=== PATIENT | female | born 1950 | race Caucasian/White ===

== ENCOUNTER 2018-09-19 17:12 | Inpatient (IN) | payer MEDICARE ==
[~2018-09-19] VITALS: Ht 165.1 cm; Wt 120.1 kg
[2018-09-19] VITALS (13 sets, daily range): BP systolic 82–125; BP diastolic 67–95
--- NOTE | ~2018-09-19 | MORECARE ---
CASE MANAGEMENT DISCHARGE SUMMARY PATIENT: GUSTABO STUART UNIT: [id number] ADM DATE: 09/19/18 AGE: 68 : 50 SEX: F ROOM/BED: D.5748 AUTHOR: LAWRENCE,DOC PHYSICIAN: REFERRING PHYSICIAN: JENNIFER DICKEY MD DATE OF SERVICE: 10/20/18 Discharge Plan Patient Name: GUSTABO STUART Facility: [facility] : 1950 Planned Disposition: Nursing Facility [facility] Cert Anticipated Discharge Date: 10/21/18 Discharge Date: Expected LOS: 32 Initial Reviewer: [id number] Initial Review Date: 09/19/2018 Generated: 10/20/18 5:57 pm Comments DCP- Discharge Planning Updated by [id number]: Dick Randle on 10/20/18 8:[address] Patient Name: GUSTABO STUART Encounter No: [id number] : 1950 Primary Insurance: MEDICARE A & B Anticipated DC Date: 10-15-2018 Planned Disposition: Nursing Facility [facility] Cert External [facility], DETENTION CARE MEDICAID BED CM LEFT MESSAGE FOR LAURENCE OF [facility] IN [place], , AND ADVISED THAT PT HAS CONTINUED TO DEMONSTRATE ABILITY TO TRANSFER TO CHAIR AND SIT FOR OVER 4 HOURS. CM FAXED UPDATE TO [facility] IN [place] VIA LAURENCE AT [phone]. [facility] IN [place] IS REVIEWING FOR PLACEMENT; THEY DO HAVE FANNIE LIFT. PATSY ADMISSIONS WORKING ON OUTPATIENT DIALYSIS ARRANGEMENT AT [facility] IN [place], THEY ALSO HAVE A LIFT. CM WAITING ON DETERMINATIONS FROM BOTH. DICK RANDLE, CASE MANAGEMENT DCP- Discharge Planning Updated by [id number]: Dick Randle on 10/15/18 11:[address] Patient Name: GUSTABO STUART Encounter No: [id number] : 1950 Primary Insurance: MEDICARE A & B Anticipated DC Date: 10-15-2018 Planned Disposition: Nursing Facility [facility] Cert External Planned Provider: [facility]; DETENTION CARE MEDICAID BED DCP follow-up note: CM CALLED LAURENCE OF [facility] IN [place], , AND ADVISED THAT PT HAS DEMONSTRATED ABILITY TO TRANSFER TO CHAIR AND SIT FOR OVER 4 HOURS. CM SPOKE TO HOMER OF [facility] ADMISSIONS AND PROVIDED UPDATE FOR [facility] DIALYSIS IN [place] CM SPOKE TO ROGE MONAE OF [facility] WHO WILL COMMUNICATE WITH [facility] ADMISSIONS WELL [facility] DIALYSIS AND PROVIDED UPDATED INFORMATION TO BOTH FROM MEDICAL CHART. CM SPOKE TO PT IN ROOM WHO IS STILL WILLING FOR PLACEMENT IN [place] AT [facility] AND WAS HOPING TO BE OUT OF THE HOSPITAL FOR THANKSGIVING. IMPORTANT MESSAGE FROM MEDICARE PROVIDED AND EXPLAINED. CM FAXED UPDATE TO [facility] IN [place] VIA LAURENCE AT [phone]. [facility] IN [place] IS REVIEWING FOR PLACEMENT; THEY DO HAVE FANNIE LIFT. [facility] ADMISSIONS WORKING ON OUTPATIENT DIALYSIS ARRANGEMENT AT [facility] IN [place], THEY ALSO HAVE A LIFT. CM WAITING ON DETERMINATIONS FROM BOTH. DICK RANDLE, CASE MANAGEMENT DCP- Discharge Planning Updated by [id number]: Dick Randle on 10/13/18 2:[address] Patient Name: GUSTABO STUART Encounter No: [id number] : 1950 Primary Insurance: MEDICARE A & B Anticipated DC Date: 09-30-2018 Planned Disposition: Nursing Facility [facility] Cert External Planned Provider: [facility]; PUBLIC RELATIONS ACCOUNT EXECUTIVE CARE MEDICAID BED DCP follow-up note: CM CALLED LAURENCE OF [facility] IN [place], , WHO ADVISED THAT [facility] MAY ACCEPT BUT PT WILL NEED TO DEMONSTRATE ABILITY TO TRANSFER TO WHEELCHAIR AND SIT FOR 3 HOURS OF DIALYSIS. [facility] HAS LIFT AVAILABLE. CM SPOKE TO RADHA OF [facility] ADMISSIONS WHO REPORTS THEY WERE WORKING ON [facility] DIALYSIS IN [place] BUT WILL SEND REFERRAL TO [facility] IN [place] THAT HAS LIFT AND MWF SCHEDULING CAPABIILITY. CM SPOKE TO PT IN ROOM WHO IS WILLING FOR PLACEMENT IN [place] TO BE CLOSER TO FAMILY IF SHE CANNOT RETURN TO [place] WHERE SHE WAS LIVING AT [facility]. CM FAXED UPDATE TO [facility] VIA [address] AT [phone]. CM SPOKE TO MARIEL OF PHYSICAL THERAPY WHO VERIFIED PT HAS BEEN UP TO SIDE OF BED BUT THEY ARE NOT ABLE TO GET PT UP TO CHAIR THEY DO NOT HAVE A LIFT. CM SPOKE TO CM PRINT FINISHER KAYLEE REGARDING LACK OF LIFT CAPABILITY THIS IS AN OBSTACLE TO PLACEMENT IN ANY FACILITY PT WILL NEED OUTPATIENT DIALYSIS AND MUST BE ABLE TO DEMONSTRATE ABILITY TO SIT FOR DURATION OF TRANSPORT AND DIALYSIS SESSION. CM WAITING PT TO DEMONSTRATE ABILITY TO TRANSFER AND SIT FOR DURATION OF TRANSPORTATION WELL FOR THREE HOURS OF DIALYSIS TREATMENT, WITH OR WITHOUT A LIFT. [facility] WILL REVIEW FOR PLACEMENT IF PT IS ABLE TO SIT FOR TRANSPORT AND DIALYSIS; THEY DO HAVE FANNIE LIFT. DAVITA ADMISSIONS WORKING ON OUTPATIENT DIALYSIS ARRANGEMENT AT [facility], THEY ALSO HAVE A LIFT. DICK RANDLE, CASE MANAGEMENT Appended by Dick Randle on 10/13/2018 15:31 CIVIL PREPAREDNESS TRAINING OFFICER: CM RECEIVED CALL FROM KRISTIAN OF [facility], , WHO ASKED FOR FAXED UPDATE. CM FAXED UPDATE TO [facility] WITH DIALYSIS RUN SHEETS THRU 10-11-18. CM FAXED UPDATE TO LAURENCE OF [facility] WITH OCCUPATIONAL THERAPY NOTE INDICATING PT HAS BEEN OUT OF BED TO CHAIR. CM TO CONTINUE TO FOLLOW AND ASSIST NEEDED. CM WAITING PT TO DEMONSTRATE ABILITY TO TRANSFER AND SIT FOR DURATION OF TRANSPORTATION WELL FOR THREE HOURS OF DIALYSIS TREATMENT, WITH OR WITHOUT A LIFT. [facility] WILL REVIEW FOR PLACEMENT IF PT IS ABLE TO SIT FOR TRANSPORT AND DIALYSIS; THEY DO HAVE FANNIE LIFT. DAVITA ADMISSIONS WORKING ON OUTPATIENT DIALYSIS ARRANGEMENT AT [facility], THEY ALSO HAVE A LIFT. DICK RANDLE, CASE MANAGEMENT DCP- Discharge Planning Updated by [id number]: Jenny Al on 10/10/18 6:[address] Late Entry 10/10/18 @ 0900 PT and OT still working with patient to get out of bed to sit in chair. Patient has to be able to sit in wheelchair and be transported to dialysis and sit in dialysis chair for 3-4hrs. CM will continue to follow and assist as needed with discharge planning / needs. DCP- Discharge Planning Updated by [id number]: Jenny Mendozar on 10/07/18 3:[address] CM spoke with Roge Monae this am. Roge stated we are at standstill until we find NH placement. Once we have NH placement then we can proceed with dialysis placement. CM spoke with patients daughter since patient isn't able to stay awake and communicate. Daughter Fran Tinajero "Nkechi" [phone]. Daughter stated that she would like NH placement as close to [place] as possible. CM explained that we would have to find placement that has fannie lift at both NH and dialysis clinic. Daughter stated that [place] was the next closest town. CM contacted [facility] in [place] [phone]. Laurence Garcia clinical Liaison [phone] fax [phone]. CM spoke with Laurence and explained situation and faxed records. Laurence stated she would be here to see patient in am. CM will continue to follow and assist as needed with discharge planning / needs. DCP- Discharge Planning Updated by [id number]: Jenny Mendozar on 10/07/18 9:[address] CM spoke with Roge Monae this am. She stated that she had been out of the office but now was back. Roge stated that she would speak to Radha and would take care of everything from this point with placement for dialysis. CM will continue to follow and assist as needed with discharge planning / needs. DCP- Discharge Planning Updated by [id number]: Jenny Servando on 10/07/18 9:[address] Late Entry 10/06/18 @ 1600 JAIMIE spoke with Radha with [facility]. Radha stated she needed clarification on patients name. Radha stated she needed dialysis flowsheets from last three treatments faxed to her. Radha stated that she was trying to get placement at [facility] dialysis clinic. CM will continue to follow and assist as needed with discharge planning / needs. DCP- Discharge Planning Updated by [id number]: Dick Randle on 10/03/18 3:[address] Patient Name: GUSTABO STUART Encounter No: [id number] : 1950 Primary Insurance: MEDICARE A & B Anticipated DC Date: 09-30-2018 Planned Disposition: Nursing Facility [facility] Cert External Planned Provider: TO BE DETERMINED DCP follow-up note: CM RECEIVED CALL FROM NAYANA OF [facility], THEY ONLY HAVE TTS AVAILABLE AND HAVE TALKED TO [facility] SALES REPRESENTATIVE GROCERIES WHO INFORMED THEM THAT THEY ARE NOT GOING TO DRIVE PT AN HOUR AWAY FOR DIALYSIS FROM THE DETENTION. CM SPOKE TO AUDI AT [facility] WHO INFORMED CM THAT THEY ARE GOING TO HAVE A SISTER FACILITY REPRESENTIVE CONTACT CM TO ASSIST IN PLACING PT IN [place] SO THAT PT CAN GO TO A FACILITY THAT HAS CAPABILITY OF FANNIE LIFT AND TO A DILAYSIS UNIT THAT HAS CAPABILITY OF FANNIE LIFT. CM SPOKE TO PT IN ROOM, DISCUSSED MOVING TO ANOTHER DETENTION, PT REPORTS SHE WILL TRY WITH THERAPY AND IS WILLING FOR NEW DETENTION IF NEEDED, CHOICE SIGNED FOR [facility]. CM DISCUSSED LTACH, PT ALSO IN AGREEMENT WITH LTACH AT [facility] IF IT WILL HELP GET HER HOME SOONER. CM CALLED AND SPOKE TO LAITH OF [facility], , DISCUSSED NEED FOR REHAB, WOUND CARE AND DIALYSIS WITH GOAL TO SIT FOR DIALYSIS IN OUTPATIENT SETTING TO RETURN TO A DETENTION FOR CONTINUED DETENTION CARE. REFERRAL FAXED TO [facility] AT [phone]. CM CALLED AND SPOKE TO [facility], , OF [facility], REPRESENTING [facility] FACILITIES. THEY CONTACT WITH [facility] AND DO NOT HAVE ONE WITH [facility]. THEY WILL SCREEN PT FOR THEIR HOMES, BUT PT WILL HAVE TO HAVE CAPACITY TO SIT IN CHAIR FOR THREE HOURS OF OUTPATIENT DIALYSIS AND TRANSPORTATION. CM FAXED REFERRAL TO [facility] AT [phone]. PT WILL NEED TO BE ABLE TO TRANSFER FROM BED TO CHAIR AND WILL ALSO NEED TO BE ABLE TO SIT SAFELY FOR TRANSPORT AND 3 HOURS OF DIALYSIS TREATMENT FOR OUTPATIENT DIALYSIS CLINIC ARRANGEMENT. CM WAITING ON DETENTION EVALUATIONS FOR ADMISSION, [facility] EVALUATION FOR ADMISSION AND WILL NEED TO SEND APPLICATION FOR [facility] FOR DIALYSIS UNIT CONSIDERATION AND TO FIND OUT IF THEY HAVE FANNIE LIFT CAPABILITY. DICK RANDLE, CASE MANAGEMENT DCP- Discharge Planning Updated by [id number]: Dick Randle on 10/02/18 3:[address] Patient Name: GUSTABO STUART Encounter No: [id number] : 1950 Primary Insurance: MEDICARE A & B Anticipated DC Date: 09-30-2018 Planned Disposition: Nursing Facility [facility] Cert External Planned Provider: [facility], LONG TERM CARE MEDICAID BED DCP follow-up note: CM CALLED ELZBIETA OF [facility] ADMISSIONS, , WAS INFORMED THEY DO NOT HAVE ANY REQUEST TO ARRANGE OUTPATIENT DIALYSIS CLINIC ARRANGEMENT. CM FAXED ADMISSIONS INTAKE FORM WITH INITIAL DOCUMENTS TO [facility] AT [phone]. CM NOTIFIED MERLYN OF [facility] IN [place], [facility], , OF NEED FOR OUTPATIENT DIALYSIS; CM WAS ADVISED THAT PT WILL NEED TO BE ABLE TO TRANSFER TO WHEELCHAIR AND CHAIR WELL BE ABLE TO TOLERATE SITTING IN CHAIR FOR THREE HOURS OF DIALYSIS. THE CENTER PREFERS MWF, MORNING SCHEDULE. CM WAITING FOR OUTPATIENT DIALYSIS CLINIC ARRANGEMENT. NOTE THAT PT WILL HAVE TO BE ABLE TO TRANSFER TO CHAIR AND SIT IN CHAIR FOR THREE HOURS FOR OUTPATIENT CLINIC PARTICIPATION. FOR DISCHARGE, FAX DISCHARGE INFORMATION TO [facility] IN [place], ; NURSE REPORT TO BE CALLED TO [phone]. PT TO TRANSPORT VIA AMBULANCE. Oracle Bpm Consultant: Dick Randle Appended by Dick Randle on 10/02/2018 16:49 CIVIL PREPAREDNESS TRAINING OFFICER: CM RECEIVED CALL FROM RADHA OF [facility] ADMISSIONS; [facility] DIALYSIS IS NOT CERTIFIED FOR LIFT AND HAS NO AVAILABLE OPENINGS AT THIS TIME. [facility] IS LIFT CERTIFIED BUT HAS NO AVAILABLE OPENINGS. RADHA WILL SEND REFERRAL TO [facility] D[facility] IN [place] BUT THEY ONLY HAVE TTS SLOTS AVAILABLE. RADHA WILL ESCULATE REFERRAL FOR [facility] DIALYSIS ARRANGMENT IN [place] THAT A CHAIR BECOMES AVAILABLE AND PT WILL NOT REQUIRE LIFT TRANSFER. PT WILL NEED TO BE ABLE TO TRANSFER FROM BED TO CHAIR AND WILL ALSO NEED TO BE ABLE TO SIT SAFELY FOR TRANSPORT AND 3 HOURS OF DIALYSIS TREATMENT FOR OUTPATIENT DIALYSIS CLINIC ARRANGEMENT. DICK RANDLE, CASE MANAGEMENT DCP- Discharge Planning Updated by [id number]: Dick Randle on 09/29/18 12:[address] Patient Name: GUSTABO STUART Encounter No: [id number] : 1950 Primary Insurance: MEDICARE A & B Anticipated DC Date: 09-30-2018 Planned Disposition: Nursing Facility [facility] Cert External Planned Provider: [facility] [place], LONG TERM CARE MEDICAID BED DCP follow-up note: CM RECEIVED ORDER FOR OUTPATIENT DIALYSIS CLINIC ARRANGEMENT; RN JAIMIE HAMMONDS HAS INFORMED ROGE MONAE OF [facility] FOR OUTPATIENT DAILYSIS CLINIC ARRANGEMENT IN [place]. CM FAXED UPDATE TO MERLYN OF [facility] IN [place], [facility], . ROGE INFORMED CM THAT PT NEEDS PERM DIALYSIS CATHETER AND AN ACCURATE WEIGHT. PT HAS ORDERS FOR CATHETER, CM NOTIFIED BEDSIDE NURSE OF NEED FOR ACCURATE WEIGHT; PT IS BED CONFINED AND ON SPECIALTY BED AT THIS TIME. CM WAITING FOR DIALYSIS CATHETER PLACEMENT WELL OUTPATIENT DIALYSIS CLINIC ARRANGEMENT. FOR DISCHARGE, FAX DISCHARGE INFORMATION TO [facility] IN [place], ; NURSE REPORT TO BE CALLED TO [phone]. PT TO TRANSPORT VIA AMBULANCE. Oracle Bpm Consultant: Dick Randle DCP- Discharge Planning Updated by [id number]: Dick Randle on 09/26/18 4:[address] Patient Name: GUSTABO STUART Admission Status: Elective Accout number: [id number] Admission Date: 09-19-2018 : 1950 Admission Diagnosis:ACUTE RESPIRATORY FAILURE WITH HYPOXIA Attending: JENNIFER DICKEY Current LOS: 7 Anticipated DC Date: Planned Disposition: Nursing Facility [facility] Cert Primary Insurance: MEDICARE A & B PLANNED EXTERNAL PROVIDER: [facility] [place], LONG TERM CARE MEDICAID BED Discharge Planning Comments: CM MET WITH PT IN ROOM TO DISCUSS DISCHARGE PLANNING AND NEEDS. PT REPORTS LIVING AT A DETENTION IN [place], SHE CANNOT REMEMBER THE NAME OF THE PLACE. PT REPORTS BEING CONFINED TO BED BUT THE FACILITY HAS A LIFT TO [employer] PUZZLE MAKER PT TO A WHEELCHAIR. PT REPORTS HAVING BIPAP, NEBULIZER AND OXYGEN AT THE FACILITY. PT REPORTS HAVING ASSISTANCE WITH EVERYTHING BUT EATING, WHICH SHE DOES HERSELF. PT ASKED THAT IF FAMILY CALLS, TELL THEM TO BRING HER CLOTHES AND CELL PHONE. CM DISCUSSED AVAILABILITY OF HOME HEALTH, REHAB SERVICES AND MEDICAL EQUIPMENT. PT DENIES DISCHARGE NEEDS, REPORTS SHE WILL DISCHARGE BACK TO FACILITY WHERE SHE LIVES. CM CALLED [facility] IN [place], [facility], ; CM SPOKE TO MERLYN WHO REPORTS PT IS IN PUBLIC RELATIONS ACCOUNT EXECUTIVE CARE AND PROVIDED EMERGENCY CONTACT INFORMATION FOR PT'S FAMILY MEMBERS; CM NOTED IN CASE MANAGEMENT ASSESSMENT CHECKLIST. MERLYN VERIFIED PT HAS OXYGEN, NEBULUZER AND BIPAP IN FACILITY, THEY WILL ACCEPT BACK FOR CONTINUED DETENTION CARE AT HOSPITAL DISCHARGE. FOR DISCHARGE, FAX DISCHARGE INFORMATION TO [facility] IN [place], ; NURSE REPORT TO BE CALLED TO [phone]. PT TO TRANSPORT VIA AMBULANCE. Oracle Bpm Consultant: Dick Randle DCP- Discharge Planning Updated by [id number]: Jenny Servando on 09/23/18 3:[address] CM attempted to visit with patient. Patient is currently on BiPap and getting dialysis at this time. She is unable to speak with me at this time. No family available at this time. CM will continue to follow and assist as needed with discharge planning / needs. DCPIA - Discharge Planning Initial Assessment Updated by [id number]: Dick Randle on 09/26/18 4:23 pm * Is the patient Alert and Oriented? Yes * How many steps to enter\\exit or inside your home? NONE * PCP [facility], PATROL DRIVER * Pharmacy [facility]) * Preadmission Environment [employer] Longterm * Facility Name [facility] T [phone] * ADLs Partial Dependent * Partial ADLs (Assistance needed) Bathing Dressing Medication Management Toileting Transfers * Equipment BIPAP Hospital Bed Fannie Lift Nebulizer Oxygen Wheelchair * Other Equipment ALL MEDICAL EQUIPMENT PROVIDED BY FACILITY * List name and contact numbers for known caregivers / representatives who currently or will assist patient after discharge: EDGARD JEREZ, MOTHER IN LAW, KAVEH CASILLAS, DTR, NICK SAUER, SPOUSE, * Verbal permission to speak to the caregivers and representatives has been obtained from the patient. Yes * Community resources currently utilized None * Please name any agencies selected above. NONE * Additional services required to return to the preadmission environment? No * Can the patient safely return to the preadmission environment? Yes * Has this patient been hospitalized within the prior 30 days at any hospital? No Coverage Notice Reviewer: [id number] Rex Randle Notice Issued Date-Time: 10/03/2018 11:30 Notice Type: Patient Choice Letter Notice Delivered To: Patient Relationship to Patient: Reconciler Name: Delivery Method: HAND - Hand Delivered Veda Days: Prior Verbal Notification: Recipient Understood Notice: Recipient Signature: Med Rec Note Co-signed by Attending: Coverage Notice Comment: FABRICIO UMANZOR: [facility] Reviewer: [id number] Rex Randle Notice Issued Date-Time: 10/15/2018 10:20 Notice Type: IM Discharge Notice Notice Delivered To: Patient Relationship to Patient: Reconciler Name: Delivery Method: HAND - Hand Delivered Veda Days: Prior Verbal Notification: Recipient Understood Notice: Yes Recipient Signature: Yes Med Rec Note Co-signed by Attending: Coverage Notice Comment: Last DP export: 10/20/18 8:30 Patient Name: GUSTABO STUART Page [id number] at 1657 All edits/amendments must be made on the electronic document DICTATION DATE: 10/20/181656 OFFICE MANAGER EXECUTIVE ASSISTANT: HELDER 10/20/181656 RPT#: [id number] DC DATE: STATUS: [facility] [address] [place] [address] END OF REPORT
--- NOTE | ~2018-09-19 | MORECARE ---
CASE MANAGEMENT DISCHARGE SUMMARY PATIENT: GUSTABO STUART UNIT: [id number] ADM DATE: 09/19/18 AGE: 68 : 50 SEX: F ROOM/BED: D.7208 AUTHOR: LAWRENCE,DOC PHYSICIAN: REFERRING PHYSICIAN: JENNIFER DICKEY MD DATE OF SERVICE: 10/20/18 Discharge Plan Patient Name: GUSTABO STUART Facility: [facility] : 1950 Planned Disposition: Nursing Facility [facility] Cert Anticipated Discharge Date: 10/15/18 Discharge Date: Expected LOS: 26 Initial Reviewer: [id number] Initial Review Date: 09/19/2018 Generated: 10/20/18 10:30 am Comments DCP- Discharge Planning Updated by [id number]: Dick Randle on 10/20/18 8:[address] Patient Name: GUSTABO STUART Encounter No: [id number] : 1950 Primary Insurance: MEDICARE A & B Anticipated DC Date: 10-15-2018 Planned Disposition: Nursing Facility [facility] Cert External [facility]ICA[facility] BED CM LEFT MESSAGE FOR LAURENCE OF [facility] IN [place], , AND ADVISED THAT PT HAS CONTINUED TO DEMONSTRATE ABILITY TO TRANSFER TO CHAIR AND SIT FOR OVER 4 HOURS. CM FAXED UPDATE TO [facility] IN [place] VIA LAURENCE AT [phone]. [facility] IN [facility] IS REVIEWING FOR PLACEMENT; THEY DO HAVE FANNIE LIFT. PATSY ADMISSIONS WORKING ON OUTPATIENT DIALYSIS ARRANGEMENT AT [facility] IN [place], THEY ALSO HAVE A LIFT. CM WAITING ON DETERMINATIONS FROM BOTH. DICK RANDLE, CASE MANAGEMENT DCP- Discharge Planning Updated by [id number]: Dick Randle on 10/15/18 11:[address] Patient Name: GUSTABO STUART Encounter No: [id number] : 1950 Primary Insurance: MEDICARE A & B Anticipated DC Date: 10-15-2018 Planned Disposition: Nursing Facility [facility] Cert External Planned Provider: [facility]; [employer] MEDICAID BED DCP follow-up note: CM CALLED LAURENCE OF [facility] IN [place], , AND ADVISED THAT PT HAS DEMONSTRATED ABILITY TO TRANSFER TO CHAIR AND SIT FOR OVER 4 HOURS. CM SPOKE TO HOMER OF [facility] ADMISSIONS AND PROVIDED UPDATE FOR [facility] IN [place] CM SPOKE TO ROGE MONAE OF [facility] WHO WILL COMMUNICATE WITH [facility] ADMISSIONS WELL [facility] AND PROVIDED UPDATED INFORMATION TO BOTH FROM MEDICAL CHART. CM SPOKE TO PT IN ROOM WHO IS STILL WILLING FOR PLACEMENT IN [place] AT [facility] AND WAS HOPING TO BE OUT OF THE HOSPITAL FOR THANKSGIVING. IMPORTANT MESSAGE FROM MEDICARE PROVIDED AND EXPLAINED. CM FAXED UPDATE TO [facility] IN [place] VIA LAURENCE AT [phone]. [facility] IN [facility] IS REVIEWING FOR PLACEMENT; THEY DO HAVE FANNIE LIFT. [facility] ADMISSIONS WORKING ON OUTPATIENT DIALYSIS ARRANGEMENT AT [facility] IN [place], THEY ALSO HAVE A LIFT. CM WAITING ON DETERMINATIONS FROM BOTH. DICK RANDLE, CASE MANAGEMENT DCP- Discharge Planning Updated by [id number]: Dick Randle on 10/13/18 2:[address] Patient Name: GUSTABO STUART Encounter No: [id number] : 1950 Primary Insurance: MEDICARE A & B Anticipated DC Date: 09-30-2018 Planned Disposition: Nursing Facility [facility] Cert External Planned Provider: [facility]; [facility] MEDICAID BED DCP follow-up note: CM CALLED LAURENCE OF [facility] IN [place], , WHO ADVISED THAT [facility] MAY ACCEPT BUT PT WILL NEED TO DEMONSTRATE ABILITY TO TRANSFER TO WHEELCHAIR AND SIT FOR 3 HOURS OF DIALYSIS. [facility] HAS LIFT AVAILABLE. CM SPOKE TO RADHA OF [facility] ADMISSIONS WHO REPORTS THEY WERE WORKING ON [facility] IN [place] BUT WILL SEND REFERRAL TO [facility] IN [place] THAT HAS LIFT AND MWF SCHEDULING CAPABIILITY. CM SPOKE TO PT IN ROOM WHO IS WILLING FOR PLACEMENT IN [place] TO BE CLOSER TO FAMILY IF SHE CANNOT RETURN TO [place] WHERE SHE WAS LIVING AT [facility]. CM FAXED UPDATE TO [facility] VIA [facility] AT [phone]. CM SPOKE TO MARIEL OF PHYSICAL THERAPY WHO VERIFIED PT HAS BEEN UP TO SIDE OF BED BUT THEY ARE NOT ABLE TO GET PT UP TO CHAIR THEY DO NOT HAVE A LIFT. CM SPOKE TO CM EYELET CUTTER KAYLEE REGARDING LACK OF LIFT CAPABILITY THIS IS AN OBSTACLE TO PLACEMENT IN ANY FACILITY PT WILL NEED OUTPATIENT DIALYSIS AND MUST BE ABLE TO DEMONSTRATE ABILITY TO SIT FOR DURATION OF TRANSPORT AND DIALYSIS SESSION. CM WAITING PT TO DEMONSTRATE ABILITY TO TRANSFER AND SIT FOR DURATION OF TRANSPORTATION WELL FOR THREE HOURS OF DIALYSIS TREATMENT, WITH OR WITHOUT A LIFT. [facility] WILL REVIEW FOR PLACEMENT IF PT IS ABLE TO SIT FOR TRANSPORT AND DIALYSIS; THEY DO HAVE FANNIE LIFT. DAVITA ADMISSIONS WORKING ON OUTPATIENT DIALYSIS ARRANGEMENT AT [facility], THEY ALSO HAVE A LIFT. DICK RANDLE, CASE MANAGEMENT Appended by Dick Randle on 10/13/2018 15:31 LAND DEVELOPMENT PROJECT MANAGER: CM RECEIVED CALL FROM KRISTIAN OF [facility], , WHO ASKED FOR FAXED UPDATE. CM FAXED UPDATE TO [facility] WITH DIALYSIS RUN SHEETS THRU 10-11-18. CM FAXED UPDATE TO LAURENCE OF [facility] WITH OCCUPATIONAL THERAPY NOTE INDICATING PT HAS BEEN OUT OF BED TO CHAIR. CM TO CONTINUE TO FOLLOW AND ASSIST NEEDED. CM WAITING PT TO DEMONSTRATE ABILITY TO TRANSFER AND SIT FOR DURATION OF TRANSPORTATION WELL FOR THREE HOURS OF DIALYSIS TREATMENT, WITH OR WITHOUT A LIFT. [facility] WILL REVIEW FOR PLACEMENT IF PT IS ABLE TO SIT FOR TRANSPORT AND DIALYSIS; THEY DO HAVE FANNIE LIFT. DAVITA ADMISSIONS WORKING ON OUTPATIENT DIALYSIS ARRANGEMENT AT [facility], THEY ALSO HAVE A LIFT. DICK RANDLE, CASE MANAGEMENT DCP- Discharge Planning Updated by [id number]: Jenny Al on 10/10/18 6:[address] Late Entry 10/10/18 @ 0900 PT and OT still working with patient to get out of bed to sit in chair. Patient has to be able to sit in wheelchair and be transported to dialysis and sit in dialysis chair for 3-4hrs. CM will continue to follow and assist as needed with discharge planning / needs. DCP- Discharge Planning Updated by [id number]: Jenny Mendozar on 10/07/18 3:[address] CM spoke with Roge Monae this am. Roge stated we are at standstill until we find NH placement. Once we have NH placement then we can proceed with dialysis placement. CM spoke with patients daughter since patient isn't able to stay awake and communicate. Daughter Fran Tinajero "Nkechi" [phone]. Daughter stated that she would like NH placement as close to [place] as possible. CM explained that we would have to find placement that has fannie lift at both NH and dialysis clinic. Daughter stated that [place] was the next closest town. CM contacted [facility] in [place] [phone]. Laurence Garcia clinical Liaison [phone] fax [phone]. CM spoke with Laurence and explained situation and faxed records. Laurence stated she would be here to see patient in am. CM will continue to follow and assist as needed with discharge planning / needs. DCP- Discharge Planning Updated by [id number]: Jenny Mendozar on 10/07/18 9:[address] CM spoke with Roge Monae this am. She stated that she had been out of the office but now was back. Roge stated that she would speak to Radha and would take care of everything from this point with placement for dialysis. CM will continue to follow and assist as needed with discharge planning / needs. DCP- Discharge Planning Updated by [id number]: Jenny Servando on 10/07/18 9:[address] Late Entry 10/06/18 @ 1600 JAIMIE spoke with Radha with [facility]. Radha stated she needed clarification on patients name. Radha stated she needed dialysis flowsheets from last three treatments faxed to her. Radha stated that she was trying to get placement at [facility] dialysis clinic. CM will continue to follow and assist as needed with discharge planning / needs. DCP- Discharge Planning Updated by [id number]: Dick Randle on 10/03/18 3:[address] Patient Name: GUSTABO STUART Encounter No: [id number] : 1950 Primary Insurance: MEDICARE A & B Anticipated DC Date: 09-30-2018 Planned Disposition: Nursing Facility [facility] Cert External Planned Provider: TO BE DETERMINED DCP follow-up note: CM RECEIVED CALL FROM NAYANA OF [facility], THEY ONLY HAVE TTS AVAILABLE AND HAVE TALKED TO [facility] GROUND DEFENCE OFFICER WHO INFORMED THEM THAT THEY ARE NOT GOING TO DRIVE PT AN HOUR AWAY FOR DIALYSIS FROM THE LONG TERM. CM SPOKE TO AUDI AT [facility] WHO INFORMED CM THAT THEY ARE GOING TO HAVE A SISTER FACILITY REPRESENTIVE CONTACT CM TO ASSIST IN PLACING PT IN [place] SO THAT PT CAN GO TO A FACILITY THAT HAS CAPABILITY OF FANNIE LIFT AND TO A DILAYSIS UNIT THAT HAS CAPABILITY OF FANNIE LIFT. CM SPOKE TO PT IN ROOM, DISCUSSED MOVING TO ANOTHER LONG TERM, PT REPORTS SHE WILL TRY WITH THERAPY AND IS WILLING FOR NEW LONG TERM IF NEEDED, CHOICE SIGNED FOR [facility] AND [facility]. CM DISCUSSED LTACH, PT ALSO IN AGREEMENT WITH LTACH AT [facility] IF IT WILL HELP GET HER HOME SOONER. CM CALLED AND SPOKE TO LAITH OF [facility], , DISCUSSED NEED FOR REHAB, WOUND CARE AND DIALYSIS WITH GOAL TO SIT FOR DIALYSIS IN OUTPATIENT SETTING TO RETURN TO A LONG TERM FOR CONTINUED [employer] CARE. REFERRAL FAXED TO [facility] AT [phone]. CM CALLED AND SPOKE TO BECKY DEL CASTILLO, , OF [facility], REPRESENTING [facility] AND [facility] PENITENTIARY FACILITIES. THEY CONTACT WITH [facility] AND DO NOT HAVE ONE WITH [facility]. THEY WILL SCREEN PT FOR THEIR HOMES, BUT PT WILL HAVE TO HAVE CAPACITY TO SIT IN CHAIR FOR THREE HOURS OF OUTPATIENT DIALYSIS AND TRANSPORTATION. CM FAXED REFERRAL TO BEC[facility] AT [phone]. PT WILL NEED TO BE ABLE TO TRANSFER FROM BED TO CHAIR AND WILL ALSO NEED TO BE ABLE TO SIT SAFELY FOR TRANSPORT AND 3 HOURS OF DIALYSIS TREATMENT FOR OUTPATIENT DIALYSIS CLINIC ARRANGEMENT. CM WAITING ON LONG TERM EVALUATIONS FOR ADMISSION, [facility] EVALUATION FOR ADMISSION AND WILL NEED TO SEND APPLICATION FOR [facility] FOR DIALYSIS UNIT CONSIDERATION AND TO FIND OUT IF THEY HAVE FANNIE LIFT CAPABILITY. DICK RANDLE, CASE MANAGEMENT DCP- Discharge Planning Updated by [id number]: Dick Randle on 10/02/18 3:[address] Patient Name: GUSTABO STUART Encounter No: [id number] : 1950 Primary Insurance: MEDICARE A & B Anticipated DC Date: 09-30-2018 Planned Disposition: Nursing Facility [facility] Cert External Planned Provider: [facility], LONG TERM CARE MEDICAID BED DCP follow-up note: CM CALLED ELZBIETA OF [facility] ADMISSIONS, , WAS INFORMED THEY DO NOT HAVE ANY REQUEST TO ARRANGE OUTPATIENT DIALYSIS CLINIC ARRANGEMENT. CM FAXED ADMISSIONS INTAKE FORM WITH INITIAL DOCUMENTS TO [facility] AT [phone]. CM NOTIFIED MERLYN OF [facility] IN [place], [facility], , OF NEED FOR OUTPATIENT DIALYSIS; CM WAS ADVISED THAT PT WILL NEED TO BE ABLE TO TRANSFER TO WHEELCHAIR AND CHAIR WELL BE ABLE TO TOLERATE SITTING IN CHAIR FOR THREE HOURS OF DIALYSIS. THE CENTER PREFERS MWF, MORNING SCHEDULE. CM WAITING FOR OUTPATIENT DIALYSIS CLINIC ARRANGEMENT. NOTE THAT PT WILL HAVE TO BE ABLE TO TRANSFER TO CHAIR AND SIT IN CHAIR FOR THREE HOURS FOR OUTPATIENT CLINIC PARTICIPATION. FOR DISCHARGE, FAX DISCHARGE INFORMATION TO [facility] IN [place], ; NURSE REPORT TO BE CALLED TO [phone]. PT TO TRANSPORT VIA AMBULANCE. Cotton Presser: Dick Randle Appended by Dick Randle on 10/02/2018 16:49 LAND DEVELOPMENT PROJECT MANAGER: CM RECEIVED CALL FROM RADHA OF [facility] ADMISSIONS; [facility] IS NOT CERTIFIED FOR LIFT AND HAS NO AVAILABLE OPENINGS AT THIS TIME. [facility] IS LIFT CERTIFIED BUT HAS NO AVAILABLE OPENINGS. RAHDA WILL SEND REFERRAL TO [facility] IN [place] BUT THEY ONLY HAVE TTS SLOTS AVAILABLE. RADHA WILL ESCULATE REFERRAL FOR [facility] D[facility] ARRANGMENT IN [place] THAT A CHAIR BECOMES AVAILABLE AND PT WILL NOT REQUIRE LIFT TRANSFER. PT WILL NEED TO BE ABLE TO TRANSFER FROM BED TO CHAIR AND WILL ALSO NEED TO BE ABLE TO SIT SAFELY FOR TRANSPORT AND 3 HOURS OF DIALYSIS TREATMENT FOR OUTPATIENT DIALYSIS CLINIC ARRANGEMENT. DICK RANDLE, CASE MANAGEMENT DCP- Discharge Planning Updated by [id number]: Dick Randle on 09/29/18 12:[address] Patient Name: GUSTABO STUART Encounter No: [id number] : 1950 Primary Insurance: MEDICARE A & B Anticipated DC Date: 09-30-2018 Planned Disposition: Nursing Facility [facility] Cert External Planned Provider: [facility] [place], LONG TERM CARE MEDICAID BED DCP follow-up note: CM RECEIVED ORDER FOR OUTPATIENT DIALYSIS CLINIC ARRANGEMENT; RN JAIMIE HAMMONDS HAS INFORMED ROGE MONAE OF [facility] FOR OUTPATIENT DAILYSIS CLINIC ARRANGEMENT IN [place]. CM FAXED UPDATE TO MERLYN OF [facility] IN [place], [facility], . ROGE INFORMED CM THAT PT NEEDS PERM DIALYSIS CATHETER AND AN ACCURATE WEIGHT. PT HAS ORDERS FOR CATHETER, CM NOTIFIED BEDSIDE NURSE OF NEED FOR ACCURATE WEIGHT; PT IS BED CONFINED AND ON SPECIALTY BED AT THIS TIME. CM WAITING FOR DIALYSIS CATHETER PLACEMENT WELL OUTPATIENT DIALYSIS CLINIC ARRANGEMENT. FOR DISCHARGE, FAX DISCHARGE INFORMATION TO [facility] IN [place], ; NURSE REPORT TO BE CALLED TO [phone]. PT TO TRANSPORT VIA AMBULANCE. Cotton Presser: Dick Randle DCP- Discharge Planning Updated by [id number]: Dick Randle on 09/26/18 4:[address] Patient Name: GUSTABO STUART Admission Status: Elective Accout number: [id number] Admission Date: 09-19-2018 : 1950 Admission Diagnosis:ACUTE RESPIRATORY FAILURE WITH HYPOXIA Attending: JENNIFER DICKEY Current LOS: 7 Anticipated DC Date: Planned Disposition: Nursing Facility [facility] Cert Primary Insurance: MEDICARE A & B PLANNED EXTERNAL PROVIDER: [facility] [place], LONG TERM CARE MEDICAID BED Discharge Planning Comments: CM MET WITH PT IN ROOM TO DISCUSS DISCHARGE PLANNING AND NEEDS. PT REPORTS LIVING AT A LONG TERM IN [place], SHE CANNOT REMEMBER THE NAME OF THE PLACE. PT REPORTS BEING CONFINED TO BED BUT THE FACILITY HAS A LIFT TO FORMULATOR PT TO A WHEELCHAIR. PT REPORTS HAVING BIPAP, NEBULIZER AND OXYGEN AT THE FACILITY. PT REPORTS HAVING ASSISTANCE WITH EVERYTHING BUT EATING, WHICH SHE DOES HERSELF. PT ASKED THAT IF FAMILY CALLS, TELL THEM TO BRING HER CLOTHES AND CELL PHONE. CM DISCUSSED AVAILABILITY OF HOME HEALTH, REHAB SERVICES AND MEDICAL EQUIPMENT. PT DENIES DISCHARGE NEEDS, REPORTS SHE WILL DISCHARGE BACK TO FACILITY WHERE SHE LIVES. CM CALLED [facility] IN [place], [facility], ; CM SPOKE TO MERLYN WHO REPORTS PT IS IN [facility] AND PROVIDED EMERGENCY CONTACT INFORMATION FOR PT'S FAMILY MEMBERS; CM NOTED IN CASE MANAGEMENT ASSESSMENT CHECKLIST. MERLYN VERIFIED PT HAS OXYGEN, NEBULUZER AND BIPAP IN FACILITY, THEY WILL ACCEPT BACK FOR CONTINUED [facility] CARE AT HOSPITAL DISCHARGE. FOR DISCHARGE, FAX DISCHARGE INFORMATION TO [facility] IN [place], ; NURSE REPORT TO BE CALLED TO [phone]. PT TO TRANSPORT VIA AMBULANCE. Cotton Presser: Dick Randle DCP- Discharge Planning Updated by [id number]: Jenny Servando on 09/23/18 3:[address] CM attempted to visit with patient. Patient is currently on BiPap and getting dialysis at this time. She is unable to speak with me at this time. No family available at this time. CM will continue to follow and assist as needed with discharge planning / needs. DCPIA - Discharge Planning Initial Assessment Updated by [id number]: Dick Randle on 09/26/18 4:23 pm * Is the patient Alert and Oriented? Yes * How many steps to enter\\exit or inside your home? NONE * PCP [facility] * Pharmacy [facility] FAC[facility]) * Preadmission Environment Long-Term Senior Living * Facility Name [facility] T [phone] * ADLs Partial Dependent * Partial ADLs (Assistance needed) Bathing Dressing Medication Management Toileting Transfers * Equipment BIPAP Hospital Bed Fannie Lift Nebulizer Oxygen Wheelchair * Other Equipment ALL MEDICAL EQUIPMENT PROVIDED BY FACILITY * List name and contact numbers for known caregivers / representatives who currently or will assist patient after discharge: EDGARD JEREZ, MOTHER IN LAW, KAVEH CASILLAS, DTR, NICK SAUER, SPOUSE, * Verbal permission to speak to the caregivers and representatives has been obtained from the patient. Yes * Community resources currently utilized None * Please name any agencies selected above. NONE * Additional services required to return to the preadmission environment? No * Can the patient safely return to the preadmission environment? Yes * Has this patient been hospitalized within the prior 30 days at any hospital? No Coverage Notice Reviewer: [id number] Rex Randle Notice Issued Date-Time: 10/03/2018 11:30 Notice Type: Patient Choice Letter Notice Delivered To: Patient Relationship to Patient: Programmer Name: Delivery Method: HAND - Hand Delivered Veda Days: Prior Verbal Notification: Recipient Understood Notice: Recipient Signature: Med Rec Note Co-signed by Attending: Coverage Notice Comment: FABRICIO UMANZOR: [facility] Reviewer: [id number] Rex Randle Notice Issued Date-Time: 10/15/2018 10:20 Notice Type: IM Discharge Notice Notice Delivered To: Patient Relationship to Patient: Programmer Name: Delivery Method: HAND - Hand Delivered Veda Days: Prior Verbal Notification: Recipient Understood Notice: Yes Recipient Signature: Yes Med Rec Note Co-signed by Attending: Coverage Notice Comment: Last DP export: 10/15/18 12:02 Patient Name: GUSTABO STUART Page [id number] at 0930 All edits/amendments must be made on the electronic document DICTATION DATE: 10/20/18928 MEMBERSHIP COORDINATOR: HELDER 10/20/18928 RPT#: [id number] DC DATE: STATUS: ADM IN [facility] [address] [place] [address] END OF REPORT
--- NOTE | ~2018-09-19 | MORECARE ---
CASE MANAGEMENT DISCHARGE SUMMARY PATIENT: GUSTABO STUART UNIT: [id number] ADM DATE: 09/19/18 AGE: 68 : 50 SEX: F ROOM/BED: D.9109 AUTHOR: LAWRENCE,DOC PHYSICIAN: REFERRING PHYSICIAN: JENNIFER DICKEY MD DATE OF SERVICE: 10/02/18 Discharge Plan Patient Name: GUSTABO STUART Facility: [facility] : 1950 Planned Disposition: Nursing Facility [facility] Cert Anticipated Discharge Date: 09/30/18 Discharge Date: Expected LOS: 11 Initial Reviewer: [email or web address] Initial Review Date: 09/19/2018 Generated: 10/02/18 1:16 pm Comments DCP- Discharge Planning Updated by [email or web address]: Gerardo Oliveros on 09/29/18 12:[address] Patient Name: GUSTABO STUART Encounter No: [id number] : 1950 Primary Insurance: MEDICARE A & B Anticipated DC Date: 09-30-2018 Planned Disposition: Nursing Facility [facility] Cert External Planned Provider: [facility], LONG TERM CARE MEDICAID BED DCP follow-up note: JAIMIE RECEIVED ORDER FOR OUTPATIENT DIALYSIS CLINIC ARRANGEMENT; RN JAIMIE HAMMONDS HAS INFORMED ROGE MONAE OF PATIENT [facility] FOR OUTPATIENT DAILYSIS CLINIC ARRANGEMENT IN [place]. CM FAXED UPDATE TO MERLYN OF [facility] IN [place], . ROGE INFORMED CM THAT PT NEEDS PERM DIALYSIS CATHETER AND AN ACCURATE WEIGHT. PT HAS ORDERS FOR CATHETER, CM NOTIFIED BEDSIDE NURSE OF NEED FOR ACCURATE WEIGHT; PT IS BED CONFINED AND ON SPECIALTY BED AT THIS TIME. CM WAITING FOR DIALYSIS CATHETER PLACEMENT WELL OUTPATIENT DIALYSIS CLINIC ARRANGEMENT. FOR DISCHARGE, FAX DISCHARGE INFORMATION TO [facility] IN [place], ; NURSE REPORT TO BE CALLED TO [phone]. PT TO TRANSPORT VIA AMBULANCE. Club Manager: Gerardo Oliveros DCP- Discharge Planning Updated by [id number]: Gerardo Oliveros on 09/26/18 4:[address] Patient Name: GUSTABO STUART Admission Status: Elective Accout number: [id number] Admission Date: 09-19-2018 : 1950 Admission Diagnosis:ACUTE RESPIRATORY FAILURE WITH HYPOXIA Attending: JENNIFER DICKEY Current LOS: 7 Anticipated DC Date: Planned Disposition: Nursing Facility [facility] Primary Insurance: MEDICARE A & B PLANNED EXTERNAL PROVIDER: [facility], [place], LONG TERM CARE MEDICAID BED Discharge Planning Comments: CM MET WITH PT IN ROOM TO DISCUSS DISCHARGE PLANNING AND NEEDS. PT REPORTS LIVING AT A LONG-TERM IN [place], SHE CANNOT REMEMBER THE NAME OF THE PLACE. PT REPORTS BEING CONFINED TO BED BUT THE FACILITY HAS A LIFT TO CAMPUS SECURITY OFFICER PT TO A WHEELCHAIR. PT REPORTS HAVING BIPAP, NEBULIZER AND OXYGEN AT THE FACILITY. PT REPORTS HAVING ASSISTANCE WITH EVERYTHING BUT EATING, WHICH SHE DOES HERSELF. PT ASKED THAT IF FAMILY CALLS, TELL THEM TO BRING HER CLOTHES AND CELL PHONE. CM DISCUSSED AVAILABILITY OF HOME HEALTH, REHAB SERVICES AND MEDICAL EQUIPMENT. PT DENIES DISCHARGE NEEDS, REPORTS SHE WILL DISCHARGE BACK TO FACILITY WHERE SHE LIVES. CM CALLED [facility] IN [place], ; CM SPOKE TO MERLYN WHO REPORTS PT IS IN ENERGY ASSISTANT CARE AND PROVIDED EMERGENCY CONTACT INFORMATION FOR PT'S FAMILY MEMBERS; CM NOTED IN CASE MANAGEMENT ASSESSMENT CHECKLIST. MERLYN VERIFIED PT HAS OXYGEN, NEBULUZER AND BIPAP IN FACILITY, THEY WILL ACCEPT BACK FOR CONTINUED ENERGY ASSISTANT CARE AT HOSPITAL DISCHARGE. FOR DISCHARGE, FAX DISCHARGE INFORMATION TO [facility] IN [place], ; NURSE REPORT TO BE CALLED TO [phone]. PT TO TRANSPORT VIA AMBULANCE. Club Manager: Gerardo Oliveros DCP- Discharge Planning Updated by [id number]: Jenny Al on 09/23/18 3:[address] CM attempted to visit with patient. Patient is currently on BiPap and getting dialysis at this time. She is unable to speak with me at this time. No family available at this time. CM will continue to follow and assist as needed with discharge planning / needs. DCPIA - Discharge Planning Initial Assessment Updated by [email or web address]: Gerardo Oliveros on 09/26/18 4:23 pm * Is the patient Alert and Oriented? Yes * How many steps to enter\exit or inside your home? NONE * [facility] * Pharmacy [facility] * Preadmission Environment [employer] Custodial * [facility] [phone] * ADLs Partial Dependent * Partial ADLs (Assistance needed) Bathing Dressing Medication Management Toileting Transfers * Equipment BIPAP Hospital Bed Fannie Lift Nebulizer Oxygen Wheelchair * Other Equipment ALL MEDICAL EQUIPMENT PROVIDED BY FACILITY * List name and contact numbers for known caregivers / representatives who currently or will assist patient after discharge: EDGARD JEREZ, MOTHER IN LAW, KAVEH CASILLAS, DTR, NICK SAUER, SPOUSE, * Verbal permission to speak to the caregivers and representatives has been obtained from the patient. Yes * Community resources currently utilized None * Please name any agencies selected above. NONE * Additional services required to return to the preadmission environment? No * Can the patient safely return to the preadmission environment? Yes * Has this patient been hospitalized within the prior 30 days at any hospital? No External Providers External Provider: OTHER-OTHER Next Contact Date: 10/03/2018 Service Request Date: Service Type: Resolution: Reviewer: Comments: Last DP export: 09/29/18 12:06 p Patient Name: GUSTABO STUART Page [id number] at 1216 All edits/amendments must be made on the electronic document DICTATION DATE: 10/02/18 1215 CHIEF CONTROLLER TOWER: HELDER 10/02/18 1215 RPT#: [id number] DC DATE: STATUS: ADM IN [facility] [address] [place] [address] END OF REPORT
--- NOTE | ~2018-09-19 | OP ---
PATIENT NAME: GUSTABO STUART MEDICAL RECORD: [id number] :[birth year] LOCATION[facility] D.2311 ADMISSION DATE:09/19/18 SURGEON: BARBARA MILES MD DATE OF OPERATION: 09/20/2018 PREOPERATIVE DIAGNOSES: 1. Acute renal failure. 2. Morbid obesity. 3. Respiratory failure, on BiPAP. 4. Diabetes mellitus. POSTOPERATIVE DIAGNOSES: 1. Acute renal failure. 2. Morbid obesity. 3. Respiratory failure, on BiPAP. 4. Diabetes mellitus. PROCEDURE: Right subclavian vein Trialysis catheter placement over a wire. SURGEON: Barbara Miles MD REPORT OF PROCEDURE: The patient's right chest and indwelling central venous line were prepped and draped in sterile fashion. A 5 cc of 1% lidocaine was infused into the surrounding tissue. A wire was advanced through the distal port. The indwelling catheter was removed and a new triple-lumen 20-cm Trialysis catheter was inserted. This was flushed with normal saline and then sutured into place with 4-0 nylons. COMPLICATIONS: None. CONDITION: Stable. ANESTHESIA: Local. BLOOD LOSS: Minimal. Procedure done at the bedside. TRANSINT:[id number] Voice Confirmation ID: [id number] DOCUMENT ID: [id number] BARBARA MILES MD at 0916 CC: [id number] DICTATION DATE: 09/20/18 1427 [facility] REGISTERED NURSE: 09/20/18 1452 ADM IN [facility] [address] [place] [address]
--- NOTE | ~2018-09-19 | OP ---
PATIENT NAME: GUSTABO STUART MEDICAL RECORD: [id number] :[birth year] LOCATION:[facility] D.CV02 ADMISSION DATE:09/19/18 SURGEON: RANDALL MILES MD DATE OF OPERATION: 10/03/2018 PREOPERATIVE DIAGNOSES: 1. Oqgtf-bs-rfbajyl renal failure. 2. Morbid obesity. 3. Diabetes mellitus. 4. Acute respiratory failure with hypoxia. 5. Anasarca. 6. Hyperlipidemia. POSTOPERATIVE DIAGNOSES: 1. Ltxgf-qn-opwvgkd renal failure. 2. Morbid obesity. 3. Diabetes mellitus. 4. Acute respiratory failure with hypoxia. 5. Anasarca. 6. Hyperlipidemia. PROCEDURE: Right upper extremity brachiocephalic AV fistula placement. SURGEON: Randall Milse MD REPORT OF PROCEDURE: The patient's right upper extremity was prepped and draped in sterile fashion. Using ultrasound guidance, we visualized the patient's right cephalic vein progressing from the elbow up towards the shoulder. This appeared to be adequate in size and there was no sign of any noncompressible segments. The skin incision was then made just distal to the antecubital fossa and electrocautery was used to dissect through the subcutaneous tissues. We opened up the flexor retinaculum and dissected down around the patient's brachial artery and the antecubital/cephalic vein. Once these vessels were visualized, then we placed vessel loops around the artery proximally and distally. The vein had 2 branches coming off it. The more superior branch was ligated with 2-0 silks and the inferior aspect was ligated with 2-0 silk and transected in an oblique fashion. A total of 5000 of heparin was given IV and then we flushed the vein proximally with heparin flush. We then opened up the vein longitudinally and flushed the vessel proximally and distally after cleaning it out of some of the atherosclerotic changes which were present. The vessel had good pulsatile flow and was adequate caliber and size for an anastomosis. An end-to-side anastomosis was then performed using running 7-0 Prolenes. At the conclusion of this, there was one segment of bleeding, which was oversewn with a cjbfyl-qg-fopqh 7-0 Prolene. Following this, there was no sign of any active bleeding. The patient had a palpable thrill through the vessel little proximal to the elbow. I inspected the area with a Doppler and with ultrasound. It appeared there was good flow in the vessel. At this point, we irrigated out the wound and reapproximated the subcutaneous tissues with interrupted 3-0 Vicryls. The skin was then closed with running subcutaneous 5-0 Monocryl and dressed appropriately. COMPLICATIONS: None. CONDITION: Stable. OPERATIVE REPORT [id number] GUSTABO STUART ANESTHESIA: General endotracheal. BLOOD LOSS: 50 mL. TRANSINT:[id number] Voice Confirmation ID: [id number] DOCUMENT ID: [id number] RANDALL MILES MD at 1219 CC: [id number] DICTATION DATE: 10/03/18 1502 EXTRACTIONS TECHNOLOGIST: 10/03/18 2149 ADM IN [place] [id number] [place] [address]
--- NOTE | ~2018-09-19 | MORECARE ---
CASE MANAGEMENT DISCHARGE SUMMARY PATIENT: GUSTABO STUART UNIT: [id number] ADM DATE: 09/19/18 AGE: 68 : 50 SEX: F ROOM/BED: D.2311 AUTHOR: NIRAV BRAVO PHYSICIAN: REFERRING PHYSICIAN: JENNIFER DICKEY MD DATE OF SERVICE: 09/23/18 Discharge Plan Patient Name: GUSTABO STUART Facility: [facility]:[place] : 1950 Planned Disposition: Anticipated Discharge Date: Discharge Date: Expected LOS: Initial Reviewer: [email or web address] Initial Review Date: 09/19/2018 Generated: 09/23/18 4:11 pm Comments DCP- Discharge Planning Updated by [email or web address]: Jenny Al on 09/23/18 2:[address] CM attempted to visit with patient. Patient is currently on BiPap and getting dialysis at this time. She is unable to speak with me at this time. No family available at this time. CM will continue to follow and assist as needed with discharge planning / needs. Last DP export: 09/23/18 2:01 Patient Name: GUSTABO STUART Page [id number] at 1511 All edits/amendments must be made on the electronic document DICTATION DATE: 09/23/18 151 ADOBE DEVELOPER: HELDER 09/23/18 1510 RPT#: [id number] DC DATE: STATUS: ADM IN [facility] [address] [place] [address] END OF REPORT
--- NOTE | ~2018-09-19 | MORECARE ---
CASE MANAGEMENT DISCHARGE SUMMARY PATIENT: GUSTABO STUART UNIT: [id number] ADM DATE: 09/19/18 AGE: 68 : 50 SEX: F ROOM/BED: D.0869 AUTHOR: LAWRENCE,DOC PHYSICIAN: REFERRING PHYSICIAN: JENNIFER DICKEY MD DATE OF SERVICE: 10/13/18 Discharge Plan Patient Name: GUSTABO STUART Facility: [facility]:[place] : 1950 Planned Disposition: Nursing Facility [facility] Cert Anticipated Discharge Date: 09/30/18 Discharge Date: Expected LOS: 11 Initial Reviewer: [id number] Initial Review Date: 09/19/2018 Generated: 10/13/18 4:26 pm Comments DCP- Discharge Planning Updated by [id number]: Dick Randle on 10/13/18 10:[address] Patient Name: GUSTABO STUART Encounter No: [id number] : 1950 Primary Insurance: MEDICARE A & B Anticipated DC Date: 09-30-2018 Planned Disposition: Nursing Facility [facility] Cert External Planned Provider: [facility]; PENITENTIARY CARE MEDICAID BED DCP follow-up note: JAIMIE CALLED [facility] [place], , WHO ADVISED THAT [facility] MAY ACCEPT BUT PT WILL NEED TO DEMONSTRATE ABILITY TO TRANSFER TO WHEELCHAIR AND SIT FOR 3 HOURS OF DIALYSIS. [facility] HAS LIFT AVAILABLE. JAIMIE SPOKE TO RADHA [facility] WHO REPORTS THEY WERE WORKING ON [facility] IN [place] BUT WILL SEND REFERRAL TO [facility] IN [place] THAT HAS LIFT AND MWF SCHEDULING CAPABIILITY. JAIMIE SPOKE TO PT IN ROOM WHO IS WILLING FOR PLACEMENT IN [place] TO BE CLOSER TO FAMILY IF SHE CANNOT RETURN TO [place] WHERE SHE WAS LIVING AT [facility]. CM FAXED UPDATE TO [facility] IN [place] VIA LAURENCE AT [phone]. JAIMIE SPOKE TO MARIEL OF PHYSICAL [facility]ER[facility] WHO VERIFIED PT HAS BEEN UP TO SIDE OF BED BUT THEY ARE NOT ABLE TO GET PT UP TO CHAIR THEY DO NOT HAVE A LIFT. CM SPOKE TO CM CAFE ASSISTANT KAYLEE REGARDING LACK OF LIFT CAPABILITY THIS IS AN OBSTACLE TO PLACEMENT IN ANY FACILITY PT WILL NEED OUTPATIENT DIALYSIS AND MUST BE ABLE TO DEMONSTRATE ABILITY TO SIT FOR DURATION OF TRANSPORT AND DIALYSIS SESSION. CM WAITING PT TO DEMONSTRATE ABILITY TO TRANSFER AND SIT FOR DURATION OF TRANSPORTATION WELL FOR THREE HOURS OF DIALYSIS TREATMENT, WITH OR WITHOUT A LIFT. [facility] IN [facility] WILL REVIEW FOR PLACEMENT IF PT IS ABLE TO SIT FOR TRANSPORT AND DIALYSIS; THEY DO HAVE FANNIE LIFT. PATSY SAUCEDA WORKING ON OUTPATIENT DIALYSIS ARRANGEMENT AT [facility] IN [place], THEY ALSO HAVE A LIFT. DICK RANDLE, CASE MANAGEMENT DCP- Discharge Planning Updated by [id number]: Jenny Al on 10/10/18 6:[address] Late Entry 10/10/18 @ 0900 PT and OT still working with patient to get out of bed to sit in chair. Patient has to be able to sit in wheelchair and be transported to dialysis and sit in dialysis chair for 3-4hrs. CM will continue to follow and assist as needed with discharge planning / needs. DCP- Discharge Planning Updated by [id number]: Jenny Al on 10/07/18 3:[address] CM spoke with Roge Monae this am. Roge stated we are at standstill until we find NH placement. Once we have NH placement then we can proceed with dialysis placement. CM spoke with patients daughter since patient isn't able to stay awake and communicate. Daughter Fran Tinajero "Nkechi" [phone]. Daughter stated that she would like NH placement as close to [place] as possible. CM explained that we would have to find placement that has fannie lift at both [place] and dialysis clinic. Daughter stated that [place] was the next closest town. CM contacted [facility] in [place] [phone]. Laurence Garcia clinical Liaison [phone] fax [phone]. JAIMIE spoke with Laurence and explained situation and faxed records. Laurence stated she would be here to see patient in am. CM will continue to follow and assist as needed with discharge planning / needs. DCP- Discharge Planning Updated by [id number]: Jenny Al on 10/07/18 9:[address] CM spoke with Roge Monae this am. She stated that she had been out of the office but now was back. Roge stated that she would speak to Radha and would take care of everything from this point with placement for dialysis. CM will continue to follow and assist as needed with discharge planning / needs. DCP- Discharge Planning Updated by [id number]: Jenny Al on 10/07/18 9:[address] Late Entry 10/06/18 @ 1600 CM spoke with Radha with [facility]. Radha stated she needed clarification on patients name. Radha stated she needed dialysis flowsheets from last three treatments faxed to her. Radha stated that she was trying to get placement at [facility] dialysis clinic. CM will continue to follow and assist as needed with discharge planning / needs. DCP- Discharge Planning Updated by [id number]: Dick Arlin on 10/03/18 3:[address] Patient Name: GUSTABO STUART Encounter No: [id number] : 1950 Primary Insurance: MEDICARE A & B Anticipated DC Date: 09-30-2018 Planned Disposition: Nursing Facility [facility] Cert External Planned Provider: TO BE DETERMINED DCP follow-up note: CM RECEIVED CALL FROM NAYANA OF [facility], THEY ONLY HAVE TTS AVAILABLE AND HAVE TALKED TO [facility] MANUFACTURER'S SERVICE REPRESENTATIVE WHO INFORMED THEM THAT THEY ARE NOT GOING TO DRIVE PT AN HOUR AWAY FOR DIALYSIS FROM THE LONG TERM. CM SPOKE TO AUDI AT [facility] WHO INFORMED CM THAT THEY ARE GOING TO HAVE A SISTER FACILITY REPRESENTIVE CONTACT CM TO ASSIST IN PLACING PT IN [place] SO THAT PT CAN GO TO A FACILITY THAT HAS CAPABILITY OF FANNIE LIFT AND TO A DILAYSIS UNIT THAT HAS CAPABILITY OF FANNIE LIFT. CM SPOKE TO PT IN ROOM, DISCUSSED MOVING TO ANOTHER LONG TERM, PT REPORTS SHE WILL TRY WITH THERAPY AND IS WILLING FOR NEW LONG TERM IF NEEDED, CHOICE SIGNED FOR KEANU JJ AT [facility]. CM DISCUSSED LTACH, PT ALSO IN AGREEMENT WITH LTACH AT [facility] IF IT WILL HELP GET HER HOME SOONER. CM CALLED AND SPOKE TO LAITH OF [facility], , DISCUSSED NEED FOR REHAB, WOUND CARE AND DIALYSIS WITH GOAL TO SIT FOR DIALYSIS IN OUTPATIENT SETTING TO RETURN TO A LONG TERM FOR CONTINUED PHYSICAL SCIENCES PROFESSOR CARE. REFERRAL FAXED TO [facility] AT [phone]. CM CALLED AND SPOKE TO [facility], , OF [facility] AND [facility] AT [facility] THEY CONTACT WITH [facility] AND DO NOT HAVE ONE WITH DAVITA. THEY WILL SCREEN PT FOR THEIR HOMES, BUT PT WILL HAVE TO HAVE CAPACITY TO SIT IN CHAIR FOR THREE HOURS OF OUTPATIENT DIALYSIS AND TRANSPORTATION. CM FAXED REFERRAL TO [facility] AT [phone]. PT WILL NEED TO BE ABLE TO TRANSFER FROM BED TO CHAIR AND WILL ALSO NEED TO BE ABLE TO SIT SAFELY FOR TRANSPORT AND 3 HOURS OF DIALYSIS TREATMENT FOR OUTPATIENT DIALYSIS CLINIC ARRANGEMENT. CM WAITING ON LONG TERM EVALUATIONS FOR ADMISSION, [facility] EVALUATION FOR ADMISSION AND WILL NEED TO SEND APPLICATION FOR [facility] FOR DIALYSIS UNIT CONSIDERATION AND TO FIND OUT IF THEY HAVE FANNIE LIFT CAPABILITY. DICK RANDLE, CASE MANAGEMENT DCP- Discharge Planning Updated by [id number]: Dick Randle on 10/02/18 3:[address] Patient Name: GUSTABO STUART Encounter No: [id number] : 1950 Primary Insurance: MEDICARE A & B Anticipated DC Date: 09-30-2018 Planned Disposition: Nursing Facility [facility] Cert External Planned Provider: [facility], LONG TERM CARE MEDICAID BED DCP follow-up note: CM CALLED ELZBIETA OF [facility] ADMISSIONS, , WAS INFORMED THEY DO NOT HAVE ANY REQUEST TO ARRANGE OUTPATIENT DIALYSIS CLINIC ARRANGEMENT. CM FAXED ADMISSIONS INTAKE FORM WITH INITIAL DOCUMENTS TO [facility] AT [phone]. CM NOTIFIED MERLYN OF [facility] IN [place], , OF NEED FOR OUTPATIENT DIALYSIS; CM WAS ADVISED THAT PT WILL NEED TO BE ABLE TO TRANSFER TO WHEELCHAIR AND CHAIR WELL BE ABLE TO TOLERATE SITTING IN CHAIR FOR THREE HOURS OF DIALYSIS. THE CENTER PREFERS MWF, MORNING SCHEDULE. CM WAITING FOR OUTPATIENT DIALYSIS CLINIC ARRANGEMENT. NOTE THAT PT WILL HAVE TO BE ABLE TO TRANSFER TO CHAIR AND SIT IN CHAIR FOR THREE HOURS FOR OUTPATIENT CLINIC PARTICIPATION. FOR DISCHARGE, FAX DISCHARGE INFORMATION TO [facility] IN [place], ; NURSE REPORT TO BE CALLED TO [phone]. PT TO TRANSPORT VIA AMBULANCE. Vp Care Management: Dick Randle Appended by Dick Randle on 10/02/2018 16:49 HAND WOVEN CARPET AND RUG MENDER: CM RECEIVED CALL FROM RADHA OF [facility] ADMISSIONS; [facility] IS NOT CERTIFIED FOR LIFT AND HAS NO AVAILABLE OPENINGS AT THIS TIME. [facility] IS LIFT CERTIFIED BUT HAS NO AVAILABLE OPENINGS. RADHA WILL SEND REFERRAL TO [facility] IN [place] BUT THEY ONLY HAVE TTS SLOTS AVAILABLE. RADHA WILL ESCULATE REFERRAL FOR [facility]RANGMENT IN [place] THAT A CHAIR BECOMES AVAILABLE AND PT WILL NOT REQUIRE LIFT TRANSFER. PT WILL NEED TO BE ABLE TO TRANSFER FROM BED TO CHAIR AND WILL ALSO NEED TO BE ABLE TO SIT SAFELY FOR TRANSPORT AND 3 HOURS OF DIALYSIS TREATMENT FOR OUTPATIENT DIALYSIS CLINIC ARRANGEMENT. DICK RANDLE, CASE MANAGEMENT DCP- Discharge Planning Updated by [id number]: Dick Randle on 09/29/18 12:[address] Patient Name: GUSTABO STUART Encounter No: [id number] : 1950 Primary Insurance: MEDICARE A & B Anticipated DC Date: 09-30-2018 Planned Disposition: Nursing Facility [facility] Cert External Planned Provider: [facility], [place], PENITENTIARY CARE MEDICAID BED DCP follow-up note: JAIMIE RECEIVED ORDER FOR OUTPATIENT DIALYSIS CLINIC ARRANGEMENT; RN JAIMIE HAMMONDS HAS INFORMED ROGE MONAE OF PATIENT [facility] FOR OUTPATIENT DAILYSIS CLINIC ARRANGEMENT IN [place]. CM FAXED UPDATE TO MERLYN OF [facility] IN [place], . ROGE INFORMED CM THAT PT NEEDS PERM DIALYSIS CATHETER AND AN ACCURATE WEIGHT. PT HAS ORDERS FOR CATHETER, CM NOTIFIED BEDSIDE NURSE OF NEED FOR ACCURATE WEIGHT; PT IS BED CONFINED AND ON SPECIALTY BED AT THIS TIME. CM WAITING FOR DIALYSIS CATHETER PLACEMENT WELL OUTPATIENT DIALYSIS CLINIC ARRANGEMENT. FOR DISCHARGE, FAX DISCHARGE INFORMATION TO [facility] IN [place], ; NURSE REPORT TO BE CALLED TO [phone]. PT TO TRANSPORT VIA AMBULANCE. Vp Care Management: Dick Randle DCP- Discharge Planning Updated by [id number]: Dick Randle on 09/26/18 4:[address] Patient Name: GUSTABO STUART Admission Status: Elective Accout number: [id number] Admission Date: 09-19-2018 : 1950 Admission Diagnosis:ACUTE RESPIRATORY FAILURE WITH HYPOXIA Attending: JENNIFER DICKEY Current LOS: 7 Anticipated DC Date: Planned Disposition: Nursing Facility [facility] Primary Insurance: MEDICARE A & B PLANNED EXTERNAL PROVIDER: [facility], [place], LONG TERM CARE MEDICAID BED Discharge Planning Comments: CM MET WITH PT IN ROOM TO DISCUSS DISCHARGE PLANNING AND NEEDS. PT REPORTS LIVING AT A LONG TERM IN [place], SHE CANNOT REMEMBER THE NAME OF THE PLACE. PT REPORTS BEING CONFINED TO BED BUT THE FACILITY HAS A LIFT TO RECEIVER/LABORER PT TO A WHEELCHAIR. PT REPORTS HAVING BIPAP, NEBULIZER AND OXYGEN AT THE FACILITY. PT REPORTS HAVING ASSISTANCE WITH EVERYTHING BUT EATING, WHICH SHE DOES HERSELF. PT ASKED THAT IF FAMILY CALLS, TELL THEM TO BRING HER CLOTHES AND CELL PHONE. CM DISCUSSED AVAILABILITY OF HOME HEALTH, REHAB SERVICES AND MEDICAL EQUIPMENT. PT DENIES DISCHARGE NEEDS, REPORTS SHE WILL DISCHARGE BACK TO FACILITY WHERE SHE LIVES. CM CALLED [facility] IN [place] [place] [facility], ; CM SPOKE TO MERLYN WHO REPORTS PT IS IN PHYSICAL SCIENCES PROFESSOR CARE AND PROVIDED EMERGENCY CONTACT INFORMATION FOR PT'S FAMILY MEMBERS; CM NOTED IN CASE MANAGEMENT ASSESSMENT CHECKLIST. MERLYN VERIFIED PT HAS OXYGEN, NEBULUZER AND BIPAP IN FACILITY, THEY WILL ACCEPT BACK FOR CONTINUED PHYSICAL SCIENCES PROFESSOR CARE AT HOSPITAL DISCHARGE. FOR DISCHARGE, FAX DISCHARGE INFORMATION TO [facility] IN [place], ; NURSE REPORT TO BE CALLED TO [phone]. PT TO TRANSPORT VIA AMBULANCE. Vp Care Management: Dick Randle DCP- Discharge Planning Updated by [id number]: Jenny Al on 09/23/18 3:[address] CM attempted to visit with patient. Patient is currently on BiPap and getting dialysis at this time. She is unable to speak with me at this time. No family available at this time. CM will continue to follow and assist as needed with discharge planning / needs. DCPIA - Discharge Planning Initial Assessment Updated by [id number]: Dick Randle on 09/26/18 4:23 pm * Is the patient Alert and Oriented? Yes * How many steps to enter\\exit or inside your home? 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 APPRENTICE * Pharmacy [facility] * Preadmission Environment [facility] * [phone] * ADLs Partial Dependent * Partial ADLs (Assistance needed) Bathing Dressing Medication Management Toileting Transfers * Equipment BIPAP Hospital Bed Fannie Lift Nebulizer Oxygen Wheelchair * Other Equipment ALL MEDICAL EQUIPMENT PROVIDED BY FACILITY * List name and contact numbers for known caregivers / representatives who currently or will assist patient after discharge: EDGARD JEREZ, MOTHER IN LAW, KAVEH CASILLAS, DTR, NICK SAUER, SPOUSE, * Verbal permission to speak to the caregivers and representatives has been obtained from the patient. Yes * Community resources currently utilized None * Please name any agencies selected above. NONE * Additional services required to return to the preadmission environment? No * Can the patient safely return to the preadmission environment? Yes * Has this patient been hospitalized within the prior 30 days at any hospital? No External Providers External Provider: OTHER-OTHER Next Contact Date: 10/13/2018 Service Request Date: Service Type: Resolution: Reviewer: Comments: Coverage Notice Reviewer: [id number] - Dick Randle Notice Issued Date-Time: 10/03/2018 11:30 Notice Type: Patient Choice Letter Notice Delivered To: Patient Relationship to Patient: Financial Report Service Sales Agent Name: Delivery Method: HAND - Hand Delivered Veda Days: Prior Verbal Notification: Recipient Understood Notice: Recipient Signature: Med Rec Note Co-signed by Attending: Coverage Notice Comment: ERNAFABRICIO [place]: [facility] Last DP export: 10/13/18 10:21 Patient Name: GUSTABO STUART Page [id number] at 1526 All edits/amendments must be made on the electronic document DICTATION DATE: 10/13/181524 MANNEQUIN MAKER: HELDER 10/13/181524 RPT#: [id number] DC DATE: STATUS: ADM IN [facility] [address] [address] END OF REPORT
--- NOTE | ~2018-09-19 | MORECARE ---
CASE MANAGEMENT DISCHARGE SUMMARY PATIENT: GUSTABO STUART UNIT: [id number] ADM DATE: 09/19/18 AGE: 68 : 50 SEX: F ROOM/BED: D.3922 AUTHOR: LAWRENCE,DOC PHYSICIAN: REFERRING PHYSICIAN: JENNIFER DICKEY MD DATE OF SERVICE: 10/23/18 Discharge Plan Patient Name: GUSTABO STUART Facility: [facility]:[place] : 1950 Planned Disposition: Nursing Facility KULWINDER Cert Anticipated Discharge Date: 10/23/18 Discharge Date: Expected LOS: 34 Initial Reviewer: [id number] Initial Review Date: 09/19/2018 Generated: 10/23/18 3:41 pm Comments DCP- Discharge Planning Updated by [id number]: Dick Oliveros on 10/23/18 1:[address] Patient Name: GUSTABO STUART Encounter No: [id number] : 1950 Primary Insurance: MEDICARE A & B Anticipated DC Date: 10-23-2018 Planned Disposition: Nursing Facility KUL[facility]ER Cert External Planned Provider: [facility]; SENIOR CARE CARE MEDICAID BED DCP follow-up note: AT APPROXIMATELY 0800 HOURS, JAIMIE RECEIVED MESSAGE FROM CHARLY ASKING IF CM HAD MANAGED TO ARRANGE TRANSPORT FOR PT TO THE HALF-WAY. CM ADVISED LAURENCE THAT ALL ATTEMPTS HAD FAILED, TO NOTIFY THE HALF-WAY TO ARRANGE TRANSPORTATION AND LET CM KNOW WHEN THEY WOULD ENTRY LEVEL SOFTWARE ENGINEER PT AND CM WOULD HAVE THE NURSE INSURE PT WAS READY. AT ABOUT 1000 HOURS, JAIMIE ASKED CHARLY IF SHE HAD AN AFFILIATE FACILITY THAT MAY ASSIST WITH TRANSPORT. AT ABOUT 1018 HOURS, JAIMIE ADVISED CHARLY THAT [facility] IN [place] WAS SENDING VAN FOR ANOTHER PT DISCHARGING A SUGGESTION FOR ASSISTANCE IN TRANSPORT OF PATIENT. JAIMIE RECEIVED MESSAGE FROM CHARLY WHO ADVISED THE [facility] WOULD SEND VAN TO ENTRY LEVEL SOFTWARE ENGINEER PT AT ABOUT 1300 HOURS. CM ADVISED PT WAS IN DIALYSIS AND WOULD BE BACK TO ROOM AT ABOUT 1330 HOURS. LAURENCE WILL ARRANGE VAN ENTRY LEVEL SOFTWARE ENGINEER FOR TODAY. BEDSIDE NURSE AND RESIDENTIAL MANAGER NURSE NOTIFED. CM MET WITH PT IN ROOM, ADVISED OF DISCHARGE TODAY AND VAN ENTRY LEVEL SOFTWARE ENGINEER BEING ARRANGED. PT DENIES DISCHARGE NEEDS OTHER THAN A COUGH DROP AND IS IN AGREEMENT WITH DISCHARGE TO [facility] IN [place]. IMPORTANT MESSAGE FROM MEDICARE PROVIDED AND EXPLAINED. CM FAXED DISCHARGE INFORMATION TO [facility] VIA [employer] AT [phone]. CM RECEIVED CALL FROM LAURENCE [facility] WHO ADVISED THAT [facility] NEVER RECEIVED BIPAP SETTING FAX YESTERDAY, ASKED FOR REFAX. CM REFAXED BIPAP ORDER AND SETTINGS TO [facility]IA [employer] AT [phone]. NURSE REPORT TO BE CALLED TO [facility] IN [place] AT [phone]. Dick Oliveros, CASE MANAGEMENT DCP- Discharge Planning Updated by [id number]: Dick Oliveros on 10/22/18 4:[address] Patient Name: GUSTABO STUART Encounter No: [id number] : 1950 Primary Insurance: MEDICARE A & B Anticipated DC Date: 10-22-2018 Planned Disposition: Nursing Facility KULWINDER Cert External Planned Provider: [facility], SENIOR CARE CARE MEDICAID BED DCP follow-up note: CM RECEIVED CALL FROM ROGE OF PATIENT [facility]WAYS, PT HAS BEEN ACCEPTED AT [facility], 1115 AM; FIRST APPOINTMENT 10-24-18 AT 1100AM. PT NOTIFIED AND IN AGREEMENT WITH DISCHARGE TO [facility] IN [place] WITH OUTPATIENT DIALYSIS. CM NOTIFIED LAURENCE [facility], ASKED FOR FACILITY ENTRY LEVEL SOFTWARE ENGINEER TODAY. CM RECEIVED CALL FROM LEON BRICEÑO [facility] IN [place], , WHO REPORTS SHE NEEDS TO GET PT A BIPAP AND DOES NOT HAVE VAN AVAILABILITY TODAY OR TOMORROW TO ENTRY LEVEL SOFTWARE ENGINEER PT. PT IS NOT QUALIFYING FOR AMBULANCE TRANSPORT, STAGE TWO ON COCCYX VERY SMALL AND PT IS TRANSFERRING WITHOUT LIFT AND SITTING IN CHAIR MOST ALL DAY. CM CALLED AND SPOKE TO CM BUILDING MOVER [facility], DISCUSSED TRANSPORTATION ISSUE; CM ADVISED THAT AMBULANCE COSTS $2500, WILL NOT BE APPROVED BY HOSPITAL. CM CALLED [facility], , LEFT DETAILED MESSAGE ASKING FOR AVAILABILITY AND COSTS FOR TRANSPORT TOMORROW. CM SPOKE TO BUILDING MOVER KAYLEE WHO INFORMED CM THAT IF [facility] IS NOT ABLE TO TRANSPORT, THAT CM WILL NOTIFY HALF-WAY WHO CAN SCHEDULE FIRST AVAILABLE TIME TO ENTRY LEVEL SOFTWARE ENGINEER PT FROM HOSPITAL. CM FAXED DISCHARGE INFORMATION ALONG WITH WOUND CARE AND BIPAP SETTINGS / ORDER TO [facility]IA [facility] AT [phone]. ONCE TRANSPORTATION IS ARRANGED, NURSE REPORT TO BE CALLED TO [facility] AT [phone]. Dick Oliveros, CASE MANAGEMENT Appended by Dick Oliveros on 10/22/2018 17:46 ORACLE PROGRAMMER: CM RECEIVED CALL FROM ERIKA OF [employer], , QUOTE RECEIVED OF $275 AND WILL HAVE TO ENTRY LEVEL SOFTWARE ENGINEER PT AT OR BEFORE 6AM; CM NOTIFIED BUILDING M[employer] [facility] AND RECEIVED APPROVAL FOR FUNDS. CM NOTIFIED LAURENCE OF [facility]. CM RECEIVED CALL FROM ERIKA, HE IS NOT ABLE TO OBTAIN A LARGE ENOUGH WHEELCHAIR FOR 6M ENTRY LEVEL SOFTWARE ENGINEER. ERIKA STATES THAT IF NEEDED, HE MAY BE ABLE TO TRANSPORT SATURDAY LATER IN THE DAY IF THE HALF-WAY WILL NOT ENTRY LEVEL SOFTWARE ENGINEER THE PATIENT. JAIMIE NOTIFED BUILDING MOVER LAURENCE PAGE OF [facility] IN [place] AND LEFT NOTE FOR BEDSIDE NURSE. CM WILL CONTINUE TO SEEK DISCHARGE TRANSPORTATION. ONCE TRANSPORTATION IS ARRANGED, NURSE REPORT TO BE CALLED TO [facility] AT [phone]. Dick Oliveros, CASE MANAGEMENT DCP- Discharge Planning Updated by [id number]: Dick Oliveros on 10/22/18 9:[address] Patient Name: GUSTABO STUART Encounter No: [id number] : 1950 Primary Insurance: MEDICARE A & B Anticipated DC Date: 10-21-2018 Planned Disposition: Nursing Facility KULWINDER Cert External Planned Provider: [facility], SENIOR COMPUTER SPECIALIST CARE MEDICAID BED CM SPOKE TO [facility] 10-21-18 WHO INFORMED CM THAT DIALYSIS UNIT STILL ASSESSING FOR ADMISSION AND REQUESTED FURHTER DOCUMENTATION WHICH ROGE FAXED FOR REVIEW. ON 10-21-18, CM SENT MESSAGE TO [facility] REQUESTING UPDATE ON DIALYSIS UNIT PLACEMENT AND SCHEDULE. ROGE CALLED CM, INFORMED CM THAT THE DIALYSIS DOCTOR DID NOT COMPLETE REVIEW YESTERDAY, ROGE HAS CALLED AND ASKED FOR REVIEW AND DETERMINATION TODAY. [facility] IN [facility] ACCEPTS PT. CM WAITING DAILYSIS CLINIC ACCEPTANCE AND SCHEDULE. WHEN CLINIC ARRANGEMENT CONFIRMED, FAX DISCHARGE INFORMATION TO [facility] AT [phone]. CALL NURSE REPORT TO [facility] AT [phone]. PT TO TRANSPORT VIA AMBULANCE DUE TO STAGE 2 PRESSURE ULCER ON COCCYX. EVERARDO BERMEO MANAGEMENT DCP- Discharge Planning Updated by [id number]: Dick Oliveros on 10/20/18 4:[address] Patient Name: GUSTABO STUART Encounter No: [id number] : 1950 Primary Insurance: MEDICARE A & B Anticipated DC Date: 10-21-2018 Planned Disposition: Nursing Facility KULWINDER Cert External Planned Provider:[facility] [place], LONG TERM CARE MEDICAID BED CM RECEIVED CALL FROM LAURENCE [facility] IN [place], , WHO ADVISED THAT [facility] IN [place] WILL ACCEPT PT, TOMORROW, 10-21-18, IF APPROVED BY [facility] FOR OUTPATIENT DIALYSIS. LAURENCE ADVISED THAT THE HALF-WAY IS NOW COMMUNICATING WITH THE DIALYSIS UNIT. CM SENT MESSAGE TO [facility] REQUESTING UPDATE ON DIALYSIS UNIT PLACEMENT AND SCHEDULE. PT NOTIFIED AND IN AGREEMENT WITH DISCHARGE TO [facility] SOON POSSIBLE. [facility] IN [facility] ACCEPTS PT. CM WAITING DAILYSIS CLINIC ACCEPTANCE AND SCHEDULE. WHEN CLINIC ARRANGEMENT CONFIRMED, FAX DISCHARGE INFORMATION TO [facility] AT [phone]. CALL NURSE REPORT TO [facility] AT [phone]. PT TO TRANSPORT VIA AMBULANCE DUE TO STAGE 2 PRESSURE ULCER ON COCCYX. EVERARDO BERMEO DCP- Discharge Planning Updated by [id number]: Dick Oliveros on 10/20/18 8:[address] Patient Name: GUSTABO STUART Encounter No: [id number] : 1950 Primary Insurance: MEDICARE A & B Anticipated DC Date: 10-15-2018 Planned Disposition: Nursing Facility KULWINDER Cert External Planned Provider: [facility], [place], LONG TERM CARE MEDICAID BED CM LEFT MESSAGE FOR LAURENCE [facility] [place], , AND ADVISED THAT PT HAS CONTINUED TO DEMONSTRATE ABILITY TO TRANSFER TO CHAIR AND SIT FOR OVER 4 HOURS. CM FAXED UPDATE TO [facility] VIA LAURENCE AT [phone]. [facility] IN [facility] IS REVIEWING FOR PLACEMENT; THEY DO HAVE FANNIE LIFT. DAVITA ADMISSIONS WORKING ON OUTPATIENT DIALYSIS ARRANGEMENT AT [facility] IN [place], THEY ALSO HAVE A LIFT. CM WAITING ON DETERMINATIONS FROM BOTH. DICK OLIVEROS CASE MANAGEMENT DCP- Discharge Planning Updated by [id number]: Dick Oliveros on 10/15/18 11:[address] Patient Name: GUSTABO STUART Encounter No: [id number] : 1950 Primary Insurance: MEDICARE A & B Anticipated DC Date: 10-15-2018 Planned Disposition: Nursing Facility KULWINDER Cert External Planned Provider: [facility]; SENIOR CARE CARE MEDICAID BED DCP follow-up note: CM CALLED LAURENCE OF [facility] IN [place], , AND ADVISED THAT PT HAS DEMONSTRATED ABILITY TO TRANSFER TO CHAIR AND SIT FOR OVER 4 HOURS. JAIMIE SPOKE TO HOMER OF [facility] ADMISSIONS AND PROVIDED UPDATE FOR [facility] IN [place] CM SPOKE TO ROGE MONAE OF [facility] WHO WILL [facility]IC[facility] WE[facility] AND PROVIDED UPDATED INFORMATION TO BOTH FROM MEDICAL CHART. JAIMIE SPOKE TO PT IN ROOM WHO IS STILL WILLING FOR PLACEMENT IN [place] AT [facility] AND WAS HOPING TO BE OUT OF THE HOSPITAL FOR THANKSGIVING. IMPORTANT MESSAGE FROM MEDICARE PROVIDED AND EXPLAINED. CM FAXED UPDATE TO [facility] VIA LAURENCE AT [phone]. [facility] IN [facility] IS REVIEWING FOR PLACEMENT; THEY DO HAVE FANNIE LIFT. DAVITA ADMISSIONS WORKING ON OUTPATIENT DIALYSIS ARRANGEMENT AT [facility] IN [place], THEY ALSO HAVE A LIFT. CM WAITING ON DETERMINATIONS FROM BOTH. EVERARDO BERMEO MANAGEMENT DCP- Discharge Planning Updated by [id number]: Dick Oliveros on 10/13/18 2:[address] Patient Name: GUSTABO STUART Encounter No: [id number] : 1950 Primary Insurance: MEDICARE A & B Anticipated DC Date: 09-30-2018 Planned Disposition: Nursing Facility KULWINDER Cert External Planned Provider: [facility] [place]; SENIOR COMPUTER SPECIALIST CARE MEDICAID BED DCP follow-up note: JAIMIE CALLED LAURENCE OF [facility] IN [place], , WHO ADVISED THAT [facility] MAY ACCEPT BUT PT WILL NEED TO DEMONSTRATE ABILITY TO TRANSFER TO WHEELCHAIR AND SIT FOR 3 HOURS OF DIALYSIS. [facility] HAS LIFT AVAILABLE. CM SPOKE TO RADHA OF [facility] ADMISSIONS WHO REPORTS THEY WERE WORKING ON [facility]IALYSIS IN [place] BUT WILL SEND REFERRAL TO [facility] IN [place] THAT HAS LIFT AND MWF SCHEDULING CAPABIILITY. CM SPOKE TO PT IN ROOM WHO IS WILLING FOR PLACEMENT IN [place] TO BE CLOSER TO FAMILY IF SHE CANNOT RETURN TO [place] WHERE SHE WAS LIVING AT [facility]. CM FAXED UPDATE TO [facility] IN [place] VIA [facility]URENCE AT [phone]. CM SPOKE TO MARIEL OF PHYSICAL THERAPY WHO VERIFIED PT HAS BEEN UP TO SIDE OF BED BUT THEY ARE NOT ABLE TO GET PT UP TO CHAIR THEY DO NOT HAVE A LIFT. CM SPOKE TO CM BUILDING MOVER KAYLEE REGARDING LACK OF LIFT CAPABILITY THIS IS AN OBSTACLE TO PLACEMENT IN ANY FACILITY PT WILL NEED OUTPATIENT DIALYSIS AND MUST BE ABLE TO DEMONSTRATE ABILITY TO SIT FOR DURATION OF TRANSPORT AND DIALYSIS SESSION. CM WAITING PT TO DEMONSTRATE ABILITY TO TRANSFER AND SIT FOR DURATION OF TRANSPORTATION WELL FOR THREE HOURS OF DIALYSIS TREATMENT, WITH OR WITHOUT A LIFT. [facility] IN [facility] WILL REVIEW FOR PLACEMENT IF PT IS ABLE TO SIT FOR TRANSPORT AND DIALYSIS; THEY DO HAVE FANNIE LIFT. [facility] ADMISSIONS WORKING ON OUTPATIENT DIALYSIS ARRANGEMENT AT [facility] IN [place], THEY ALSO HAVE A LIFT. DICK OLIVEROS, CASE MANAGEMENT Appended by Dick Oliveros on 10/13/2018 15:31 ORACLE PROGRAMMER: CM RECEIVED CALL FROM KRISTIAN OF [facility], , WHO ASKED FOR FAXED UPDATE. CM FAXED UPDATE TO [facility] WITH DIALYSIS RUN SHEETS THRU 10-11-18. CM FAXED UPDATE TO LAURENCE OF [facility] IN [facility] WITH OCCUPATIONAL THERAPY NOTE INDICATING PT HAS BEEN OUT OF BED TO CHAIR. CM TO CONTINUE TO FOLLOW AND ASSIST NEEDED. CM WAITING PT TO DEMONSTRATE ABILITY TO TRANSFER AND SIT FOR DURATION OF TRANSPORTATION WELL FOR THREE HOURS OF DIALYSIS TREATMENT, WITH OR WITHOUT A LIFT. [facility] IN [facility] WILL REVIEW FOR PLACEMENT IF PT IS ABLE TO SIT FOR TRANSPORT AND DIALYSIS; THEY DO HAVE FANNIE LIFT. PATSY SAUCEDA WORKING ON OUTPATIENT DIALYSIS ARRANGEMENT AT [facility] IN [place], THEY ALSO HAVE A LIFT. DICK OLIVEROS, CASE MANAGEMENT DCP- Discharge Planning Updated by [id number]: Jenny Al on 10/10/18 6:[address] Late Entry 10/10/18 @ 0900 PT and OT still working with patient to get out of bed to sit in chair. Patient has to be able to sit in wheelchair and be transported to dialysis and sit in dialysis chair for 3-4hrs. CM will continue to follow and assist as needed with discharge planning / needs. DCP- Discharge Planning Updated by [id number]: Jenny Al on 10/07/18 3:[address] CM spoke with Roge Monae this am. Roge stated we are at standstill until we find NH placement. Once we have NH placement then we can proceed with dialysis placement. CM spoke with patients daughter since patient isn't able to stay awake and communicate. Daughter Fran Tinajero "Nkechi" [phone]. Daughter stated that she would like NH placement as close to [place] as possible. CM explained that we would have to find placement that has fannie lift at both [place] and dialysis clinic. Daughter stated that [place] was the next closest town. CM contacted [facility] in [place] [phone]. Laurence Garcia clinical Liaison [phone] fax [phone]. JAIMIE spoke with Laurence and explained situation and faxed records. Laurence stated she would be here to see patient in am. CM will continue to follow and assist as needed with discharge planning / needs. DCP- Discharge Planning Updated by [id number]: Jenny Al on 10/07/18 9:[address] CM spoke with Roge Monae this am. She stated that she had been out of the office but now was back. Roge stated that she would speak to Radha and would take care of everything from this point with placement for dialysis. CM will continue to follow and assist as needed with discharge planning / needs. DCP- Discharge Planning Updated by [id number]: Jenny Al on 10/07/18 9:[address] Late Entry 10/06/18 @ 1600 CM spoke with Radha with [facility]. Radha stated she needed clarification on patients name. Radha stated she needed dialysis flowsheets from last three treatments faxed to her. Radha stated that she was trying to get placement at [facility] dialysis clinic. CM will continue to follow and assist as needed with discharge planning / needs. DCP- Discharge Planning Updated by [id number]: Dick Arlin on 10/03/18 3:[address] Patient Name: GUSTABO STUART Encounter No: [id number] : 1950 Primary Insurance: MEDICARE A & B Anticipated DC Date: 09-30-2018 Planned Disposition: Nursing Facility KULWINDER Cert External Planned Provider: TO BE DETERMINED DCP follow-up note: CM RECEIVED CALL FROM NAYANA OF [facility], THEY ONLY HAVE TTS AVAILABLE AND HAVE TALKED TO [facility] HEAD GOLF PROFESSIONAL WHO INFORMED THEM THAT THEY ARE NOT GOING TO DRIVE PT AN HOUR AWAY FOR DIALYSIS FROM THE HALF-WAY. CM SPOKE TO AUDI AT [facility] WHO INFORMED CM THAT THEY ARE GOING TO HAVE A SISTER FACILITY REPRESENTIVE CONTACT CM TO ASSIST IN PLACING PT IN [place] SO THAT PT CAN GO TO A FACILITY THAT HAS CAPABILITY OF FANNIE LIFT AND TO A DILAYSIS UNIT THAT HAS CAPABILITY OF FANNIE LIFT. CM SPOKE TO PT IN ROOM, DISCUSSED MOVING TO ANOTHER HALF-WAY, PT REPORTS SHE WILL TRY WITH THERAPY AND IS WILLING FOR NEW HALF-WAY IF NEEDED, CHOICE SIGNED FOR KEANU JJ AT [facility]. CM DISCUSSED LTACH, PT ALSO IN AGREEMENT WITH LTACH AT [facility] IF IT WILL HELP GET HER HOME SOONER. CM CALLED AND SPOKE TO LAITH OF [facility], , DISCUSSED NEED FOR REHAB, WOUND CARE AND DIALYSIS WITH GOAL TO SIT FOR DIALYSIS IN OUTPATIENT SETTING TO RETURN TO A HALF-WAY FOR CONTINUED SENIOR CARE CARE. REFERRAL FAXED TO [facility] AT [phone]. CM CALLED AND SPOKE TO BECKY DEL CASTILLO, , OF [facility], REPRESENTING [facility] AND [facility] AT [facility]. THEY CONTACT WITH [facility] DIALYS[facility] AND DO NOT HAVE ONE WITH DAVITA. THEY WILL SCREEN PT FOR THEIR HOMES, BUT PT WILL HAVE TO HAVE CAPACITY TO SIT IN CHAIR FOR THREE HOURS OF OUTPATIENT DIALYSIS AND TRANSPORTATION. CM FAXED REFERRAL TO BECKY AT [phone]. PT WILL NEED TO BE ABLE TO TRANSFER FROM BED TO CHAIR AND WILL ALSO NEED TO BE ABLE TO SIT SAFELY FOR TRANSPORT AND 3 HOURS OF DIALYSIS TREATMENT FOR OUTPATIENT DIALYSIS CLINIC ARRANGEMENT. CM WAITING ON HALF-WAY EVALUATIONS FOR ADMISSION, [facility] EVALUATION FOR ADMISSION AND WILL NEED TO SEND APPLICATION FOR [facility] FOR DIALYSIS UNIT CONSIDERATION AND TO FIND OUT IF THEY HAVE FANNIE LIFT CAPABILITY. DICK OLIVEROS, CASE MANAGEMENT DCP- Discharge Planning Updated by [id number]: Dick Oliveros on 10/02/18 3:[address] Patient Name: GUSTABO STUART Encounter No: [id number] : 1950 Primary Insurance: MEDICARE A & B Anticipated DC Date: 09-30-2018 Planned Disposition: Nursing Facility KULWINDER Cert External Planned Provider: [facility], LONG TERM CARE MEDICAID BED DCP follow-up note: CM CALLED ELZBIETA OF [facility] ADMISSIONS, , WAS INFORMED THEY DO NOT HAVE ANY REQUEST TO ARRANGE OUTPATIENT DIALYSIS CLINIC ARRANGEMENT. CM FAXED ADMISSIONS INTAKE FORM WITH INITIAL DOCUMENTS TO [facility] AT [phone]. CM NOTIFIED MERLYN OF [facility] IN [place], [facility], , OF NEED FOR OUTPATIENT DIALYSIS; CM WAS ADVISED THAT PT WILL NEED TO BE ABLE TO TRANSFER TO WHEELCHAIR AND CHAIR WELL BE ABLE TO TOLERATE SITTING IN CHAIR FOR THREE HOURS OF DIALYSIS. THE CENTER PREFERS MWF, MORNING SCHEDULE. CM WAITING FOR OUTPATIENT DIALYSIS CLINIC ARRANGEMENT. NOTE THAT PT WILL HAVE TO BE ABLE TO TRANSFER TO CHAIR AND SIT IN CHAIR FOR THREE HOURS FOR OUTPATIENT CLINIC PARTICIPATION. FOR DISCHARGE, FAX DISCHARGE INFORMATION TO [facility] IN [place], ; NURSE REPORT TO BE CALLED TO [phone]. PT TO TRANSPORT VIA AMBULANCE. Computer Application Developer: Dick Oliveros Appended by Dick Oliveros on 10/02/2018 16:49 ORACLE PROGRAMMER: CM RECEIVED CALL FROM RADHA OF [facility] ADMISSIONS; [facility] DIAL[facility] IS NOT CERTIFIED FOR LIFT AND HAS NO AVAILABLE OPENINGS AT THIS TIME. [facility] IS LIFT CERTIFIED BUT HAS NO AVAILABLE OPENINGS. RADHA WILL SEND REFERRAL TO [facility] IN [place] BUT THEY ONLY HAVE TTS SLOTS AVAILABLE. RADHA WILL ESCULATE REFERRAL FOR [facility] DIALYSIS ARRANGMENT IN [place] THAT A CHAIR BECOMES AVAILABLE AND PT WILL NOT REQUIRE LIFT TRANSFER. PT WILL NEED TO BE ABLE TO TRANSFER FROM BED TO CHAIR AND WILL ALSO NEED TO BE ABLE TO SIT SAFELY FOR TRANSPORT AND 3 HOURS OF DIALYSIS TREATMENT FOR OUTPATIENT DIALYSIS CLINIC ARRANGEMENT. DICK OLIVEROS, CASE MANAGEMENT DCP- Discharge Planning Updated by [id number]: Dick Oliveros on 09/29/18 12:[address] Patient Name: GUSTABO STUART Encounter No: [id number] : 1950 Primary Insurance: MEDICARE A & B Anticipated DC Date: 09-30-2018 Planned Disposition: Nursing Facility KULWINDER Cert External Planned Provider: [facility] [place], SENIOR COMPUTER SPECIALIST CARE MEDICAID BED DCP follow-up note: JAIMIE RECEIVED ORDER FOR OUTPATIENT DIALYSIS CLINIC ARRANGEMENT; RN JAIMIE HAMMONDS HAS INFORMED ROGE MONAE OF [facility] FOR OUTPATIENT DAILYSIS CLINIC ARRANGEMENT IN [place]. CM FAXED UPDATE TO MERLYN OF [facility] IN [place], [facility], . ROGE INFORMED JAIMIE THAT PT NEEDS PERM DIALYSIS CATHETER AND AN ACCURATE WEIGHT. PT HAS ORDERS FOR CATHETER, CM NOTIFIED BEDSIDE NURSE OF NEED FOR ACCURATE WEIGHT; PT IS BED CONFINED AND ON SPECIALTY BED AT THIS TIME. CM WAITING FOR DIALYSIS CATHETER PLACEMENT WELL OUTPATIENT DIALYSIS CLINIC ARRANGEMENT. FOR DISCHARGE, FAX DISCHARGE INFORMATION TO [facility] IN [place], ; NURSE REPORT TO BE CALLED TO [phone]. PT TO TRANSPORT VIA AMBULANCE. Computer Application Developer: Dick Oliveros DCP- Discharge Planning Updated by [id number]: Dick Oliveros on 09/26/18 4:[address] Patient Name: GUSTABO STUART Admission Status: Elective Accout number: [id number] Admission Date: 09-19-2018 : 1950 Admission Diagnosis:ACUTE RESPIRATORY FAILURE WITH HYPOXIA Attending: JENNIFER DICKEY Current LOS: 7 Anticipated DC Date: Planned Disposition: Nursing Facility [facility] Primary Insurance: MEDICARE A & B PLANNED EXTERNAL PROVIDER: [facility] [place], LONG TERM CARE MEDICAID BED Discharge Planning Comments: CM MET WITH PT IN ROOM TO DISCUSS DISCHARGE PLANNING AND NEEDS. PT REPORTS LIVING AT A HALF-WAY IN [place], SHE CANNOT REMEMBER THE NAME OF THE PLACE. PT REPORTS BEING CONFINED TO BED BUT THE FACILITY HAS A LIFT TO ENTRY LEVEL SOFTWARE ENGINEER PT TO A WHEELCHAIR. PT REPORTS HAVING BIPAP, NEBULIZER AND OXYGEN AT THE FACILITY. PT REPORTS HAVING ASSISTANCE WITH EVERYTHING BUT EATING, WHICH SHE DOES HERSELF. PT ASKED THAT IF FAMILY CALLS, TELL THEM TO BRING HER CLOTHES AND CELL PHONE. CM DISCUSSED AVAILABILITY OF HOME HEALTH, REHAB SERVICES AND MEDICAL EQUIPMENT. PT DENIES DISCHARGE NEEDS, REPORTS SHE WILL DISCHARGE BACK TO FACILITY WHERE SHE LIVES. CM CALLED [facility] IN [place], [facility] [place] [facility], ; CM SPOKE TO MERLYN WHO REPORTS PT IS IN SENIOR COMPUTER SPECIALIST CARE AND PROVIDED EMERGENCY CONTACT INFORMATION FOR PT'S FAMILY MEMBERS; CM NOTED IN CASE MANAGEMENT ASSESSMENT CHECKLIST. MERLYN VERIFIED PT HAS OXYGEN, NEBULUZER AND BIPAP IN FACILITY, THEY WILL ACCEPT BACK FOR CONTINUED SENIOR CARE CARE AT HOSPITAL DISCHARGE. FOR DISCHARGE, FAX DISCHARGE INFORMATION TO [facility] IN [place], ; NURSE REPORT TO BE CALLED TO [phone]. PT TO TRANSPORT VIA AMBULANCE. Computer Application Developer: Dick Oliveros DCP- Discharge Planning Updated by [id number]: Jenny Al on 09/23/18 3:[address] CM attempted to visit with patient. Patient is currently on BiPap and getting dialysis at this time. She is unable to speak with me at this time. No family available at this time. CM will continue to follow and assist as needed with discharge planning / needs. DCPIA - Discharge Planning Initial Assessment Updated by [id number]: Dick Oliveros on 09/26/18 4:23 pm * Is the patient Alert and Oriented? Yes * How many steps to enter\\exit or inside your home? NONE * PCP [facility] [place], TRANSLATOR DEAF * Pharmacy [facility] ([facility] * Preadmission Environment Press Maintainer Halfway * [phone] * ADLs Partial Dependent * Partial ADLs (Assistance needed) Bathing Dressing Medication Management Toileting Transfers * [facility] Fannie Lift Nebulizer Oxygen Wheelchair * Other Equipment ALL MEDICAL EQUIPMENT PROVIDED BY FACILITY * List name and contact numbers for known caregivers / representatives who currently or will assist patient after discharge: EDGARD JEREZ, MOTHER IN LAW, KAVEH CASILLAS, DTR, NICK SAUER, SPOUSE, * Verbal permission to speak to the caregivers and representatives has been obtained from the patient. Yes * Community resources currently utilized None * Please name any agencies selected above. NONE * Additional services required to return to the preadmission environment? No * Can the patient safely return to the preadmission environment? Yes * Has this patient been hospitalized within the prior 30 days at any hospital? No Coverage Notice Reviewer: GABRIEL Oliveros Notice Issued Date-Time: 10/03/2018 11:30 Notice Type: Patient Choice Letter Notice Delivered To: Patient Relationship to Patient: Forensic Locksmith Name: Delivery Method: HAND - Hand Delivered Veda Days: Prior Verbal Notification: Recipient Understood Notice: Recipient Signature: Med Rec Note Co-signed by Attending: Coverage Notice Comment: FABRICIO UMANZOR: [facility] Reviewer: GABRIEL Oliveros Notice Issued Date-Time: 10/23/2018 14:00 Notice Type: IM Discharge Notice Notice Delivered To: Patient Relationship to Patient: Forensic Locksmith Name: Delivery Method: HAND - Hand Delivered Veda Days: Prior Verbal Notification: Recipient Understood Notice: Yes Recipient Signature: Yes Med Rec Note Co-signed by Attending: Coverage Notice Comment: Reviewer: GABRIEL Oliveros Notice Issued Date-Time: 10/15/2018 10:20 Notice Type: IM Discharge Notice Notice Delivered To: Patient Relationship to Patient: Forensic Locksmith Name: Delivery Method: HAND - Hand Delivered Veda Days: Prior Verbal Notification: Recipient Understood Notice: Yes Recipient Signature: Yes Med Rec Note Co-signed by Attending: Coverage Notice Comment: Last DP export: 10/23/18 1:28 Patient Name: GUSTABO STUART Page [id number] at 1441 All edits/amendments must be made on the electronic document DICTATION DATE: 10/23/181440 POKER PROP PLAYER: HELDER 10/23/181440 RPT#: [id number] DC DATE: STATUS: ADM IN [facility] [address] [place] [address] END OF REPORT
--- NOTE | ~2018-09-19 | MORECARE ---
CASE MANAGEMENT DISCHARGE SUMMARY PATIENT: GUSTABO STUART UNIT: [id number] ADM DATE: 09/19/18 AGE: 68 : 50 SEX: F ROOM/BED: D.2584 AUTHOR: LAWRENCE,DOC PHYSICIAN: REFERRING PHYSICIAN: JENNIFER DICKEY MD DATE OF SERVICE: 10/22/18 Discharge Plan Patient Name: GUSTABO STUART Facility: [facility]:[place] : 1950 Planned Disposition: Nursing Facility [facility] Cert Anticipated Discharge Date: 10/22/18 Discharge Date: Expected LOS: 33 Initial Reviewer: [id number] Initial Review Date: 09/19/2018 Generated: 10/22/18 5:14 pm Comments DCP- Discharge Planning Updated by [id number]: Dick Oliveros on 10/22/18 2:[address] Patient Name: GUSTABO STUART Encounter No: [id number] : 1950 Primary Insurance: MEDICARE A & B Anticipated DC Date: 10-22-2018 Planned Disposition: Nursing Facility [facility] Cert External Planned Provider: JERICHO FORBES COUNTS INCLUDE 234 BEDS AT THE [facility], HALFWAY CARE MEDICAID BED DCP follow-up note: CM RECEIVED CALL FROM ROGE BRICEÑO [facility], PT HAS BEEN ACCEPTED AT [facility], 1115 AM; FIRST APPOINTMENT 10-24-18 AT 1100AM. PT NOTIFIED AND IN AGREEMENT WITH DISCHARGE TO [facility] IN [place] WITH OUTPATIENT DIALYSIS. CM NOTIFIED NIKOLAINAV, ASKED FOR FACILITY VAUDEVILLE ACTOR TODAY. CM RECEIVED CALL FROM ANTONIO IN [place], , WHO REPORTS SHE NEEDS TO GET PT A BIPAP AND DOES NOT HAVE VAN AVAILABILITY TODAY OR TOMORROW TO [facility] PT. PT IS NOT QUALIFYING FOR AMBULANCE TRANSPORT, STAGE TWO ON COCCYX VERY SMALL AND PT IS TRANSFERRING WITHOUT LIFT AND SITTING IN CHAIR MOST ALL DAY. CM CALLED AND SPOKE TO CM APPAREL FASHION DESIGNER KAYLEE, DISCUSSED TRANSPORTATION ISSUE; CM ADVISED THAT AMBULANCE COSTS $2500, WILL NOT BE APPROVED BY HOSPITAL. CM CALLED [employer], , LEFT DETAILED MESSAGE ASKING FOR AVAILABILITY AND COSTS FOR TRANSPORT TOMORROW. JAIMIE SPOKE TO APPAREL FASHION DESIGNER KAYLEE WHO INFORMED CM THAT IF MODIFIED MOBILE IS NOT ABLE TO TRANSPORT, THAT CM WILL NOTIFY [facility] WHO CAN SCHEDULE FIRST AVAILABLE TIME TO [facility]OR PT FROM HOSPITAL. CM FAXED DISCHARGE INFORMATION ALONG WITH WOUND CARE AND BIPAP SETTINGS / ORDER TO [facility] AT [phone]. ONCE TRANSPORTATION IS ARRANGED, NURSE REPORT TO BE CALLED TO [facility] AT [phone]. EVERARDO Bermeo DCP- Discharge Planning Updated by [id number]: Dick Oliveros on 10/22/18 9:[address] Patient Name: GUSTABO STUART Encounter No: [id number] : 1950 Primary Insurance: MEDICARE A & B Anticipated DC Date: 10-21-2018 Planned Disposition: Nursing Facility [facility] Cert External Planned Provider: [facility], [place], LONG TERM CARE MEDICAID BED CM SPOKE TO ROGE [facility] 10-21-18 WHO INFORMED CM THAT DIALYSIS UNIT STILL ASSESSING FOR ADMISSION AND REQUESTED FURHTER DOCUMENTATION WHICH ROGE FAXED FOR REVIEW. ON 10-21-18, JAIMIE SENT MESSAGE TO [facility]GE [facility] REQUESTING UPDATE ON DIALYSIS UNIT PLACEMENT AND SCHEDULE. ROGE CALLED CM, INFORMED CM THAT THE DIALYSIS DOCTOR DID NOT COMPLETE REVIEW YESTERDAY, ROGE HAS CALLED AND ASKED FOR REVIEW AND DETERMINATION TODAY. [facility] IN [facility] ACCEPTS PT. CM WAITING DAILYSIS CLINIC ACCEPTANCE AND SCHEDULE. WHEN CLINIC ARRANGEMENT CONFIRMED, FAX DISCHARGE INFORMATION TO [facility] AT [phone]. CALL NURSE REPORT TO [facility] AT [phone]. PT TO TRANSPORT VIA AMBULANCE DUE TO STAGE 2 PRESSURE ULCER ON COCCYX. EVERARDO BERMEO DCP- Discharge Planning Updated by [id number]: Dick Oliveros on 10/20/18 4:[address] Patient Name: GUSTABO STUART Encounter No: [id number] : 1950 Primary Insurance: MEDICARE A & B Anticipated DC Date: 10-21-2018 Planned Disposition: Nursing Facility [facility] Cert External Planned Provider:[facility], [place], LONG TERM CARE MEDICAID BED CM RECEIVED CALL FROM LAURENCE OF [facility] IN [place], , WHO ADVISED THAT [facility] WILL ACCEPT PT, TOMORROW, 10-21-18, IF APPROVED BY [facility] FOR OUTPATIENT DIALYSIS. LAURENCE ADVISED THAT THE [facility] IS NOW COMMUNICATING WITH THE DIALYSIS UNIT. CM SENT MESSAGE TO [facility]GE [facility] REQUESTING UPDATE ON DIALYSIS UNIT PLACEMENT AND SCHEDULE. PT NOTIFIED AND IN AGREEMENT WITH DISCHARGE TO [facility] SOON POSSIBLE. [facility]) IN [facility] ACCEPTS PT. CM WAITING DAILYSIS CLINIC ACCEPTANCE AND SCHEDULE. WHEN CLINIC ARRANGEMENT CONFIRMED, FAX DISCHARGE INFORMATION TO [facility] AT [phone]. CALL NURSE REPORT TO [facility] AT [phone]. PT TO TRANSPORT VIA AMBULANCE DUE TO STAGE 2 PRESSURE ULCER ON COCCYX. DICK OLIVEROS CASE MANAGEMENT DCP- Discharge Planning Updated by [id number]: Dick Oliveros on 10/20/18 8:[address] Patient Name: GUSTABO STUART Encounter No: [id number] : 1950 Primary Insurance: MEDICARE A & B Anticipated DC Date: 10-15-2018 Planned Disposition: Nursing Facility [facility] Cert External Planned Provider: [facility], [place], LONG TERM CARE MEDICAID BED CM LEFT MESSAGE FOR LAURENCE [facility] IN [place], , AND ADVISED THAT PT HAS CONTINUED TO DEMONSTRATE ABILITY TO TRANSFER TO CHAIR AND SIT FOR OVER 4 HOURS. CM FAXED UPDATE TO [facility] VIA LAURENCE AT [phone]. [facility] IS REVIEWING FOR PLACEMENT; THEY DO HAVE FANNIE LIFT. DESTIN OSMAN WORKING ON OUTPATIENT DIALYSIS ARRANGEMENT AT [facility] IN [place], THEY ALSO HAVE A LIFT. CM WAITING ON DETERMINATIONS FROM BOTH. DICK OLIVEROS CASE MANAGEMENT DCP- Discharge Planning Updated by [id number]: Dick Oliveros on 10/15/18 11:[address] Patient Name: GUSTABO STUART Encounter No: [id number] : 1950 Primary Insurance: MEDICARE A & B Anticipated DC Date: 10-15-2018 Planned Disposition: Nursing Facility [facility] Cert External Planned Provider: [facility]; ECOLOGIST CARE MEDICAID BED DCP follow-up note: CM CALLED LAURENCE OF [facility] IN [place], , AND ADVISED THAT PT HAS DEMONSTRATED ABILITY TO TRANSFER TO CHAIR AND SIT FOR OVER 4 HOURS. CM SPOKE TO HOMER OF [facility] ADMISSIONS AND PROVIDED UPDATE FOR [facility] DIALYSIS IN [place] CM SPOKE TO ROGE MONAE OF [facility] WHO WILL COMMUNICATE WITH [facility] ADMISSIONS WELL [facility] DIALYSIS AND PROVIDED UPDATED INFORMATION TO BOTH FROM MEDICAL CHART. CM SPOKE TO PT IN ROOM WHO IS STILL WILLING FOR PLACEMENT IN [place] AT [facility] AND WAS HOPING TO BE OUT OF THE HOSPITAL FOR THANKSGIVING. IMPORTANT MESSAGE FROM MEDICARE PROVIDED AND EXPLAINED. CM FAXED UPDATE TO [facility] IN [place] VIA LAURENCE AT [phone]. [facility] IN [facility] IS REVIEWING FOR PLACEMENT; THEY DO HAVE FANNIE LIFT. [facility] WORKING ON OUTPATIENT DIALYSIS ARRANGEMENT AT [facility] IN [place], THEY ALSO HAVE A LIFT. CM WAITING ON DETERMINATIONS FROM BOTH. DICK OLIVEROS, CASE MANAGEMENT DCP- Discharge Planning Updated by [id number]: Dick Oliveros on 10/13/18 2:[address] Patient Name: GUSTABO STUART Encounter No: [id number] : 1950 Primary Insurance: MEDICARE A & B Anticipated DC Date: 09-30-2018 Planned Disposition: Nursing Facility [facility] Cert External Planned Provider: [facility]; LONG TERM CARE MEDICAID BED DCP follow-up note: CM CALLED LAURENCE OF [facility] IN [place], , WHO ADVISED THAT [facility]PT BUT PT WILL NEED TO DEMONSTRATE ABILITY TO TRANSFER TO WHEELCHAIR AND SIT FOR 3 HOURS OF DIALYSIS. [facility] LIFT AVAILABLE. CM SPOKE TO RADHA OF [facility] ADMISSIONS WHO REPORTS THEY WERE WORKING ON [facility] DIALYSIS IN [place] BUT WILL SEND REFERRAL TO [facility] IN [place] THAT HAS LIFT AND MWF SCHEDULING CAPABIILITY. CM SPOKE TO PT IN ROOM WHO IS WILLING FOR PLACEMENT IN [place] TO BE CLOSER TO FAMILY IF SHE CANNOT RETURN TO [place] WHERE SHE WAS LIVING AT [facility]. CM FAXED UPDATE TO [facility]IA [employer] AT [phone]. CM SPOKE TO MARIEL OF [facility]ICAL [facility]ER[facility] WHO VERIFIED PT HAS BEEN UP TO SIDE OF BED BUT THEY ARE NOT ABLE TO GET PT UP TO CHAIR THEY DO NOT HAVE A LIFT. CM SPOKE TO CM APPAREL FASHION DESIGNER KAYLEE REGARDING LACK OF LIFT CAPABILITY THIS IS AN OBSTACLE TO PLACEMENT IN ANY FACILITY PT WILL NEED OUTPATIENT DIALYSIS AND MUST BE ABLE TO DEMONSTRATE ABILITY TO SIT FOR DURATION OF TRANSPORT AND DIALYSIS SESSION. CM WAITING PT TO DEMONSTRATE ABILITY TO TRANSFER AND SIT FOR DURATION OF TRANSPORTATION WELL FOR THREE HOURS OF DIALYSIS TREATMENT, WITH OR WITHOUT A LIFT. [facility] WILL REVIEW FOR PLACEMENT IF PT IS ABLE TO SIT FOR TRANSPORT AND DIALYSIS; THEY DO HAVE FANNIE LIFT. [facility] ADMISSIONS WORKING ON OUTPATIENT DIALYSIS ARRANGEMENT AT [facility], THEY ALSO HAVE A LIFT. DICK OLIVEROS, CASE MANAGEMENT Appended by Dick Oliveros on 10/13/2018 15:31 BIBLICAL LANGUAGES PROFESSOR: CM RECEIVED CALL FROM KRISTIAN OF [facility], , WHO ASKED FOR FAXED UPDATE. CM FAXED UPDATE TO [facility] WITH DIALYSIS RUN SHEETS THRU 10-11-18. CM FAXED UPDATE TO LAURENCE OF [facility] WITH OCCUPATIONAL THERAPY NOTE INDICATING PT HAS BEEN OUT OF BED TO CHAIR. CM TO CONTINUE TO FOLLOW AND ASSIST NEEDED. CM WAITING PT TO DEMONSTRATE ABILITY TO TRANSFER AND SIT FOR DURATION OF TRANSPORTATION WELL FOR THREE HOURS OF DIALYSIS TREATMENT, WITH OR WITHOUT A LIFT. [facility] WILL REVIEW FOR PLACEMENT IF PT IS ABLE TO SIT FOR TRANSPORT AND DIALYSIS; THEY DO HAVE FANNIE LIFT. [facility] AD[facility] WORKING ON OUTPATIENT DIALYSIS ARRANGEMENT AT [facility], THEY ALSO HAVE A LIFT. DICK OLIVEROS, CASE MANAGEMENT DCP- Discharge Planning Updated by [id number]: Jenny Al on 10/10/18 6:[address] Late Entry 10/10/18 @ 0900 PT and OT still working with patient to get out of bed to sit in chair. Patient has to be able to sit in wheelchair and be transported to dialysis and sit in dialysis chair for 3-4hrs. CM will continue to follow and assist as needed with discharge planning / needs. DCP- Discharge Planning Updated by [id number]: Jenny Al on 10/07/18 3:[address] CM spoke with Roge Monae this am. Roge stated we are at standstill until we find NH placement. Once we have NH placement then we can proceed with dialysis placement. CM spoke with patients daughter since patient isn't able to stay awake and communicate. Daughter Fran Tinajero "Nkechi" [phone]. Daughter stated that she would like NH placement as close to [place] as possible. CM explained that we would have to find placement that has fannie lift at both NH and dialysis clinic. Daughter stated that [place] was the next closest town. CM contacted [facility] in [place] [phone]. Laurence Garcia clinical Liaison [phone] fax [phone]. CM spoke with Laurence and explained situation and faxed records. Laurence stated she would be here to see patient in am. CM will continue to follow and assist as needed with discharge planning / needs. DCP- Discharge Planning Updated by [id number]: Jenny Servando on 10/07/18 9:[address] CM spoke with Roge Monae this am. She stated that she had been out of the office but now was back. Roge stated that she would speak to Radha and would take care of everything from this point with placement for dialysis. CM will continue to follow and assist as needed with discharge planning / needs. DCP- Discharge Planning Updated by [id number]: Jenny Al on 10/07/18 9:[address] Late Entry 10/06/18 @ 1600 CM spoke with Radha with [facility]. Radha stated she needed clarification on patients name. Radha stated she needed dialysis flowsheets from last three treatments faxed to her. Radha stated that she was trying to get placement at [facility] dialysis clinic. CM will continue to follow and assist as needed with discharge planning / needs. DCP- Discharge Planning Updated by [id number]: Dick Arlin on 10/03/18 3:[address] Patient Name: GUSTABO STUART Encounter No: [id number] : 1950 Primary Insurance: MEDICARE A & B Anticipated DC Date: 09-30-2018 Planned Disposition: Nursing Facility [facility] Cert External Planned Provider: TO BE DETERMINED DCP follow-up note: CM RECEIVED CALL FROM NAYANA OF [facility], THEY ONLY HAVE TTS AVAILABLE AND HAVE TALKED TO [facility] ASSESSMENT SERVICES MANAGER WHO INFORMED THEM THAT THEY ARE NOT GOING TO DRIVE PT AN HOUR AWAY FOR DIALYSIS FROM THE CARE HOME. CM SPOKE TO AUDI AT [facility] WHO INFORMED CM THAT THEY ARE GOING TO HAVE A SISTER FACILITY REPRESENTIVE CONTACT CM TO ASSIST IN PLACING PT IN [place] SO THAT PT CAN GO TO A FACILITY THAT HAS CAPABILITY OF FANNIE LIFT AND TO A DILAYSIS UNIT THAT HAS CAPABILITY OF FANNIE LIFT. CM SPOKE TO PT IN ROOM, DISCUSSED MOVING TO ANOTHER [facility]ARE HOME, PT REPORTS SHE WILL TRY WITH THERAPY AND IS WILLING FOR NEW CARE HOME IF NEEDED, CHOICE SIGNED FOR [facility] AND [facility]. CM DISCUSSED LTACH, PT ALSO IN AGREEMENT WITH LTACH AT [facility] IF IT WILL HELP GET HER HOME SOONER. CM CALLED AND SPOKE TO LAITH OF [facility], , DISCUSSED NEED FOR REHAB, WOUND CARE AND DIALYSIS WITH GOAL TO SIT FOR DIALYSIS IN OUTPATIENT SETTING TO RETURN TO A CARE HOME FOR CONTINUED HALFWAY CARE. REFERRAL FAXED TO [facility] AT [phone]. CM CALLED AND SPOKE TO [facility], , OF [place], REPRESENTING [facility] AND [facility] FACILITIES. THEY CONTACT WITH [facility] AND DO NOT HAVE ONE WITH [facility]. THEY WILL SCREEN PT FOR THEIR HOMES, BUT PT WILL HAVE TO HAVE CAPACITY TO SIT IN CHAIR FOR THREE HOURS OF OUTPATIENT DIALYSIS AND TRANSPORTATION. CM FAXED REFERRAL TO [facility] AT [phone]. PT WILL NEED TO BE ABLE TO TRANSFER FROM BED TO CHAIR AND WILL ALSO NEED TO BE ABLE TO SIT SAFELY FOR TRANSPORT AND 3 HOURS OF DIALYSIS TREATMENT FOR OUTPATIENT DIALYSIS CLINIC ARRANGEMENT. CM WAITING ON [facility] EVALUATIONS FOR ADMISSION, [facility] EVALUATION FOR ADMISSION AND WILL NEED TO SEND APPLICATION FOR [facility] FOR DIALYSIS UNIT CONSIDERATION AND TO FIND OUT IF THEY HAVE FANNIE LIFT CAPABILITY. DICK OLIVEROS, CASE MANAGEMENT DCP- Discharge Planning Updated by [id number]: Dick Oliveros on 10/02/18 3:[address] Patient Name: GUSTABO STUART Encounter No: [id number] : 1950 Primary Insurance: MEDICARE A & B Anticipated DC Date: 09-30-2018 Planned Disposition: Nursing Facility [facility] Cert External Planned Provider: [facility] LONG TERM CARE MEDICAID BED DCP follow-up note: CM CALLED ELZBIETA OF [facility], , WAS INFORMED THEY DO NOT HAVE ANY REQUEST TO ARRANGE OUTPATIENT DIALYSIS CLINIC ARRANGEMENT. CM FAXED ADMISSIONS INTAKE FORM WITH INITIAL DOCUMENTS TO [facility] AT [phone]. CM NOTIFIED MERLYN OF [facility] IN [place], [facility], , OF NEED FOR OUTPATIENT DIALYSIS; CM WAS ADVISED THAT PT WILL NEED TO BE ABLE TO TRANSFER TO WHEELCHAIR AND CHAIR WELL BE ABLE TO TOLERATE SITTING IN CHAIR FOR THREE HOURS OF DIALYSIS. THE CENTER PREFERS MWF, MORNING SCHEDULE. CM WAITING FOR OUTPATIENT DIALYSIS CLINIC ARRANGEMENT. NOTE THAT PT WILL HAVE TO BE ABLE TO TRANSFER TO CHAIR AND SIT IN CHAIR FOR THREE HOURS FOR OUTPATIENT CLINIC PARTICIPATION. FOR DISCHARGE, FAX DISCHARGE INFORMATION TO [facility] IN [place], ; NURSE REPORT TO BE CALLED TO [phone]. PT TO TRANSPORT VIA AMBULANCE. Appliquer: Dick Oliveros Appended by Dick Oliveros on 10/02/2018 16:49 BIBLICAL LANGUAGES PROFESSOR: CM RECEIVED CALL FROM RADHA OF [facility] ADMISSIONS; [facility] DIALYSIS IS NOT CERTIFIED FOR LIFT AND HAS NO AVAILABLE OPENINGS AT THIS TIME. [facility] IS LIFT CERTIFIED BUT HAS NO AVAILABLE OPENINGS. RADHA WILL SEND REFERRAL TO [facility] DIALYSIS IN [place] BUT THEY ONLY HAVE TTS SLOTS AVAILABLE. RADHA WILL ESCULATE REFERRAL FOR [facility] D[facility] ARRANGMENT IN [place] THAT A CHAIR BECOMES AVAILABLE AND PT WILL NOT REQUIRE LIFT TRANSFER. PT WILL NEED TO BE ABLE TO TRANSFER FROM BED TO CHAIR AND WILL ALSO NEED TO BE ABLE TO SIT SAFELY FOR TRANSPORT AND 3 HOURS OF DIALYSIS TREATMENT FOR OUTPATIENT DIALYSIS CLINIC ARRANGEMENT. DICK ARLIN, CASE MANAGEMENT DCP- Discharge Planning Updated by [id number]: Dick Oliveros on 09/29/18 12:[address] Patient Name: GUSTABO STUART Encounter No: [id number] : 1950 Primary Insurance: MEDICARE A & B Anticipated DC Date: 09-30-2018 Planned Disposition: Nursing Facility [facility] External Planned Provider: [facility], [place], LONG TERM CARE MEDICAID BED DCP follow-up note: CM RECEIVED ORDER FOR OUTPATIENT DIALYSIS CLINIC ARRANGEMENT; RN JAIMIE HAMMONDS HAS INFORMED ROGE MONAE OF [facility] FOR OUTPATIENT DAILYSIS CLINIC ARRANGEMENT IN [place]. JAIMIE FAXED UPDATE TO MERLYN OF [facility] IN [place], [facility], . ROGE INFORMED CM THAT PT NEEDS PERM DIALYSIS CATHETER AND AN ACCURATE WEIGHT. PT HAS ORDERS FOR CATHETER, CM NOTIFIED BEDSIDE NURSE OF NEED FOR ACCURATE WEIGHT; PT IS BED CONFINED AND ON SPECIALTY BED AT THIS TIME. CM WAITING FOR DIALYSIS CATHETER PLACEMENT WELL OUTPATIENT DIALYSIS CLINIC ARRANGEMENT. FOR DISCHARGE, FAX DISCHARGE INFORMATION TO [facility] IN [place], ; NURSE REPORT TO BE CALLED TO [phone]. PT TO TRANSPORT VIA AMBULANCE. Appliquer: Dick Oliveros DCP- Discharge Planning Updated by [id number]: Dick Oliveros on 09/26/18 4:[address] Patient Name: GUSTABO STUART Admission Status: Elective Accout number: [id number] Admission Date: 09-19-2018 : 1950 Admission Diagnosis:ACUTE RESPIRATORY FAILURE WITH HYPOXIA Attending: JENNIFER DICKEY Current LOS: 7 Anticipated DC Date: Planned Disposition: Nursing Facility [facility] Primary Insurance: MEDICARE A & B PLANNED EXTERNAL PROVIDER: [facility] [place], LONG TERM CARE MEDICAID BED Discharge Planning Comments: CM MET WITH PT IN ROOM TO DISCUSS DISCHARGE PLANNING AND NEEDS. PT REPORTS LIVING AT A CARE HOME IN [place], SHE CANNOT REMEMBER THE NAME OF THE PLACE. PT REPORTS BEING CONFINED TO BED BUT THE FACILITY HAS A LIFT TO VAUDEVILLE ACTOR PT TO A WHEELCHAIR. PT REPORTS HAVING BIPAP, NEBULIZER AND OXYGEN AT THE FACILITY. PT REPORTS HAVING ASSISTANCE WITH EVERYTHING BUT EATING, WHICH SHE DOES HERSELF. PT ASKED THAT IF FAMILY CALLS, TELL THEM TO BRING HER CLOTHES AND CELL PHONE. CM DISCUSSED AVAILABILITY OF HOME HEALTH, REHAB SERVICES AND MEDICAL EQUIPMENT. PT DENIES DISCHARGE NEEDS, REPORTS SHE WILL DISCHARGE BACK TO FACILITY WHERE SHE LIVES. CM CALLED [facility] IN [place], [facility] [place] [facility], ; CM SPOKE TO MERLYN WHO REPORTS PT IS IN ECOLOGIST CARE AND PROVIDED EMERGENCY CONTACT INFORMATION FOR PT'S FAMILY MEMBERS; CM NOTED IN CASE MANAGEMENT ASSESSMENT CHECKLIST. MERLYN VERIFIED PT HAS OXYGEN, NEBULUZER AND BIPAP IN FACILITY, THEY WILL ACCEPT BACK FOR CONTINUED HALFWAY CARE AT HOSPITAL DISCHARGE. FOR DISCHARGE, FAX DISCHARGE INFORMATION TO [facility] IN [place], ; NURSE REPORT TO BE CALLED TO [phone]. PT TO TRANSPORT VIA AMBULANCE. Appliquer: Dick Oliveros DCP- Discharge Planning Updated by [id number]: Jenny Al on 09/23/18 3:[address] CM attempted to visit with patient. Patient is currently on BiPap and getting dialysis at this time. She is unable to speak with me at this time. No family available at this time. CM will continue to follow and assist as needed with discharge planning / needs. DCPIA - Discharge Planning Initial Assessment Updated by [id number]: Dick Oliveros on 09/26/18 4:23 pm * Is the patient Alert and Oriented? Yes * How many steps to enter\\exit or inside your home? NONE * PCP [facility], HOSPITAL FELLOW * Pharmacy [facility] * Preadmission Environment Snf Fdc * Facility Name [facility] T [phone] * ADLs Partial Dependent * Partial ADLs (Assistance needed) Bathing Dressing Medication Management Toileting Transfers * Equipment BIPAP Hospital Bed Fannie Lift Nebulizer Oxygen Wheelchair * Other Equipment ALL MEDICAL EQUIPMENT PROVIDED BY FACILITY * List name and contact numbers for known caregivers / representatives who currently or will assist patient after discharge: EDGARD JEREZ, MOTHER IN LAW, KAVEH CASILLAS, DTR, NICK SAUER, SPOUSE, * Verbal permission to speak to the caregivers and representatives has been obtained from the patient. Yes * Community resources currently utilized None * Please name any agencies selected above. NONE * Additional services required to return to the preadmission environment? No * Can the patient safely return to the preadmission environment? Yes * Has this patient been hospitalized within the prior 30 days at any hospital? No External Providers External Provider: [employer] Next Contact Date: Service Request Date: Service Type: Resolution: Reviewer: Comments: Coverage Notice Reviewer: [id number] Rex Oliveros Notice Issued Date-Time: 10/03/2018 11:30 Notice Type: Patient Choice Letter Notice Delivered To: Patient Relationship to Patient: Brewing Director Name: Delivery Method: HAND - Hand Delivered Veda Days: Prior Verbal Notification: Recipient Understood Notice: Recipient Signature: Med Rec Note Co-signed by Attending: Coverage Notice Comment: FABRICIO UMANZOR: [place] Reviewer: [id number] Rex Oliveros Notice Issued Date-Time: 10/15/2018 10:20 Notice Type: IM Discharge Notice Notice Delivered To: Patient Relationship to Patient: Brewing Director Name: Delivery Method: HAND - Hand Delivered Veda Days: Prior Verbal Notification: Recipient Understood Notice: Yes Recipient Signature: Yes Med Rec Note Co-signed by Attending: Coverage Notice Comment: Last DP export: 10/22/18 2:47 Patient Name: GUSTABO STUART Page [id number] at 1614 All edits/amendments must be made on the electronic document DICTATION DATE: 10/22/181613 WEB SYSTEMS DEVELOPER: HELDER 10/22/181613 RPT#: [id number] DC DATE: STATUS: ADM IN [facility] [address] [place] [address] END OF REPORT
--- NOTE | ~2018-09-19 | MORECARE ---
CASE MANAGEMENT DISCHARGE SUMMARY PATIENT: GUSTABO STUART UNIT: [id number] ADM DATE: 09/19/18 AGE: 68 : 50 SEX: F ROOM/BED: D.02 AUTHOR: LAWRENCE,DOC PHYSICIAN: REFERRING PHYSICIAN: JENNIFER DICKEY MD DATE OF SERVICE: 10/07/18 Discharge Plan Patient Name: GUSTABO STUART Facility: [facility]:[place] : 1950 Planned Disposition: Nursing Facility [facility] Cert Anticipated Discharge Date: 09/30/18 Discharge Date: Expected LOS: 11 Initial Reviewer: [email or web address] Initial Review Date: 09/19/2018 Generated: 10/07/18 4:46 pm Comments DCP- Discharge Planning Updated by [id number]: Jenny Al on 10/07/18 9:[address] CM spoke with Roge Monae this am. She stated that she had been out of the office but now was back. Roge stated that she would speak to Radha and would take care of everything from this point with placement for dialysis. CM will continue to follow and assist as needed with discharge planning / needs. DCP- Discharge Planning Updated by [id number]: Jenny Al on 10/07/18 9:[address] Late Entry 10/06/18 @ 1600 CM spoke with Radha with [facility]. Radha stated she needed clarification on patients name. Radha stated she needed dialysis flowsheets from last three treatments faxed to her. Radha stated that she was trying to get placement at [facility] dialysis clinic. CM will continue to follow and assist as needed with discharge planning / needs. DCP- Discharge Planning Updated by [id number]: Dick Randle on 10/03/18 3:[address] Patient Name: GUSTABO STUART Encounter No: [id number] : 1950 Primary Insurance: MEDICARE A & B Anticipated DC Date: 09-30-2018 Planned Disposition: Nursing Facility [facility] Cert External Planned Provider: TO BE DETERMINED DCP follow-up note: CM RECEIVED CALL FROM NAYANA OF [facility], THEY ONLY HAVE TTS AVAILABLE AND HAVE TALKED TO [facility] VALIDATION LEADER WHO INFORMED THEM THAT THEY ARE NOT GOING TO DRIVE PT AN HOUR AWAY FOR DIALYSIS FROM THE PRISON. CM SPOKE TO AUDI AT [facility] WHO INFORMED CM THAT THEY ARE GOING TO HAVE A SISTER FACILITY REPRESENTIVE CONTACT CM TO ASSIST IN PLACING PT IN [place] SO THAT PT CAN GO TO A FACILITY THAT HAS CAPABILITY OF FANNIE LIFT AND TO A DILAYSIS UNIT THAT HAS CAPABILITY OF FANNIE LIFT. CM SPOKE TO PT IN ROOM, DISCUSSED MOVING TO ANOTHER PRISON, PT REPORTS SHE WILL TRY WITH THERAPY AND IS WILLING FOR NEW PRISON IF NEEDED, CHOICE SIGNED FOR [facility] AND [facility] AT [facility]. CM DISCUSSED LTACH, PT ALSO IN AGREEMENT WITH LTACH AT [facility] IF IT WILL HELP GET HER HOME SOONER. CM CALLED AND SPOKE TO LAITH OF [facility], , DISCUSSED NEED FOR REHAB, WOUND CARE AND DIALYSIS WITH GOAL TO SIT FOR DIALYSIS IN OUTPATIENT SETTING TO RETURN TO A PRISON FOR CONTINUED SHELTER CARE. REFERRAL FAXED TO [facility] AT [phone]. CM CALLED AND SPOKE TO BECKY DEL CASTILLO, , OF [facility], REPRESENTING [facility] AND [facility] [place] [facility] THEY [facility] WITH [facility] AND DO NOT HAVE ONE WITH DAVITA. THEY WILL SCREEN PT FOR THEIR HOMES, BUT PT WILL HAVE TO HAVE CAPACITY TO SIT IN CHAIR FOR THREE HOURS OF OUTPATIENT DIALYSIS AND TRANSPORTATION. CM FAXED REFERRAL TO BECKY AT [phone]. PT WILL NEED TO BE ABLE TO TRANSFER FROM BED TO CHAIR AND WILL ALSO NEED TO BE ABLE TO SIT SAFELY FOR TRANSPORT AND 3 HOURS OF DIALYSIS TREATMENT FOR OUTPATIENT DIALYSIS CLINIC ARRANGEMENT. CM WAITING ON PRISON EVALUATIONS FOR ADMISSION, [facility] AND WILL NEED TO SEND APPLICATION FOR [facility] FOR DIALYSIS UNIT CONSIDERATION AND TO FIND OUT IF THEY HAVE FANNIE LIFT CAPABILITY. DICK RANDLE, CASE MANAGEMENT DCP- Discharge Planning Updated by [id number]: Dick Randle on 10/02/18 3:[address] Patient Name: GUSTABO STUART Encounter No: [id number] : 1950 Primary Insurance: MEDICARE A & B Anticipated DC Date: 09-30-2018 Planned Disposition: Nursing Facility [facility] Cert External Planned Provider: [facility] [place], LONG TERM CARE MEDICAID BED DCP follow-up note: CM CALLED ELZBIETA OF [facility], , WAS INFORMED THEY DO NOT HAVE ANY REQUEST TO ARRANGE OUTPATIENT DIALYSIS CLINIC ARRANGEMENT. CM FAXED ADMISSIONS INTAKE FORM WITH INITIAL DOCUMENTS TO [facility] AT [phone]. CM NOTIFIED MERLYN OF [facility] IN [place], [facility], , OF NEED FOR OUTPATIENT DIALYSIS; CM WAS ADVISED THAT PT WILL NEED TO BE ABLE TO TRANSFER TO WHEELCHAIR AND CHAIR WELL BE ABLE TO TOLERATE SITTING IN CHAIR FOR THREE HOURS OF DIALYSIS. THE CENTER PREFERS MWF, MORNING SCHEDULE. CM WAITING FOR OUTPATIENT DIALYSIS CLINIC ARRANGEMENT. NOTE THAT PT WILL HAVE TO BE ABLE TO TRANSFER TO CHAIR AND SIT IN CHAIR FOR THREE HOURS FOR OUTPATIENT CLINIC PARTICIPATION. FOR DISCHARGE, FAX DISCHARGE INFORMATION TO [facility] IN [place], ; NURSE REPORT TO BE CALLED TO [phone]. PT TO TRANSPORT VIA AMBULANCE. Rat Farmer: Dick Randle Appended by Dick Randle on 10/02/2018 16:49 TOP FORMER: JAIMIE RECEIVED CALL FROM RADHA OF [facility]; [facility] IS NOT CERTIFIED FOR LIFT AND HAS NO AVAILABLE OPENINGS AT THIS TIME. [facility] IS LIFT CERTIFIED BUT HAS NO AVAILABLE OPENINGS. RADHA WILL SEND REFERRAL TO [facility] IN [place] BUT THEY ONLY HAVE TTS SLOTS AVAILABLE. RADHA WILL ESCULATE REFERRAL FOR [facility] D[facility] ARRANGMENT IN [place] THAT A CHAIR BECOMES AVAILABLE AND PT WILL NOT REQUIRE LIFT TRANSFER. PT WILL NEED TO BE ABLE TO TRANSFER FROM BED TO CHAIR AND WILL ALSO NEED TO BE ABLE TO SIT SAFELY FOR TRANSPORT AND 3 HOURS OF DIALYSIS TREATMENT FOR OUTPATIENT DIALYSIS CLINIC ARRANGEMENT. DICK RANDLE, CASE MANAGEMENT DCP- Discharge Planning Updated by [id number]: Dick Randle on 09/29/18 12:[address] Patient Name: GUSTABO STUART Encounter No: [id number] : 1950 Primary Insurance: MEDICARE A & B Anticipated DC Date: 09-30-2018 Planned Disposition: Nursing Facility [facility] Cert External Planned Provider: [facility] [place], LONG TERM CARE MEDICAID BED DCP follow-up note: CM RECEIVED ORDER FOR OUTPATIENT DIALYSIS CLINIC ARRANGEMENT; POLINA HAMMONDS HAS INFORMED ROGE MONAE OF PATIENT PATHWAYS FOR OUTPATIENT DAILYSIS CLINIC ARRANGEMENT IN [place]. JAIMIE FAXED UPDATE TO MERLYN OF [facility] IN [place], [facility], . ROGE INFORMED CM THAT PT NEEDS PERM DIALYSIS CATHETER AND AN ACCURATE WEIGHT. PT HAS ORDERS FOR CATHETER, CM NOTIFIED BEDSIDE NURSE OF NEED FOR ACCURATE WEIGHT; PT IS BED CONFINED AND ON SPECIALTY BED AT THIS TIME. CM WAITING FOR DIALYSIS CATHETER PLACEMENT WELL OUTPATIENT DIALYSIS CLINIC ARRANGEMENT. FOR DISCHARGE, FAX DISCHARGE INFORMATION TO [facility] IN [place], ; NURSE REPORT TO BE CALLED TO [phone]. PT TO TRANSPORT VIA AMBULANCE. Rat Farmer: Dick Randle DCP- Discharge Planning Updated by [id number]: Dick Randle on 09/26/18 4:[address] Patient Name: GUSTABO STUART Admission Status: Elective Accout number: [id number] Admission Date: 09-19-2018 : 1950 Admission Diagnosis:ACUTE RESPIRATORY FAILURE WITH HYPOXIA Attending: JENNIFER DICKEY Current LOS: 7 Anticipated DC Date: Planned Disposition: Nursing Facility [facility] Cert Primary Insurance: MEDICARE A & B PLANNED EXTERNAL PROVIDER: [facility], LONG TERM CARE MEDICAID BED Discharge Planning Comments: CM MET WITH PT IN ROOM TO DISCUSS DISCHARGE PLANNING AND NEEDS. PT REPORTS LIVING AT A PRISON IN [place], SHE CANNOT REMEMBER THE NAME OF THE PLACE. PT REPORTS BEING CONFINED TO BED BUT THE FACILITY HAS A LIFT TO HULL AND DECK REMOVER PT TO A WHEELCHAIR. PT REPORTS HAVING BIPAP, NEBULIZER AND OXYGEN AT THE FACILITY. PT REPORTS HAVING ASSISTANCE WITH EVERYTHING BUT EATING, WHICH SHE DOES HERSELF. PT ASKED THAT IF FAMILY CALLS, TELL THEM TO BRING HER CLOTHES AND CELL PHONE. CM DISCUSSED AVAILABILITY OF HOME HEALTH, REHAB SERVICES AND MEDICAL EQUIPMENT. PT DENIES DISCHARGE NEEDS, REPORTS SHE WILL DISCHARGE BACK TO FACILITY WHERE SHE LIVES. JAIMIE CALLED [facility] IN [place], [facility], ; CM SPOKE TO MERLYN WHO REPORTS PT IS IN SHELTER CARE AND PROVIDED EMERGENCY CONTACT INFORMATION FOR PT'S FAMILY MEMBERS; CM NOTED IN CASE MANAGEMENT ASSESSMENT CHECKLIST. MERLYN VERIFIED PT HAS OXYGEN, NEBULUZER AND BIPAP IN FACILITY, THEY WILL ACCEPT BACK FOR CONTINUED MIRROR PAINTER CARE AT HOSPITAL DISCHARGE. FOR DISCHARGE, FAX DISCHARGE INFORMATION TO [facility] IN [place], ; NURSE REPORT TO BE CALLED TO [phone]. PT TO TRANSPORT VIA AMBULANCE. Rat Farmer: Dick Randle DCP- Discharge Planning Updated by [id number]: Jenny Al on 09/23/18 3:[address] CM attempted to visit with patient. Patient is currently on BiPap and getting dialysis at this time. She is unable to speak with me at this time. No family available at this time. CM will continue to follow and assist as needed with discharge planning / needs. DCPIA - Discharge Planning Initial Assessment Updated by [id number]: Dick Randle on 09/26/18 4:23 pm * Is the patient Alert and Oriented? Yes * How many steps to enter\exit or inside your home? NONE * PCP [facility], [place] * Pharmacy [facility] ([facility] FACILITY) * Preadmission Environment [facility] * Facility Name [facility] T [phone] * ADLs Partial Dependent * Partial ADLs (Assistance needed) Bathing Dressing Medication Management Toileting Transfers * Equipment BIPAP Hospital Bed Fannie Lift Nebulizer Oxygen Wheelchair * Other Equipment ALL MEDICAL EQUIPMENT PROVIDED BY FACILITY * List name and contact numbers for known caregivers / representatives who currently or will assist patient after discharge: EDGARD JEREZ, MOTHER IN LAW, KAVEH CASILLAS, DTR, NICK SAUER, SPOUSE, * Verbal permission to speak to the caregivers and representatives has been obtained from the patient. Yes * Community resources currently utilized None * Please name any agencies selected above. NONE * Additional services required to return to the preadmission environment? No * Can the patient safely return to the preadmission environment? Yes * Has this patient been hospitalized within the prior 30 days at any hospital? No External Providers External Provider: [facility] and [facility] Next Contact Date: Service Request Date: Service Type: Resolution: Reviewer: Comments: Coverage Notice Reviewer: [id number] - Dick Randle Notice Issued Date-Time: 10/03/2018 11:30 Notice Type: Patient Choice Letter Notice Delivered To: Patient Relationship to Patient: Pipe Fitter Marine Name: Delivery Method: HAND - Hand Delivered Veda Days: Prior Verbal Notification: Recipient Understood Notice: Recipient Signature: Med Rec Note Co-signed by Attending: Coverage Notice Comment: FABRICIO UMANZOR: [place] [facility] Last DP export: 10/07/18 9:55 Patient Name: GUSTABO STUART Page [id number] at 1546 All edits/amendments must be made on the electronic document DICTATION DATE: 10/07/18 1546 COLLAR FOLDER OPERATOR: HELDER 10/07/18 1546 RPT#: [id number] DC DATE: STATUS: [facility] [address] [place] [address] END OF REPORT
--- NOTE | ~2018-09-19 | MORECARE ---
CASE MANAGEMENT DISCHARGE SUMMARY PATIENT: GUSTABO STUART UNIT: [id number] ADM DATE: 09/19/18 AGE: 68 : 50 SEX: F ROOM/BED: D.8738 AUTHOR: LAWRENCE,DOC PHYSICIAN: REFERRING PHYSICIAN: JENNIFER DICKEY MD DATE OF SERVICE: 10/22/18 Discharge Plan Patient Name: GUSTABO STUART Facility: [facility]:[place] : 1950 Planned Disposition: Nursing Facility [facility]ER Cert Anticipated Discharge Date: 10/22/18 Discharge Date: Expected LOS: 33 Initial Reviewer: [id number] Initial Review Date: 09/19/2018 Generated: 10/22/18 6:50 pm Comments DCP- Discharge Planning Updated by [id number]: Dick Oliveros on 10/22/18 4:[address] Patient Name: GUSTABO STUART Encounter No: [id number] : 1950 Primary Insurance: MEDICARE A & B Anticipated DC Date: 10-22-2018 Planned Disposition: Nursing Facility [facility] Cert External Planned Provider: JERICHO FORBES [facility], HALFWAY CARE MEDICAID BED DCP follow-up note: CM RECEIVED CALL FROM ROGE [facility], PT HAS BEEN ACCEPTED AT [facility], 1115 AM; FIRST APPOINTMENT 10-24-18 AT 1100AM. PT NOTIFIED AND IN AGREEMENT WITH DISCHARGE TO [facility] IN [place] WITH OUTPATIENT DIALYSIS. CM NOTIFIED NIKOLAINAV, ASKED FOR FACILITY TRUST MAIL CLERK TODAY. CM RECEIVED CALL FROM ANTONIO IN [place], , WHO REPORTS SHE NEEDS TO GET PT A BIPAP AND DOES NOT HAVE VAN AVAILABILITY TODAY OR TOMORROW TO TRUST MAIL CLERK PT. PT IS NOT QUALIFYING FOR AMBULANCE TRANSPORT, STAGE TWO ON COCCYX VERY SMALL AND PT IS TRANSFERRING WITHOUT LIFT AND SITTING IN CHAIR MOST ALL DAY. CM CALLED AND SPOKE TO CM SPECIAL EDUCATION SUPERINTENDENT KAYLEE, DISCUSSED TRANSPORTATION ISSUE; CM ADVISED THAT AMBULANCE COSTS $2500, WILL NOT BE APPROVED BY HOSPITAL. CM CALLED [employer], , LEFT DETAILED MESSAGE ASKING FOR AVAILABILITY AND COSTS FOR TRANSPORT TOMORROW. JAIMIE SPOKE TO SPECIAL EDUCATION SUPERINTENDENT KAYLEE WHO INFORMED CM THAT IF [employer] IS NOT ABLE TO TRANSPORT, THAT CM WILL NOTIFY RESIDENTIAL WHO CAN SCHEDULE FIRST AVAILABLE TIME TO TRUST MAIL CLERK PT FROM HOSPITAL. JAIMIE FAXED DISCHARGE INFORMATION ALONG WITH WOUND CARE AND BIPAP SETTINGS / ORDER TO [facility] VIA LAURENCE AT [phone]. ONCE TRANSPORTATION IS ARRANGED, NURSE REPORT TO BE CALLED TO [facility] AT [phone]. Dick Oliveros, CASE MANAGEMENT Appended by Dick Oliveros on 10/22/2018 17:46 IGNITION MECHANIC: JAIMIE RECEIVED CALL FROM ERIKA OF [employer], , QUOTE RECEIVED OF $275 AND WILL HAVE TO TRUST MAIL CLERK PT AT OR BEFORE 6AM; CM NOTIFIED SPECIAL EDUCATION SUPERINTENDENT KAYLEE AND RECEIVED APPROVAL FOR FUNDS. JAIMIE NOTIFIED LAURENCE OF [facility]. JAIMIE RECEIVED CALL FROM ERIKA, HE IS NOT ABLE TO OBTAIN A LARGE ENOUGH WHEELCHAIR FOR 6M TRUST MAIL CLERK. ERIKA STATES THAT IF NEEDED, HE MAY BE ABLE TO TRANSPORT SATURDAY LATER IN THE DAY IF THE RESIDENTIAL WILL NOT TRUST MAIL CLERK THE PATIENT. JAIMIE NOTIFED SPECIAL EDUCATION SUPERINTENDENT LAURENCE PAGE OF [facility] IN [place] AND LEFT NOTE FOR BEDSIDE NURSE. CM WILL CONTINUE TO SEEK DISCHARGE TRANSPORTATION. ONCE TRANSPORTATION IS ARRANGED, NURSE REPORT TO BE CALLED TO [facility] AT [phone]. Dick Oliveros, CASE MANAGEMENT DCP- Discharge Planning Updated by [id number]: Dick Oliveros on 10/22/18 9:[address] Patient Name: GUSTABO STUART Encounter No: [id number] : 1950 Primary Insurance: MEDICARE A & B Anticipated DC Date: 10-21-2018 Planned Disposition: Nursing Facility [facility]UL[facility]ER Cert External Planned Provider: [facility], [facility] MEDICAID BED JAIMIE SPOKE TO ROGE [facility] 10-21-18 WHO INFORMED CM THAT DIALYSIS UNIT STILL ASSESSING FOR ADMISSION AND REQUESTED FURHTER DOCUMENTATION WHICH ROGE FAXED FOR REVIEW. ON 10-21-18, JAIMIE SENT MESSAGE TO [facility]GE [facility] REQUESTING UPDATE ON DIALYSIS UNIT PLACEMENT AND SCHEDULE. ROGE CALLED CM, INFORMED CM THAT THE DIALYSIS DOCTOR DID NOT COMPLETE REVIEW YESTERDAY, ROGE HAS CALLED AND ASKED FOR REVIEW AND DETERMINATION TODAY. [facility] IN [place] ACCEPTS PT. CM WAITING DAILYSIS CLINIC ACCEPTANCE AND SCHEDULE. WHEN CLINIC ARRANGEMENT CONFIRMED, FAX DISCHARGE INFORMATION TO [facility] AT [phone]. CALL NURSE REPORT TO [facility] AT [phone]. PT TO TRANSPORT VIA AMBULANCE DUE TO STAGE 2 PRESSURE ULCER ON COCCYX. EVERARDO BERMEO DCP- Discharge Planning Updated by [id number]: Dick Oliveros on 10/20/18 4:[address] Patient Name: GUSTABO STUART Encounter No: [id number] : 1950 Primary Insurance: MEDICARE A & B Anticipated DC Date: 10-21-2018 Planned Disposition: Nursing Facility [facility]ER Cert External Planned Provider:[facility], [facility] MEDICAID BED CM RECEIVED CALL FROM LAURENCE OF [facility], , WHO ADVISED THAT [facility] WILL ACCEPT PT, TOMORROW, 10-21-18, IF APPROVED BY [facility] FOR OUTPATIENT DIALYSIS. LAURENCE ADVISED THAT THE RESIDENTIAL IS NOW COMMUNICATING WITH THE DIALYSIS UNIT. CM SENT MESSAGE TO ROGE [facility] REQUESTING UPDATE ON DIALYSIS UNIT PLACEMENT AND SCHEDULE. PT NOTIFIED AND IN AGREEMENT WITH DISCHARGE TO [facility] SOON POSSIBLE. [facility] [place] ACCEPTS PT. CM WAITING DAILYSIS CLINIC ACCEPTANCE AND SCHEDULE. WHEN CLINIC ARRANGEMENT CONFIRMED, FAX DISCHARGE INFORMATION TO [facility] AT [phone]. CALL NURSE REPORT TO [facility] AT [phone]. PT TO TRANSPORT VIA AMBULANCE DUE TO STAGE 2 PRESSURE ULCER ON COCCYX. EVERARDO BERMEO DCP- Discharge Planning Updated by [id number]: Dick Oliveros on 10/20/18 8:[address] Patient Name: GUSTABO STUART Encounter No: [id number] : 1950 Primary Insurance: MEDICARE A & B Anticipated DC Date: 10-15-2018 Planned Disposition: Nursing Facility [facility]UL[facility]ER Cert External Planned Provider: [facility], [facility] MEDICAID BED CM LEFT MESSAGE FOR LAURENCE OF [facility] IN [place], , AND ADVISED THAT PT HAS CONTINUED TO DEMONSTRATE ABILITY TO TRANSFER TO CHAIR AND SIT FOR OVER 4 HOURS. CM FAXED UPDATE TO [facility] IN [place] VIA LAURENCE AT [phone]. [facility] IN [place] IS REVIEWING FOR PLACEMENT; THEY DO HAVE FANNIE LIFT. DAVITA ADMISSIONS WORKING ON OUTPATIENT DIALYSIS ARRANGEMENT AT [facility] IN [place], THEY ALSO HAVE A LIFT. CM WAITING ON DETERMINATIONS FROM BOTH. DICK OLIVEROS, CASE MANAGEMENT DCP- Discharge Planning Updated by [id number]: Dick Oliveros on 10/15/18 11:[address] Patient Name: GUSTABO STUART Encounter No: [id number] : 1950 Primary Insurance: MEDICARE A & B Anticipated DC Date: 10-15-2018 Planned Disposition: Nursing Facility [facility]UL[facility]ER Cert External Planned Provider: [facility]; [facility] [facility] [employer] MEDICAID BED DCP follow-up note: CM CALLED LAURENCE OF [facility] IN [place], , AND ADVISED THAT PT HAS DEMONSTRATED ABILITY TO TRANSFER TO CHAIR AND SIT FOR OVER 4 HOURS. CM SPOKE TO HOMER OF [facility] ADMISSIONS AND PROVIDED UPDATE FOR [facility] DIALYSIS IN [place] CM SPOKE TO ROGE MONAE OF [facility] WHO [facility] DIALYSIS AND PROVIDED UPDATED INFORMATION TO BOTH FROM MEDICAL CHART. JAIMIE SPOKE TO PT IN ROOM WHO IS STILL WILLING FOR PLACEMENT IN [place] AT [facility] AND WAS HOPING TO BE OUT OF THE HOSPITAL FOR THANKSGIVING. IMPORTANT MESSAGE FROM MEDICARE PROVIDED AND EXPLAINED. CM FAXED UPDATE TO [facility] VIA LAURENCE AT [phone]. [facility] IN [place] IS REVIEWING FOR PLACEMENT; THEY DO HAVE FANNIE LIFT. DAVITA ADMISSIONS WORKING ON OUTPATIENT DIALYSIS ARRANGEMENT AT [facility] IN [place], THEY ALSO HAVE A LIFT. CM WAITING ON DETERMINATIONS FROM BOTH. DIKC OLIVEROS, CASE MANAGEMENT DCP- Discharge Planning Updated by [id number]: Dick Oliveros on 10/13/18 2:[address] Patient Name: GUSTABO STUART Encounter No: [id number] : 1950 Primary Insurance: MEDICARE A & B Anticipated DC Date: 09-30-2018 Planned Disposition: Nursing Facility KULWINDER Cert External Planned Provider: [facility]; [facility] [facility] MEDICAID BED DCP follow-up note: CM CALLED LAURENCE OF [facility] IN [place], , WHO ADVISED THAT [facility] MAY ACCEPT BUT PT WILL NEED TO DEMONSTRATE ABILITY TO TRANSFER TO WHEELCHAIR AND SIT FOR 3 HOURS OF DIALYSIS. [facility] HAS LIFT AVAILABLE. CM SPOKE TO RADHA OF [facility] WHO REPORTS THEY WERE WORKING ON [facility] DIALYSIS IN [place] BUT WILL SEND REFERRAL TO [facility] IN [place] THAT HAS LIFT AND MWF SCHEDULING CAPABIILITY. CM SPOKE TO PT IN ROOM WHO IS WILLING FOR PLACEMENT IN [place] TO BE CLOSER TO FAMILY IF SHE CANNOT RETURN TO [place] WHERE SHE WAS LIVING AT [facility]. CM FAXED UPDATE TO [facility] IN [place] VIA LAURENCE AT [phone]. CM SPOKE TO MARIEL OF PHYSICAL THERAPY WHO VERIFIED PT HAS BEEN UP TO SIDE OF BED BUT THEY ARE NOT ABLE TO GET PT UP TO CHAIR THEY DO NOT HAVE A LIFT. CM SPOKE TO CM SPECIAL EDUCATION SUPERINTENDENT KAYLEE REGARDING LACK OF LIFT CAPABILITY THIS IS AN OBSTACLE TO PLACEMENT IN ANY FACILITY PT WILL NEED OUTPATIENT DIALYSIS AND MUST BE ABLE TO DEMONSTRATE ABILITY TO SIT FOR DURATION OF TRANSPORT AND DIALYSIS SESSION. CM WAITING PT TO DEMONSTRATE ABILITY TO TRANSFER AND SIT FOR DURATION OF TRANSPORTATION WELL FOR THREE HOURS OF DIALYSIS TREATMENT, WITH OR WITHOUT A LIFT. [facility] IN [place] WILL REVIEW FOR PLACEMENT IF PT IS ABLE TO SIT FOR TRANSPORT AND DIALYSIS; THEY DO HAVE FANNIE LIFT. [facility] ADMISSIONS WORKING ON OUTPATIENT DIALYSIS ARRANGEMENT AT [facility] IN [place], THEY ALSO HAVE A LIFT. DICK OLIVEROS, CASE MANAGEMENT Appended by Dick Oliveros on 10/13/2018 15:31 IGNITION MECHANIC: CM RECEIVED CALL FROM KRISTIAN OF [facility], , WHO ASKED FOR FAXED UPDATE. CM FAXED UPDATE TO [facility] WITH DIALYSIS RUN SHEETS THRU 10-11-18. CM FAXED UPDATE TO LAURENCE OF [facility] IN [place] WITH OCCUPATIONAL THERAPY NOTE INDICATING PT HAS BEEN OUT OF BED TO CHAIR. CM TO CONTINUE TO FOLLOW AND ASSIST NEEDED. CM WAITING PT TO DEMONSTRATE ABILITY TO TRANSFER AND SIT FOR DURATION OF TRANSPORTATION WELL FOR THREE HOURS OF DIALYSIS TREATMENT, WITH OR WITHOUT A LIFT. [facility] IN [place] WILL REVIEW FOR PLACEMENT IF PT IS ABLE TO SIT FOR TRANSPORT AND DIALYSIS; THEY DO HAVE FANNIE LIFT. PATSY SAUCEDA WORKING ON OUTPATIENT DIALYSIS ARRANGEMENT AT [facility] IN [place], THEY ALSO HAVE A LIFT. DICK OLIVEROS, CASE MANAGEMENT DCP- Discharge Planning Updated by [id number]: Jenny Al on 10/10/18 6:[address] Late Entry 10/10/18 @ 0900 PT and OT still working with patient to get out of bed to sit in chair. Patient has to be able to sit in wheelchair and be transported to dialysis and sit in dialysis chair for 3-4hrs. CM will continue to follow and assist as needed with discharge planning / needs. DCP- Discharge Planning Updated by [id number]: Jenny Al on 10/07/18 3:[address] CM spoke with Roge Monea this am. Roge stated we are at standstill until we find NH placement. Once we have NH placement then we can proceed with dialysis placement. CM spoke with patients daughter since patient isn't able to stay awake and communicate. Daughter Fran Tinajero "Nkechi" [phone]. Daughter stated that she would like NH placement as close to [place] as possible. CM explained that we would have to find placement that has fannie lift at both NH and dialysis clinic. Daughter stated that [place] was the next closest town. CM contacted [facility] in [place] [phone]. Laurence Garcia clinical Liaison [phone] fax [phone]. CM spoke with Laurence and explained situation and faxed records. Laurence stated she would be here to see patient in am. CM will continue to follow and assist as needed with discharge planning / needs. DCP- Discharge Planning Updated by [id number]: Jenny Al on 10/07/18 9:[address] CM spoke with Roge Monae this am. She stated that she had been out of the office but now was back. Roge stated that she would speak to Radha and would take care of everything from this point with placement for dialysis. CM will continue to follow and assist as needed with discharge planning / needs. DCP- Discharge Planning Updated by [id number]: Jenny Al on 10/07/18 9:[address] Late Entry 10/06/18 @ 1600 CM spoke with Radha with [facility]. Radha stated she needed clarification on patients name. Radha stated she needed dialysis flowsheets from last three treatments faxed to her. Radha stated that she was trying to get placement at [facility] dialysis clinic. CM will continue to follow and assist as needed with discharge planning / needs. DCP- Discharge Planning Updated by [id number]: Dick Salamancawell on 10/03/18 3:[address] Patient Name: GUSTABO STUART Encounter No: [id number] : 1950 Primary Insurance: MEDICARE A & B Anticipated DC Date: 09-30-2018 Planned Disposition: Nursing Facility KULWINDER Cert External Planned Provider: TO BE DETERMINED DCP follow-up note: CM RECEIVED CALL FROM NAYANA OF [facility], THEY ONLY HAVE TTS AVAILABLE AND HAVE TALKED TO [facility] HAND ROLLER WHO INFORMED THEM THAT THEY ARE NOT GOING TO DRIVE PT AN HOUR AWAY FOR DIALYSIS FROM THE RESIDENTIAL. CM SPOKE TO AUDI AT [facility] WHO INFORMED CM THAT THEY ARE GOING TO HAVE A SISTER FACILITY REPRESENTIVE CONTACT CM TO ASSIST IN PLACING PT IN [place] SO THAT PT CAN GO TO A FACILITY THAT HAS CAPABILITY OF FANNIE LIFT AND TO A DILAYSIS UNIT THAT HAS CAPABILITY OF FANNIE LIFT. CM SPOKE TO PT IN ROOM, DISCUSSED MOVING TO ANOTHER RESIDENTIAL, PT REPORTS SHE WILL TRY WITH THERAPY AND IS WILLING FOR NEW RESIDENTIAL IF NEEDED, CHOICE SIGNED FOR KEANU JJ AT [facility]. CM DISCUSSED LTACH, PT ALSO IN AGREEMENT WITH LTACH AT [facility] IF IT WILL HELP GET HER HOME SOONER. CM CALLED AND SPOKE TO LAITH OF [facility], , DISCUSSED NEED FOR REHAB, WOUND CARE AND DIALYSIS WITH GOAL TO SIT FOR DIALYSIS IN OUTPATIENT SETTING TO RETURN TO A RESIDENTIAL FOR CONTINUED HALFWAY CARE. REFERRAL FAXED TO [facility] AT [phone]. CM CALLED AND SPOKE TO BECKY DEL CASTILLO, , OF [facility], [facility]. THEY CONTACT WITH [facility] DIALYSIS AND DO NOT HAVE ONE WITH [facility]. THEY WILL SCREEN PT FOR THEIR HOMES, BUT PT WILL HAVE TO HAVE CAPACITY TO SIT IN CHAIR FOR THREE HOURS OF OUTPATIENT DIALYSIS AND TRANSPORTATION. CM FAXED REFERRAL TO BECKY AT [phone]. PT WILL NEED TO BE ABLE TO TRANSFER FROM BED TO CHAIR AND WILL ALSO NEED TO BE ABLE TO SIT SAFELY FOR TRANSPORT AND 3 HOURS OF DIALYSIS TREATMENT FOR OUTPATIENT DIALYSIS CLINIC ARRANGEMENT. CM WAITING ON RESIDENTIAL EVALUATIONS FOR ADMISSION, [facility] EVALUATION FOR ADMISSION AND WILL NEED TO SEND APPLICATION FOR [facility] FOR DIALYSIS UNIT CONSIDERATION AND TO FIND OUT IF THEY HAVE FANNIE LIFT CAPABILITY. DICK OLIVEROS, CASE MANAGEMENT DCP- Discharge Planning Updated by [id number]: Dick Oliveros on 10/02/18 3:[address] Patient Name: GUSTABO STUART Encounter No: [id number] : 1950 Primary Insurance: MEDICARE A & B Anticipated DC Date: 09-30-2018 Planned Disposition: Nursing Facility KULWINDER Cert External Planned Provider: [facility], [facility] MEDICAID BED DCP follow-up note: CM CALLED ELZBIETA OF [facility] ADMISSIONS, , WAS INFORMED THEY DO NOT HAVE ANY REQUEST TO ARRANGE OUTPATIENT DIALYSIS CLINIC ARRANGEMENT. CM FAXED ADMISSIONS INTAKE FORM WITH INITIAL DOCUMENTS TO [facility] ADMISSIONS AT [phone]. CM NOTIFIED MERLYN OF [facility] IN [place], , OF NEED FOR OUTPATIENT DIALYSIS; CM WAS ADVISED THAT PT WILL NEED TO BE ABLE TO TRANSFER TO WHEELCHAIR AND CHAIR WELL BE ABLE TO TOLERATE SITTING IN CHAIR FOR THREE HOURS OF DIALYSIS. THE CENTER PREFERS MWF, MORNING SCHEDULE. CM WAITING FOR OUTPATIENT DIALYSIS CLINIC ARRANGEMENT. NOTE THAT PT WILL HAVE TO BE ABLE TO TRANSFER TO CHAIR AND SIT IN CHAIR FOR THREE HOURS FOR OUTPATIENT CLINIC PARTICIPATION. FOR DISCHARGE, FAX DISCHARGE INFORMATION TO [facility] IN [place], ; NURSE REPORT TO BE CALLED TO [phone]. PT TO TRANSPORT VIA AMBULANCE. Parlor Maid: Dick Oliveros Appended by Dick Oliveros on 10/02/2018 16:49 IGNITION MECHANIC: CM RECEIVED CALL FROM RADHA OF [facility] ADMISSIONS; [facility] DIALYSIS IS NOT CERTIFIED FOR LIFT AND HAS NO AVAILABLE OPENINGS AT THIS TIME. [facility] IS LIFT CERTIFIED BUT HAS NO AVAILABLE OPENINGS. RADHA WILL SEND REFERRAL TO [facility] DIALYS[facility] IN [place] BUT THEY ONLY HAVE TTS SLOTS AVAILABLE. RADHA WILL ESCULATE REFERRAL FOR [facility] DIALYSIS ARRANGMENT IN [place] THAT A CHAIR BECOMES AVAILABLE AND PT WILL NOT REQUIRE LIFT TRANSFER. PT WILL NEED TO BE ABLE TO TRANSFER FROM BED TO CHAIR AND WILL ALSO NEED TO BE ABLE TO SIT SAFELY FOR TRANSPORT AND 3 HOURS OF DIALYSIS TREATMENT FOR OUTPATIENT DIALYSIS CLINIC ARRANGEMENT. DICK OLIVEROS, CASE MANAGEMENT DCP- Discharge Planning Updated by [id number]: Dick Oliveros on 09/29/18 12:[address] Patient Name: GUSTABO STUART Encounter No: [id number] : 1950 Primary Insurance: MEDICARE A & B Anticipated DC Date: 09-30-2018 Planned Disposition: Nursing Facility KULWINDER Cert External Planned Provider: [facility], HALFWAY CARE MEDICAID BED DCP follow-up note: JAIMIE RECEIVED ORDER FOR OUTPATIENT DIALYSIS CLINIC ARRANGEMENT; RN JAIMIE HAMMONDS HAS INFORMED ROGE MONAE OF [facility] FOR OUTPATIENT DAILYSIS CLINIC ARRANGEMENT IN [place]. JAIMIE FAXED UPDATE TO MERLYN OF [facility] IN [place], . ROGE INFORMED CM THAT PT NEEDS PERM DIALYSIS CATHETER AND AN ACCURATE WEIGHT. PT HAS ORDERS FOR CATHETER, CM NOTIFIED BEDSIDE NURSE OF NEED FOR ACCURATE WEIGHT; PT IS BED CONFINED AND ON SPECIALTY BED AT THIS TIME. CM WAITING FOR DIALYSIS CATHETER PLACEMENT WELL OUTPATIENT DIALYSIS CLINIC ARRANGEMENT. FOR DISCHARGE, FAX DISCHARGE INFORMATION TO [facility] IN [place], ; NURSE REPORT TO BE CALLED TO [phone]. PT TO TRANSPORT VIA AMBULANCE. Parlor Maid: Dick Oliveros DCP- Discharge Planning Updated by [id number]: Dick Oliveros on 09/26/18 4:[address] Patient Name: GUSTABO STUART Admission Status: Elective Accout number: [id number] Admission Date: 09-19-2018 : 1950 Admission Diagnosis:ACUTE RESPIRATORY FAILURE WITH HYPOXIA Attending: JENNIFER DICKEY Current LOS: 7 Anticipated DC Date: Planned Disposition: Nursing Facility KUL[facility]ER Cert Primary Insurance: MEDICARE A & B PLANNED EXTERNAL PROVIDER: [facility], [place], LONG TERM CARE MEDICAID BED Discharge Planning Comments: CM MET WITH PT IN ROOM TO DISCUSS DISCHARGE PLANNING AND NEEDS. PT REPORTS LIVING AT A RESIDENTIAL IN [place], SHE CANNOT REMEMBER THE NAME OF THE PLACE. PT REPORTS BEING CONFINED TO BED BUT THE FACILITY HAS A LIFT TO TRUST MAIL CLERK PT TO A WHEELCHAIR. PT REPORTS HAVING BIPAP, NEBULIZER AND OXYGEN AT THE FACILITY. PT REPORTS HAVING ASSISTANCE WITH EVERYTHING BUT EATING, WHICH SHE DOES HERSELF. PT ASKED THAT IF FAMILY CALLS, TELL THEM TO BRING HER CLOTHES AND CELL PHONE. CM DISCUSSED AVAILABILITY OF HOME HEALTH, REHAB SERVICES AND MEDICAL EQUIPMENT. PT DENIES DISCHARGE NEEDS, REPORTS SHE WILL DISCHARGE BACK TO FACILITY WHERE SHE LIVES. CM CALLED [facility] IN [place], ; CM SPOKE TO MERLYN WHO REPORTS PT IS IN HOT MILL WORKER CARE AND PROVIDED EMERGENCY CONTACT INFORMATION FOR PT'S FAMILY MEMBERS; CM NOTED IN CASE MANAGEMENT ASSESSMENT CHECKLIST. MERLYN VERIFIED PT HAS OXYGEN, NEBULUZER AND BIPAP IN FACILITY, THEY WILL ACCEPT BACK FOR CONTINUED HALFWAY CARE AT HOSPITAL DISCHARGE. FOR DISCHARGE, FAX DISCHARGE INFORMATION TO [facility] IN [place], ; NURSE REPORT TO BE CALLED TO [phone]. PT TO TRANSPORT VIA AMBULANCE. Parlor Maid: Dick Oliveros DCP- Discharge Planning Updated by [id number]: Jenny Al on 09/23/18 3:[address] CM attempted to visit with patient. Patient is currently on BiPap and getting dialysis at this time. She is unable to speak with me at this time. No family available at this time. CM will continue to follow and assist as needed with discharge planning / needs. DCPIA - Discharge Planning Initial Assessment Updated by [id number]: Dick Oliveros on 09/26/18 4:23 pm * Is the patient Alert and Oriented? Yes * How many steps to enter\\exit or inside your home? NONE * [facility] [place], SIGN WRITER LETTERER OR PAINTER * Pharmacy [facility] * Preadmission Environment Discharge Rn Retirement * [phone] * ADLs Partial Dependent * Partial ADLs (Assistance needed) Bathing Dressing Medication Management Toileting Transfers * Equipment BIPAP Hospital Bed Fannie Lift Nebulizer Oxygen Wheelchair * Other Equipment ALL MEDICAL EQUIPMENT PROVIDED BY FACILITY * List name and contact numbers for known caregivers / representatives who currently or will assist patient after discharge: EDGARD JEREZ, MOTHER IN LAW, KAVEH CASILLAS, DTR, NICK SAUER, SPOUSE, * Verbal permission to speak to the caregivers and representatives has been obtained from the patient. Yes * Community resources currently utilized None * Please name any agencies selected above. NONE * Additional services required to return to the preadmission environment? No * Can the patient safely return to the preadmission environment? Yes * Has this patient been hospitalized within the prior 30 days at any hospital? No Coverage Notice Reviewer: [id number] Oliveros Notice Issued Date-Time: 10/03/2018 11:30 Notice Type: Patient Choice Letter Notice Delivered To: Patient Relationship to Patient: Rental Coordinator Name: Delivery Method: HAND - Hand Delivered Veda Days: Prior Verbal Notification: Recipient Understood Notice: Recipient Signature: Med Rec Note Co-signed by Attending: Coverage Notice Comment: ERNA FABRICIO CHAUVIN: [facility] Reviewer: [id number] Rex Oliveros Notice Issued Date-Time: 10/15/2018 10:20 Notice Type: IM Discharge Notice Notice Delivered To: Patient Relationship to Patient: Rental Coordinator Name: Delivery Method: HAND - Hand Delivered Veda Days: Prior Verbal Notification: Recipient Understood Notice: Yes Recipient Signature: Yes Med Rec Note Co-signed by Attending: Coverage Notice Comment: Last DP export: 10/22/18 3:14 Patient Name: GUSTABO STUART Page [id number] at 1750 All edits/amendments must be made on the electronic document DICTATION DATE: 10/22/18 [address]EDGE: HELDER 10/22/18 1750 RPT#: [id number] DC DATE: STATUS: ADM IN [facility] [address] [facility] [place] [address] END OF REPORT
--- NOTE | ~2018-09-19 | MORECARE ---
CASE MANAGEMENT DISCHARGE SUMMARY PATIENT: GUSTABO STUART UNIT: [id number] ADM DATE: 09/19/18 AGE: 68 : 50 SEX: F ROOM/BED: D.02 AUTHOR: LAWRENCE,DOC PHYSICIAN: REFERRING PHYSICIAN: JENNIFER DICKEY MD DATE OF SERVICE: 10/07/18 Discharge Plan Patient Name: GUSTABO STUART Facility: [facility]:[place] : 1950 Planned Disposition: Nursing Facility [facility] Cert Anticipated Discharge Date: 09/30/18 Discharge Date: Expected LOS: 11 Initial Reviewer: [id number] Initial Review Date: 09/19/2018 Generated: 10/07/18 11:55 am Comments DCP- Discharge Planning Updated by [id number]: Jenny Al on 10/07/18 9:[address] CM spoke with Roge Monae this am. She stated that she had been out of the office but now was back. Roge stated that she would speak to Radha and would take care of everything from this point with placement for dialysis. CM will continue to follow and assist as needed with discharge planning / needs. DCP- Discharge Planning Updated by [id number]: Jenny Al on 10/07/18 9:[address] Late Entry 10/06/18 @ 1600 CM spoke with Radha with [facility]. Radha stated she needed clarification on patients name. Radha stated she needed dialysis flowsheets from last three treatments faxed to her. Radha stated that she was trying to get placement at [facility] dialysis clinic. CM will continue to follow and assist as needed with discharge planning / needs. DCP- Discharge Planning Updated by [id number]: Dick Randle on 10/03/18 3:[address] Patient Name: GUSTABO STUART Encounter No: [id number] : 1950 Primary Insurance: MEDICARE A & B Anticipated DC Date: 09-30-2018 Planned Disposition: Nursing Facility [facility] Cert External Planned Provider: TO BE DETERMINED DCP follow-up note: CM RECEIVED CALL FROM NAYANA OF [facility], THEY ONLY HAVE TTS AVAILABLE AND HAVE TALKED TO [facility] HEAD OPERATOR SULFIDE WHO INFORMED THEM THAT THEY ARE NOT GOING TO DRIVE PT AN HOUR AWAY FOR DIALYSIS FROM THE ALF. CM SPOKE TO AUDI AT [facility] WHO INFORMED CM THAT THEY ARE GOING TO HAVE A SISTER FACILITY REPRESENTIVE CONTACT CM TO ASSIST IN PLACING PT IN [place] SO THAT PT CAN GO TO A FACILITY THAT HAS CAPABILITY OF FANNIE LIFT AND TO A DILAYSIS UNIT THAT HAS CAPABILITY OF FANNIE LIFT. CM SPOKE TO PT IN ROOM, DISCUSSED MOVING TO ANOTHER ALF, PT REPORTS SHE WILL TRY WITH THERAPY AND IS WILLING FOR NEW ALF IF NEEDED, CHOICE SIGNED FOR [facility] AND [facility] CM DISCUSSED LTACH, PT ALSO IN AGREEMENT WITH LTACH AT [facility] IF IT WILL HELP GET HER HOME SOONER. CM CALLED AND SPOKE TO LAITH OF [facility], , DISCUSSED NEED FOR REHAB, WOUND CARE AND DIALYSIS WITH GOAL TO SIT FOR DIALYSIS IN OUTPATIENT SETTING TO RETURN TO A ALF FOR CONTINUED SHELTER CARE. REFERRAL FAXED TO [facility] AT [phone]. CM CALLED AND SPOKE TO BECKY DEL CASTILLO, , OF [facility], REPRESENTING [facility] AND [facility] ALF [facility]. THEY CONTACT WITH [facility] AND DO NOT HAVE ONE WITH DAVITA. THEY WILL SCREEN PT FOR THEIR HOMES, BUT PT WILL HAVE TO HAVE CAPACITY TO SIT IN CHAIR FOR THREE HOURS OF OUTPATIENT DIALYSIS AND TRANSPORTATION. CM FAXED REFERRAL TO BECKY AT [phone]. PT WILL NEED TO BE ABLE TO TRANSFER FROM BED TO CHAIR AND WILL ALSO NEED TO BE ABLE TO SIT SAFELY FOR TRANSPORT AND 3 HOURS OF DIALYSIS TREATMENT FOR OUTPATIENT DIALYSIS CLINIC ARRANGEMENT. CM WAITING ON ALF EVALUATIONS FOR ADMISSION, [facility] AND WILL NEED TO SEND APPLICATION FOR [facility] FOR DIALYSIS UNIT CONSIDERATION AND TO FIND OUT IF THEY HAVE FANNIE LIFT CAPABILITY. DICK RANDLE, CASE MANAGEMENT DCP- Discharge Planning Updated by [id number]: Dick Randle on 10/02/18 3:[address] Patient Name: GUSTABO STUART Encounter No: [id number] : 1950 Primary Insurance: MEDICARE A & B Anticipated DC Date: 09-30-2018 Planned Disposition: Nursing Facility [facility] Cert External Planned Provider: [facility] [place], LONG TERM CARE MEDICAID BED DCP follow-up note: CM CALLED ELZBIETA OF [facility], , WAS INFORMED THEY DO NOT HAVE ANY REQUEST TO ARRANGE OUTPATIENT DIALYSIS CLINIC ARRANGEMENT. CM FAXED ADMISSIONS INTAKE FORM WITH INITIAL DOCUMENTS TO [facility] AT [phone]. CM NOTIFIED MERLYN OF [facility] IN [place], [facility], , OF NEED FOR OUTPATIENT DIALYSIS; CM WAS ADVISED THAT PT WILL NEED TO BE ABLE TO TRANSFER TO WHEELCHAIR AND CHAIR WELL BE ABLE TO TOLERATE SITTING IN CHAIR FOR THREE HOURS OF DIALYSIS. THE CENTER PREFERS MWF, MORNING SCHEDULE. CM WAITING FOR OUTPATIENT DIALYSIS CLINIC ARRANGEMENT. NOTE THAT PT WILL HAVE TO BE ABLE TO TRANSFER TO CHAIR AND SIT IN CHAIR FOR THREE HOURS FOR OUTPATIENT CLINIC PARTICIPATION. FOR DISCHARGE, FAX DISCHARGE INFORMATION TO [facility] IN [place], ; NURSE REPORT TO BE CALLED TO [phone]. PT TO TRANSPORT VIA AMBULANCE. Production Packager: Dick Randle Appended by Dick Randle on 10/02/2018 16:49 POLICE CRIME SCENE TECHNICIAN: JAIMIE RECEIVED CALL FROM RADHA OF [facility]; [facility] DIALYS[facility] IS NOT CERTIFIED FOR LIFT AND HAS NO AVAILABLE OPENINGS AT THIS TIME. [facility] IS LIFT CERTIFIED BUT HAS NO AVAILABLE OPENINGS. RADHA WILL SEND REFERRAL TO [facility] IN [place] BUT THEY ONLY HAVE TTS SLOTS AVAILABLE. RADHA WILL ESCULATE REFERRAL FOR [facility] D[facility] ARRANGMENT IN [place] THAT A CHAIR BECOMES AVAILABLE AND PT WILL NOT REQUIRE LIFT TRANSFER. PT WILL NEED TO BE ABLE TO TRANSFER FROM BED TO CHAIR AND WILL ALSO NEED TO BE ABLE TO SIT SAFELY FOR TRANSPORT AND 3 HOURS OF DIALYSIS TREATMENT FOR OUTPATIENT DIALYSIS CLINIC ARRANGEMENT. DICK RANDLE, CASE MANAGEMENT DCP- Discharge Planning Updated by [id number]: Dick Randle on 09/29/18 12:[address] Patient Name: GUSTABO STUART Encounter No: [id number] : 1950 Primary Insurance: MEDICARE A & B Anticipated DC Date: 09-30-2018 Planned Disposition: Nursing Facility [facility] Cert External Planned Provider: [facility] [place], LONG TERM CARE MEDICAID BED DCP follow-up note: CM RECEIVED ORDER FOR OUTPATIENT DIALYSIS CLINIC ARRANGEMENT; POLINA HAMMONDS HAS INFORMED ROGE MONAE OF PATIENT PATHWAYS FOR OUTPATIENT DAILYSIS CLINIC ARRANGEMENT IN [place]. JAIMIE FAXED UPDATE TO MERLYN OF [facility] IN [place], [facility], . ROGE INFORMED CM THAT PT NEEDS PERM DIALYSIS CATHETER AND AN ACCURATE WEIGHT. PT HAS ORDERS FOR CATHETER, CM NOTIFIED BEDSIDE NURSE OF NEED FOR ACCURATE WEIGHT; PT IS BED CONFINED AND ON SPECIALTY BED AT THIS TIME. CM WAITING FOR DIALYSIS CATHETER PLACEMENT WELL OUTPATIENT DIALYSIS CLINIC ARRANGEMENT. FOR DISCHARGE, FAX DISCHARGE INFORMATION TO [facility] IN [place], ; NURSE REPORT TO BE CALLED TO [phone]. PT TO TRANSPORT VIA AMBULANCE. Production Packager: Dick Randle DCP- Discharge Planning Updated by [id number]: Dick Randle on 09/26/18 4:[address] Patient Name: GUSTABO STUART Admission Status: Elective Accout number: [id number] Admission Date: 09-19-2018 : 1950 Admission Diagnosis:ACUTE RESPIRATORY FAILURE WITH HYPOXIA Attending: JENNIFER DICKEY Current LOS: 7 Anticipated DC Date: Planned Disposition: Nursing Facility [facility] Cert Primary Insurance: MEDICARE A & B PLANNED EXTERNAL PROVIDER: [facility], LONG TERM CARE MEDICAID BED Discharge Planning Comments: CM MET WITH PT IN ROOM TO DISCUSS DISCHARGE PLANNING AND NEEDS. PT REPORTS LIVING AT A ALF IN [place], SHE CANNOT REMEMBER THE NAME OF THE PLACE. PT REPORTS BEING CONFINED TO BED BUT THE FACILITY HAS A LIFT TO TREE AND SHRUB WORKER PT TO A WHEELCHAIR. PT REPORTS HAVING BIPAP, NEBULIZER AND OXYGEN AT THE FACILITY. PT REPORTS HAVING ASSISTANCE WITH EVERYTHING BUT EATING, WHICH SHE DOES HERSELF. PT ASKED THAT IF FAMILY CALLS, TELL THEM TO BRING HER CLOTHES AND CELL PHONE. CM DISCUSSED AVAILABILITY OF HOME HEALTH, REHAB SERVICES AND MEDICAL EQUIPMENT. PT DENIES DISCHARGE NEEDS, REPORTS SHE WILL DISCHARGE BACK TO FACILITY WHERE SHE LIVES. JAIMIE CALLED [facility] IN [place], [facility], ; CM SPOKE TO MERLYN WHO REPORTS PT IS IN SHELTER CARE AND PROVIDED EMERGENCY CONTACT INFORMATION FOR PT'S FAMILY MEMBERS; CM NOTED IN CASE MANAGEMENT ASSESSMENT CHECKLIST. MERLYN VERIFIED PT HAS OXYGEN, NEBULUZER AND BIPAP IN FACILITY, THEY WILL ACCEPT BACK FOR CONTINUED WAREHOUSE CONSULTANT CARE AT HOSPITAL DISCHARGE. FOR DISCHARGE, FAX DISCHARGE INFORMATION TO [facility] IN [place], ; NURSE REPORT TO BE CALLED TO [phone]. PT TO TRANSPORT VIA AMBULANCE. Production Packager: Dick Randle DCP- Discharge Planning Updated by [id number]: Jenny Al on 09/23/18 3:[address] CM attempted to visit with patient. Patient is currently on BiPap and getting dialysis at this time. She is unable to speak with me at this time. No family available at this time. CM will continue to follow and assist as needed with discharge planning / needs. DCPIA - Discharge Planning Initial Assessment Updated by [id number]: Dick Randle on 09/26/18 4:23 pm * Is the patient Alert and Oriented? Yes * How many steps to enter\exit or inside your home? NONE * PCP [facility], TOY ASSEMBLER WOOD * Pharmacy [facility] (ALF FACILITY) * Preadmission Environment Cash Manager Usp * Facility Name [facility] T [phone] * ADLs Partial Dependent * Partial ADLs (Assistance needed) Bathing Dressing Medication Management Toileting Transfers * Equipment BIPAP Hospital Bed Fannie Lift Nebulizer Oxygen Wheelchair * Other Equipment ALL MEDICAL EQUIPMENT PROVIDED BY FACILITY * List name and contact numbers for known caregivers / representatives who currently or will assist patient after discharge: EDGARD JEREZ, MOTHER IN LAW, KAVEH CASILLAS, DTR, NICK SAUER, SPOUSE, * Verbal permission to speak to the caregivers and representatives has been obtained from the patient. Yes * Community resources currently utilized None * Please name any agencies selected above. NONE * Additional services required to return to the preadmission environment? No * Can the patient safely return to the preadmission environment? Yes * Has this patient been hospitalized within the prior 30 days at any hospital? No Coverage Notice Reviewer: [id number] - Dick Randle Notice Issued Date-Time: 10/03/2018 11:30 Notice Type: Patient Choice Letter Notice Delivered To: Patient Relationship to Patient: Social Security Assessor Name: Delivery Method: HAND - Hand Delivered Veda Days: Prior Verbal Notification: Recipient Understood Notice: Recipient Signature: Med Rec Note Co-signed by Attending: Coverage Notice Comment: ERNAFABRICIO: [facility] Last DP export: 10/07/18 9:49 Patient Name: GUSTABO STUART Page 48891 at 1056 All edits/amendments must be made on the electronic document DICTATION DATE: 10/07/18 105 FARM HELPER: HELDER 10/07/18 1055 RPT#: [id number] DC DATE: STATUS: ADM IN [facility] [address] [place] [address] END OF REPORT
--- NOTE | ~2018-09-19 | MORECARE ---
CASE MANAGEMENT DISCHARGE SUMMARY PATIENT: GUSTABO STUART UNIT: [id number] ADM DATE: 09/19/18 AGE: 68 : 50 SEX: F ROOM/BED: D.7548 AUTHOR: LAWRENCE,DOC PHYSICIAN: REFERRING PHYSICIAN: JENNIFER DICKEY MD DATE OF SERVICE: 10/03/18 Discharge Plan Patient Name: GUSTABO STUART Facility: [facility]:[place] : 1950 Planned Disposition: Nursing Facility [facility] Cert Anticipated Discharge Date: 09/30/18 Discharge Date: Expected LOS: 11 Initial Reviewer: [id number] Initial Review Date: 09/19/2018 Generated: 10/03/18 4:55 pm Comments DCP- Discharge Planning Updated by [id number]: Gerardo Randle on 10/02/18 3:[address] Patient Name: GUSTABO STUART Encounter No: [id number] : 1950 Primary Insurance: MEDICARE A & B Anticipated DC Date: 09-30-2018 Planned Disposition: Nursing Facility [facility] Cert External Planned Provider: [facility] [place], LONG TERM CARE MEDICAID BED DCP follow-up note: CM CALLED ELZBIETA OF [facility], , WAS INFORMED THEY DO NOT HAVE ANY REQUEST TO ARRANGE OUTPATIENT DIALYSIS CLINIC ARRANGEMENT. CM FAXED ADMISSIONS INTAKE FORM WITH INITIAL DOCUMENTS TO [facility] AT [phone]. CM NOTIFIED MERLYN OF [facility] IN [place], [facility], , OF NEED FOR OUTPATIENT DIALYSIS; CM WAS ADVISED THAT PT WILL NEED TO BE ABLE TO TRANSFER TO WHEELCHAIR AND CHAIR WELL BE ABLE TO TOLERATE SITTING IN CHAIR FOR THREE HOURS OF DIALYSIS. THE CENTER PREFERS MWF, MORNING SCHEDULE. CM WAITING FOR OUTPATIENT DIALYSIS CLINIC ARRANGEMENT. NOTE THAT PT WILL HAVE TO BE ABLE TO TRANSFER TO CHAIR AND SIT IN CHAIR FOR THREE HOURS FOR OUTPATIENT CLINIC PARTICIPATION. FOR DISCHARGE, FAX DISCHARGE INFORMATION TO [facility] IN [place], ; NURSE REPORT TO BE CALLED TO [phone]. PT TO TRANSPORT VIA AMBULANCE. Drug Regulatory Affairs Specialist: Gerardo Randle Appended by Gerardo Randle on 10/02/2018 16:49 COSTUME SPECIALIST: CM RECEIVED CALL FROM LANRE OF [facility] ADMISSIONS; [facility] DIALYSIS IS NOT CERTIFIED FOR LIFT AND HAS NO AVAILABLE OPENINGS AT THIS TIME. [facility] IS LIFT CERTIFIED BUT HAS NO AVAILABLE OPENINGS. LANRE WILL SEND REFERRAL TO [facility] IN [place] BUT THEY ONLY HAVE TTS SLOTS AVAILABLE. LANRE WILL ESCULATE REFERRAL FOR [facility] DIAL[facility] ARRANGMENT IN [place] THAT A CHAIR BECOMES AVAILABLE AND PT WILL NOT REQUIRE LIFT TRANSFER. PT WILL NEED TO BE ABLE TO TRANSFER FROM BED TO CHAIR AND WILL ALSO NEED TO BE ABLE TO SIT SAFELY FOR TRANSPORT AND 3 HOURS OF DIALYSIS TREATMENT FOR OUTPATIENT DIALYSIS CLINIC ARRANGEMENT. GERARDO RANDLE, CASE MANAGEMENT DCP- Discharge Planning Updated by [id number]: Gerardo Randle on 09/29/18 12:[address] Patient Name: GUSTABO STUART Encounter No: [id number] : 1950 Primary Insurance: MEDICARE A & B Anticipated DC Date: 09-30-2018 Planned Disposition: Nursing Facility [facility] External Planned Provider: [facility], LONG TERM CARE MEDICAID BED DCP follow-up note: CM RECEIVED ORDER FOR OUTPATIENT DIALYSIS CLINIC ARRANGEMENT; RN JAIMIE HAMMONDS HAS INFORMED ROGE MONAE OF PATIENT PATHWAYS FOR OUTPATIENT DAILYSIS CLINIC ARRANGEMENT IN [place]. JAIMIE FAXED UPDATE TO MERLYN OF [facility] IN [place], [facility], . ROGE INFORMED CM THAT PT NEEDS PERM DIALYSIS CATHETER AND AN ACCURATE WEIGHT. PT HAS ORDERS FOR CATHETER, CM NOTIFIED BEDSIDE NURSE OF NEED FOR ACCURATE WEIGHT; PT IS BED CONFINED AND ON SPECIALTY BED AT THIS TIME. CM WAITING FOR DIALYSIS CATHETER PLACEMENT WELL OUTPATIENT DIALYSIS CLINIC ARRANGEMENT. FOR DISCHARGE, FAX DISCHARGE INFORMATION TO [facility] IN [place], ; NURSE REPORT TO BE CALLED TO [phone]. PT TO TRANSPORT VIA AMBULANCE. Drug Regulatory Affairs Specialist: Gerardo Randle DCP- Discharge Planning Updated by [id number]: Gerardo Randle on 09/26/18 4:[address] Patient Name: GUSTABO STUART Admission Status: Elective Accout number: [id number] Admission Date: 09-19-2018 : 1950 Admission Diagnosis:ACUTE RESPIRATORY FAILURE WITH HYPOXIA Attending: JENNIFER DICKEY Current LOS: 7 Anticipated DC Date: Planned Disposition: Nursing Facility [facility] Cert Primary Insurance: MEDICARE A & B PLANNED EXTERNAL PROVIDER: [facility] [place], LONG TERM CARE MEDICAID BED Discharge Planning Comments: CM MET WITH PT IN ROOM TO DISCUSS DISCHARGE PLANNING AND NEEDS. PT REPORTS LIVING AT A CORRECTION IN [place], SHE CANNOT REMEMBER THE NAME OF THE PLACE. PT REPORTS BEING CONFINED TO BED BUT THE FACILITY HAS A LIFT TO BENEFITS DIRECTOR PT TO A WHEELCHAIR. PT REPORTS HAVING BIPAP, NEBULIZER AND OXYGEN AT THE FACILITY. PT REPORTS HAVING ASSISTANCE WITH EVERYTHING BUT EATING, WHICH SHE DOES HERSELF. PT ASKED THAT IF FAMILY CALLS, TELL THEM TO BRING HER CLOTHES AND CELL PHONE. CM DISCUSSED AVAILABILITY OF HOME HEALTH, REHAB SERVICES AND MEDICAL EQUIPMENT. PT DENIES DISCHARGE NEEDS, REPORTS SHE WILL DISCHARGE BACK TO FACILITY WHERE SHE LIVES. CM CALLED [facility] [place], ; CM SPOKE TO MERLYN WHO REPORTS PT IS IN MANAGER OF RADIOLOGY CARE AND PROVIDED EMERGENCY CONTACT INFORMATION FOR PT'S FAMILY MEMBERS; CM NOTED IN CASE MANAGEMENT ASSESSMENT CHECKLIST. MERLYN VERIFIED PT HAS OXYGEN, NEBULUZER AND BIPAP IN FACILITY, THEY WILL ACCEPT BACK FOR CONTINUED MANAGER OF RADIOLOGY CARE AT HOSPITAL DISCHARGE. FOR DISCHARGE, FAX DISCHARGE INFORMATION TO [facility] IN [place], ; NURSE REPORT TO BE CALLED TO [phone]. PT TO TRANSPORT VIA AMBULANCE. Drug Regulatory Affairs Specialist: Gerardo Randle DCP- Discharge Planning Updated by [id number]: Jenny Al on 09/23/18 3:[address] CM attempted to visit with patient. Patient is currently on BiPap and getting dialysis at this time. She is unable to speak with me at this time. No family available at this time. CM will continue to follow and assist as needed with discharge planning / needs. DCPIA - Discharge Planning Initial Assessment Updated by [id number]: Gerardo Randle on 09/26/18 4:23 pm * Is the patient Alert and Oriented? Yes * How many steps to enter\exit or inside your home? NONE * PCP [facility], INVESTIGATOR VICE * Pharmacy [facility]) * Preadmission Environment Group Home Chcf * Facility Name [facility] T [phone] * ADLs Partial Dependent * Partial ADLs (Assistance needed) Bathing Dressing Medication Management Toileting Transfers * Equipment BIPAP Hospital Bed Fannie Lift Nebulizer Oxygen Wheelchair * Other Equipment ALL MEDICAL EQUIPMENT PROVIDED BY FACILITY * List name and contact numbers for known caregivers / representatives who currently or will assist patient after discharge: EDGARD JEREZ, MOTHER IN LAW, KAVEH CASILLAS, DTR, NICK SAUER, SPOUSE, * Verbal permission to speak to the caregivers and representatives has been obtained from the patient. Yes * Community resources currently utilized None * Please name any agencies selected above. NONE * Additional services required to return to the preadmission environment? No * Can the patient safely return to the preadmission environment? Yes * Has this patient been hospitalized within the prior 30 days at any hospital? No External Providers External Provider: OTHER-OTHER Next Contact Date: 10/06/2018 Service Request Date: Service Type: Resolution: Reviewer: Comments: Last DP export: 10/03/18 2:38 p Patient Name: UGSTABO STUART Page 10381 at 1555 All edits/amendments must be made on the electronic document DICTATION DATE: 10/03/181554 PUMP SERVICE SUPERVISOR: HELDER 10/03/181554 RPT#: [id number] DC DATE: STATUS: ADM IN [facility] [address] [place] [address] END OF REPORT
--- NOTE | ~2018-09-19 | MORECARE ---
CASE MANAGEMENT DISCHARGE SUMMARY PATIENT: GUSTABO STUART UNIT: [id number] ADM DATE: 09/19/18 AGE: 68 : 50 SEX: F ROOM/BED: D.[facility] [place] AUTHOR: NIRAV BRAVO PHYSICIAN: REFERRING PHYSICIAN: JENNIFER DICKEY MD DATE OF SERVICE: 09/23/18 Discharge Plan Patient Name: GUSTABO STUART Facility: [facility]:[place] : 1950 Planned Disposition: Anticipated Discharge Date: Discharge Date: Expected LOS: Initial Reviewer: [id number] Initial Review Date: 09/19/2018 Generated: 09/23/18 4:01 pm Patient Name: GUSTABO STUART Page 87848 at 1501 All edits/amendments must be made on the electronic document DICTATION DATE: 09/23/18 1500 VARNISH MAKER HELPER: HELDER 09/23/18 1500 RPT#: [id number] DC DATE: STATUS: ADM IN [facility] [address] [place] [address] END OF REPORT
--- NOTE | ~2018-09-19 | MORECARE ---
CASE MANAGEMENT DISCHARGE SUMMARY PATIENT: GUSTABO STUART UNIT: [id number] ADM DATE: 09/19/18 AGE: 68 : 50 SEX: F ROOM/BED: D.9080 AUTHOR: LAWRENCE,DOC PHYSICIAN: REFERRING PHYSICIAN: JENNIFER DICKEY MD DATE OF SERVICE: 10/15/18 Discharge Plan Patient Name: GUSTABO STUART Facility: [facility]:[place] : 1950 Planned Disposition: Nursing Facility [facility] Cert Anticipated Discharge Date: 10/15/18 Discharge Date: Expected LOS: 26 Initial Reviewer: [id number] Initial Review Date: 09/19/2018 Generated: 10/15/18 2:02 pm Comments DCP- Discharge Planning Updated by [id number]: Dick Randle on 10/15/18 11:[address] Patient Name: GUSTABO STUART Encounter No: [id number] : 1950 Primary Insurance: MEDICARE A & B Anticipated DC Date: 10-15-2018 Planned Disposition: Nursing Facility [facility] Cert External Planned Provider: [facility]; LONG-TERM CARE MEDICAID BED DCP follow-up note: CM CALLED LAURENCE OF [facility] IN [place], , AND ADVISED THAT PT HAS DEMONSTRATED ABILITY TO TRANSFER TO CHAIR AND SIT FOR OVER 4 HOURS. JAIMIE SPOKE TO HOMER OF [facility] ADMISSIONS AND PROVIDED UPDATE FOR [facility] DIALYSIS IN [place] CM SPOKE TO ROGE MONAE OF [facility] WHO WILL COMMUNICATE WITH [facility] ADMISSIONS [facility] DIALYSIS AND PROVIDED UPDATED INFORMATION TO BOTH FROM MEDICAL CHART. JAIMIE SPOKE TO PT IN ROOM WHO IS STILL WILLING FOR PLACEMENT IN [place] AT [facility] AND WAS HOPING TO BE OUT OF THE HOSPITAL FOR THANKSGIVING. IMPORTANT MESSAGE FROM MEDICARE PROVIDED AND EXPLAINED. CM FAXED UPDATE TO [facility] IN [place] VIA LAURENCE AT [phone]. [facility] IN [facility] IS REVIEWING FOR PLACEMENT; THEY DO HAVE FANNIE LIFT. [facility] ADMISSIONS WORKING ON OUTPATIENT DIALYSIS ARRANGEMENT AT [facility] IN [place], THEY ALSO HAVE A LIFT. CM WAITING ON DETERMINATIONS FROM BOTH. DICK RANDLE, CASE MANAGEMENT DCP- Discharge Planning Updated by [id number]: Dick Randle on 10/13/18 2:[address] Patient Name: GUSTABO STUART Encounter No: [id number] : 1950 Primary Insurance: MEDICARE A & B Anticipated DC Date: 09-30-2018 Planned Disposition: Nursing Facility [facility] Cert External Planned Provider: [facility]; LONG-TERM CARE MEDICAID BED DCP follow-up note: CM CALLED LAURENCE OF [facility] IN [place], , WHO ADVISED THAT [facility] MAY ACCEPT BUT PT WILL NEED TO DEMONSTRATE ABILITY TO TRANSFER TO WHEELCHAIR AND SIT FOR 3 HOURS OF DIALYSIS. [facility] HAS LIFT AVAILABLE. CM SPOKE TO RADHA OF [facility] WHO REPORTS THEY WERE WORKING ON [facility] DIALYSIS IN [place] BUT WILL SEND REFERRAL TO [facility] IN [place] THAT HAS LIFT AND MWF SCHEDULING CAPABIILITY. CM SPOKE TO PT IN ROOM WHO IS WILLING FOR PLACEMENT IN [place] TO BE CLOSER TO FAMILY IF SHE CANNOT RETURN TO [place] WHERE SHE WAS LIVING AT [facility]. CM FAXED UPDATE TO [facility] IN [place] VIA LAURENCE AT [phone]. CM SPOKE TO MARIEL OF [facility] WHO VERIFIED PT HAS BEEN UP TO SIDE OF BED BUT THEY ARE NOT ABLE TO GET PT UP TO CHAIR THEY DO NOT HAVE A LIFT. CM SPOKE TO CM PATTERN HANGER KAYLEE REGARDING LACK OF LIFT CAPABILITY THIS IS AN OBSTACLE TO PLACEMENT IN ANY FACILITY PT WILL NEED OUTPATIENT DIALYSIS AND MUST BE ABLE TO DEMONSTRATE ABILITY TO SIT FOR DURATION OF TRANSPORT AND DIALYSIS SESSION. CM WAITING PT TO DEMONSTRATE ABILITY TO TRANSFER AND SIT FOR DURATION OF TRANSPORTATION WELL FOR THREE HOURS OF DIALYSIS TREATMENT, WITH OR WITHOUT A LIFT. [facility] IN [facility] WILL REVIEW FOR PLACEMENT IF PT IS ABLE TO SIT FOR TRANSPORT AND DIALYSIS; THEY DO HAVE FANNIE LIFT. [facility] ADMISSIONS WORKING ON OUTPATIENT DIALYSIS ARRANGEMENT AT [facility] IN [place], THEY ALSO HAVE A LIFT. DICK RANDLE, CASE MANAGEMENT Appended by Dick Randle on 10/13/2018 15:31 ROPE CLEANER: CM RECEIVED CALL FROM KRISTIAN OF [facility], , WHO ASKED FOR FAXED UPDATE. CM FAXED UPDATE TO [facility] WITH DIALYSIS RUN SHEETS THRU 10-11-18. CM FAXED UPDATE TO LAURENCE OF [facility] IN [facility] WITH OCCUPATIONAL THERAPY NOTE INDICATING PT HAS BEEN OUT OF BED TO CHAIR. CM TO CONTINUE TO FOLLOW AND ASSIST NEEDED. CM WAITING PT TO DEMONSTRATE ABILITY TO TRANSFER AND SIT FOR DURATION OF TRANSPORTATION WELL FOR THREE HOURS OF DIALYSIS TREATMENT, WITH OR WITHOUT A LIFT. [facility] IN [facility] WILL REVIEW FOR PLACEMENT IF PT IS ABLE TO SIT FOR TRANSPORT AND DIALYSIS; THEY DO HAVE FANNIE LIFT. PATSY SAUCEDA WORKING ON OUTPATIENT DIALYSIS ARRANGEMENT AT [facility] IN [place], THEY ALSO HAVE A LIFT. DICK RANDLE, CASE MANAGEMENT DCP- Discharge Planning Updated by [id number]: Jenny Al on 10/10/18 6:[address] Late Entry 10/10/18 @ 0900 PT and OT still working with patient to get out of bed to sit in chair. Patient has to be able to sit in wheelchair and be transported to dialysis and sit in dialysis chair for 3-4hrs. CM will continue to follow and assist as needed with discharge planning / needs. DCP- Discharge Planning Updated by [id number]: Jenny Al on 10/07/18 3:[address] CM spoke with Roge Monae this am. Roge stated we are at standstill until we find NH placement. Once we have NH placement then we can proceed with dialysis placement. CM spoke with patients daughter since patient isn't able to stay awake and communicate. Daughter Fran Tinajero "Nkechi" [phone]. Daughter stated that she would like NH placement as close to [place] as possible. CM explained that we would have to find placement that has fannie lift at both [place] and dialysis clinic. Daughter stated that [place] was the next closest town. CM contacted [facility] in [place] [phone]. Laurence Garcia clinical Liaison [phone] fax [phone]. JAIMIE spoke with Laurence and explained situation and faxed records. Laurence stated she would be here to see patient in am. CM will continue to follow and assist as needed with discharge planning / needs. DCP- Discharge Planning Updated by [id number]: Jenny Al on 10/07/18 9:[address] CM spoke with Roge Vincent this am. She stated that she had been out of the office but now was back. Roge stated that she would speak to Radha and would take care of everything from this point with placement for dialysis. CM will continue to follow and assist as needed with discharge planning / needs. DCP- Discharge Planning Updated by [id number]: Jenny Al on 10/07/18 9:[address] Late Entry 10/06/18 @ 1600 CM spoke with Radha with [facility]. Radha stated she needed clarification on patients name. Radha stated she needed dialysis flowsheets from last three treatments faxed to her. Radha stated that she was trying to get placement at [facility] dialysis clinic. CM will continue to follow and assist as needed with discharge planning / needs. DCP- Discharge Planning Updated by [id number]: Dick Randle on 10/03/18 3:[address] Patient Name: GUSTABO STUART Encounter No: [id number] : 1950 Primary Insurance: MEDICARE A & B Anticipated DC Date: 09-30-2018 Planned Disposition: Nursing Facility [facility]ER Cert External Planned Provider: TO BE DETERMINED DCP follow-up note: CM RECEIVED CALL FROM NAYANA OF [facility], THEY ONLY HAVE TTS AVAILABLE AND HAVE TALKED TO [facility] AUTOMATIC PAD MAKING MACHINE OPERATOR WHO INFORMED THEM THAT THEY ARE NOT GOING TO DRIVE PT AN HOUR AWAY FOR DIALYSIS FROM THE JAIL. CM SPOKE TO AUDI AT [facility] WHO INFORMED CM THAT THEY ARE GOING TO HAVE A SISTER FACILITY REPRESENTIVE CONTACT CM TO ASSIST IN PLACING PT IN [place] SO THAT PT CAN GO TO A FACILITY THAT HAS CAPABILITY OF FANNIE LIFT AND TO A DILAYSIS UNIT THAT HAS CAPABILITY OF FANNIE LIFT. CM SPOKE TO PT IN ROOM, DISCUSSED MOVING TO ANOTHER JAIL, PT REPORTS SHE WILL TRY WITH THERAPY AND IS WILLING FOR NEW JAIL IF NEEDED, CHOICE SIGNED FOR KEANU POWELL AND KALPANA AT [facility]. CM DISCUSSED LTACH, PT ALSO IN AGREEMENT WITH LTACH AT [facility] IF IT WILL HELP GET HER HOME SOONER. CM CALLED AND SPOKE TO LAITH OF [facility], , DISCUSSED NEED FOR REHAB, WOUND CARE AND DIALYSIS WITH GOAL TO SIT FOR DIALYSIS IN OUTPATIENT SETTING TO RETURN TO A JAIL FOR CONTINUED WIRE WALKER CARE. REFERRAL FAXED TO [facility] AT [phone]. CM CALLED AND SPOKE TO BECKY MAGDALENE, , OF [facility], [facility] AND [facility] THEY CONTACT WITH [facility] DIALYSIS AND DO NOT HAVE ONE WITH DAVITA. THEY WILL SCREEN PT FOR THEIR HOMES, BUT PT WILL HAVE TO HAVE CAPACITY TO SIT IN CHAIR FOR THREE HOURS OF OUTPATIENT DIALYSIS AND TRANSPORTATION. CM FAXED REFERRAL TO BECKY AT [phone]. PT WILL NEED TO BE ABLE TO TRANSFER FROM BED TO CHAIR AND WILL ALSO NEED TO BE ABLE TO SIT SAFELY FOR TRANSPORT AND 3 HOURS OF DIALYSIS TREATMENT FOR OUTPATIENT DIALYSIS CLINIC ARRANGEMENT. CM WAITING ON JAIL EVALUATIONS FOR ADMISSION, [facility] EVALUATION FOR ADMISSION AND WILL NEED TO SEND APPLICATION FOR [facility] FOR DIALYSIS UNIT CONSIDERATION AND TO FIND OUT IF THEY HAVE FANNIE LIFT CAPABILITY. DICK RANDLE, CASE MANAGEMENT DCP- Discharge Planning Updated by [id number]: Dick Randle on 10/02/18 3:[address] Patient Name: GUSTABO STUART Encounter No: [id number] : 1950 Primary Insurance: MEDICARE A & B Anticipated DC Date: 09-30-2018 Planned Disposition: Nursing Facility [facility] Cert External Planned Provider: [facility] [place], WIRE WALKER CARE MEDICAID BED DCP follow-up note: CM CALLED ELZBIETA OF [facility] ADMISSIONS, , WAS INFORMED THEY DO NOT HAVE ANY REQUEST TO ARRANGE OUTPATIENT DIALYSIS CLINIC ARRANGEMENT. CM FAXED ADMISSIONS INTAKE FORM WITH INITIAL DOCUMENTS TO [facility] ADMISSIONS AT [phone]. CM NOTIFIED MERLYN OF [facility] IN [place], [facility], , OF NEED FOR OUTPATIENT DIALYSIS; CM WAS ADVISED THAT PT WILL NEED TO BE ABLE TO TRANSFER TO WHEELCHAIR AND CHAIR WELL BE ABLE TO TOLERATE SITTING IN CHAIR FOR THREE HOURS OF DIALYSIS. THE CENTER PREFERS [facility], MORNING SCHEDULE. CM WAITING FOR OUTPATIENT DIALYSIS CLINIC ARRANGEMENT. NOTE THAT PT WILL HAVE TO BE ABLE TO TRANSFER TO CHAIR AND SIT IN CHAIR FOR THREE HOURS FOR OUTPATIENT CLINIC PARTICIPATION. FOR DISCHARGE, FAX DISCHARGE INFORMATION TO [facility] IN [place], ; NURSE REPORT TO BE CALLED TO [phone]. PT TO TRANSPORT VIA AMBULANCE. Sourcing Engineer: Dick Randle Appended by Dick Randle on 10/02/2018 16:49 ROPE CLEANER: CM RECEIVED CALL FROM RADHA OF [facility] ADMISSIONS; [facility] DIALYS[facility] IS NOT CERTIFIED FOR LIFT AND HAS NO AVAILABLE OPENINGS AT THIS TIME. [facility] IS LIFT CERTIFIED BUT HAS NO AVAILABLE OPENINGS. RADHA WILL SEND REFERRAL TO [facility] IN [place] BUT THEY ONLY HAVE TTS SLOTS AVAILABLE. RADHA WILL ESCULATE REFERRAL FOR [facility] DIALYSIS ARRANGMENT IN [place] THAT A CHAIR BECOMES AVAILABLE AND PT WILL NOT REQUIRE LIFT TRANSFER. PT WILL NEED TO BE ABLE TO TRANSFER FROM BED TO CHAIR AND WILL ALSO NEED TO BE ABLE TO SIT SAFELY FOR TRANSPORT AND 3 HOURS OF DIALYSIS TREATMENT FOR OUTPATIENT DIALYSIS CLINIC ARRANGEMENT. DICK RANDLE, CASE MANAGEMENT DCP- Discharge Planning Updated by [id number]: Dick Randle on 09/29/18 12:[address] Patient Name: GUSTABO STUART Encounter No: [id number] : 1950 Primary Insurance: MEDICARE A & B Anticipated DC Date: 09-30-2018 Planned Disposition: Nursing Facility [facility] Cert External Planned Provider: [facility], WIRE WALKER CARE MEDICAID BED DCP follow-up note: JAIMIE RECEIVED ORDER FOR OUTPATIENT DIALYSIS CLINIC ARRANGEMENT; RN JAIMIE HAMMONDS HAS INFORMED ROGE MONAE OF [facility] FOR OUTPATIENT DAILYSIS CLINIC ARRANGEMENT IN [place]. JAIMIE FAXED UPDATE TO MERLYN OF [facility] IN [place], [facility], . ROGE INFORMED JAIMIE THAT PT NEEDS PERM DIALYSIS CATHETER AND AN ACCURATE WEIGHT. PT HAS ORDERS FOR CATHETER, CM NOTIFIED BEDSIDE NURSE OF NEED FOR ACCURATE WEIGHT; PT IS BED CONFINED AND ON SPECIALTY BED AT THIS TIME. CM WAITING FOR DIALYSIS CATHETER PLACEMENT WELL OUTPATIENT DIALYSIS CLINIC ARRANGEMENT. FOR DISCHARGE, FAX DISCHARGE INFORMATION TO [facility] IN [place], ; NURSE REPORT TO BE CALLED TO [phone]. PT TO TRANSPORT VIA AMBULANCE. Sourcing Engineer: Dick Randle DCP- Discharge Planning Updated by [id number]: Dick Randle on 09/26/18 4:[address] Patient Name: GUSTABO STUART Admission Status: Elective Accout number: [id number] Admission Date: 09-19-2018 : 1950 Admission Diagnosis:ACUTE RESPIRATORY FAILURE WITH HYPOXIA Attending: JENNIFER DICKEY Current LOS: 7 Anticipated DC Date: Planned Disposition: Nursing Facility [facility] Primary Insurance: MEDICARE A & B PLANNED EXTERNAL PROVIDER: [facility], [place], LONG-TERM CARE MEDICAID BED Discharge Planning Comments: CM MET WITH PT IN ROOM TO DISCUSS DISCHARGE PLANNING AND NEEDS. PT REPORTS LIVING AT A [facility] IN [place], SHE CANNOT REMEMBER THE NAME OF THE PLACE. PT REPORTS BEING CONFINED TO BED BUT THE FACILITY HAS A LIFT TO SPECIAL PROCEDURE TECHNOLOGIST PT TO A WHEELCHAIR. PT REPORTS HAVING BIPAP, NEBULIZER AND OXYGEN AT THE FACILITY. PT REPORTS HAVING ASSISTANCE WITH EVERYTHING BUT EATING, WHICH SHE DOES HERSELF. PT ASKED THAT IF FAMILY CALLS, TELL THEM TO BRING HER CLOTHES AND CELL PHONE. CM DISCUSSED AVAILABILITY OF HOME HEALTH, REHAB SERVICES AND MEDICAL EQUIPMENT. PT DENIES DISCHARGE NEEDS, REPORTS SHE WILL DISCHARGE BACK TO FACILITY WHERE SHE LIVES. CM CALLED [facility] IN [place] [place] [facility], ; CM SPOKE TO MERLYN WHO REPORTS PT IS IN LONG-TERM CARE AND PROVIDED EMERGENCY CONTACT INFORMATION FOR PT'S FAMILY MEMBERS; CM NOTED IN CASE MANAGEMENT ASSESSMENT CHECKLIST. MERLYN VERIFIED PT HAS OXYGEN, NEBULUZER AND BIPAP IN FACILITY, THEY WILL ACCEPT BACK FOR CONTINUED WIRE WALKER CARE AT HOSPITAL DISCHARGE. FOR DISCHARGE, FAX DISCHARGE INFORMATION TO [facility] IN [place], ; NURSE REPORT TO BE CALLED TO [phone]. PT TO TRANSPORT VIA AMBULANCE. Sourcing Engineer: Dick Randle DCP- Discharge Planning Updated by [id number]: Jenny Al on 09/23/18 3:[address] CM attempted to visit with patient. Patient is currently on BiPap and getting dialysis at this time. She is unable to speak with me at this time. No family available at this time. CM will continue to follow and assist as needed with discharge planning / needs. DCPIA - Discharge Planning Initial Assessment Updated by [id number]: Dick Randle on 09/26/18 4:23 pm * Is the patient Alert and Oriented? Yes * How many steps to enter\\exit or inside your home? NONE * PCP [facility], NEON INSTALLER * Pharmacy [facility] (ASSISTED FACILITY) * Preadmission Environment I&C Technician Alf * [phone] * ADLs Partial Dependent * Partial ADLs (Assistance needed) Bathing Dressing Medication Management Toileting Transfers * Equipment BIPAP Hospital Bed Fannie Lift Nebulizer Oxygen Wheelchair * Other Equipment ALL MEDICAL EQUIPMENT PROVIDED BY FACILITY * List name and contact numbers for known caregivers / representatives who currently or will assist patient after discharge: EDGARD JEREZ, MOTHER IN LAW, KAVEH CASILLAS, DTR, NICK SAUER, SPOUSE, * Verbal permission to speak to the caregivers and representatives has been obtained from the patient. Yes * Community resources currently utilized None * Please name any agencies selected above. NONE * Additional services required to return to the preadmission environment? No * Can the patient safely return to the preadmission environment? Yes * Has this patient been hospitalized within the prior 30 days at any hospital? No Coverage Notice Reviewer: [id number] Rex Randle Notice Issued Date-Time: 10/03/2018 11:30 Notice Type: Patient Choice Letter Notice Delivered To: Patient Relationship to Patient: Community Midwife Name: Delivery Method: HAND - Hand Delivered Veda Days: Prior Verbal Notification: Recipient Understood Notice: Recipient Signature: Med Rec Note Co-signed by Attending: Coverage Notice Comment: ERNA FABRICIO ASHFIELD: [facility] Reviewer: [id number] Rex Randle Notice Issued Date-Time: 10/15/2018 10:20 Notice Type: IM Discharge Notice Notice Delivered To: Patient Relationship to Patient: Community Midwife Name: Delivery Method: HAND - Hand Delivered Veda Days: Prior Verbal Notification: Recipient Understood Notice: Yes Recipient Signature: Yes Med Rec Note Co-signed by Attending: Coverage Notice Comment: Last DP export: 10/15/18 9:37 Patient Name: GUSTABO STUART Page [id number] at 1302 All edits/amendments must be made on the electronic document DICTATION DATE: 10/15/18 1301 CAGE SUPERVISOR: HELDER 10/15/18 1301 RPT#: [id number] [place] DATE: STATUS: ADM IN [facility] [address] [place] [address] END OF REPORT
--- NOTE | ~2018-09-19 | MORECARE ---
CASE MANAGEMENT DISCHARGE SUMMARY PATIENT: GUSTABO STUART UNIT: [id number] ADM DATE: 09/19/18 AGE: 68 : 50 SEX: F ROOM/BED: D.9569 AUTHOR: LAWRENCE,DOC PHYSICIAN: REFERRING PHYSICIAN: JENNIFER DICKEY MD DATE OF SERVICE: 10/10/18 Discharge Plan Patient Name: GUSTABO STUART Facility: [facility]:[place] : 1950 Planned Disposition: Nursing Facility [facility] Cert Anticipated Discharge Date: 09/30/18 Discharge Date: Expected LOS: 11 Initial Reviewer: [id number] Initial Review Date: 09/19/2018 Generated: 10/10/18 8:18 pm Comments DCP- Discharge Planning Updated by [email or web address]: Jenny Servando on 10/10/18 6:[address] Late Entry 10/10/18 @ 0900 PT and OT still working with patient to get out of bed to sit in chair. Patient has to be able to sit in wheelchair and be transported to dialysis and sit in dialysis chair for 3-4hrs. CM will continue to follow and assist as needed with discharge planning / needs. DCP- Discharge Planning Updated by [id number]: Jenny Servando on 10/07/18 3:[address] CM spoke with Roge Monae this am. Roge stated we are at standstill until we find NH placement. Once we have NH placement then we can proceed with dialysis placement. CM spoke with patients daughter since patient isn't able to stay awake and communicate. Daughter Fran Tinajero "Nkechi" [phone]. Daughter stated that she would like NH placement as close to [place] as possible. CM explained that we would have to find placement that has fannie lift at both [place] and dialysis clinic. Daughter stated that [place] was the next closest town. CM contacted [facility] in [place] [phone]. Peace Garcia clinical Liaison [phone] fax [phone]. CM spoke with Peace and explained situation and faxed records. Peace stated she would be here to see patient in am. CM will continue to follow and assist as needed with discharge planning / needs. DCP- Discharge Planning Updated by [id number]: Jenny Al on 10/07/18 9:[address] CM spoke with Roge Monae this am. She stated that she had been out of the office but now was back. Roge stated that she would speak to Radha and would take care of everything from this point with placement for dialysis. CM will continue to follow and assist as needed with discharge planning / needs. DCP- Discharge Planning Updated by [email or web address]: Jenny Al on 10/07/18 9:[address] Late Entry 10/06/18 @ 1600 CM spoke with Radha with [facility]. Radha stated she needed clarification on patients name. Radha stated she needed dialysis flowsheets from last three treatments faxed to her. Radha stated that she was trying to get placement at [facility] dialysis clinic. CM will continue to follow and assist as needed with discharge planning / needs. DCP- Discharge Planning Updated by [id number]: Dick Randle on 10/03/18 3:[address] Patient Name: GUSTABO STUART Encounter No: [id number] : 1950 Primary Insurance: MEDICARE A & B Anticipated DC Date: 09-30-2018 Planned Disposition: Nursing Facility [facility] Cert External Planned Provider: TO BE DETERMINED DCP follow-up note: CM RECEIVED CALL FROM NAYANA OF [facility], THEY ONLY HAVE TTS AVAILABLE AND HAVE TALKED TO [facility] ENGINEERING TECHNICAL ANALYST WHO INFORMED THEM THAT THEY ARE NOT GOING TO DRIVE PT AN HOUR AWAY FOR DIALYSIS FROM THE RETIREMENT. CM SPOKE TO AUDI AT [facility] WHO INFORMED CM THAT THEY ARE GOING TO HAVE A SISTER FACILITY REPRESENTIVE CONTACT CM TO ASSIST IN PLACING PT IN [place] SO THAT PT CAN GO TO A FACILITY THAT HAS CAPABILITY OF FANNIE LIFT AND TO A DILAYSIS UNIT THAT HAS CAPABILITY OF FANNIE LIFT. CM SPOKE TO PT IN ROOM, DISCUSSED MOVING TO ANOTHER RETIREMENT, PT REPORTS SHE WILL TRY WITH THERAPY AND IS WILLING FOR NEW RETIREMENT IF NEEDED, CHOICE SIGNED FOR KEANU [facility] AND KALPANA AT [facility]. CM DISCUSSED LTACH, PT ALSO IN AGREEMENT WITH LTACH AT [facility] IF IT WILL HELP GET HER HOME SOONER. CM CALLED AND SPOKE TO LAITH OF [facility], , DISCUSSED NEED FOR REHAB, WOUND CARE AND DIALYSIS WITH GOAL TO SIT FOR DIALYSIS IN OUTPATIENT SETTING TO RETURN TO A RETIREMENT FOR CONTINUED PERSONAL INJURY PARALEGAL CARE. REFERRAL FAXED TO [facility] AT [phone]. CM CALLED AND SPOKE TO BECKY DEL [facility], , OF [facility], REPRESENTING [facility]. THEY CONTACT WITH [facility] AND DO NOT HAVE ONE WITH [facility]. THEY WILL SCREEN PT FOR THEIR HOMES, BUT PT WILL HAVE TO HAVE CAPACITY TO SIT IN CHAIR FOR THREE HOURS OF OUTPATIENT DIALYSIS AND TRANSPORTATION. CM FAXED REFERRAL TO BECKY AT [phone]. PT WILL NEED TO BE ABLE TO TRANSFER FROM BED TO CHAIR AND WILL ALSO NEED TO BE ABLE TO SIT SAFELY FOR TRANSPORT AND 3 HOURS OF DIALYSIS TREATMENT FOR OUTPATIENT DIALYSIS CLINIC ARRANGEMENT. CM WAITING ON RETIREMENT EVALUATIONS FOR ADMISSION, [facility] EVALUATION FOR ADMISSION AND WILL NEED TO SEND APPLICATION FOR [facility] FOR DIALYSIS UNIT CONSIDERATION AND TO FIND OUT IF THEY HAVE FANNIE LIFT CAPABILITY. DICK RANDLE, CASE MANAGEMENT DCP- Discharge Planning Updated by [id number]: Dick Randle on 10/02/18 3:[address] Patient Name: GUSTABO STUART Encounter No: [id number] : 1950 Primary Insurance: MEDICARE A & B Anticipated DC Date: 09-30-2018 Planned Disposition: Nursing Facility [facility] Cert External Planned Provider: [facility] [place], PERSONAL INJURY PARALEGAL CARE MEDICAID BED DCP follow-up note: CM CALLED ELZBIETA OF [facility] ADMISSIONS, , WAS INFORMED THEY DO NOT HAVE ANY REQUEST TO ARRANGE OUTPATIENT DIALYSIS CLINIC ARRANGEMENT. CM FAXED ADMISSIONS INTAKE FORM WITH INITIAL DOCUMENTS TO [facility] AT [phone]. CM NOTIFIED MERLYN OF [facility] IN [place], [facility], , OF NEED FOR OUTPATIENT DIALYSIS; CM WAS ADVISED THAT PT WILL NEED TO BE ABLE TO TRANSFER TO WHEELCHAIR AND CHAIR WELL BE ABLE TO TOLERATE SITTING IN CHAIR FOR THREE HOURS OF DIALYSIS. THE CENTER PREFERS MWF, MORNING SCHEDULE. CM WAITING FOR OUTPATIENT DIALYSIS CLINIC ARRANGEMENT. NOTE THAT PT WILL HAVE TO BE ABLE TO TRANSFER TO CHAIR AND SIT IN CHAIR FOR THREE HOURS FOR OUTPATIENT CLINIC PARTICIPATION. FOR DISCHARGE, FAX DISCHARGE INFORMATION TO [facility] IN [place], ; NURSE REPORT TO BE CALLED TO [phone]. PT TO TRANSPORT VIA AMBULANCE. Per [place]em Physical Therapist: Dick Randle Appended by Dick Randle on 10/02/2018 16:49 NAIL STICKER: CM RECEIVED CALL FROM RADHA OF [facility] ADMISSIONS; [facility] IS NOT CERTIFIED FOR LIFT AND HAS NO AVAILABLE OPENINGS AT THIS TIME. [facility] IS LIFT CERTIFIED BUT HAS NO AVAILABLE OPENINGS. RADHA WILL SEND REFERRAL TO [facility] IN [place] BUT THEY ONLY HAVE TTS SLOTS AVAILABLE. RADHA WILL ESCULATE REFERRAL FOR [facility] D[facility] ARRANGMENT IN [place] THAT A CHAIR BECOMES AVAILABLE AND PT WILL NOT REQUIRE LIFT TRANSFER. PT WILL NEED TO BE ABLE TO TRANSFER FROM BED TO CHAIR AND WILL ALSO NEED TO BE ABLE TO SIT SAFELY FOR TRANSPORT AND 3 HOURS OF DIALYSIS TREATMENT FOR OUTPATIENT DIALYSIS CLINIC ARRANGEMENT. DICK RANDLE, CASE MANAGEMENT DCP- Discharge Planning Updated by [id number]: Dick Randle on 09/29/18 12:[address] Patient Name: GUSTABO STUART Encounter No: [id number] : 1950 Primary Insurance: MEDICARE A & B Anticipated DC Date: 09-30-2018 Planned Disposition: Nursing Facility [facility] Cert External Planned Provider: [facility], PERSONAL INJURY PARALEGAL CARE MEDICAID BED DCP follow-up note: JAIMIE RECEIVED ORDER FOR OUTPATIENT DIALYSIS CLINIC ARRANGEMENT; RN JAIMIE HAMMONDS HAS INFORMED ROGE MONAE OF PATIENT [facility]WAYS FOR OUTPATIENT DAILYSIS CLINIC ARRANGEMENT IN [place]. JAIMIE FAXED UPDATE TO MERLYN OF [facility] IN [place], [facility], . ROGE INFORMED JAIMIE THAT PT NEEDS PERM DIALYSIS CATHETER AND AN ACCURATE WEIGHT. PT HAS ORDERS FOR CATHETER, CM NOTIFIED BEDSIDE NURSE OF NEED FOR ACCURATE WEIGHT; PT IS BED CONFINED AND ON SPECIALTY BED AT THIS TIME. CM WAITING FOR DIALYSIS CATHETER PLACEMENT WELL OUTPATIENT DIALYSIS CLINIC ARRANGEMENT. FOR DISCHARGE, FAX DISCHARGE INFORMATION TO [facility] IN [place], ; NURSE REPORT TO BE CALLED TO [phone]. PT TO TRANSPORT VIA AMBULANCE. Per [place]em Physical Therapist: Dick Randle DCP- Discharge Planning Updated by [id number]: Dick Randle on 09/26/18 4:[address] Patient Name: GUSTABO STUART Admission Status: Elective Accout number: [id number] Admission Date: 09-19-2018 : 1950 Admission Diagnosis:ACUTE RESPIRATORY FAILURE WITH HYPOXIA Attending: JENNIFER DICKEY Current LOS: 7 Anticipated DC Date: Planned Disposition: Nursing Facility [facility] Primary Insurance: MEDICARE A & B PLANNED EXTERNAL PROVIDER: [facility] [place], LONG TERM CARE MEDICAID BED Discharge Planning Comments: CM MET WITH PT IN ROOM TO DISCUSS DISCHARGE PLANNING AND NEEDS. PT REPORTS LIVING AT A RETIREMENT IN [place], SHE CANNOT REMEMBER THE NAME OF THE PLACE. PT REPORTS BEING CONFINED TO BED BUT THE FACILITY HAS A LIFT TO LANGUAGE TRANSLATOR PT TO A WHEELCHAIR. PT REPORTS HAVING BIPAP, NEBULIZER AND OXYGEN AT THE FACILITY. PT REPORTS HAVING ASSISTANCE WITH EVERYTHING BUT EATING, WHICH SHE DOES HERSELF. PT ASKED THAT IF FAMILY CALLS, TELL THEM TO BRING HER CLOTHES AND CELL PHONE. CM DISCUSSED AVAILABILITY OF HOME HEALTH, REHAB SERVICES AND MEDICAL EQUIPMENT. PT DENIES DISCHARGE NEEDS, REPORTS SHE WILL DISCHARGE BACK TO FACILITY WHERE SHE LIVES. CM CALLED [facility] [place] [place] [facility], ; CM SPOKE TO MERLYN WHO REPORTS PT IS IN SENIOR CARE CARE AND PROVIDED EMERGENCY CONTACT INFORMATION FOR PT'S FAMILY MEMBERS; CM NOTED IN CASE MANAGEMENT ASSESSMENT CHECKLIST. MERLYN VERIFIED PT HAS OXYGEN, NEBULUZER AND BIPAP IN FACILITY, THEY WILL ACCEPT BACK FOR CONTINUED PERSONAL INJURY PARALEGAL CARE AT HOSPITAL DISCHARGE. FOR DISCHARGE, FAX DISCHARGE INFORMATION TO [facility] IN [place], ; NURSE REPORT TO BE CALLED TO [phone]. PT TO TRANSPORT VIA AMBULANCE. Per [place]em Physical Therapist: Dick Randle DCP- Discharge Planning Updated by [email or web address]: Jenny Al on 09/23/18 3:[address] CM attempted to visit with patient. Patient is currently on BiPap and getting dialysis at this time. She is unable to speak with me at this time. No family available at this time. CM will continue to follow and assist as needed with discharge planning / needs. DCPIA - Discharge Planning Initial Assessment Updated by [email or web address]: Dick Randle on 09/26/18 4:23 pm * Is the patient Alert and Oriented? Yes * How many steps to enter\\exit or inside your home? NONE * [facility] CUSTOM * Pharmacy [facility] ([facility]NF FACILITY) * [facility]read[facility] * Facility Name [facility] [phone] * ADLs Partial Dependent * Partial ADLs (Assistance needed) Bathing Dressing Medication Management Toileting Transfers * Equipment BIPAP Hospital Bed Fannie Lift Nebulizer Oxygen Wheelchair * Other Equipment ALL MEDICAL EQUIPMENT PROVIDED BY FACILITY * List name and contact numbers for known caregivers / representatives who currently or will assist patient after discharge: EDGARD JEREZ, MOTHER IN LAW, KAVEH CASILLAS, DTR, NICK SAUER, SPOUSE, * Verbal permission to speak to the caregivers and representatives has been obtained from the patient. Yes * Community resources currently utilized None * Please name any agencies selected above. NONE * Additional services required to return to the preadmission environment? No * Can the patient safely return to the preadmission environment? Yes * Has this patient been hospitalized within the prior 30 days at any hospital? No Coverage Notice Reviewer: [id number] - Dick Randle Notice Issued Date-Time: 10/03/2018 11:30 Notice Type: Patient Choice Letter Notice Delivered To: Patient Relationship to Patient: Certified Driver Examiner Name: Delivery Method: HAND - Hand Delivered Veda Days: Prior Verbal Notification: Recipient Understood Notice: Recipient Signature: Med Rec Note Co-signed by Attending: Coverage Notice Comment: ERNA FABRICIO [place] Last DP export: 10/07/18 3:45 Patient Name: GUSTABO STUART Page [id number] at 1918 All edits/amendments must be made on the electronic document DICTATION DATE: 10/10/181916 STEAM TRAIN DRIVER: HELDER 10/10/181916 RPT#: [id number] DC DATE: STATUS: ADM IN [facility] [address] [place] [address] END OF REPORT
--- NOTE | ~2018-09-19 | MORECARE ---
CASE MANAGEMENT DISCHARGE SUMMARY PATIENT: GUSTABO STUART UNIT: [id number] ADM DATE: 09/19/18 AGE: 68 : 50 SEX: F ROOM/BED: D.8823 AUTHOR: LAWRENCE,DOC PHYSICIAN: REFERRING PHYSICIAN: JENNIFER DICKEY MD DATE OF SERVICE: 10/23/18 Discharge Plan Patient Name: GUSTABO STUART Facility: [facility]:[place] : 1950 Planned Disposition: Nursing Facility KULWINDER Cert Anticipated Discharge Date: 10/23/18 Discharge Date: Expected LOS: 34 Initial Reviewer: [id number] Initial Review Date: 09/19/2018 Generated: 10/23/18 3:28 pm Comments DCP- Discharge Planning Updated by [id number]: Dick Oliveros on 10/22/18 4:[address] Patient Name: GUSTABO STUART Encounter No: [id number] : 1950 Primary Insurance: MEDICARE A & B Anticipated DC Date: 10-22-2018 Planned Disposition: Nursing Facility KULWINDER Cert External Planned Provider: JERICHO FORBES [facility], JAIL CARE MEDICAID BED DCP follow-up note: CM RECEIVED CALL FROM [facility], PT HAS BEEN ACCEPTED AT [facility], 1115 AM; FIRST APPOINTMENT 10-24-18 AT 1100AM. PT NOTIFIED AND IN AGREEMENT WITH DISCHARGE TO [facility] IN [place] WITH OUTPATIENT DIALYSIS. CM NOTIFIED NIKOLAINAV, ASKED FOR FACILITY GENERAL COUNSELOR TODAY. CM RECEIVED CALL FROM [facility] IN [place], , WHO REPORTS SHE NEEDS TO GET PT A BIPAP AND DOES NOT HAVE VAN AVAILABILITY TODAY OR TOMORROW TO GENERAL COUNSELOR PT. PT IS NOT QUALIFYING FOR AMBULANCE TRANSPORT, STAGE TWO ON COCCYX VERY SMALL AND PT IS TRANSFERRING WITHOUT LIFT AND SITTING IN CHAIR MOST ALL DAY. CM CALLED AND SPOKE TO CM INTAKE MAN KAYLEE, DISCUSSED TRANSPORTATION ISSUE; CM ADVISED THAT AMBULANCE COSTS $2500, WILL NOT BE APPROVED BY HOSPITAL. CM CALLED [facility], , LEFT DETAILED MESSAGE ASKING FOR AVAILABILITY AND COSTS FOR TRANSPORT TOMORROW. JAIMIE SPOKE TO INTAKE MAN KAYLEE WHO INFORMED CM THAT IF [facility] IS NOT ABLE TO TRANSPORT, THAT CM WILL NOTIFY SENIOR CARE WHO CAN SCHEDULE FIRST AVAILABLE TIME TO GENERAL COUNSELOR PT FROM HOSPITAL. JAIMIE FAXED DISCHARGE INFORMATION ALONG WITH WOUND CARE AND BIPAP SETTINGS / ORDER TO [facility] VIA LAURENCE AT [phone]. ONCE TRANSPORTATION IS ARRANGED, NURSE REPORT TO BE CALLED TO [facility] AT [phone]. Dick Oliveros, CASE MANAGEMENT Appended by Dick Oliveros on 10/22/2018 17:46 FINANCIAL MANAGEMENT: JAIMIE RECEIVED CALL FROM ERIKA OF [facility], , QUOTE RECEIVED OF $275 AND WILL HAVE TO GENERAL COUNSELOR PT AT OR BEFORE 6AM; CM NOTIFIED INTAKE MAN KAYLEE AND RECEIVED APPROVAL FOR FUNDS. JAIMIE NOTIFIED LAURENCE OF [facility]. JAIMIE RECEIVED CALL FROM ERIKA, HE IS NOT ABLE TO OBTAIN A LARGE ENOUGH WHEELCHAIR FOR 6M GENERAL COUNSELOR. ERIKA STATES THAT IF NEEDED, HE MAY BE ABLE TO TRANSPORT SATURDAY LATER IN THE DAY IF THE SENIOR CARE WILL NOT GENERAL COUNSELOR THE PATIENT. JAIMIE NOTIFED INTAKE MAN LAURENCE PAGE OF [facility] IN [place] AND LEFT NOTE FOR BEDSIDE NURSE. CM WILL CONTINUE TO SEEK DISCHARGE TRANSPORTATION. ONCE TRANSPORTATION IS ARRANGED, NURSE REPORT TO BE CALLED TO [facility] AT [phone]. Dick Oliveros, CASE MANAGEMENT DCP- Discharge Planning Updated by [id number]: Dick Oliveros on 10/22/18 9:[address] Patient Name: GUSTABO STUART Encounter No: [id number] : 1950 Primary Insurance: MEDICARE A & B Anticipated DC Date: 10-21-2018 Planned Disposition: Nursing Facility KULWINDER Cert External Planned Provider: [facility], PRODUCTION TEAM MANAGER CARE MEDICAID BED JAIMIE SPOKE TO ROGE [facility] 10-21-18 WHO INFORMED CM THAT DIALYSIS UNIT STILL ASSESSING FOR ADMISSION AND REQUESTED FURHTER DOCUMENTATION WHICH ROGE FAXED FOR REVIEW. ON 10-21-18, JAIMIE SENT MESSAGE TO ROGE [facility] REQUESTING UPDATE ON DIALYSIS UNIT PLACEMENT AND SCHEDULE. ROGE CALLED CM, INFORMED CM THAT THE DIALYSIS DOCTOR DID NOT COMPLETE REVIEW YESTERDAY, ROGE HAS CALLED AND ASKED FOR REVIEW AND DETERMINATION TODAY. [facility] IN [place] ACCEPTS PT. CM WAITING DAILYSIS CLINIC ACCEPTANCE AND SCHEDULE. WHEN CLINIC ARRANGEMENT CONFIRMED, FAX DISCHARGE INFORMATION TO [facility] AT [phone]. CALL NURSE REPORT TO [facility] AT [phone]. PT TO TRANSPORT VIA AMBULANCE DUE TO STAGE 2 PRESSURE ULCER ON COCCYX. EVERARDO BERMEO DCP- Discharge Planning Updated by [id number]: Dick Oliveros on 10/20/18 4:[address] Patient Name: GUSTABO STUART Encounter No: [id number] : 1950 Primary Insurance: MEDICARE A & B Anticipated DC Date: 10-21-2018 Planned Disposition: Nursing Facility KULWINDER Cert External Planned Provider:[facility], PRODUCTION TEAM MANAGER CARE MEDICAID BED CM RECEIVED CALL FROM LAURENCE OF [facility], , WHO ADVISED THAT [facility] WILL ACCEPT PT, TOMORROW, 10-21-18, IF APPROVED BY [facility] FOR OUTPATIENT DIALYSIS. LAURENCE ADVISED THAT THE SENIOR CARE IS NOW COMMUNICATING WITH THE DIALYSIS UNIT. CM SENT MESSAGE TO [facility]GE [facility] REQUESTING UPDATE ON DIALYSIS UNIT PLACEMENT AND SCHEDULE. PT NOTIFIED AND IN AGREEMENT WITH DISCHARGE TO [facility] SOON POSSIBLE. [facility] [place] ACCEPTS PT. CM WAITING DAILYSIS CLINIC ACCEPTANCE AND SCHEDULE. WHEN CLINIC ARRANGEMENT CONFIRMED, FAX DISCHARGE INFORMATION TO [facility] AT [phone]. CALL NURSE REPORT TO [facility] AT [phone]. PT TO TRANSPORT VIA AMBULANCE DUE TO STAGE 2 PRESSURE ULCER ON COCCYX. EVERARDO BERMEO DCP- Discharge Planning Updated by [id number]: Dick Oliveros on 10/20/18 8:[address] Patient Name: GUSTABO STUART Encounter No: [id number] : 1950 Primary Insurance: MEDICARE A & B Anticipated DC Date: 10-15-2018 Planned Disposition: Nursing Facility KULWINDER Cert External Planned Provider: [facility], JAIL [facility] MEDICAID BED CM LEFT MESSAGE FOR LAURENCE OF [facility] IN [place], , AND ADVISED THAT PT HAS CONTINUED TO DEMONSTRATE ABILITY TO TRANSFER TO CHAIR AND SIT FOR OVER 4 HOURS. CM FAXED UPDATE TO [facility] IN [place] VIA LAURENCE AT [phone]. [facility] IN [place] IS REVIEWING FOR PLACEMENT; THEY DO HAVE FANNIE LIFT. DAVITA ADMISSIONS WORKING ON OUTPATIENT DIALYSIS ARRANGEMENT AT [facility] IN [place], THEY ALSO HAVE A LIFT. CM WAITING ON DETERMINATIONS FROM BOTH. DICK OLIVEROS, CASE MANAGEMENT DCP- Discharge Planning Updated by [id number]: Dick Oliveros on 10/15/18 11:[address] Patient Name: GUSTABO STUART Encounter No: [id number] : 1950 Primary Insurance: MEDICARE A & B Anticipated DC Date: 10-15-2018 Planned Disposition: Nursing Facility KULWINDER Cert External Planned Provider: [facility]; PRODUCTION TEAM MANAGER CARE MEDICAID BED DCP follow-up note: CM CALLED LAURENCE OF [facility] [place], , AND ADVISED THAT PT HAS DEMONSTRATED ABILITY TO TRANSFER TO CHAIR AND SIT FOR OVER 4 HOURS. CM SPOKE TO HOMER OF [facility] ADMISSIONS AND PROVIDED UPDATE FOR [facility] DIALYSIS IN [place] CM SPOKE TO ROGE MONAE OF [facility] WHO WILL [facility] ADMISS[facility]LL [facility] DIALYSIS AND PROVIDED UPDATED INFORMATION TO BOTH FROM MEDICAL CHART. JAIMIE SPOKE TO PT IN ROOM WHO IS STILL WILLING FOR PLACEMENT IN [place] AT [facility] AND WAS HOPING TO BE OUT OF THE HOSPITAL FOR THANKSGIVING. IMPORTANT MESSAGE FROM MEDICARE PROVIDED AND EXPLAINED. CM FAXED UPDATE TO [facility] VIA LAURENCE AT [phone]. [facility] IN [place] IS REVIEWING FOR PLACEMENT; THEY DO HAVE FANNIE LIFT. DAVITA ADMISSIONS WORKING ON OUTPATIENT DIALYSIS ARRANGEMENT AT [facility] IN [place], THEY ALSO HAVE A LIFT. CM WAITING ON DETERMINATIONS FROM BOTH. DICK OLIVEROS, CASE MANAGEMENT DCP- Discharge Planning Updated by [id number]: Dick Oliveros on 10/13/18 2:[address] Patient Name: GUSTABO STUART Encounter No: [id number] : 1950 Primary Insurance: MEDICARE A & B Anticipated DC Date: 09-30-2018 Planned Disposition: Nursing Facility KULWINDER Cert External Planned Provider: [facility]; PRODUCTION TEAM MANAGER CARE MEDICAID BED DCP follow-up note: CM CALLED LAURENCE OF [facility] IN [place], , WHO ADVISED THAT [facility] MAY ACCEPT BUT PT WILL NEED TO DEMONSTRATE ABILITY TO TRANSFER TO WHEELCHAIR AND SIT FOR 3 HOURS OF DIALYSIS. [facility] HAS LIFT AVAILABLE. CM SPOKE TO RADHA OF [facility] WHO REPORTS THEY WERE WORKING ON [facility] DIALYSIS IN [place] BUT WILL SEND REFERRAL TO [facility] IN [place] THAT HAS LIFT AND MWF SCHEDULING CAPABIILITY. CM SPOKE TO PT IN ROOM WHO IS WILLING FOR PLACEMENT IN [place] TO BE CLOSER TO FAMILY IF SHE CANNOT RETURN TO [place] WHERE SHE WAS LIVING AT [facility]. CM FAXED UPDATE TO [facility] IN [place] VIA LAURENCE AT [phone]. CM SPOKE TO MARIEL OF PHYSICAL [facility]ERAPY WHO VERIFIED PT HAS BEEN UP TO SIDE OF BED BUT THEY ARE NOT ABLE TO GET PT UP TO CHAIR THEY DO NOT HAVE A LIFT. CM SPOKE TO CM INTAKE MAN KAYLEE REGARDING LACK OF LIFT CAPABILITY THIS IS AN OBSTACLE TO PLACEMENT IN ANY FACILITY PT WILL NEED OUTPATIENT DIALYSIS AND MUST BE ABLE TO DEMONSTRATE ABILITY TO SIT FOR DURATION OF TRANSPORT AND DIALYSIS SESSION. CM WAITING PT TO DEMONSTRATE ABILITY TO TRANSFER AND SIT FOR DURATION OF TRANSPORTATION WELL FOR THREE HOURS OF DIALYSIS TREATMENT, WITH OR WITHOUT A LIFT. [facility] IN [place] WILL REVIEW FOR PLACEMENT IF PT IS ABLE TO SIT FOR TRANSPORT AND DIALYSIS; THEY DO HAVE FANNIE LIFT. [facility] ADMISSIONS WORKING ON OUTPATIENT DIALYSIS ARRANGEMENT AT [facility] IN [place], THEY ALSO HAVE A LIFT. DICK OLIVEROS, CASE MANAGEMENT Appended by Dick Oliveros on 10/13/2018 15:31 FINANCIAL MANAGEMENT: CM RECEIVED CALL FROM KRISTIAN OF [facility], , WHO ASKED FOR FAXED UPDATE. CM FAXED UPDATE TO [facility] WITH DIALYSIS RUN SHEETS THRU 10-11-18. CM FAXED UPDATE TO LAURENCE OF [facility] IN [place] WITH OCCUPATIONAL THERAPY NOTE INDICATING PT HAS BEEN OUT OF BED TO CHAIR. CM TO CONTINUE TO FOLLOW AND ASSIST NEEDED. CM WAITING PT TO DEMONSTRATE ABILITY TO TRANSFER AND SIT FOR DURATION OF TRANSPORTATION WELL FOR THREE HOURS OF DIALYSIS TREATMENT, WITH OR WITHOUT A LIFT. [facility] IN [place] WILL REVIEW FOR PLACEMENT IF PT IS ABLE TO SIT FOR TRANSPORT AND DIALYSIS; THEY DO HAVE FANNIE LIFT. PATSY SAUCEDA WORKING ON OUTPATIENT DIALYSIS ARRANGEMENT AT [facility] IN [place], THEY ALSO HAVE A LIFT. DICK OLIVEROS, CASE MANAGEMENT DCP- Discharge Planning Updated by [id number]: Jenny Al on 10/10/18 6:[address] Late Entry 10/10/18 @ 0900 PT and OT still working with patient to get out of bed to sit in chair. Patient has to be able to sit in wheelchair and be transported to dialysis and sit in dialysis chair for 3-4hrs. CM will continue to follow and assist as needed with discharge planning / needs. DCP- Discharge Planning Updated by [id number]: Jenny Al on 10/07/18 3:[address] CM spoke with oRge Monae this am. Roge stated we are at standstill until we find NH placement. Once we have NH placement then we can proceed with dialysis placement. CM spoke with patients daughter since patient isn't able to stay awake and communicate. Daughter Fran Tinajero "Nkechi" [phone]. Daughter stated that she would like NH placement as close to [place] as possible. CM explained that we would have to find placement that has fannie lift at both NH and dialysis clinic. Daughter stated that [place] was the next closest town. CM contacted [facility] in [place] [phone]. Laurence Garcia clinical Liaison [phone] fax [phone]. CM spoke with Laurence and explained situation and faxed records. Laurence stated she would be here to see patient in am. CM will continue to follow and assist as needed with discharge planning / needs. DCP- Discharge Planning Updated by [id number]: Jenny Al on 10/07/18 9:[address] CM spoke with Roge Monae this am. She stated that she had been out of the office but now was back. Roge stated that she would speak to Radha and would take care of everything from this point with placement for dialysis. CM will continue to follow and assist as needed with discharge planning / needs. DCP- Discharge Planning Updated by [id number]: Jenny Al on 10/07/18 9:[address] Late Entry 10/06/18 @ 1600 CM spoke with Radha with [facility]. Radha stated she needed clarification on patients name. Radha stated she needed dialysis flowsheets from last three treatments faxed to her. Radha stated that she was trying to get placement at [facility] dialysis clinic. CM will continue to follow and assist as needed with discharge planning / needs. DCP- Discharge Planning Updated by [id number]: Dick Salamancawell on 10/03/18 3:[address] Patient Name: GUSTABO STUART Encounter No: [id number] : 1950 Primary Insurance: MEDICARE A & B Anticipated DC Date: 09-30-2018 Planned Disposition: Nursing Facility KULWINDER Cert External Planned Provider: TO BE DETERMINED DCP follow-up note: CM RECEIVED CALL FROM [facility], THEY ONLY HAVE TTS AVAILABLE AND HAVE TALKED TO [facility] DESKTOP SUPPORT TECHNICIAN WHO INFORMED THEM THAT THEY ARE NOT GOING TO DRIVE PT AN HOUR AWAY FOR DIALYSIS FROM THE SENIOR CARE. CM SPOKE TO AUDI AT [facility] WHO INFORMED CM THAT THEY ARE GOING TO HAVE A SISTER FACILITY REPRESENTIVE CONTACT CM TO ASSIST IN PLACING PT IN [place] SO THAT PT CAN GO TO A FACILITY THAT HAS CAPABILITY OF FANNIE LIFT AND TO A DILAYSIS UNIT THAT HAS CAPABILITY OF FANNIE LIFT. CM SPOKE TO PT IN ROOM, DISCUSSED MOVING TO ANOTHER SENIOR CARE, PT REPORTS SHE WILL TRY WITH THERAPY AND IS WILLING FOR NEW SENIOR CARE IF NEEDED, CHOICE SIGNED FOR KEANU JJ AT [facility]. CM DISCUSSED LTACH, PT ALSO IN AGREEMENT WITH LTACH AT [facility] IF IT WILL HELP GET HER HOME SOONER. CM CALLED AND SPOKE TO LAITH OF [facility], , DISCUSSED NEED FOR REHAB, WOUND CARE AND DIALYSIS WITH GOAL TO SIT FOR DIALYSIS IN OUTPATIENT SETTING TO RETURN TO A SENIOR CARE FOR CONTINUED JAIL CARE. REFERRAL FAXED TO [facility] AT [phone]. CM CALLED AND SPOKE TO [facility], , OF [facility] AND [facility]. THEY CONTACT WITH [facility] D[facility] AND DO NOT HAVE ONE WITH [facility]. THEY WILL SCREEN PT FOR THEIR HOMES, BUT PT WILL HAVE TO HAVE CAPACITY TO SIT IN CHAIR FOR THREE HOURS OF OUTPATIENT DIALYSIS AND TRANSPORTATION. CM FAXED REFERRAL TO BEC[facility] AT [phone]. PT WILL NEED TO BE ABLE TO TRANSFER FROM BED TO CHAIR AND WILL ALSO NEED TO BE ABLE TO SIT SAFELY FOR TRANSPORT AND 3 HOURS OF DIALYSIS TREATMENT FOR OUTPATIENT DIALYSIS CLINIC ARRANGEMENT. CM WAITING ON SENIOR CARE EVALUATIONS FOR ADMISSION, [facility] EVALUATION FOR ADMISSION AND WILL NEED TO SEND APPLICATION FOR [facility] FOR DIALYSIS UNIT CONSIDERATION AND TO FIND OUT IF THEY HAVE FANNIE LIFT CAPABILITY. DICK OLIVEROS, CASE MANAGEMENT DCP- Discharge Planning Updated by [id number]: Dick Oliveros on 10/02/18 3:[address] Patient Name: GUSTABO STUART Encounter No: [id number] : 1950 Primary Insurance: MEDICARE A & B Anticipated DC Date: 09-30-2018 Planned Disposition: Nursing Facility KULWINDER Cert External Planned Provider: [facility], PRODUCTION TEAM MANAGER CARE MEDICAID BED DCP follow-up note: CM CALLED ELZBIETA OF [facility] ADMISSIONS, , WAS INFORMED THEY DO NOT HAVE ANY REQUEST TO ARRANGE OUTPATIENT DIALYSIS CLINIC ARRANGEMENT. CM FAXED ADMISSIONS INTAKE FORM WITH INITIAL DOCUMENTS TO [facility] ADMISSIONS AT [phone]. CM NOTIFIED MERLYN OF [facility] IN [place], [facility], , OF NEED FOR OUTPATIENT DIALYSIS; CM WAS ADVISED THAT PT WILL NEED TO BE ABLE TO TRANSFER TO WHEELCHAIR AND CHAIR WELL BE ABLE TO TOLERATE SITTING IN CHAIR FOR THREE HOURS OF DIALYSIS. THE CENTER PREFERS MWF, MORNING SCHEDULE. CM WAITING FOR OUTPATIENT DIALYSIS CLINIC ARRANGEMENT. NOTE THAT PT WILL HAVE TO BE ABLE TO TRANSFER TO CHAIR AND SIT IN CHAIR FOR THREE HOURS FOR OUTPATIENT CLINIC PARTICIPATION. FOR DISCHARGE, FAX DISCHARGE INFORMATION TO [facility] IN [place], ; NURSE REPORT TO BE CALLED TO [phone]. PT TO TRANSPORT VIA AMBULANCE. Strand And Binder Controller: Dick Oliveros Appended by Dick Oliveros on 10/02/2018 16:49 FINANCIAL MANAGEMENT: CM RECEIVED CALL FROM RADHA OF [facility] ADMISSIONS; [facility] DIALYS[facility] IS NOT CERTIFIED FOR LIFT AND HAS NO AVAILABLE OPENINGS AT THIS TIME. [facility] IS LIFT CERTIFIED BUT HAS NO AVAILABLE OPENINGS. RADHA WILL SEND REFERRAL TO [facility] DIAL[facility] IN [place] BUT THEY ONLY HAVE TTS SLOTS AVAILABLE. RADHA WILL ESCULATE REFERRAL FOR [facility] DIALYSIS ARRANGMENT IN [place] THAT A CHAIR BECOMES AVAILABLE AND PT WILL NOT REQUIRE LIFT TRANSFER. PT WILL NEED TO BE ABLE TO TRANSFER FROM BED TO CHAIR AND WILL ALSO NEED TO BE ABLE TO SIT SAFELY FOR TRANSPORT AND 3 HOURS OF DIALYSIS TREATMENT FOR OUTPATIENT DIALYSIS CLINIC ARRANGEMENT. DICK OLIVEROS, CASE MANAGEMENT DCP- Discharge Planning Updated by [id number]: Dick Oliveros on 09/29/18 12:[address] Patient Name: GUSTABO STUART Encounter No: [id number] : 1950 Primary Insurance: MEDICARE A & B Anticipated DC Date: 09-30-2018 Planned Disposition: Nursing Facility KULWINDER Cert External Planned Provider: [facility], JAIL CARE MEDICAID BED DCP follow-up note: JAIMIE RECEIVED ORDER FOR OUTPATIENT DIALYSIS CLINIC ARRANGEMENT; RN JAIMIE HAMMONDS HAS INFORMED ROGE MONAE OF [facility] FOR OUTPATIENT DAILYSIS CLINIC ARRANGEMENT IN [place]. JAIMIE FAXED UPDATE TO MERLYN OF [facility] IN [place], . ROGE INFORMED CM THAT PT NEEDS PERM DIALYSIS CATHETER AND AN ACCURATE WEIGHT. PT HAS ORDERS FOR CATHETER, CM NOTIFIED BEDSIDE NURSE OF NEED FOR ACCURATE WEIGHT; PT IS BED CONFINED AND ON SPECIALTY BED AT THIS TIME. CM WAITING FOR DIALYSIS CATHETER PLACEMENT WELL OUTPATIENT DIALYSIS CLINIC ARRANGEMENT. FOR DISCHARGE, FAX DISCHARGE INFORMATION TO [facility] IN [place], ; NURSE REPORT TO BE CALLED TO [phone]. PT TO TRANSPORT VIA AMBULANCE. Strand And Binder Controller: Dick Oliveros DCP- Discharge Planning Updated by [id number]: Dick Oliveros on 09/26/18 4:[address] Patient Name: GUSTABO STUART Admission Status: Elective Accout number: [id number] Admission Date: 09-19-2018 : 1950 Admission Diagnosis:ACUTE RESPIRATORY FAILURE WITH HYPOXIA Attending: JENNIFER DICKEY Current LOS: 7 Anticipated DC Date: Planned Disposition: Nursing Facility KULWINDER Cert Primary Insurance: MEDICARE A & B PLANNED EXTERNAL PROVIDER: [facility], [place], LONG TERM CARE MEDICAID BED Discharge Planning Comments: CM MET WITH PT IN ROOM TO DISCUSS DISCHARGE PLANNING AND NEEDS. PT REPORTS LIVING AT A SENIOR CARE IN [place], SHE CANNOT REMEMBER THE NAME OF THE PLACE. PT REPORTS BEING CONFINED TO BED BUT THE FACILITY HAS A LIFT TO GENERAL COUNSELOR PT TO A WHEELCHAIR. PT REPORTS HAVING BIPAP, NEBULIZER AND OXYGEN AT THE FACILITY. PT REPORTS HAVING ASSISTANCE WITH EVERYTHING BUT EATING, WHICH SHE DOES HERSELF. PT ASKED THAT IF FAMILY CALLS, TELL THEM TO BRING HER CLOTHES AND CELL PHONE. CM DISCUSSED AVAILABILITY OF HOME HEALTH, REHAB SERVICES AND MEDICAL EQUIPMENT. PT DENIES DISCHARGE NEEDS, REPORTS SHE WILL DISCHARGE BACK TO FACILITY WHERE SHE LIVES. CM CALLED [facility] IN [place], [facility], ; CM SPOKE TO MERLYN WHO REPORTS PT IS IN PRODUCTION TEAM MANAGER CARE AND PROVIDED EMERGENCY CONTACT INFORMATION FOR PT'S FAMILY MEMBERS; CM NOTED IN CASE MANAGEMENT ASSESSMENT CHECKLIST. MERLYN VERIFIED PT HAS OXYGEN, NEBULUZER AND BIPAP IN FACILITY, THEY WILL ACCEPT BACK FOR CONTINUED JAIL CARE AT HOSPITAL DISCHARGE. FOR DISCHARGE, FAX DISCHARGE INFORMATION TO [facility] IN [place], ; NURSE REPORT TO BE CALLED TO [phone]. PT TO TRANSPORT VIA AMBULANCE. Strand And Binder Controller: Dick Oliveros DCP- Discharge Planning Updated by [id number]: Jenny Al on 09/23/18 3:[address] CM attempted to visit with patient. Patient is currently on BiPap and getting dialysis at this time. She is unable to speak with me at this time. No family available at this time. CM will continue to follow and assist as needed with discharge planning / needs. DCPIA - Discharge Planning Initial Assessment Updated by [id number]: Dick Oliveros on 09/26/18 4:23 pm * Is the patient Alert and Oriented? Yes * How many steps to enter\\exit or inside your home? NONE * PCP [facility], SUBSTATION ENGINEER * Pharmacy [facility] * Preadmission Environment Community Service Patrol Officer Half-Way * [phone] * ADLs Partial Dependent * Partial ADLs (Assistance needed) Bathing Dressing Medication Management Toileting Transfers * Equipment BIPAP Hospital Bed Fnanie Lift Nebulizer Oxygen Wheelchair * Other Equipment ALL MEDICAL EQUIPMENT PROVIDED BY FACILITY * List name and contact numbers for known caregivers / representatives who currently or will assist patient after discharge: EDGARD JEREZ, MOTHER IN LAW, KAVEH CASILLAS, DTR, NICK SAUER, SPOUSE, * Verbal permission to speak to the caregivers and representatives has been obtained from the patient. Yes * Community resources currently utilized None * Please name any agencies selected above. NONE * Additional services required to return to the preadmission environment? No * Can the patient safely return to the preadmission environment? Yes * Has this patient been hospitalized within the prior 30 days at any hospital? No External Providers External Provider: [facility] Next Contact Date: 10/22/2018 Service Request Date: Service Type: Resolution: Reviewer: Comments: Coverage Notice Reviewer: GABRIEL Oliveros Notice Issued Date-Time: 10/03/2018 11:30 Notice Type: Patient Choice Letter Notice Delivered To: Patient Relationship to Patient: Informatics Physician Name: Delivery Method: HAND - Hand Delivered Veda Days: Prior Verbal Notification: Recipient Understood Notice: Recipient Signature: Med Rec Note Co-signed by Attending: Coverage Notice Comment: FABRICIO UMANZOR: [facility] Reviewer: [id number] Oliveros Notice Issued Date-Time: 10/15/2018 10:20 Notice Type: IM Discharge Notice Notice Delivered To: Patient Relationship to Patient: Informatics Physician Name: Delivery Method: HAND - Hand Delivered Veda Days: Prior Verbal Notification: Recipient Understood Notice: Yes Recipient Signature: Yes Med Rec Note Co-signed by Attending: Coverage Notice Comment: Reviewer: [id number] Oliveros Notice Issued Date-Time: 10/23/2018 14:00 Notice Type: IM Discharge Notice Notice Delivered To: Patient Relationship to Patient: Informatics Physician Name: Delivery Method: HAND - Hand Delivered Veda Days: Prior Verbal Notification: Recipient Understood Notice: Yes Recipient Signature: Yes Med Rec Note Co-signed by Attending: Coverage Notice Comment: Last DP export: 10/23/18 9:10 Patient Name: GUSTABO STUART Page 19843 at 1428 All edits/amendments must be made on the electronic document DICTATION DATE: 10/23/181427 CATTLE ALLEY WORKER: HELDER 10/23/181427 RPT#: [id number] DC DATE: STATUS: ADM IN [facility] [address] [place] [address] END OF REPORT
--- NOTE | ~2018-09-19 | MORECARE ---
CASE MANAGEMENT DISCHARGE SUMMARY PATIENT: GUSTABO STUART UNIT: [id number] ADM DATE: 09/19/18 AGE: 68 : 50 SEX: F ROOM/BED: D.3436 AUTHOR: LAWRENCE,DOC PHYSICIAN: REFERRING PHYSICIAN: JENNIFER DICKEY MD DATE OF SERVICE: 10/13/18 Discharge Plan Patient Name: GUSTABO STUART Facility: [facility]:[place] : 1950 Planned Disposition: Nursing Facility KULWINDER Cert Anticipated Discharge Date: 09/30/18 Discharge Date: Expected LOS: 11 Initial Reviewer: [id number] Initial Review Date: 09/19/2018 Generated: 10/13/18 12:21 pm Comments DCP- Discharge Planning Updated by [id number]: Dick Oliveros on 10/13/18 10:[address] Patient Name: GUSTABO STUART Encounter No: [id number] : 1950 Primary Insurance: MEDICARE A & B Anticipated DC Date: 09-30-2018 Planned Disposition: Nursing Facility [facility]ER Cert External Planned Provider: [facility]; SENIOR CARE CARE MEDICAID BED DCP follow-up note: JAIMIE CALLED LAURENCE OF [facility] IN [place], , WHO ADVISED THAT [facility] MAY ACCEPT BUT PT WILL NEED TO DEMONSTRATE ABILITY TO TRANSFER TO WHEELCHAIR AND SIT FOR 3 HOURS OF DIALYSIS. [facility]MERLY [facility] HAS LIFT AVAILABLE. JAIMIE SPOKE TO RADHA [facility] WHO REPORTS THEY WERE WORKING ON [facility] IN [place] BUT WILL SEND REFERRAL TO [facility] IN [place] THAT HAS LIFT AND MWF SCHEDULING CAPABIILITY. JAIMIE SPOKE TO PT IN ROOM WHO IS WILLING FOR PLACEMENT IN [place] TO BE CLOSER TO FAMILY IF SHE CANNOT RETURN TO [place] WHERE SHE WAS LIVING AT [facility]. CM FAXED UPDATE TO [facility] IN [place] VIA LAURENCE AT [phone]. JAIMIE SPOKE TO MARIEL OF PHYSICAL THERAPY WHO VERIFIED PT HAS BEEN UP TO SIDE OF BED BUT THEY ARE NOT ABLE TO GET PT UP TO CHAIR THEY DO NOT HAVE A LIFT. CM SPOKE TO CM MIXER AND SCALER KAYLEE REGARDING LACK OF LIFT CAPABILITY THIS IS AN OBSTACLE TO PLACEMENT IN ANY FACILITY PT WILL NEED OUTPATIENT DIALYSIS AND MUST BE ABLE TO DEMONSTRATE ABILITY TO SIT FOR DURATION OF TRANSPORT AND DIALYSIS SESSION. CM WAITING PT TO DEMONSTRATE ABILITY TO TRANSFER AND SIT FOR DURATION OF TRANSPORTATION WELL FOR THREE HOURS OF DIALYSIS TREATMENT, WITH OR WITHOUT A LIFT. [facility] IN [facility] WILL REVIEW FOR PLACEMENT IF PT IS ABLE TO SIT FOR TRANSPORT AND DIALYSIS; THEY DO HAVE FANNIE LIFT. PATSY SAUCEDA WORKING ON OUTPATIENT DIALYSIS ARRANGEMENT AT [facility] IN [place], THEY ALSO HAVE A LIFT. DICK OLIVEROS, CASE MANAGEMENT DCP- Discharge Planning Updated by [id number]: Jenny Al on 10/10/18 6:[address] Late Entry 10/10/18 @ 0900 PT and OT still working with patient to get out of bed to sit in chair. Patient has to be able to sit in wheelchair and be transported to dialysis and sit in dialysis chair for 3-4hrs. CM will continue to follow and assist as needed with discharge planning / needs. DCP- Discharge Planning Updated by [id number]: Jenny Al on 10/07/18 3:[address] CM spoke with Roge Monae this am. Roge stated we are at standstill until we find NH placement. Once we have NH placement then we can proceed with dialysis placement. CM spoke with patients daughter since patient isn't able to stay awake and communicate. Daughter Fran Tinajero "Nkechi" [phone]. Daughter stated that she would like NH placement as close to [place] as possible. CM explained that we would have to find placement that has fannie lift at both [place] and dialysis clinic. Daughter stated that [place] was the next closest town. CM contacted [facility] in [place] [phone]. Laurence Garcia clinical Liaison [phone] fax [phone]. JAIMIE spoke with Laurence and explained situation and faxed records. Laurence stated she would be here to see patient in am. CM will continue to follow and assist as needed with discharge planning / needs. DCP- Discharge Planning Updated by [id number]: Jenny Al on 10/07/18 9:[address] CM spoke with Roge Monae this am. She stated that she had been out of the office but now was back. Roge stated that she would speak to Radha and would take care of everything from this point with placement for dialysis. CM will continue to follow and assist as needed with discharge planning / needs. DCP- Discharge Planning Updated by [email or web address]: Jenny Al on 10/07/18 9:[address] Late Entry 10/06/18 @ 1600 CM spoke with Radha with [facility]. Radha stated she needed clarification on patients name. Radha stated she needed dialysis flowsheets from last three treatments faxed to her. Radha stated that she was trying to get placement at [facility] dialysis clinic. CM will continue to follow and assist as needed with discharge planning / needs. DCP- Discharge Planning Updated by [id number]: Dick Arlin on 10/03/18 3:[address] Patient Name: GUSTABO STUART Encounter No: [id number] : 1950 Primary Insurance: MEDICARE A & B Anticipated DC Date: 09-30-2018 Planned Disposition: Nursing Facility [facility] Cert External Planned Provider: TO BE DETERMINED DCP follow-up note: CM RECEIVED CALL FROM NAYANA OF [facility], THEY ONLY HAVE TTS AVAILABLE AND HAVE TALKED TO [facility] BODS DEVELOPER WHO INFORMED THEM THAT THEY ARE NOT GOING TO DRIVE PT AN HOUR AWAY FOR DIALYSIS FROM THE SENIOR CARE. CM SPOKE TO AUDI AT [facility] WHO INFORMED CM THAT THEY ARE GOING TO HAVE A SISTER FACILITY REPRESENTIVE CONTACT CM TO ASSIST IN PLACING PT IN [place] SO THAT PT CAN GO TO A FACILITY THAT HAS CAPABILITY OF FANNIE LIFT AND TO A DILAYSIS UNIT THAT HAS CAPABILITY OF FANNIE LIFT. CM SPOKE TO PT IN ROOM, DISCUSSED MOVING TO ANOTHER SENIOR CARE, PT REPORTS SHE WILL TRY WITH THERAPY AND IS WILLING FOR NEW SENIOR CARE IF NEEDED, CHOICE SIGNED FOR KEANU JJ AT [facility]. CM DISCUSSED LTACH, PT ALSO IN AGREEMENT WITH LTACH AT [facility] IF IT WILL HELP GET HER HOME SOONER. CM CALLED AND SPOKE TO LAITH OF [facility], , DISCUSSED NEED FOR REHAB, WOUND CARE AND DIALYSIS WITH GOAL TO SIT FOR DIALYSIS IN OUTPATIENT SETTING TO RETURN TO A SENIOR CARE FOR CONTINUED SENIOR CARE CARE. REFERRAL FAXED TO [facility] AT [phone]. CM CALLED AND SPOKE TO BECKY DEL CASTILL[facility], , OF [facility], [facility] AND [facility]. THEY CONTACT WITH [facility] AND DO NOT HAVE ONE WITH DAVITA. THEY WILL SCREEN PT FOR THEIR HOMES, BUT PT WILL HAVE TO HAVE CAPACITY TO SIT IN CHAIR FOR THREE HOURS OF OUTPATIENT DIALYSIS AND TRANSPORTATION. CM FAXED REFERRAL TO [facility] AT [phone]. PT WILL NEED TO BE ABLE TO TRANSFER FROM BED TO CHAIR AND WILL ALSO NEED TO BE ABLE TO SIT SAFELY FOR TRANSPORT AND 3 HOURS OF DIALYSIS TREATMENT FOR OUTPATIENT DIALYSIS CLINIC ARRANGEMENT. CM WAITING ON SENIOR CARE EVALUATIONS FOR ADMISSION, [facility] EVALUATION FOR ADMISSION AND WILL NEED TO SEND APPLICATION FOR [facility] FOR DIALYSIS UNIT CONSIDERATION AND TO FIND OUT IF THEY HAVE FANNIE LIFT CAPABILITY. DICK OLIVEROS, CASE MANAGEMENT DCP- Discharge Planning Updated by [id number]: Dick Oliveros on 10/02/18 3:[address] Patient Name: GUSTABO STUART Encounter No: [id number] : 1950 Primary Insurance: MEDICARE A & B Anticipated DC Date: 09-30-2018 Planned Disposition: Nursing Facility [facility] Cert External Planned Provider: [facility], LONG TERM CARE MEDICAID BED DCP follow-up note: CM CALLED ELZBIETA OF [facility] ADMISSIONS, , WAS INFORMED THEY DO NOT HAVE ANY REQUEST TO ARRANGE OUTPATIENT DIALYSIS CLINIC ARRANGEMENT. CM FAXED ADMISSIONS INTAKE FORM WITH INITIAL DOCUMENTS TO [facility] AT [phone]. CM NOTIFIED MERLYN OF [facility] IN [place], [facility], , OF NEED FOR OUTPATIENT DIALYSIS; CM WAS ADVISED THAT PT WILL NEED TO BE ABLE TO TRANSFER TO WHEELCHAIR AND CHAIR WELL BE ABLE TO TOLERATE SITTING IN CHAIR FOR THREE HOURS OF DIALYSIS. THE CENTER PREFERS MWF, MORNING SCHEDULE. CM WAITING FOR OUTPATIENT DIALYSIS CLINIC ARRANGEMENT. NOTE THAT PT WILL HAVE TO BE ABLE TO TRANSFER TO CHAIR AND SIT IN CHAIR FOR THREE HOURS FOR OUTPATIENT CLINIC PARTICIPATION. FOR DISCHARGE, FAX DISCHARGE INFORMATION TO [facility] IN [place], ; NURSE REPORT TO BE CALLED TO [phone]. PT TO TRANSPORT VIA AMBULANCE. Plaster Lather: Dick Oliveros Appended by Dick Oliveros on 10/02/2018 16:49 SPINE NURSE: CM RECEIVED CALL FROM RADHA OF [facility] ADMISSIONS; [facility] DIAL[facility] IS NOT CERTIFIED FOR LIFT AND HAS NO AVAILABLE OPENINGS AT THIS TIME. [facility] IS LIFT CERTIFIED BUT HAS NO AVAILABLE OPENINGS. RADHA WILL SEND REFERRAL TO [facility] IN [place] BUT THEY ONLY HAVE TTS SLOTS AVAILABLE. RADHA WILL ESCULATE REFERRAL FOR [facility] D[facility] ARRANGMENT IN [place] THAT A CHAIR BECOMES AVAILABLE AND PT WILL NOT REQUIRE LIFT TRANSFER. PT WILL NEED TO BE ABLE TO TRANSFER FROM BED TO CHAIR AND WILL ALSO NEED TO BE ABLE TO SIT SAFELY FOR TRANSPORT AND 3 HOURS OF DIALYSIS TREATMENT FOR OUTPATIENT DIALYSIS CLINIC ARRANGEMENT. DICK OLIVEROS, CASE MANAGEMENT DCP- Discharge Planning Updated by [id number]: Dick Oliveros on 09/29/18 12:[address] Patient Name: GUSTABO STUART Encounter No: [id number] : 1950 Primary Insurance: MEDICARE A & B Anticipated DC Date: 09-30-2018 Planned Disposition: Nursing Facility KUL[facility]ER Cert External Planned Provider: [facility], [place], SENIOR CARE CARE MEDICAID BED DCP follow-up note: JAIMIE RECEIVED ORDER FOR OUTPATIENT DIALYSIS CLINIC ARRANGEMENT; RN JAIMIE HAMMONDS HAS INFORMED ROGE MONAE OF PATIENT [facility] FOR OUTPATIENT DAILYSIS CLINIC ARRANGEMENT IN [place]. CM FAXED UPDATE TO MERLYN OF [facility] IN [place], [facility], . ROGE INFORMED CM THAT PT NEEDS PERM DIALYSIS CATHETER AND AN ACCURATE WEIGHT. PT HAS ORDERS FOR CATHETER, CM NOTIFIED BEDSIDE NURSE OF NEED FOR ACCURATE WEIGHT; PT IS BED CONFINED AND ON SPECIALTY BED AT THIS TIME. CM WAITING FOR DIALYSIS CATHETER PLACEMENT WELL OUTPATIENT DIALYSIS CLINIC ARRANGEMENT. FOR DISCHARGE, FAX DISCHARGE INFORMATION TO [facility] IN [place], ; NURSE REPORT TO BE CALLED TO [phone]. PT TO TRANSPORT VIA AMBULANCE. Plaster Lather: Dick Oliveros DCP- Discharge Planning Updated by [id number]: Dick Oliveros on 09/26/18 4:[address] Patient Name: GUSTABO STUART Admission Status: Elective Accout number: [id number] Admission Date: 09-19-2018 : 1950 Admission Diagnosis:ACUTE RESPIRATORY FAILURE WITH HYPOXIA Attending: JENNIFER DICKEY Current LOS: 7 Anticipated DC Date: Planned Disposition: Nursing Facility [facility] Primary Insurance: MEDICARE A & B PLANNED EXTERNAL PROVIDER: [facility], [place], LONG TERM CARE MEDICAID BED Discharge Planning Comments: CM MET WITH PT IN ROOM TO DISCUSS DISCHARGE PLANNING AND NEEDS. PT REPORTS LIVING AT A SENIOR CARE IN [place], SHE CANNOT REMEMBER THE NAME OF THE PLACE. PT REPORTS BEING CONFINED TO BED BUT THE FACILITY HAS A LIFT TO INVESTIGATOR OPERATOR PT TO A WHEELCHAIR. PT REPORTS HAVING BIPAP, NEBULIZER AND OXYGEN AT THE FACILITY. PT REPORTS HAVING ASSISTANCE WITH EVERYTHING BUT EATING, WHICH SHE DOES HERSELF. PT ASKED THAT IF FAMILY CALLS, TELL THEM TO BRING HER CLOTHES AND CELL PHONE. CM DISCUSSED AVAILABILITY OF HOME HEALTH, REHAB SERVICES AND MEDICAL EQUIPMENT. PT DENIES DISCHARGE NEEDS, REPORTS SHE WILL DISCHARGE BACK TO FACILITY WHERE SHE LIVES. CM CALLED [facility] IN [place], [facility] [place] [facility], ; CM SPOKE TO MERLYN WHO REPORTS PT IS IN SENIOR CARE CARE AND PROVIDED EMERGENCY CONTACT INFORMATION FOR PT'S FAMILY MEMBERS; CM NOTED IN CASE MANAGEMENT ASSESSMENT CHECKLIST. MERLYN VERIFIED PT HAS OXYGEN, NEBULUZER AND BIPAP IN FACILITY, THEY WILL ACCEPT BACK FOR CONTINUED KENNEL KEEPER CARE AT HOSPITAL DISCHARGE. FOR DISCHARGE, FAX DISCHARGE INFORMATION TO [facility] IN [place], ; NURSE REPORT TO BE CALLED TO [phone]. PT TO TRANSPORT VIA AMBULANCE. Plaster Lather: Dick Oliveros DCP- Discharge Planning Updated by [id number]: Jenny Al on 09/23/18 3:[address] CM attempted to visit with patient. Patient is currently on BiPap and getting dialysis at this time. She is unable to speak with me at this time. No family available at this time. CM will continue to follow and assist as needed with discharge planning / needs. DCPIA - Discharge Planning Initial Assessment Updated by [id number]: Dick Oliveros on 09/26/18 4:23 pm * Is the patient Alert and Oriented? Yes * How many steps to enter\\exit or inside your home? NONE * [facility] [place] [place]CHNOLOG[facility] * Pharmacy [facility]) * Preadmission Environment [facility] * [facility] [phone] * ADLs Partial Dependent * Partial ADLs (Assistance needed) Bathing Dressing Medication Management Toileting Transfers * Equipment BIPAP Hospital Bed Fannie Lift Nebulizer Oxygen Wheelchair * Other Equipment ALL MEDICAL EQUIPMENT PROVIDED BY FACILITY * List name and contact numbers for known caregivers / representatives who currently or will assist patient after discharge: EDGARD JEREZ, MOTHER IN LAW, KAVEH CASILLAS, DTR, NICK SAUER, SPOUSE, * Verbal permission to speak to the caregivers and representatives has been obtained from the patient. Yes * Community resources currently utilized None * Please name any agencies selected above. NONE * Additional services required to return to the preadmission environment? No * Can the patient safely return to the preadmission environment? Yes * Has this patient been hospitalized within the prior 30 days at any hospital? No Coverage Notice Reviewer: [id number] Rex Oliveros Notice Issued Date-Time: 10/03/2018 11:30 Notice Type: Patient Choice Letter Notice Delivered To: Patient Relationship to Patient: Jacker Feeder Name: Delivery Method: HAND - Hand Delivered Veda Days: Prior Verbal Notification: Recipient Understood Notice: Recipient Signature: Med Rec Note Co-signed by Attending: Coverage Notice Comment: FABRICIO UMANZOR: [facility] Last DP export: 10/10/18 6:18 Patient Name: GUSTABO STUART Page [id number] at 1121 All edits/amendments must be made on the electronic document DICTATION DATE: 10/13/18 1121 LASER BEAM CUTTER: HELDER 10/13/18 1121 RPT#: [id number] DC DATE: STATUS: ADM IN [facility] [address] [place] [address] END OF REPORT
--- NOTE | ~2018-09-19 | MORECARE ---
CASE MANAGEMENT DISCHARGE SUMMARY PATIENT: GUSTABO STUART UNIT: [id number] ADM DATE: 09/19/18 AGE: 68 : 50 SEX: F ROOM/BED: D.2545 AUTHOR: LAWRENCE,DOC PHYSICIAN: REFERRING PHYSICIAN: JENNIFER DICKEY MD DATE OF SERVICE: 10/15/18 Discharge Plan Patient Name: GUSTABO STUART Facility: [facility]:[place] : 1950 Planned Disposition: Nursing Facility [facility] Cert Anticipated Discharge Date: 10/15/18 Discharge Date: Expected LOS: 26 Initial Reviewer: [id number] Initial Review Date: 09/19/2018 Generated: 10/15/18 11:37 am Comments DCP- Discharge Planning Updated by [id number]: Dick Randle on 10/13/18 2:[address] Patient Name: GUSTABO STUART Encounter No: [id number] : 1950 Primary Insurance: MEDICARE A & B Anticipated DC Date: 09-30-2018 Planned Disposition: Nursing Facility [facility] Cert External Planned Provider: [facility]; [facility] MEDICAID BED DCP follow-up note: JAIMIE CALLED LAURENCE OF [facility] [place], , WHO ADVISED THAT [facility] MAY ACCEPT BUT PT WILL NEED TO DEMONSTRATE ABILITY TO TRANSFER TO WHEELCHAIR AND SIT FOR 3 HOURS OF DIALYSIS. [facility] HAS LIFT AVAILABLE. JAIMIE SPOKE TO RADHA [facility] WHO REPORTS THEY WERE WORKING ON [facility] IN [place] BUT WILL SEND REFERRAL TO [facility] IN [place] THAT HAS LIFT AND MWF SCHEDULING CAPABIILITY. JAIMIE SPOKE TO PT IN ROOM WHO IS WILLING FOR PLACEMENT IN [place] TO BE CLOSER TO FAMILY IF SHE CANNOT RETURN TO [place] WHERE SHE WAS LIVING AT [facility]. CM FAXED UPDATE TO [facility] IN [place] VIA LAURENCE AT [phone]. JAIMIE SPOKE TO MARIEL OF PHYSICAL THERAPY WHO VERIFIED PT HAS BEEN UP TO SIDE OF BED BUT THEY ARE NOT ABLE TO GET PT UP TO CHAIR THEY DO NOT HAVE A LIFT. CM SPOKE TO CM ARMATURE BANDER KAYLEE REGARDING LACK OF LIFT CAPABILITY THIS IS AN OBSTACLE TO PLACEMENT IN ANY FACILITY PT WILL NEED OUTPATIENT DIALYSIS AND MUST BE ABLE TO DEMONSTRATE ABILITY TO SIT FOR DURATION OF TRANSPORT AND DIALYSIS SESSION. CM WAITING PT TO DEMONSTRATE ABILITY TO TRANSFER AND SIT FOR DURATION OF TRANSPORTATION WELL FOR THREE HOURS OF DIALYSIS TREATMENT, WITH OR WITHOUT A LIFT. [facility] IN [facility] WILL REVIEW FOR PLACEMENT IF PT IS ABLE TO SIT FOR TRANSPORT AND DIALYSIS; THEY DO HAVE FANNIE LIFT. DAVITA ADMISSIONS WORKING ON OUTPATIENT DIALYSIS ARRANGEMENT AT [facility], THEY ALSO HAVE A LIFT. DICK RANDLE, CASE MANAGEMENT Appended by Dick Randle on 10/13/2018 15:31 LEARNING SUPPORT TEACHER: CM RECEIVED CALL FROM KRISTIAN OF [facility], , WHO ASKED FOR FAXED UPDATE. CM FAXED UPDATE TO [facility] WITH DIALYSIS RUN SHEETS THRU 10-11-18. CM FAXED UPDATE TO [facility] WITH OCCUPATIONAL THERAPY NOTE INDICATING PT HAS BEEN OUT OF BED TO CHAIR. CM TO CONTINUE TO FOLLOW AND ASSIST NEEDED. CM WAITING PT TO DEMONSTRATE ABILITY TO TRANSFER AND SIT FOR DURATION OF TRANSPORTATION WELL FOR THREE HOURS OF DIALYSIS TREATMENT, WITH OR WITHOUT A LIFT. [facility] WILL REVIEW FOR PLACEMENT IF PT IS ABLE TO SIT FOR TRANSPORT AND DIALYSIS; THEY DO HAVE FANNIE LIFT. DAVITA ADMISSIONS WORKING ON OUTPATIENT DIALYSIS ARRANGEMENT AT [facility], THEY ALSO HAVE A LIFT. DICK RANDLE, CASE MANAGEMENT DCP- Discharge Planning Updated by [id number]: Jenny Al on 10/10/18 6:[address] Late Entry 10/10/18 @ 0900 PT and OT still working with patient to get out of bed to sit in chair. Patient has to be able to sit in wheelchair and be transported to dialysis and sit in dialysis chair for 3-4hrs. CM will continue to follow and assist as needed with discharge planning / needs. DCP- Discharge Planning Updated by [id number]: Jenny Al on 10/07/18 3:[address] CM spoke with Roge Monae this am. Roge stated we are at standstill until we find NH placement. Once we have NH placement then we can proceed with dialysis placement. CM spoke with patients daughter since patient isn't able to stay awake and communicate. Daughter Fran Tinajero "Nkechi" [phone]. Daughter stated that she would like NH placement as close to [place] as possible. CM explained that we would have to find placement that has fannie lift at both NH and dialysis clinic. Daughter stated that [place] was the next closest town. CM contacted [facility] in [place] [phone]. Laurence Garcia clinical Liaison [phone] fax [phone]. CM spoke with Laurence and explained situation and faxed records. Laurence stated she would be here to see patient in am. CM will continue to follow and assist as needed with discharge planning / needs. DCP- Discharge Planning Updated by [id number]: Jenny Al on 10/07/18 9:[address] CM spoke with Roge Monae this am. She stated that she had been out of the office but now was back. Roge stated that she would speak to Radha and would take care of everything from this point with placement for dialysis. CM will continue to follow and assist as needed with discharge planning / needs. DCP- Discharge Planning Updated by [id number]: Jenny Al on 10/07/18 9:[address] Late Entry 10/06/18 @ 1600 CM spoke with Radha with [facility]. Radha stated she needed clarification on patients name. Radha stated she needed dialysis flowsheets from last three treatments faxed to her. Rdaha stated that she was trying to get placement at [facility] dialysis clinic. CM will continue to follow and assist as needed with discharge planning / needs. DCP- Discharge Planning Updated by [id number]: Dick Randle on 10/03/18 3:[address] Patient Name: GUSTABO STUART Encounter No: [id number] : 1950 Primary Insurance: MEDICARE A & B Anticipated DC Date: 09-30-2018 Planned Disposition: Nursing Facility [facility] Cert External Planned Provider: TO BE DETERMINED DCP follow-up note: CM RECEIVED CALL FROM NAYANA OF [facility], THEY ONLY HAVE TTS AVAILABLE AND HAVE TALKED TO [facility] STATION MECHANIC APPRENTICE WHO INFORMED THEM THAT THEY ARE NOT GOING TO DRIVE PT AN HOUR AWAY FOR DIALYSIS FROM THE CARE HOME. CM SPOKE TO AUDI AT [facility] WHO INFORMED CM THAT THEY ARE GOING TO HAVE A SISTER FACILITY REPRESENTIVE CONTACT CM TO ASSIST IN PLACING PT IN [place] SO THAT PT CAN GO TO A FACILITY THAT HAS CAPABILITY OF FANNIE LIFT AND TO A DILAYSIS UNIT THAT HAS CAPABILITY OF FANNIE LIFT. CM SPOKE TO PT IN ROOM, DISCUSSED MOVING TO ANOTHER CARE HOME, PT REPORTS SHE WILL TRY WITH THERAPY AND IS WILLING FOR NEW CARE HOME IF NEEDED, CHOICE SIGNED FOR [facility]. CM DISCUSSED LTACH, PT ALSO IN AGREEMENT WITH LTACH AT [facility] IF IT WILL HELP GET HER HOME SOONER. CM CALLED AND SPOKE TO LAITH OF [facility], , DISCUSSED NEED FOR REHAB, WOUND CARE AND DIALYSIS WITH GOAL TO SIT FOR DIALYSIS IN OUTPATIENT SETTING TO RETURN TO A CARE HOME FOR CONTINUED FILLER LEAF CUTTER LONG CARE. REFERRAL FAXED TO [facility] AT [phone]. CM CALLED AND SPOKE TO [facility], , OF [facility], REPRESENTING [facility] AND [facility] SHELTER FACILITIES. THEY [facility] AND DO NOT HAVE ONE WITH DAVITA. THEY WILL SCREEN PT FOR THEIR HOMES, BUT PT WILL HAVE TO HAVE CAPACITY TO SIT IN CHAIR FOR THREE HOURS OF OUTPATIENT DIALYSIS AND TRANSPORTATION. CM FAXED REFERRAL TO [facility] AT [phone]. PT WILL NEED TO BE ABLE TO TRANSFER FROM BED TO CHAIR AND WILL ALSO NEED TO BE ABLE TO SIT SAFELY FOR TRANSPORT AND 3 HOURS OF DIALYSIS TREATMENT FOR OUTPATIENT DIALYSIS CLINIC ARRANGEMENT. CM WAITING ON CARE HOME EVALUATIONS FOR ADMISSION, [facility] AREN EVALUATION FOR ADMISSION AND WILL NEED TO SEND APPLICATION FOR [facility] FOR DIALYSIS UNIT CONSIDERATION AND TO FIND OUT IF THEY HAVE FANNIE LIFT CAPABILITY. DICK RANDLE, CASE MANAGEMENT DCP- Discharge Planning Updated by [id number]: Dick Randle on 10/02/18 3:[address] Patient Name: GUSTABO STUART Encounter No: [id number] : 1950 Primary Insurance: MEDICARE A & B Anticipated DC Date: 09-30-2018 Planned Disposition: Nursing Facility [facility] Cert External Planned Provider: [facility] [place], LONG TERM CARE MEDICAID BED DCP follow-up note: CM CALLED ELZBIETA OF [facility], , WAS INFORMED THEY DO NOT HAVE ANY REQUEST TO ARRANGE OUTPATIENT DIALYSIS CLINIC ARRANGEMENT. CM FAXED ADMISSIONS INTAKE FORM WITH INITIAL DOCUMENTS TO [facility] AT [phone]. CM NOTIFIED MERLYN OF [facility] [place], [facility], , OF NEED FOR OUTPATIENT DIALYSIS; CM WAS ADVISED THAT PT WILL NEED TO BE ABLE TO TRANSFER TO WHEELCHAIR AND CHAIR WELL BE ABLE TO TOLERATE SITTING IN CHAIR FOR THREE HOURS OF DIALYSIS. THE CENTER PREFERS MWF, MORNING SCHEDULE. CM WAITING FOR OUTPATIENT DIALYSIS CLINIC ARRANGEMENT. NOTE THAT PT WILL HAVE TO BE ABLE TO TRANSFER TO CHAIR AND SIT IN CHAIR FOR THREE HOURS FOR OUTPATIENT CLINIC PARTICIPATION. FOR DISCHARGE, FAX DISCHARGE INFORMATION TO [facility] [place], ; NURSE REPORT TO BE CALLED TO [phone]. PT TO TRANSPORT VIA AMBULANCE. Instant Print Operator: Dick Randle Appended by Dick Randle on 10/02/2018 16:49 LEARNING SUPPORT TEACHER: JAIMIE RECEIVED CALL FROM RADHA OF [facility]; [facility] IS NOT CERTIFIED FOR LIFT AND HAS NO AVAILABLE OPENINGS AT THIS TIME. [facility] IS LIFT CERTIFIED BUT HAS NO AVAILABLE OPENINGS. RADHA WILL SEND REFERRAL TO [facility] IN [place] BUT THEY ONLY HAVE TTS SLOTS AVAILABLE. RADHA WILL ESCULATE REFERRAL FOR [facility] DIAL[facility] ARRANGMENT IN [place] THAT A CHAIR BECOMES AVAILABLE AND PT WILL NOT REQUIRE LIFT TRANSFER. PT WILL NEED TO BE ABLE TO TRANSFER FROM BED TO CHAIR AND WILL ALSO NEED TO BE ABLE TO SIT SAFELY FOR TRANSPORT AND 3 HOURS OF DIALYSIS TREATMENT FOR OUTPATIENT DIALYSIS CLINIC ARRANGEMENT. DICK RANDLE, CASE MANAGEMENT DCP- Discharge Planning Updated by [id number]: Dcik Randle on 09/29/18 12:[address] Patient Name: GUSTABO STUART Encounter No: [id number] : 1950 Primary Insurance: MEDICARE A & B Anticipated DC Date: 09-30-2018 Planned Disposition: Nursing Facility [facility] Cert External Planned Provider: [facility] [place], LONG TERM CARE MEDICAID BED DCP follow-up note: CM RECEIVED ORDER FOR OUTPATIENT DIALYSIS CLINIC ARRANGEMENT; RN JAIMIE HAMMONDS HAS INFORMED ROGE MONAE OF [facility] FOR OUTPATIENT DAILYSIS CLINIC ARRANGEMENT IN [place]. JAIMIE FAXED UPDATE TO MERLYN OF [facility] [place], [facility], . ROGE INFORMED CM THAT PT NEEDS PERM DIALYSIS CATHETER AND AN ACCURATE WEIGHT. PT HAS ORDERS FOR CATHETER, CM NOTIFIED BEDSIDE NURSE OF NEED FOR ACCURATE WEIGHT; PT IS BED CONFINED AND ON SPECIALTY BED AT THIS TIME. CM WAITING FOR DIALYSIS CATHETER PLACEMENT WELL OUTPATIENT DIALYSIS CLINIC ARRANGEMENT. FOR DISCHARGE, FAX DISCHARGE INFORMATION TO [facility] [place], ; NURSE REPORT TO BE CALLED TO [phone]. PT TO TRANSPORT VIA AMBULANCE. Instant Print Operator: Dick Randle DCP- Discharge Planning Updated by [id number]: Dick Randle on 09/26/18 4:[address] Patient Name: GUSTABO STUART Admission Status: Elective Accout number: [id number] Admission Date: 09-19-2018 : 1950 Admission Diagnosis:ACUTE RESPIRATORY FAILURE WITH HYPOXIA Attending: JENNIFER DICKEY Current LOS: 7 Anticipated DC Date: Planned Disposition: Nursing Facility [facility] Primary Insurance: MEDICARE A & B PLANNED EXTERNAL PROVIDER: [facility] [place], LONG TERM CARE MEDICAID BED Discharge Planning Comments: CM MET WITH PT IN ROOM TO DISCUSS DISCHARGE PLANNING AND NEEDS. PT REPORTS LIVING AT A CARE HOME IN [place], SHE CANNOT REMEMBER THE NAME OF THE PLACE. PT REPORTS BEING CONFINED TO BED BUT THE FACILITY HAS A LIFT TO DIRECTOR FEDERAL PT TO A WHEELCHAIR. PT REPORTS HAVING BIPAP, NEBULIZER AND OXYGEN AT THE FACILITY. PT REPORTS HAVING ASSISTANCE WITH EVERYTHING BUT EATING, WHICH SHE DOES HERSELF. PT ASKED THAT IF FAMILY CALLS, TELL THEM TO BRING HER CLOTHES AND CELL PHONE. CM DISCUSSED AVAILABILITY OF HOME HEALTH, REHAB SERVICES AND MEDICAL EQUIPMENT. PT DENIES DISCHARGE NEEDS, REPORTS SHE WILL DISCHARGE BACK TO FACILITY WHERE SHE LIVES. JAIMIE CALLED [facility] [place], [facility], ; CM SPOKE TO MERLYN WHO REPORTS PT IS IN CORRECTION CARE AND PROVIDED EMERGENCY CONTACT INFORMATION FOR PT'S FAMILY MEMBERS; CM NOTED IN CASE MANAGEMENT ASSESSMENT CHECKLIST. MERLYN VERIFIED PT HAS OXYGEN, NEBULUZER AND BIPAP IN FACILITY, THEY WILL ACCEPT BACK FOR CONTINUED CORRECTION CARE AT HOSPITAL DISCHARGE. FOR DISCHARGE, FAX DISCHARGE INFORMATION TO [facility] [place], ; NURSE REPORT TO BE CALLED TO [phone]. PT TO TRANSPORT VIA AMBULANCE. Instant Print Operator: Dick Randle DCP- Discharge Planning Updated by [id number]: Jenny Al on 09/23/18 3:[address] CM attempted to visit with patient. Patient is currently on BiPap and getting dialysis at this time. She is unable to speak with me at this time. No family available at this time. CM will continue to follow and assist as needed with discharge planning / needs. DCPIA - Discharge Planning Initial Assessment Updated by [id number]: Dick Randle on 09/26/18 4:23 pm * Is the patient Alert and Oriented? Yes * How many steps to enter\\exit or inside your home? NONE * PCP [facility] * Pharmacy [facility] * Preadmission Environment Power House Control Room Operator Care Home * Facility Name [facility] T [phone] * ADLs Partial Dependent * Partial ADLs (Assistance needed) Bathing Dressing Medication Management Toileting Transfers * Equipment BIPAP Hospital Bed Fannie Lift Nebulizer Oxygen Wheelchair * Other Equipment ALL MEDICAL EQUIPMENT PROVIDED BY FACILITY * List name and contact numbers for known caregivers / representatives who currently or will assist patient after discharge: EDGARD JEREZ, MOTHER IN LAW, KAVEH CASILLAS, DTR, NICK SAUER, SPOUSE, * Verbal permission to speak to the caregivers and representatives has been obtained from the patient. Yes * Community resources currently utilized None * Please name any agencies selected above. NONE * Additional services required to return to the preadmission environment? No * Can the patient safely return to the preadmission environment? Yes * Has this patient been hospitalized within the prior 30 days at any hospital? No Coverage Notice Reviewer: [id number] Rex Randle Notice Issued Date-Time: 10/03/2018 11:30 Notice Type: Patient Choice Letter Notice Delivered To: Patient Relationship to Patient: Print Controller Name: Delivery Method: HAND - Hand Delivered Veda Days: Prior Verbal Notification: Recipient Understood Notice: Recipient Signature: Med Rec Note Co-signed by Attending: Coverage Notice Comment: [facility] [place] [place] [facility] Reviewer: [id number] - Dick Randle Notice Issued Date-Time: 10/15/2018 10:20 Notice Type: IM Discharge Notice Notice Delivered To: Patient Relationship to Patient: Print Controller Name: Delivery Method: HAND - Hand Delivered Veda Days: Prior Verbal Notification: Recipient Understood Notice: Yes Recipient Signature: Yes Med Rec Note Co-signed by Attending: Coverage Notice Comment: Last DP export: 10/13/18 2:33 Patient Name: GUSTABO STUART Page [id number] at 1037 All edits/amendments must be made on the electronic document DICTATION DATE: 10/15/18 1036 SUPERVISOR SHEARING: HELDER 10/15/18 1036 RPT#: [id number] DC DATE: STATUS: ADM IN [facility] [address] [place] [address] END OF REPORT
--- NOTE | ~2018-09-19 | MORECARE ---
CASE MANAGEMENT DISCHARGE SUMMARY PATIENT: GUSTABO STUART UNIT: [id number] ADM DATE: 09/19/18 AGE: 68 : [birth year] SEX: F ROOM/BED: D.2027 AUTHOR: LAWRENCE,DOC PHYSICIAN: REFERRING PHYSICIAN: JENNIFER DICKEY MD DATE OF SERVICE: 09/26/18 Discharge Plan Patient Name: GUSTABO STUART Facility: [facility]:[place] : 1950 Planned Disposition: Nursing Facility [facility] Cert Anticipated Discharge Date: Discharge Date: Expected LOS: Initial Reviewer: [id number] Initial Review Date: 09/19/2018 Generated: 09/26/18 5:32 pm Comments DCP- Discharge Planning Updated by [id number]: Gerardo Oliveros on 09/26/18 3:[address] Patient Name: GUSTABO STUART Admission Status: Elective Accout number: [id number] Admission Date: 09-19-2018 : 1950 Admission Diagnosis:ACUTE RESPIRATORY FAILURE WITH HYPOXIA Attending: JENNIFER DICKEY Current LOS: 7 Anticipated DC Date: Planned Disposition: Nursing Facility [facility] Cert Primary Insurance: MEDICARE A & B PLANNED EXTERNAL PROVIDER: [facility] [place], LONG TERM CARE MEDICAID BED Discharge Planning Comments: CM MET WITH PT IN ROOM TO DISCUSS DISCHARGE PLANNING AND NEEDS. PT REPORTS LIVING AT A [place]ION IN [place], SHE CANNOT REMEMBER THE NAME OF THE PLACE. PT REPORTS BEING CONFINED TO BED BUT THE FACILITY HAS A LIFT TO COMMODITIES TRADER PT TO A WHEELCHAIR. PT REPORTS HAVING BIPAP, NEBULIZER AND OXYGEN AT THE FACILITY. PT REPORTS HAVING ASSISTANCE WITH EVERYTHING BUT EATING, WHICH SHE DOES HERSELF. PT ASKED THAT IF FAMILY CALLS, TELL THEM TO BRING HER CLOTHES AND CELL PHONE. CM DISCUSSED AVAILABILITY OF HOME HEALTH, REHAB SERVICES AND MEDICAL EQUIPMENT. PT DENIES DISCHARGE NEEDS, REPORTS SHE WILL DISCHARGE BACK TO FACILITY WHERE SHE LIVES. [facility] [place], [facility], ; CM SPOKE TO MERLYN WHO REPORTS PT IS IN OUTSIDE PARTS SALES CARE AND PROVIDED EMERGENCY CONTACT INFORMATION FOR PT'S FAMILY MEMBERS; CM NOTED IN CASE MANAGEMENT ASSESSMENT CHECKLIST. MERLYN VERIFIED PT HAS OXYGEN, NEBULUZER AND BIPAP IN FACILITY, THEY WILL ACCEPT BACK FOR CONTINUED OUTSIDE PARTS SALES CARE AT HOSPITAL DISCHARGE. FOR DISCHARGE, FAX DISCHARGE INFORMATION TO [facility] IN [place], ; NURSE REPORT TO BE CALLED TO [phone]. PT TO TRANSPORT VIA AMBULANCE. Process Technician: Gerardo Oliveros DCP- Discharge Planning Updated by [id number]: Jenny Mendozar on 09/23/18 2:[address] CM attempted to visit with patient. Patient is currently on BiPap and getting dialysis at this time. She is unable to speak with me at this time. No family available at this time. CM will continue to follow and assist as needed with discharge planning / needs. DCPIA - Discharge Planning Initial Assessment Updated by [email or web address]: Gerardo Oliveros on 09/26/18 4:23 pm * Is the patient Alert and Oriented? Yes * How many steps to enter\exit or inside your home? NONE * PCP [facility], NURSERY HAND * Pharmacy [facility] ([facility]M [facility]AC[facility]) * Preadmission Environment Stacker Straightener Long Term * Facility Name [facility] T [phone] * ADLs Partial Dependent * Partial ADLs (Assistance needed) Bathing Dressing Medication Management Toileting Transfers * Equipment BIPAP Hospital Bed Fannie Lift Nebulizer Oxygen Wheelchair * Other Equipment ALL MEDICAL EQUIPMENT PROVIDED BY FACILITY * List name and contact numbers for known caregivers / representatives who currently or will assist patient after discharge: EDGARD JEREZ, MOTHER IN LAW, KAVEH CASILLAS, DTR, NICK SAUER, SPOUSE, * Verbal permission to speak to the caregivers and representatives has been obtained from the patient. Yes * Community resources currently utilized None * Please name any agencies selected above. NONE * Additional services required to return to the preadmission environment? No * Can the patient safely return to the preadmission environment? Yes * Has this patient been hospitalized within the prior 30 days at any hospital? No External Providers External Provider: [facility] and [facility] Next Contact Date: 09/29/2018 Service Request Date: Service Type: Resolution: Reviewer: Comments: Last DP export: 09/26/18 3:24 p Patient Name: GUSTABO STUART Page [id number] at 1632 All edits/amendments must be made on the electronic document DICTATION DATE: 09/26/181630 SENIOR PROCESS ENGINEER: HELDER 09/26/181630 RPT#: [id number] DC DATE: STATUS: ADM IN [facility] [address] [place] [address] END OF REPORT
--- NOTE | ~2018-09-19 | MORECARE ---
CASE MANAGEMENT DISCHARGE SUMMARY PATIENT: GUSTABO STUART UNIT: [id number] ADM DATE: 09/19/18 AGE: 68 : 50 SEX: F ROOM/BED: D.7856 AUTHOR: LAWRENCE,DOC PHYSICIAN: REFERRING PHYSICIAN: JENNIFER DICKEY MD DATE OF SERVICE: 09/29/18 Discharge Plan Patient Name: GUSTABO STUART Facility: [facility] : 1950 Planned Disposition: Nursing Facility [facility] Cert Anticipated Discharge Date: 09/30/18 Discharge Date: Expected LOS: 11 Initial Reviewer: [id number] Initial Review Date: 09/19/2018 Generated: 09/29/18 2:06 pm Comments DCP- Discharge Planning Updated by [id number]: Gerardo Oliveros on 09/29/18 12:[address] Patient Name: GUSTABO STUART Encounter No: [id number] : 1950 Primary Insurance: MEDICARE A & B Anticipated DC Date: 09-30-2018 Planned Disposition: Nursing Facility [facility] Cert External Planned Provider: [facility], LONG TERM CARE MEDICAID BED DCP follow-up note: JAIMIE RECEIVED ORDER FOR OUTPATIENT DIALYSIS CLINIC ARRANGEMENT; RN JAIMIE HAMMONDS HAS INFORMED ROGE MONAE OF PATIENT [facility]WAYS FOR OUTPATIENT DAILYSIS CLINIC ARRANGEMENT IN [place]. CM FAXED UPDATE TO MERLYN OF [facility] IN [place], [facility], . ROGE INFORMED CM THAT PT NEEDS PERM DIALYSIS CATHETER AND AN ACCURATE WEIGHT. PT HAS ORDERS FOR CATHETER, CM NOTIFIED BEDSIDE NURSE OF NEED FOR ACCURATE WEIGHT; PT IS BED CONFINED AND ON SPECIALTY BED AT THIS TIME. CM WAITING FOR DIALYSIS CATHETER PLACEMENT WELL OUTPATIENT DIALYSIS CLINIC ARRANGEMENT. FOR DISCHARGE, FAX DISCHARGE INFORMATION TO [facility] IN [place], ; NURSE REPORT TO BE CALLED TO [phone]. PT TO TRANSPORT VIA AMBULANCE. Ham Curer: Gerardo Oliveros DCP- Discharge Planning Updated by [email or web address]: Gerardo Oliveros on 09/26/18 4:[address] Patient Name: GUSTABO STUART Admission Status: Elective Accout number: [id number] Admission Date: 09-19-2018 : 1950 Admission Diagnosis:ACUTE RESPIRATORY FAILURE WITH HYPOXIA Attending: JENNIFER DICKEY Current LOS: 7 Anticipated DC Date: Planned Disposition: Nursing Facility [facility] Primary Insurance: MEDICARE A & B PLANNED EXTERNAL PROVIDER: [facility], [place], LONG TERM CARE MEDICAID BED Discharge Planning Comments: CM MET WITH PT IN ROOM TO DISCUSS DISCHARGE PLANNING AND NEEDS. PT REPORTS LIVING AT A GROUP HOME IN [place], SHE CANNOT REMEMBER THE NAME OF THE PLACE. PT REPORTS BEING CONFINED TO BED BUT THE FACILITY HAS A LIFT TO DIAL POLISHER PT TO A WHEELCHAIR. PT REPORTS HAVING BIPAP, NEBULIZER AND OXYGEN AT THE FACILITY. PT REPORTS HAVING ASSISTANCE WITH EVERYTHING BUT EATING, WHICH SHE DOES HERSELF. PT ASKED THAT IF FAMILY CALLS, TELL THEM TO BRING HER CLOTHES AND CELL PHONE. CM DISCUSSED AVAILABILITY OF HOME HEALTH, REHAB SERVICES AND MEDICAL EQUIPMENT. PT DENIES DISCHARGE NEEDS, REPORTS SHE WILL DISCHARGE BACK TO FACILITY WHERE SHE LIVES. CM CALLED [facility] IN [place], [facility], ; CM SPOKE TO MERLYN WHO REPORTS PT IS IN THERMAL INTELLIGENCE ANALYST CARE AND PROVIDED EMERGENCY CONTACT INFORMATION FOR PT'S FAMILY MEMBERS; CM NOTED IN CASE MANAGEMENT ASSESSMENT CHECKLIST. MERLYN VERIFIED PT HAS OXYGEN, NEBULUZER AND BIPAP IN FACILITY, THEY WILL ACCEPT BACK FOR CONTINUED THERMAL INTELLIGENCE ANALYST CARE AT HOSPITAL DISCHARGE. FOR DISCHARGE, FAX DISCHARGE INFORMATION TO [facility] IN [place], ; NURSE REPORT TO BE CALLED TO [phone]. PT TO TRANSPORT VIA AMBULANCE. Ham Curer: Gerardo Oliveros DCP- Discharge Planning Updated by [id number]: Jenny Al on 09/23/18 3:[address] CM attempted to visit with patient. Patient is currently on BiPap and getting dialysis at this time. She is unable to speak with me at this time. No family available at this time. CM will continue to follow and assist as needed with discharge planning / needs. DCPIA - Discharge Planning Initial Assessment Updated by [id number]: Gerardo Oliveros on 09/26/18 4:23 pm * Is the patient Alert and Oriented? Yes * How many steps to enter\exit or inside your home? NONE * [facility] * Pharmacy [facility] ([facility] FAC[facility]) * Preadmission Environment [employer] * [phone] * ADLs Partial Dependent * Partial ADLs (Assistance needed) Bathing Dressing Medication Management Toileting Transfers * Equipment BIPAP Hospital Bed Fannie Lift Nebulizer Oxygen Wheelchair * Other Equipment ALL MEDICAL EQUIPMENT PROVIDED BY FACILITY * List name and contact numbers for known caregivers / representatives who currently or will assist patient after discharge: EDGARD JEREZ, MOTHER IN LAW, KAVEH CASILLAS, DTR, NICK ASUER, SPOUSE, * Verbal permission to speak to the caregivers and representatives has been obtained from the patient. Yes * Community resources currently utilized None * Please name any agencies selected above. NONE * Additional services required to return to the preadmission environment? No * Can the patient safely return to the preadmission environment? Yes * Has this patient been hospitalized within the prior 30 days at any hospital? No Last DP export: 09/29/18 11:46 a Patient Name: GUSTABO STUART Page [id number] at 1306 All edits/amendments must be made on the electronic document DICTATION DATE: 09/29/18 1305 LEGAL RECORDS MANAGER: HELDER 09/29/18 1305 RPT#: [id number] DC DATE: STATUS: ADM IN [facility] [address] [place] [address] END OF REPORT
--- NOTE | ~2018-09-19 | MORECARE ---
CASE MANAGEMENT DISCHARGE SUMMARY PATIENT: GUSTABO STUART UNIT: [id number] ADM DATE: 09/19/18 AGE: 68 : 50 SEX: F ROOM/BED: D.3719 AUTHOR: LAWRENCE,DOC PHYSICIAN: REFERRING PHYSICIAN: JENNIFER DICKEY MD DATE OF SERVICE: 10/22/18 Discharge Plan Patient Name: GUSTABO STUART Facility: [facility]:[place] : 1950 Planned Disposition: Nursing Facility [facility] Cert Anticipated Discharge Date: 10/22/18 Discharge Date: Expected LOS: 33 Initial Reviewer: [id number] Initial Review Date: 09/19/2018 Generated: 10/22/18 4:47 pm Comments DCP- Discharge Planning Updated by [id number]: Dick Oliveros on 10/22/18 2:[address] Patient Name: GUSTABO STUART Encounter No: [id number] : 1950 Primary Insurance: MEDICARE A & B Anticipated DC Date: 10-22-2018 Planned Disposition: Nursing Facility [facility] Cert External Planned Provider: JERICHO FOR[facility], [facility] MEDICAID BED DCP follow-up note: CM RECEIVED CALL FROM [facility], [facility]; FIRST APPOINTMENT 10-24-18 AT 1100AM. PT NOTIFIED AND IN AGREEMENT WITH DISCHARGE TO [facility], [facility] IN [place] WITH OUTPATIENT DIALYSIS. CM NOTIFIED CHARLY, ASKED FOR FACILITY ORDER EXPEDITER TODAY. CM RECEIVED CALL FROM ANTONIO IN [place], , WHO REPORTS SHE NEEDS TO GET PT A BIPAP AND DOES NOT HAVE VAN AVAILABILITY TODAY OR TOMORROW TO ORDER EXPEDITER PT. PT IS NOT QUALIFYING FOR AMBULANCE TRANSPORT, STAGE TWO ON COCCYX VERY SMALL AND PT IS TRANSFERRING WITHOUT LIFT AND SITTING IN CHAIR MOST ALL DAY. CM CALLED AND SPOKE TO CM EMERGENCY DOCTOR KAYLEE, DISCUSSED TRANSPORTATION ISSUE; CM ADVISED THAT AMBULANCE COSTS $2500, WILL NOT BE APPROVED BY HOSPITAL. CM CALLED [employer], , LEFT DETAILED MESSAGE ASKING FOR AVAILABILITY AND COSTS FOR TRANSPORT TOMORROW. JAIMIE SPOKE TO EMERGENCY DOCTOR KAYLEE WHO INFORMED CM THAT IF MODIFIED MOBILE IS NOT ABLE TO TRANSPORT, THAT CM WILL NOTIFY CUSTODIAL WHO CAN SCHEDULE FIRST AVAILABLE TIME TO ORDER EXPEDITER PT FROM HOSPITAL. CM FAXED DISCHARGE INFORMATION ALONG WITH WOUND CARE AND BIPAP SETTINGS / ORDER TO [facility] AT [phone]. ONCE TRANSPORTATION IS ARRANGED, NURSE REPORT TO BE CALLED TO [facility] AT [phone]. EVERARDO Bermeo DCP- Discharge Planning Updated by [id number]: Dick Oliveros on 10/22/18 9:[address] Patient Name: GUSTABO STUART Encounter No: [id number] : 1950 Primary Insurance: MEDICARE A & B Anticipated DC Date: 10-21-2018 Planned Disposition: Nursing Facility [facility] Cert External Planned Provider: [facility], [place], LONG TERM CARE MEDICAID BED CM SPOKE TO ROGE [facility] 10-21-18 WHO INFORMED CM THAT DIALYSIS UNIT STILL ASSESSING FOR ADMISSION AND REQUESTED FURHTER DOCUMENTATION WHICH ROGE FAXED FOR REVIEW. ON 10-21-18, JAIMIE SENT MESSAGE TO [facility] REQUESTING UPDATE ON DIALYSIS UNIT PLACEMENT AND SCHEDULE. ROGE CALLED CM, INFORMED CM THAT THE DIALYSIS DOCTOR DID NOT COMPLETE REVIEW YESTERDAY, ROGE HAS CALLED AND ASKED FOR REVIEW AND DETERMINATION TODAY. [facility] IN [facility] ACCEPTS PT. CM WAITING DAILYSIS CLINIC ACCEPTANCE AND SCHEDULE. WHEN CLINIC ARRANGEMENT CONFIRMED, FAX DISCHARGE INFORMATION TO [facility] AT [phone]. CALL NURSE REPORT TO [facility] AT [phone]. PT TO TRANSPORT VIA AMBULANCE DUE TO STAGE 2 PRESSURE ULCER ON COCCYX. EVERARDO BERMEO DCP- Discharge Planning Updated by [id number]: Dick Oliveros on 10/20/18 4:[address] Patient Name: GUSTABO STUART Encounter No: [id number] : 1950 Primary Insurance: MEDICARE A & B Anticipated DC Date: 10-21-2018 Planned Disposition: Nursing Facility [facility] Cert External Planned Provider:[facility] [place], [place], LONG TERM CARE MEDICAID BED CM RECEIVED CALL FROM LAURENCE OF [facility] IN [place], , WHO ADVISED THAT [facility] WILL ACCEPT PT, TOMORROW, 10-21-18, IF APPROVED BY [facility] FOR OUTPATIENT DIALYSIS. LAURENCE ADVISED THAT THE CUSTODIAL IS NOW COMMUNICATING WITH THE DIALYSIS UNIT. CM SENT MESSAGE TO [facility] REQUESTING UPDATE ON DIALYSIS UNIT PLACEMENT AND SCHEDULE. PT NOTIFIED AND IN AGREEMENT WITH DISCHARGE TO [facility] SOON POSSIBLE. [facility]) IN [facility] ACCEPTS PT. CM WAITING DAILYSIS CLINIC ACCEPTANCE AND SCHEDULE. WHEN CLINIC ARRANGEMENT CONFIRMED, FAX DISCHARGE INFORMATION TO [facility] AT [phone]. CALL NURSE REPORT TO [facility] AT [phone]. PT TO TRANSPORT VIA AMBULANCE DUE TO STAGE 2 PRESSURE ULCER ON COCCYX. DICK OLIVEROS CASE MANAGEMENT DCP- Discharge Planning Updated by [id number]: Dick Oliveros on 10/20/18 8:[address] Patient Name: GUSTABO STUART Encounter No: [id number] : 1950 Primary Insurance: MEDICARE A & B Anticipated DC Date: 10-15-2018 Planned Disposition: Nursing Facility [facility] Cert External Planned Provider: [facility] [place], [place], LONG TERM CARE MEDICAID BED CM LEFT MESSAGE FOR LAURENCE [facility] IN [place], , AND ADVISED THAT PT HAS CONTINUED TO DEMONSTRATE ABILITY TO TRANSFER TO CHAIR AND SIT FOR OVER 4 HOURS. CM FAXED UPDATE TO [facility] VIA LAURENCE AT [phone]. [facility] IS REVIEWING FOR PLACEMENT; THEY DO HAVE FANNIE LIFT. DESTIN OSMAN WORKING ON OUTPATIENT DIALYSIS ARRANGEMENT AT [facility] IN [place], THEY ALSO HAVE A LIFT. CM WAITING ON DETERMINATIONS FROM BOTH. DICK OLIVEROS CASE MANAGEMENT DCP- Discharge Planning Updated by [id number]: Dick Oliveros on 10/15/18 11:[address] Patient Name: GUSTABO STUART Encounter No: [id number] : 1950 Primary Insurance: MEDICARE A & B Anticipated DC Date: 10-15-2018 Planned Disposition: Nursing Facility [facility] Cert External Planned Provider: [facility]; [place] [facility] MEDICAID BED DCP follow-up note: CM CALLED LAURENCE OF [facility] IN [place], , AND ADVISED THAT PT HAS DEMONSTRATED ABILITY TO TRANSFER TO CHAIR AND SIT FOR OVER 4 HOURS. CM SPOKE TO HOMER OF [facility] ADMISSIONS AND PROVIDED UPDATE FOR [facility] DIALYSIS IN [place] CM SPOKE TO ROGE MONAE OF [facility] WHO WILL COMMUNICATE WITH [facility] ADMISSIONS WELL [facility] DIALYSIS AND PROVIDED UPDATED INFORMATION TO BOTH FROM MEDICAL CHART. CM SPOKE TO PT IN ROOM WHO IS STILL WILLING FOR PLACEMENT IN [place] AT [facility] AND WAS HOPING TO BE OUT OF THE HOSPITAL FOR THANKSGIVING. IMPORTANT MESSAGE FROM MEDICARE PROVIDED AND EXPLAINED. CM FAXED UPDATE TO [facility] IN [place] VIA LAURENCE AT [phone]. [facility] IN [facility] IS REVIEWING FOR PLACEMENT; THEY DO HAVE FANNIE LIFT. [facility] ADMISSIONS WORKING ON OUTPATIENT DIALYSIS ARRANGEMENT AT [facility] IN [place], THEY ALSO HAVE A LIFT. CM WAITING ON DETERMINATIONS FROM BOTH. DICK OLIVEROS, CASE MANAGEMENT DCP- Discharge Planning Updated by [id number]: Dick Oliveros on 10/13/18 2:[address] Patient Name: GUSTABO STUART Encounter No: [id number] : 1950 Primary Insurance: MEDICARE A & B Anticipated DC Date: 09-30-2018 Planned Disposition: Nursing Facility [facility] Cert External Planned Provider: [facility]; LONG TERM CARE MEDICAID BED DCP follow-up note: CM CALLED LAURENCE OF [facility] IN [place], , WHO ADVISED THAT [facility] MAY ACCEPT BUT PT WILL NEED TO DEMONSTRATE ABILITY TO TRANSFER TO WHEELCHAIR AND SIT FOR 3 HOURS OF DIALYSIS. [facility] HAS LIFT AVAILABLE. CM SPOKE TO RADHA OF [facility] ADMISSIONS WHO REPORTS THEY WERE WORKING ON [facility] DIALYSIS IN [place] BUT WILL SEND REFERRAL TO [facility] IN [place] THAT HAS LIFT AND MWF SCHEDULING CAPABIILITY. CM SPOKE TO PT IN ROOM WHO IS WILLING FOR PLACEMENT IN [place] TO BE CLOSER TO FAMILY IF SHE CANNOT RETURN TO [place] WHERE SHE WAS LIVING AT [facility]. CM FAXED UPDATE TO [facility] VIA [id number] AT [phone]. CM SPOKE TO MARIEL OF PHYSICAL THERAPY WHO VERIFIED PT HAS BEEN UP TO SIDE OF BED BUT THEY ARE NOT ABLE TO GET PT UP TO CHAIR THEY DO NOT HAVE A LIFT. CM SPOKE TO CM EMERGENCY DOCTOR KAYLEE REGARDING LACK OF LIFT CAPABILITY THIS IS AN OBSTACLE TO PLACEMENT IN ANY FACILITY PT WILL NEED OUTPATIENT DIALYSIS AND MUST BE ABLE TO DEMONSTRATE ABILITY TO SIT FOR DURATION OF TRANSPORT AND DIALYSIS SESSION. CM WAITING PT TO DEMONSTRATE ABILITY TO TRANSFER AND SIT FOR DURATION OF TRANSPORTATION WELL FOR THREE HOURS OF DIALYSIS TREATMENT, WITH OR WITHOUT A LIFT. [facility] WILL REVIEW FOR PLACEMENT IF PT IS ABLE TO SIT FOR TRANSPORT AND DIALYSIS; THEY DO HAVE FANNIE LIFT. DAVITA ADMISSIONS WORKING ON OUTPATIENT DIALYSIS ARRANGEMENT AT [facility], THEY ALSO HAVE A LIFT. DICK OLIVEROS, CASE MANAGEMENT Appended by Dick Oliveros on 10/13/2018 15:31 SOFTWARE SALES EXECUTIVE: CM RECEIVED CALL FROM KRISTIAN OF [facility], , WHO ASKED FOR FAXED UPDATE. CM FAXED UPDATE TO [facility] WITH DIALYSIS RUN SHEETS THRU 10-11-18. CM FAXED UPDATE TO LAURENCE OF [facility] WITH OCCUPATIONAL THERAPY NOTE INDICATING PT HAS BEEN OUT OF BED TO CHAIR. CM TO CONTINUE TO FOLLOW AND ASSIST NEEDED. CM WAITING PT TO DEMONSTRATE ABILITY TO TRANSFER AND SIT FOR DURATION OF TRANSPORTATION WELL FOR THREE HOURS OF DIALYSIS TREATMENT, WITH OR WITHOUT A LIFT. [facility] WILL REVIEW FOR PLACEMENT IF PT IS ABLE TO SIT FOR TRANSPORT AND DIALYSIS; THEY DO HAVE FANNIE LIFT. [facility] ADMISSIONS WORKING ON OUTPATIENT DIALYSIS ARRANGEMENT AT [facility], THEY ALSO HAVE A LIFT. DICK OLIVEROS, CASE MANAGEMENT DCP- Discharge Planning Updated by [id number]: Jenny Al on 10/10/18 6:[address] Late Entry 10/10/18 @ 0900 PT and OT still working with patient to get out of bed to sit in chair. Patient has to be able to sit in wheelchair and be transported to dialysis and sit in dialysis chair for 3-4hrs. CM will continue to follow and assist as needed with discharge planning / needs. DCP- Discharge Planning Updated by [id number]: Jenny Al on 10/07/18 3:[address] CM spoke with Roge Monae this am. Roge stated we are at standstill until we find NH placement. Once we have NH placement then we can proceed with dialysis placement. CM spoke with patients daughter since patient isn't able to stay awake and communicate. Daughter Fran Tinajero "Nkechi" [phone]. Daughter stated that she would like NH placement as close to [place] as possible. CM explained that we would have to find placement that has fannie lift at both NH and dialysis clinic. Daughter stated that [place] was the next closest town. CM contacted [facility] in [place] [phone]. Laurence Garcia clinical Liaison [phone] fax [phone]. CM spoke with Laurence and explained situation and faxed records. Laurence stated she would be here to see patient in am. CM will continue to follow and assist as needed with discharge planning / needs. DCP- Discharge Planning Updated by [id number]: Jenny Servando on 10/07/18 9:[address] CM spoke with Roge Monae this am. She stated that she had been out of the office but now was back. Roge stated that she would speak to Radha and would take care of everything from this point with placement for dialysis. CM will continue to follow and assist as needed with discharge planning / needs. DCP- Discharge Planning Updated by [id number]: Jenny Al on 10/07/18 9:[address] Late Entry 10/06/18 @ 1600 CM spoke with Radha with [facility]. Radha stated she needed clarification on patients name. Radha stated she needed dialysis flowsheets from last three treatments faxed to her. Radha stated that she was trying to get placement at [facility] dialysis clinic. CM will continue to follow and assist as needed with discharge planning / needs. DCP- Discharge Planning Updated by [id number]: Dick Arlin on 10/03/18 3:[address] Patient Name: GUSTABO STUART Encounter No: [id number] : 1950 Primary Insurance: MEDICARE A & B Anticipated DC Date: 09-30-2018 Planned Disposition: Nursing Facility [facility] Cert External Planned Provider: TO BE DETERMINED DCP follow-up note: CM RECEIVED CALL FROM NAYANA OF [facility], THEY ONLY HAVE TTS AVAILABLE AND HAVE TALKED TO [facility] CONSTRUCTION REPRESENTATIVE WHO INFORMED THEM THAT THEY ARE NOT GOING TO DRIVE PT AN HOUR AWAY FOR DIALYSIS FROM THE CUSTODIAL. CM SPOKE TO AUDI AT [facility] WHO INFORMED CM THAT THEY ARE GOING TO HAVE A SISTER FACILITY REPRESENTIVE CONTACT CM TO ASSIST IN PLACING PT IN [place] SO THAT PT CAN GO TO A FACILITY THAT HAS CAPABILITY OF FANNIE LIFT AND TO A DILAYSIS UNIT THAT HAS CAPABILITY OF FANNIE LIFT. CM SPOKE TO PT IN ROOM, DISCUSSED MOVING TO ANOTHER CUSTODIAL, PT REPORTS SHE WILL TRY WITH THERAPY AND IS WILLING FOR NEW CUSTODIAL IF NEEDED, CHOICE SIGNED FOR [facility] AND [place] AT [facility]. CM DISCUSSED LTACH, PT ALSO IN AGREEMENT WITH LTACH AT [facility] IF IT WILL HELP GET HER HOME SOONER. CM CALLED AND SPOKE TO LAITH OF [facility], , DISCUSSED NEED FOR REHAB, WOUND CARE AND DIALYSIS WITH GOAL TO SIT FOR DIALYSIS IN OUTPATIENT SETTING TO RETURN TO A CUSTODIAL FOR CONTINUED MCC CARE. REFERRAL FAXED TO [facility] AT [phone]. CM CALLED AND SPOKE TO [facility], , OF [place], REPRESENTING [facility] AND [place] [facility] FACILITIES. THEY CONTACT WITH [facility] DIALYSIS AND DO NOT HAVE ONE WITH [facility]. THEY WILL SCREEN PT FOR THEIR HOMES, BUT PT WILL HAVE TO HAVE CAPACITY TO SIT IN CHAIR FOR THREE HOURS OF OUTPATIENT DIALYSIS AND TRANSPORTATION. CM FAXED REFERRAL TO [facility] AT [phone]. PT WILL NEED TO BE ABLE TO TRANSFER FROM BED TO CHAIR AND WILL ALSO NEED TO BE ABLE TO SIT SAFELY FOR TRANSPORT AND 3 HOURS OF DIALYSIS TREATMENT FOR OUTPATIENT DIALYSIS CLINIC ARRANGEMENT. CM WAITING ON CUSTODIAL EVALUATIONS FOR ADMISSION, [facility] EVALUATION FOR ADMISSION AND WILL NEED TO SEND APPLICATION FOR [facility] FOR DIALYSIS UNIT CONSIDERATION AND TO FIND OUT IF THEY HAVE FANNIE LIFT CAPABILITY. DICK OLIVEROS, CASE MANAGEMENT DCP- Discharge Planning Updated by [id number]: Dick Oliveros on 10/02/18 3:[address] Patient Name: GUSTABO STUART Encounter No: [id number] : 1950 Primary Insurance: MEDICARE A & B Anticipated DC Date: 09-30-2018 Planned Disposition: Nursing Facility [facility] Cert External Planned Provider: [facility], LONG TERM CARE MEDICAID BED DCP follow-up note: CM CALLED ELZBIETA OF [facility], , WAS INFORMED THEY DO NOT HAVE ANY REQUEST TO ARRANGE OUTPATIENT DIALYSIS CLINIC ARRANGEMENT. CM FAXED ADMISSIONS INTAKE FORM WITH INITIAL DOCUMENTS TO [facility] AT [phone]. CM NOTIFIED MERLYN OF [facility] IN [place], [facility], , OF NEED FOR OUTPATIENT DIALYSIS; CM WAS ADVISED THAT PT WILL NEED TO BE ABLE TO TRANSFER TO WHEELCHAIR AND CHAIR WELL BE ABLE TO TOLERATE SITTING IN CHAIR FOR THREE HOURS OF DIALYSIS. THE CENTER PREFERS MWF, MORNING SCHEDULE. CM WAITING FOR OUTPATIENT DIALYSIS CLINIC ARRANGEMENT. NOTE THAT PT WILL HAVE TO BE ABLE TO TRANSFER TO CHAIR AND SIT IN CHAIR FOR THREE HOURS FOR OUTPATIENT CLINIC PARTICIPATION. FOR DISCHARGE, FAX DISCHARGE INFORMATION TO [facility] IN [place], ; NURSE REPORT TO BE CALLED TO [phone]. PT TO TRANSPORT VIA AMBULANCE. Vertical Lathe Operator: Dick Oliveros Appended by Dick Oliveros on 10/02/2018 16:49 SOFTWARE SALES EXECUTIVE: CM RECEIVED CALL FROM RADHA OF [facility] ADMISSIONS; [facility] DIALYSIS IS NOT CERTIFIED FOR LIFT AND HAS NO AVAILABLE OPENINGS AT THIS TIME. [facility] IS LIFT CERTIFIED BUT HAS NO AVAILABLE OPENINGS. RADHA WILL SEND REFERRAL TO [facility] IN [place] BUT THEY ONLY HAVE TTS SLOTS AVAILABLE. RADHA WILL ESCULATE REFERRAL FOR [facility] DIALYSIS ARRANGMENT IN [place] THAT A CHAIR BECOMES AVAILABLE AND PT WILL NOT REQUIRE LIFT TRANSFER. PT WILL NEED TO BE ABLE TO TRANSFER FROM BED TO CHAIR AND WILL ALSO NEED TO BE ABLE TO SIT SAFELY FOR TRANSPORT AND 3 HOURS OF DIALYSIS TREATMENT FOR OUTPATIENT DIALYSIS CLINIC ARRANGEMENT. DICK ARLIN, CASE MANAGEMENT DCP- Discharge Planning Updated by [id number]: Dick Oliveros on 09/29/18 12:[address] Patient Name: GUSTABO STUART Encounter No: [id number] : 1950 Primary Insurance: MEDICARE A & B Anticipated DC Date: 09-30-2018 Planned Disposition: Nursing Facility [facility] External Planned Provider: [facility], [place], LONG TERM CARE MEDICAID BED DCP follow-up note: CM RECEIVED ORDER FOR OUTPATIENT DIALYSIS CLINIC ARRANGEMENT; RN JAIMIE HAMMONDS HAS INFORMED ROGE MONAE OF [facility] FOR OUTPATIENT DAILYSIS CLINIC ARRANGEMENT IN [place]. JAIMIE FAXED UPDATE TO MERLYN OF [facility] IN [place], [facility], . ROGE INFORMED CM THAT PT NEEDS PERM DIALYSIS CATHETER AND AN ACCURATE WEIGHT. PT HAS ORDERS FOR CATHETER, CM NOTIFIED BEDSIDE NURSE OF NEED FOR ACCURATE WEIGHT; PT IS BED CONFINED AND ON SPECIALTY BED AT THIS TIME. CM WAITING FOR DIALYSIS CATHETER PLACEMENT WELL OUTPATIENT DIALYSIS CLINIC ARRANGEMENT. FOR DISCHARGE, FAX DISCHARGE INFORMATION TO [facility] IN [place], ; NURSE REPORT TO BE CALLED TO [phone]. PT TO TRANSPORT VIA AMBULANCE. Vertical Lathe Operator: Dick Oliveros DCP- Discharge Planning Updated by [id number]: Dick Oliveros on 09/26/18 4:[address] Patient Name: GUSTABO STUART Admission Status: Elective Accout number: [id number] Admission Date: 09-19-2018 : 1950 Admission Diagnosis:ACUTE RESPIRATORY FAILURE WITH HYPOXIA Attending: JENNIFER DICKEY Current LOS: 7 Anticipated DC Date: Planned Disposition: Nursing Facility [facility] Primary Insurance: MEDICARE A & B PLANNED EXTERNAL PROVIDER: [facility], [place], LONG TERM CARE MEDICAID BED Discharge Planning Comments: CM MET WITH PT IN ROOM TO DISCUSS DISCHARGE PLANNING AND NEEDS. PT REPORTS LIVING AT A CUSTODIAL IN [place], SHE CANNOT REMEMBER THE NAME OF THE PLACE. PT REPORTS BEING CONFINED TO BED BUT THE FACILITY HAS A LIFT TO ORDER EXPEDITER PT TO A WHEELCHAIR. PT REPORTS HAVING BIPAP, NEBULIZER AND OXYGEN AT THE FACILITY. PT REPORTS HAVING ASSISTANCE WITH EVERYTHING BUT EATING, WHICH SHE DOES HERSELF. PT ASKED THAT IF FAMILY CALLS, TELL THEM TO BRING HER CLOTHES AND CELL PHONE. CM DISCUSSED AVAILABILITY OF HOME HEALTH, REHAB SERVICES AND MEDICAL EQUIPMENT. PT DENIES DISCHARGE NEEDS, REPORTS SHE WILL DISCHARGE BACK TO FACILITY WHERE SHE LIVES. CM CALLED [facility] IN [place] [place] [facility], ; CM SPOKE TO MERLYN WHO REPORTS PT IS IN [facility] [place] [facility] AND PROVIDED EMERGENCY CONTACT INFORMATION FOR PT'S FAMILY MEMBERS; CM NOTED IN CASE MANAGEMENT ASSESSMENT CHECKLIST. MERLYN VERIFIED PT HAS OXYGEN, NEBULUZER AND BIPAP IN FACILITY, THEY WILL ACCEPT BACK FOR CONTINUED MCC CARE AT HOSPITAL DISCHARGE. FOR DISCHARGE, FAX DISCHARGE INFORMATION TO [facility] IN [place], ; NURSE REPORT TO BE CALLED TO [phone]. PT TO TRANSPORT VIA AMBULANCE. Vertical Lathe Operator: Dick Oliveros DCP- Discharge Planning Updated by [id number]: Jenny Al on 09/23/18 3:[address] CM attempted to visit with patient. Patient is currently on BiPap and getting dialysis at this time. She is unable to speak with me at this time. No family available at this time. CM will continue to follow and assist as needed with discharge planning / needs. DCPIA - Discharge Planning Initial Assessment Updated by [id number]: Dick Oliveros on 09/26/18 4:23 pm * Is the patient Alert and Oriented? Yes * How many steps to enter\\exit or inside your home? NONE * PCP [facility], [facility] * Pharmacy [facility] ([facility]) * Preadmission Environment [facility] * Facility Name [facility] T [phone] * ADLs Partial Dependent * Partial ADLs (Assistance needed) Bathing Dressing Medication Management Toileting Transfers * Equipment BIPAP Hospital Bed Fannie Lift Nebulizer Oxygen Wheelchair * Other Equipment ALL MEDICAL EQUIPMENT PROVIDED BY FACILITY * List name and contact numbers for known caregivers / representatives who currently or will assist patient after discharge: EDGARD JEREZ, MOTHER IN LAW, KAVEH CASILLAS, DTR, NICK SAUER, SPOUSE, * Verbal permission to speak to the caregivers and representatives has been obtained from the patient. Yes * Community resources currently utilized None * Please name any agencies selected above. NONE * Additional services required to return to the preadmission environment? No * Can the patient safely return to the preadmission environment? Yes * Has this patient been hospitalized within the prior 30 days at any hospital? No Coverage Notice Reviewer: [id number] Rex Oliveros Notice Issued Date-Time: 10/03/2018 11:30 Notice Type: Patient Choice Letter Notice Delivered To: Patient Relationship to Patient: Cattle Brander Name: Delivery Method: HAND - Hand Delivered Veda Days: Prior Verbal Notification: Recipient Understood Notice: Recipient Signature: Med Rec Note Co-signed by Attending: Coverage Notice Comment: FABRICIO UMANZOR: [facility] Reviewer: [id number] Rex Oliveros Notice Issued Date-Time: 10/15/2018 10:20 Notice Type: IM Discharge Notice Notice Delivered To: Patient Relationship to Patient: Cattle Brander Name: Delivery Method: HAND - Hand Delivered Veda Days: Prior Verbal Notification: Recipient Understood Notice: Yes Recipient Signature: Yes Med Rec Note Co-signed by Attending: Coverage Notice Comment: Last DP export: 10/22/18 2:24 Patient Name: GUSTABO STUART Page [id number] at 1547 All edits/amendments must be made on the electronic document DICTATION DATE: 10/22/181546 SUPPORTABILITY ENGINEER: HELDER 10/22/181546 RPT#: [id number] DC DATE: STATUS: ADM IN [facility] [address] [place] [address] END OF REPORT
--- NOTE | ~2018-09-19 | MORECARE ---
CASE MANAGEMENT DISCHARGE SUMMARY PATIENT: GUSTABO STUART UNIT: [id number] ADM DATE: 09/19/18 AGE: 68 : 50 SEX: F ROOM/BED: D.8424 AUTHOR: LAWRENCE,DOC PHYSICIAN: REFERRING PHYSICIAN: JENNIFER DICKEY MD DATE OF SERVICE: 10/23/18 Discharge Plan Patient Name: GUSTABO STUART Facility: [facility]:[place] : 1950 Planned Disposition: Anticipated Discharge Date: Discharge Date: Expected LOS: 0 Initial Reviewer: [id number] Initial Review Date: 09/19/2018 Generated: 10/23/18 11:10 am Comments DCP- Discharge Planning Updated by [id number]: Dick Oliveros on 10/22/18 4:[address] Patient Name: GUSTABO STUART Encounter No: [id number] : 1950 Primary Insurance: MEDICARE A & B Anticipated DC Date: 10-22-2018 Planned Disposition: Nursing Facility KULWINDER Cert External Planned Provider: [facility] [place], [facility] CARE MEDICAID BED DCP follow-up note: CM RECEIVED CALL FROM [facility], [place], PT HAS BEEN ACCEPTED AT [facility], 1115 AM; FIRST APPOINTMENT 10-24-18 AT 1100AM. PT NOTIFIED AND IN AGREEMENT WITH DISCHARGE TO [facility] IN [place] WITH OUTPATIENT DIALYSIS. CM NOTIFIED CHARLY, ASKED FOR FACILITY LOSS PREVENTION DETECTIVE TODAY. CM RECEIVED CALL FROM ANTONIO IN [place], , WHO REPORTS SHE NEEDS TO GET PT A BIPAP AND DOES NOT HAVE VAN AVAILABILITY TODAY OR TOMORROW TO LOSS PREVENTION DETECTIVE PT. PT IS NOT QUALIFYING FOR AMBULANCE TRANSPORT, STAGE TWO ON COCCYX VERY SMALL AND PT IS TRANSFERRING WITHOUT LIFT AND SITTING IN CHAIR MOST ALL DAY. CM CALLED AND SPOKE TO CM COMMUNITY HEALTH WORKER KAYLEE, DISCUSSED TRANSPORTATION ISSUE; CM ADVISED THAT AMBULANCE COSTS $2500, WILL NOT BE APPROVED BY HOSPITAL. CM CALLED [facility] [place], , LEFT DETAILED MESSAGE ASKING FOR AVAILABILITY AND COSTS FOR TRANSPORT TOMORROW. CM SPOKE TO COMMUNITY HEALTH WORKER KAYLEE WHO INFORMED CM THAT IF [facility] IS NOT ABLE TO TRANSPORT, THAT CM WILL NOTIFY SHELTER WHO CAN SCHEDULE FIRST AVAILABLE TIME TO LOSS PREVENTION DETECTIVE PT FROM HOSPITAL. JAIMIE FAXED DISCHARGE INFORMATION ALONG WITH WOUND CARE AND BIPAP SETTINGS / ORDER TO [facility] VIA LAURENCE AT [phone]. ONCE TRANSPORTATION IS ARRANGED, NURSE REPORT TO BE CALLED TO [facility] AT [phone]. Dick Oliveros, CASE MANAGEMENT Appended by Dick Oliveros on 10/22/2018 17:46 CONSUMER LENDING MANAGER: CM RECEIVED CALL FROM ERIKA OF [facility], , QUOTE RECEIVED OF $275 AND WILL HAVE TO LOSS PREVENTION DETECTIVE PT AT OR BEFORE 6AM; CM NOTIFIED COMMUNITY HEALTH WORKER KAYLEE AND RECEIVED APPROVAL FOR FUNDS. JAIMIE NOTIFIED LAURENCE OF [facility]. JAIMIE RECEIVED CALL FROM ERIKA, HE IS NOT ABLE TO OBTAIN A LARGE ENOUGH WHEELCHAIR FOR 6M LOSS PREVENTION DETECTIVE. ERIKA STATES THAT IF NEEDED, HE MAY BE ABLE TO TRANSPORT SATURDAY LATER IN THE DAY IF THE SHELTER WILL NOT LOSS PREVENTION DETECTIVE THE PATIENT. JAIMIE NOTIFED COMMUNITY HEALTH WORKER LAURENCE PAGE OF [facility] IN [place] AND LEFT NOTE FOR BEDSIDE NURSE. CM WILL CONTINUE TO SEEK DISCHARGE TRANSPORTATION. ONCE TRANSPORTATION IS ARRANGED, NURSE REPORT TO BE CALLED TO [facility] AT [phone]. Dick Oliveros, CASE MANAGEMENT DCP- Discharge Planning Updated by [id number]: Dick Oliveros on 10/22/18 9:[address] Patient Name: GUSTABO STUART Encounter No: [id number] : 1950 Primary Insurance: MEDICARE A & B Anticipated DC Date: 10-21-2018 Planned Disposition: Nursing Facility K[facility]ER Cert External Planned Provider: [facility], ORTHOPAEDIC DOCTOR CARE MEDICAID BED JAIMIE SPOKE TO ROGE OF [facility] 10-21-18 WHO INFORMED CM THAT DIALYSIS UNIT STILL ASSESSING FOR ADMISSION AND REQUESTED FURHTER DOCUMENTATION WHICH ROGE FAXED FOR REVIEW. ON 10-21-18, JAIMIE SENT MESSAGE TO ROGE [facility] REQUESTING UPDATE ON DIALYSIS UNIT PLACEMENT AND SCHEDULE. ROGE CALLED JAIMIE, INFORMED CM THAT THE DIALYSIS DOCTOR DID NOT COMPLETE REVIEW YESTERDAY, ROGE HAS CALLED AND ASKED FOR REVIEW AND DETERMINATION TODAY. [facility] IN [facility] ACCEPTS PT. CM WAITING DAILYSIS CLINIC ACCEPTANCE AND SCHEDULE. WHEN CLINIC ARRANGEMENT CONFIRMED, FAX DISCHARGE INFORMATION TO [facility] AT [phone]. CALL NURSE REPORT TO [facility] AT [phone]. PT TO TRANSPORT VIA AMBULANCE DUE TO STAGE 2 PRESSURE ULCER ON COCCYX. EVERARDO BERMEO DCP- Discharge Planning Updated by [id number]: Dick Oliveros on 10/20/18 4:[address] Patient Name: GUSTABO STUART Encounter No: [id number] : 1950 Primary Insurance: MEDICARE A & B Anticipated DC Date: 10-21-2018 Planned Disposition: Nursing Facility [facility] Cert External Planned Provider:[place], [place], LONG TERM CARE MEDICAID BED CM RECEIVED CALL FROM LAURENCE OF [facility], , WHO ADVISED THAT [facility] WILL ACCEPT PT, TOMORROW, 10-21-18, IF APPROVED BY [facility] FOR OUTPATIENT DIALYSIS. LAURENCE ADVISED THAT THE SHELTER IS NOW COMMUNICATING WITH THE DIALYSIS UNIT. CM SENT MESSAGE TO ROGE OF [facility] REQUESTING UPDATE ON DIALYSIS UNIT PLACEMENT AND SCHEDULE. PT NOTIFIED AND IN AGREEMENT WITH DISCHARGE TO [facility] SOON POSSIBLE. [facility] ACCEPT[facility] PT. CM WAITING DAILYSIS CLINIC ACCEPTANCE AND SCHEDULE. WHEN CLINIC ARRANGEMENT CONFIRMED, FAX DISCHARGE INFORMATION TO [facility] AT [phone]. CALL NURSE REPORT TO [facility] AT [phone]. PT TO TRANSPORT VIA AMBULANCE DUE TO STAGE 2 PRESSURE ULCER ON COCCYX. EVERARDO BERMEO DCP- Discharge Planning Updated by [id number]: Dick Oliveros on 10/20/18 8:[address] Patient Name: GUSTABO STUART Encounter No: [id number] : 1950 Primary Insurance: MEDICARE A & B Anticipated DC Date: 10-15-2018 Planned Disposition: Nursing Facility [facility]ER Cert External Planned Provider: [facility] MEDICAID BED CM LEFT MESSAGE FOR LAURENCE OF [facility] IN [place], , AND ADVISED THAT PT HAS CONTINUED TO DEMONSTRATE ABILITY TO TRANSFER TO CHAIR AND SIT FOR OVER 4 HOURS. CM FAXED UPDATE TO [facility] IN [place] VIA LAURENCE AT [phone]. [facility] IN [facility] IS REVIEWING FOR PLACEMENT; THEY DO HAVE FANNIE LIFT. DAVITA ADMISSIONS WORKING ON OUTPATIENT DIALYSIS ARRANGEMENT AT [facility] IN [place], THEY ALSO HAVE A LIFT. CM WAITING ON DETERMINATIONS FROM BOTH. EVERARDO BERMEO MANAGEMENT DCP- Discharge Planning Updated by [id number]: Dick Oliveros on 10/15/18 11:[address] Patient Name: GUSTABO STUART Encounter No: [id number] : 1950 Primary Insurance: MEDICARE A & B Anticipated DC Date: 10-15-2018 Planned Disposition: Nursing Facility [facility]ER Cert External Planned Provider: [facility]; ORTHOPAEDIC DOCTOR CARE MEDICAID BED DCP follow-up note: CM CALLED LAURENCE OF [facility] IN [place], , AND ADVISED THAT PT HAS DEMONSTRATED ABILITY TO TRANSFER TO CHAIR AND SIT FOR OVER 4 HOURS. JAIMIE SPOKE TO HOMER OF [facility] ADMISSIONS AND PROVIDED UPDATE FOR [facility] DIALYSIS IN [place] CM SPOKE TO ROGE MONAE OF [facility] WHO [facility]LL [facility] DIALYSIS AND PROVIDED UPDATED INFORMATION TO BOTH FROM MEDICAL CHART. JAIMIE SPOKE TO PT IN ROOM WHO IS STILL WILLING FOR PLACEMENT IN [place] AT [facility] AND WAS HOPING TO BE OUT OF THE HOSPITAL FOR THANKSGIVING. IMPORTANT MESSAGE FROM MEDICARE PROVIDED AND EXPLAINED. CM FAXED UPDATE TO [facility] IN [place] VIA LAURENCE AT [phone]. [facility] IN [facility] IS REVIEWING FOR PLACEMENT; THEY DO HAVE FANNIE LIFT. DAVITA ADMISSIONS WORKING ON OUTPATIENT DIALYSIS ARRANGEMENT AT [facility] IN [place], THEY ALSO HAVE A LIFT. CM WAITING ON DETERMINATIONS FROM BOTH. EVERARDO BERMEO MANAGEMENT DCP- Discharge Planning Updated by [id number]: Dick Oliveros on 10/13/18 2:[address] Patient Name: GUSTABO STUART Encounter No: [id number] : 1950 Primary Insurance: MEDICARE A & B Anticipated DC Date: 09-30-2018 Planned Disposition: Nursing Facility KUL[facility]ER Cert External Planned Provider: [facility]; ORTHOPAEDIC DOCTOR CARE MEDICAID BED DCP follow-up note: CM CALLED LAURENCE OF [facility] IN [place], , WHO ADVISED THAT [facility] MAY ACCEPT BUT PT WILL NEED TO DEMONSTRATE ABILITY TO TRANSFER TO WHEELCHAIR AND SIT FOR 3 HOURS OF DIALYSIS. [facility] HAS LIFT AVAILABLE. CM SPOKE TO RADHA OF [facility] ADMISSIONS WHO REPORTS THEY WERE WORKING ON [facility] IN [place] BUT WILL SEND REFERRAL TO [facility] IN [place] THAT HAS LIFT AND MWF SCHEDULING CAPABIILITY. CM SPOKE TO PT IN ROOM WHO IS WILLING FOR PLACEMENT IN [place] TO BE CLOSER TO FAMILY IF SHE CANNOT RETURN TO [place] WHERE SHE WAS LIVING AT [facility]. CM FAXED UPDATE TO [facility] IN [place] VIA LAURENCE AT [phone]. CM SPOKE TO MARIEL OF PHYSICAL THERAPY WHO VERIFIED PT HAS BEEN UP TO SIDE OF BED BUT THEY ARE NOT ABLE TO GET PT UP TO CHAIR THEY DO NOT HAVE A LIFT. CM SPOKE TO CM COMMUNITY HEALTH WORKER KAYLEE REGARDING LACK OF LIFT CAPABILITY THIS IS AN OBSTACLE TO PLACEMENT IN ANY FACILITY PT WILL NEED OUTPATIENT DIALYSIS AND MUST BE ABLE TO DEMONSTRATE ABILITY TO SIT FOR DURATION OF TRANSPORT AND DIALYSIS SESSION. CM WAITING PT TO DEMONSTRATE ABILITY TO TRANSFER AND SIT FOR DURATION OF TRANSPORTATION WELL FOR THREE HOURS OF DIALYSIS TREATMENT, WITH OR WITHOUT A LIFT. [facility] IN [facility] WILL REVIEW FOR PLACEMENT IF PT IS ABLE TO SIT FOR TRANSPORT AND DIALYSIS; THEY DO HAVE FANNIE LIFT. [facility] ADMISSIONS WORKING ON OUTPATIENT DIALYSIS ARRANGEMENT AT [facility] IN [place], THEY ALSO HAVE A LIFT. DICK OLIVEROS, CASE MANAGEMENT Appended by Dick Oliveros on 10/13/2018 15:31 CONSUMER LENDING MANAGER: CM RECEIVED CALL FROM KRISTIAN OF [facility], , WHO ASKED FOR FAXED UPDATE. CM FAXED UPDATE TO [facility] WITH DIALYSIS RUN SHEETS THRU 10-11-18. CM FAXED UPDATE TO LAURENCE OF [facility] IN [facility] WITH OCCUPATIONAL THERAPY NOTE INDICATING PT HAS BEEN OUT OF BED TO CHAIR. CM TO CONTINUE TO FOLLOW AND ASSIST NEEDED. CM WAITING PT TO DEMONSTRATE ABILITY TO TRANSFER AND SIT FOR DURATION OF TRANSPORTATION WELL FOR THREE HOURS OF DIALYSIS TREATMENT, WITH OR WITHOUT A LIFT. [facility] IN [facility] WILL REVIEW FOR PLACEMENT IF PT IS ABLE TO SIT FOR TRANSPORT AND DIALYSIS; THEY DO HAVE FANNIE LIFT. PATSY SAUCEDA WORKING ON OUTPATIENT DIALYSIS ARRANGEMENT AT [facility] IN [place], THEY ALSO HAVE A LIFT. DICK OLIVEROS, CASE MANAGEMENT DCP- Discharge Planning Updated by [id number]: Jenny Al on 10/10/18 6:[address] Late Entry 10/10/18 @ 0900 PT and OT still working with patient to get out of bed to sit in chair. Patient has to be able to sit in wheelchair and be transported to dialysis and sit in dialysis chair for 3-4hrs. CM will continue to follow and assist as needed with discharge planning / needs. DCP- Discharge Planning Updated by [id number]: Jenny Al on 10/07/18 3:[address] CM spoke with Roge Monae this am. Roge stated we are at standstill until we find NH placement. Once we have NH placement then we can proceed with dialysis placement. CM spoke with patients daughter since patient isn't able to stay awake and communicate. Daughter Fran Tinajero "Nkechi" [phone]. Daughter stated that she would like NH placement as close to [place] as possible. CM explained that we would have to find placement that has fannie lift at both NH and dialysis clinic. Daughter stated that [place] was the next closest town. CM contacted [facility] in [place] [phone]. Laurence Garcia clinical Liaison [phone] fax [phone]. CM spoke with Laurence and explained situation and faxed records. Laurence stated she would be here to see patient in am. CM will continue to follow and assist as needed with discharge planning / needs. DCP- Discharge Planning Updated by [id number]: Jenny Al on 10/07/18 9:[address] CM spoke with Roge Monae this am. She stated that she had been out of the office but now was back. Roge stated that she would speak to Radha and would take care of everything from this point with placement for dialysis. CM will continue to follow and assist as needed with discharge planning / needs. DCP- Discharge Planning Updated by [id number]: Jenny Al on 10/07/18 9:[address] Late Entry 10/06/18 @ 1600 CM spoke with Radha with [facility]. Radha stated she needed clarification on patients name. Radha stated she needed dialysis flowsheets from last three treatments faxed to her. Radha stated that she was trying to get placement at [facility] dialysis clinic. CM will continue to follow and assist as needed with discharge planning / needs. DCP- Discharge Planning Updated by [id number]: Dick Oliveros on 10/03/18 3:[address] Patient Name: GUSTABO STUART Encounter No: [id number] : 1950 Primary Insurance: MEDICARE A & B Anticipated DC Date: 09-30-2018 Planned Disposition: Nursing Facility KULWINDER Cert External Planned Provider: TO BE DETERMINED DCP follow-up note: CM RECEIVED CALL FROM NAYANA OF [facility], THEY ONLY HAVE TTS AVAILABLE AND HAVE TALKED TO [facility] PRE PRESS MANAGER WHO INFORMED THEM THAT THEY ARE NOT GOING TO DRIVE PT AN HOUR AWAY FOR DIALYSIS FROM THE SHELTER. CM SPOKE TO AUDI AT [facility] WHO INFORMED CM THAT THEY ARE GOING TO HAVE A SISTER FACILITY REPRESENTIVE CONTACT CM TO ASSIST IN PLACING PT IN [place] SO THAT PT CAN GO TO A FACILITY THAT HAS CAPABILITY OF FANNIE LIFT AND TO A DILAYSIS UNIT THAT HAS CAPABILITY OF FANNIE LIFT. CM SPOKE TO PT IN ROOM, DISCUSSED MOVING TO ANOTHER SHELTER, PT REPORTS SHE WILL TRY WITH THERAPY AND IS WILLING FOR NEW SHELTER IF NEEDED, CHOICE SIGNED FOR KEANU JJ AT [facility]. CM DISCUSSED LTACH, PT ALSO IN AGREEMENT WITH LTACH AT [facility] IF IT WILL HELP GET HER HOME SOONER. CM CALLED AND SPOKE TO LAITH OF [facility], , DISCUSSED NEED FOR REHAB, WOUND CARE AND DIALYSIS WITH GOAL TO SIT FOR DIALYSIS IN OUTPATIENT SETTING TO RETURN TO A SHELTER FOR CONTINUED ORTHOPAEDIC DOCTOR CARE. REFERRAL FAXED TO TERRELL YOUNGER AT [phone]. CM CALLED AND SPOKE TO [facility]ST[facility], , OF [facility]. THEY CONTACT WITH [facility] AND DO NOT HAVE ONE WITH [facility]. THEY WILL SCREEN PT FOR THEIR HOMES, BUT PT WILL HAVE TO HAVE CAPACITY TO SIT IN CHAIR FOR THREE HOURS OF OUTPATIENT DIALYSIS AND TRANSPORTATION. CM FAXED REFERRAL TO BECKY AT [phone]. PT WILL NEED TO BE ABLE TO TRANSFER FROM BED TO CHAIR AND WILL ALSO NEED TO BE ABLE TO SIT SAFELY FOR TRANSPORT AND 3 HOURS OF DIALYSIS TREATMENT FOR OUTPATIENT DIALYSIS CLINIC ARRANGEMENT. CM WAITING ON SHELTER EVALUATIONS FOR ADMISSION, [facility]RE[facility] YOUNGER EVALUATION FOR ADMISSION AND WILL NEED TO SEND APPLICATION FOR [facility] FOR DIALYSIS UNIT CONSIDERATION AND TO FIND OUT IF THEY HAVE FANNIE LIFT CAPABILITY. DICK OLIVEROS, CASE MANAGEMENT DCP- Discharge Planning Updated by [id number]: Dick Oliveros on 10/02/18 3:[address] Patient Name: GUSTABO STUART Encounter No: [id number] : 1950 Primary Insurance: MEDICARE A & B Anticipated DC Date: 09-30-2018 Planned Disposition: Nursing Facility KULWINDER Cert External Planned Provider: [facility], ORTHOPAEDIC DOCTOR CARE MEDICAID BED DCP follow-up note: CM CALLED ELZBIETA OF [facility] ADMISSIONS, , WAS INFORMED THEY DO NOT HAVE ANY REQUEST TO ARRANGE OUTPATIENT DIALYSIS CLINIC ARRANGEMENT. CM FAXED ADMISSIONS INTAKE FORM WITH INITIAL DOCUMENTS TO [facility] ADMISSIONS AT [phone]. CM NOTIFIED MERLYN OF [facility] IN [place], [facility], , OF NEED FOR OUTPATIENT DIALYSIS; CM WAS ADVISED THAT PT WILL NEED TO BE ABLE TO TRANSFER TO WHEELCHAIR AND CHAIR WELL BE ABLE TO TOLERATE SITTING IN CHAIR FOR THREE HOURS OF DIALYSIS. THE CENTER PREFERS MWF, MORNING SCHEDULE. CM WAITING FOR OUTPATIENT DIALYSIS CLINIC ARRANGEMENT. NOTE THAT PT WILL HAVE TO BE ABLE TO TRANSFER TO CHAIR AND SIT IN CHAIR FOR THREE HOURS FOR OUTPATIENT CLINIC PARTICIPATION. FOR DISCHARGE, FAX DISCHARGE INFORMATION TO [facility] IN [place], ; NURSE REPORT TO BE CALLED TO [phone]. PT TO TRANSPORT VIA AMBULANCE. [employer] And Carriage Operator: Dick Oliveros Appended by Dick Oliveros on 10/02/2018 16:49 CONSUMER LENDING MANAGER: CM RECEIVED CALL FROM RADHA OF [facility] ADMISSIONS; [facility] IS NOT CERTIFIED FOR LIFT AND HAS NO AVAILABLE OPENINGS AT THIS TIME. [facility] IS LIFT CERTIFIED BUT HAS NO AVAILABLE OPENINGS. RADHA WILL SEND REFERRAL TO [facility] IN [place] BUT THEY ONLY HAVE TTS SLOTS AVAILABLE. RADHA WILL ESCULATE REFERRAL FOR [facility] DIALYSIS ARRANGMENT IN [place] THAT A CHAIR BECOMES AVAILABLE AND PT WILL NOT REQUIRE LIFT TRANSFER. PT WILL NEED TO BE ABLE TO TRANSFER FROM BED TO CHAIR AND WILL ALSO NEED TO BE ABLE TO SIT SAFELY FOR TRANSPORT AND 3 HOURS OF DIALYSIS TREATMENT FOR OUTPATIENT DIALYSIS CLINIC ARRANGEMENT. DICK OLIVEROS, CASE MANAGEMENT DCP- Discharge Planning Updated by [id number]: Dick Oliveros on 09/29/18 12:[address] Patient Name: GUSTABO STUART Encounter No: [id number] : 1950 Primary Insurance: MEDICARE A & B Anticipated DC Date: 09-30-2018 Planned Disposition: Nursing Facility KULWINDER Cert External Planned Provider: [facility], LONG TERM CARE MEDICAID BED DCP follow-up note: JAIMIE RECEIVED ORDER FOR OUTPATIENT DIALYSIS CLINIC ARRANGEMENT; RN JAIMIE HAMMONDS HAS INFORMED ROGE MONAE OF [facility] FOR OUTPATIENT DAILYSIS CLINIC ARRANGEMENT IN [place]. JAIMIE FAXED UPDATE TO MERLYN OF [facility] IN [place], . ROGE INFORMED JAIMIE THAT PT NEEDS PERM DIALYSIS CATHETER AND AN ACCURATE WEIGHT. PT HAS ORDERS FOR CATHETER, CM NOTIFIED BEDSIDE NURSE OF NEED FOR ACCURATE WEIGHT; PT IS BED CONFINED AND ON SPECIALTY BED AT THIS TIME. CM WAITING FOR DIALYSIS CATHETER PLACEMENT WELL OUTPATIENT DIALYSIS CLINIC ARRANGEMENT. FOR DISCHARGE, FAX DISCHARGE INFORMATION TO [facility] IN [place], ; NURSE REPORT TO BE CALLED TO [phone]. PT TO TRANSPORT VIA AMBULANCE. [employer] And Carriage Operator: Dick Oliveros DCP- Discharge Planning Updated by [id number]: Dick Oliveros on 09/26/18 4:[address] Patient Name: GUSTABO STUART Admission Status: Elective Accout number: [id number] Admission Date: 09-19-2018 : 1950 Admission Diagnosis:ACUTE RESPIRATORY FAILURE WITH HYPOXIA Attending: JENNIFER DICKEY Current LOS: 7 Anticipated DC Date: Planned Disposition: Nursing Facility [facility] Primary Insurance: MEDICARE A & B PLANNED EXTERNAL PROVIDER: [facility], [place], MCFP CARE MEDICAID BED Discharge Planning Comments: CM MET WITH PT IN ROOM TO DISCUSS DISCHARGE PLANNING AND NEEDS. PT REPORTS LIVING AT A SHELTER IN [place], SHE CANNOT REMEMBER THE NAME OF THE PLACE. PT REPORTS BEING CONFINED TO BED BUT THE FACILITY HAS A LIFT TO LOSS PREVENTION DETECTIVE PT TO A WHEELCHAIR. PT REPORTS HAVING BIPAP, NEBULIZER AND OXYGEN AT THE FACILITY. PT REPORTS HAVING ASSISTANCE WITH EVERYTHING BUT EATING, WHICH SHE DOES HERSELF. PT ASKED THAT IF FAMILY CALLS, TELL THEM TO BRING HER CLOTHES AND CELL PHONE. CM DISCUSSED AVAILABILITY OF HOME HEALTH, REHAB SERVICES AND MEDICAL EQUIPMENT. PT DENIES DISCHARGE NEEDS, REPORTS SHE WILL DISCHARGE BACK TO FACILITY WHERE SHE LIVES. CM CALLED [facility] IN [place] [place] [facility], ; CM SPOKE TO MERLYN WHO REPORTS PT IS IN ORTHOPAEDIC DOCTOR CARE AND PROVIDED EMERGENCY CONTACT INFORMATION FOR PT'S FAMILY MEMBERS; CM NOTED IN CASE MANAGEMENT ASSESSMENT CHECKLIST. MERLYN VERIFIED PT HAS OXYGEN, NEBULUZER AND BIPAP IN FACILITY, THEY WILL ACCEPT BACK FOR CONTINUED ORTHOPAEDIC DOCTOR CARE AT HOSPITAL DISCHARGE. FOR DISCHARGE, FAX DISCHARGE INFORMATION TO [facility] IN [place], ; NURSE REPORT TO BE CALLED TO [phone]. PT TO TRANSPORT VIA AMBULANCE. [employer] And Carriage Operator: iDck Oliveros DCP- Discharge Planning Updated by [id number]: Jenny Al on 09/23/18 3:[address] CM attempted to visit with patient. Patient is currently on BiPap and getting dialysis at this time. She is unable to speak with me at this time. No family available at this time. CM will continue to follow and assist as needed with discharge planning / needs. DCPIA - Discharge Planning Initial Assessment Updated by [id number]: Dick Oliveros on 09/26/18 4:23 pm * Is the patient Alert and Oriented? Yes * How many steps to enter\\exit or inside your home? NONE * PCP [facility], OPER[facility] * Pharmacy [facility] * Preadmission Environment [facility] Long [facility] * [phone] * ADLs Partial Dependent * Partial ADLs (Assistance needed) Bathing Dressing Medication Management Toileting Transfers * [facility] Fannie Lift Nebulizer Oxygen Wheelchair * Other Equipment ALL MEDICAL EQUIPMENT PROVIDED BY FACILITY * List name and contact numbers for known caregivers / representatives who currently or will assist patient after discharge: EDGARD JEREZ, MOTHER IN LAW, KAVEH CASILLAS, DTR, NICK SAUER, SPOUSE, * Verbal permission to speak to the caregivers and representatives has been obtained from the patient. Yes * Community resources currently utilized None * Please name any agencies selected above. NONE * Additional services required to return to the preadmission environment? No * Can the patient safely return to the preadmission environment? Yes * Has this patient been hospitalized within the prior 30 days at any hospital? No Coverage Notice Reviewer: GABRIEL Oliveros Notice Issued Date-Time: 10/03/2018 11:30 Notice Type: Patient Choice Letter Notice Delivered To: Patient Relationship to Patient: Domestic Housekeeper Name: Delivery Method: HAND - Hand Delivered Veda Days: Prior Verbal Notification: Recipient Understood Notice: Recipient Signature: Med Rec Note Co-signed by Attending: Coverage Notice Comment: [place]: [facility] Reviewer: [id number] Oliveros Notice Issued Date-Time: 10/15/2018 10:20 Notice Type: IM Discharge Notice Notice Delivered To: Patient Relationship to Patient: Domestic Housekeeper Name: Delivery Method: HAND - Hand Delivered Veda Days: Prior Verbal Notification: Recipient Understood Notice: Yes Recipient Signature: Yes Med Rec Note Co-signed by Attending: Coverage Notice Comment: Last DP export: 10/22/18 4:50 Patient Name: GUSTABO STUART Page [id number] at 1010 All edits/amendments must be made on the electronic document DICTATION DATE: 10/23/18 1010 ELECTRIC WELDER: HELDER 10/23/18 1010 RPT#: [id number] DC DATE: STATUS: ADM IN [facility] [address] [place] [address] END OF REPORT
--- NOTE | ~2018-09-19 | MORECARE ---
CASE MANAGEMENT DISCHARGE SUMMARY PATIENT: GUSTABO STUART UNIT: [id number] ADM DATE: 09/19/18 AGE: 68 : 50 SEX: F ROOM/BED: D.7882 AUTHOR: LAWRENCE,DOC PHYSICIAN: REFERRING PHYSICIAN: JENNIFER DICKEY MD DATE OF SERVICE: 10/03/18 Discharge Plan Patient Name: GUSTABO STUART Facility: [facility]:[place] : 1950 Planned Disposition: Nursing Facility [facility] Cert Anticipated Discharge Date: 09/30/18 Discharge Date: Expected LOS: 11 Initial Reviewer: [id number] Initial Review Date: 09/19/2018 Generated: 10/03/18 4:11 pm Comments DCP- Discharge Planning Updated by [id number]: Gerardo Randle on 10/02/18 3:[address] Patient Name: GUSTABO STUART Encounter No: [id number] : 1950 Primary Insurance: MEDICARE A & B Anticipated DC Date: 09-30-2018 Planned Disposition: Nursing Facility [facility] Cert External Planned Provider: [facility] [place], LONG TERM CARE MEDICAID BED DCP follow-up note: CM CALLED ELZBIETA OF [facility], , WAS INFORMED THEY DO NOT HAVE ANY REQUEST TO ARRANGE OUTPATIENT DIALYSIS CLINIC ARRANGEMENT. CM FAXED ADMISSIONS INTAKE FORM WITH INITIAL DOCUMENTS TO [facility] AT [phone]. CM NOTIFIED MERLYN OF [facility] IN [place], [facility], , OF NEED FOR OUTPATIENT DIALYSIS; CM WAS ADVISED THAT PT WILL NEED TO BE ABLE TO TRANSFER TO WHEELCHAIR AND CHAIR WELL BE ABLE TO TOLERATE SITTING IN CHAIR FOR THREE HOURS OF DIALYSIS. THE CENTER PREFERS MWF, MORNING SCHEDULE. CM WAITING FOR OUTPATIENT DIALYSIS CLINIC ARRANGEMENT. NOTE THAT PT WILL HAVE TO BE ABLE TO TRANSFER TO CHAIR AND SIT IN CHAIR FOR THREE HOURS FOR OUTPATIENT CLINIC PARTICIPATION. FOR DISCHARGE, FAX DISCHARGE INFORMATION TO [facility] IN [place], ; NURSE REPORT TO BE CALLED TO [phone]. PT TO TRANSPORT VIA AMBULANCE. [place] Technician: Gerardo Randle Appended by Gerardo Randle on 10/02/2018 16:49 SENIOR CLINICAL RESEARCH SCIENTIST: CM RECEIVED CALL FROM LANRE OF [facility] ADMISSIONS; [facility] IS NOT CERTIFIED FOR LIFT AND HAS NO AVAILABLE OPENINGS AT THIS TIME. [facility] IS LIFT CERTIFIED BUT HAS NO AVAILABLE OPENINGS. LANRE WILL SEND REFERRAL TO [facility] IN [place] BUT THEY ONLY HAVE TTS SLOTS AVAILABLE. LANRE WILL ESCULATE REFERRAL FOR [facility] ARRANGMENT IN [place] THAT A CHAIR BECOMES AVAILABLE AND PT WILL NOT REQUIRE LIFT TRANSFER. PT WILL NEED TO BE ABLE TO TRANSFER FROM BED TO CHAIR AND WILL ALSO NEED TO BE ABLE TO SIT SAFELY FOR TRANSPORT AND 3 HOURS OF DIALYSIS TREATMENT FOR OUTPATIENT DIALYSIS CLINIC ARRANGEMENT. GERARDO RANDLE, CASE MANAGEMENT DCP- Discharge Planning Updated by [id number]: Gerardo Randle on 09/29/18 12:[address] Patient Name: GUSTABO STUART Encounter No: [id number] : 1950 Primary Insurance: MEDICARE A & B Anticipated DC Date: 09-30-2018 Planned Disposition: Nursing Facility [facility] External Planned Provider: [facility], LONG TERM CARE MEDICAID BED DCP follow-up note: CM RECEIVED ORDER FOR OUTPATIENT DIALYSIS CLINIC ARRANGEMENT; RN JAIMIE HAMMONDS HAS INFORMED ROGE MONAE OF PATIENT [facility] FOR OUTPATIENT DAILYSIS CLINIC ARRANGEMENT IN [place]. JAIMIE FAXED UPDATE TO MERLYN OF [facility] IN [place], [facility] AND [facility], . ROGE INFORMED CM THAT PT NEEDS PERM DIALYSIS CATHETER AND AN ACCURATE WEIGHT. PT HAS ORDERS FOR CATHETER, CM NOTIFIED BEDSIDE NURSE OF NEED FOR ACCURATE WEIGHT; PT IS BED CONFINED AND ON SPECIALTY BED AT THIS TIME. CM WAITING FOR DIALYSIS CATHETER PLACEMENT WELL OUTPATIENT DIALYSIS CLINIC ARRANGEMENT. FOR DISCHARGE, FAX DISCHARGE INFORMATION TO [facility] IN [place], ; NURSE REPORT TO BE CALLED TO [phone]. PT TO TRANSPORT VIA AMBULANCE. [place] Technician: Gerardo Randle DCP- Discharge Planning Updated by [id number]: Gerardo Randle on 09/26/18 4:[address] Patient Name: GUSTABO STUART Admission Status: Elective Accout number: [id number] Admission Date: 09-19-2018 : 1950 Admission Diagnosis:ACUTE RESPIRATORY FAILURE WITH HYPOXIA Attending: JENNIFER DICKEY Current LOS: 7 Anticipated DC Date: Planned Disposition: Nursing Facility [facility] Cert Primary Insurance: MEDICARE A & B PLANNED EXTERNAL PROVIDER: [facility] [place], LONG TERM CARE MEDICAID BED Discharge Planning Comments: CM MET WITH PT IN ROOM TO DISCUSS DISCHARGE PLANNING AND NEEDS. PT REPORTS LIVING AT A LONG-TERM IN [place], SHE CANNOT REMEMBER THE NAME OF THE PLACE. PT REPORTS BEING CONFINED TO BED BUT THE FACILITY HAS A LIFT TO DATA TECHNICAL LEAD PT TO A WHEELCHAIR. PT REPORTS HAVING BIPAP, NEBULIZER AND OXYGEN AT THE FACILITY. PT REPORTS HAVING ASSISTANCE WITH EVERYTHING BUT EATING, WHICH SHE DOES HERSELF. PT ASKED THAT IF FAMILY CALLS, TELL THEM TO BRING HER CLOTHES AND CELL PHONE. CM DISCUSSED AVAILABILITY OF HOME HEALTH, REHAB SERVICES AND MEDICAL EQUIPMENT. PT DENIES DISCHARGE NEEDS, REPORTS SHE WILL DISCHARGE BACK TO FACILITY WHERE SHE LIVES. CM CALLED [facility] IN [place], ; CM SPOKE TO MERLYN WHO REPORTS PT IS IN EXTRUSION PROCESS OPERATOR CARE AND PROVIDED EMERGENCY CONTACT INFORMATION FOR PT'S FAMILY MEMBERS; CM NOTED IN CASE MANAGEMENT ASSESSMENT CHECKLIST. MERLYN VERIFIED PT HAS OXYGEN, NEBULUZER AND BIPAP IN FACILITY, THEY WILL ACCEPT BACK FOR CONTINUED EXTRUSION PROCESS OPERATOR CARE AT HOSPITAL DISCHARGE. FOR DISCHARGE, FAX DISCHARGE INFORMATION TO [facility] IN [place], ; NURSE REPORT TO BE CALLED TO [phone]. PT TO TRANSPORT VIA AMBULANCE. [place] Technician: Gerardo Randle DCP- Discharge Planning Updated by [id number]: Jenny Al on 09/23/18 3:[address] CM attempted to visit with patient. Patient is currently on BiPap and getting dialysis at this time. She is unable to speak with me at this time. No family available at this time. CM will continue to follow and assist as needed with discharge planning / needs. DCPIA - Discharge Planning Initial Assessment Updated by [email or web address]: Gerardo Randle on 09/26/18 4:23 pm * Is the patient Alert and Oriented? Yes * How many steps to enter\exit or inside your home? NONE * PCP [facility], MACHINE II TRIMMER * Pharmacy [facility] * Preadmission Environment Correction Half-Way * Facility Name [facility] T [phone] * ADLs Partial Dependent * Partial ADLs (Assistance needed) Bathing Dressing Medication Management Toileting Transfers * Equipment BIPAP Hospital Bed Fannie Lift Nebulizer Oxygen Wheelchair * Other Equipment ALL MEDICAL EQUIPMENT PROVIDED BY FACILITY * List name and contact numbers for known caregivers / representatives who currently or will assist patient after discharge: EDGARD JEREZ, MOTHER IN LAW, KAVEH CASILLAS, DTR, NICK SAUER, SPOUSE, * Verbal permission to speak to the caregivers and representatives has been obtained from the patient. Yes * Community resources currently utilized None * Please name any agencies selected above. NONE * Additional services required to return to the preadmission environment? No * Can the patient safely return to the preadmission environment? Yes * Has this patient been hospitalized within the prior 30 days at any hospital? No External Providers External Provider: [facility] Contact Date: 10/03/2018 Service Request Date: Service Type: Resolution: Reviewer: Comments: Last DP export: 10/02/18 3:53 p Patient Name: GUSTABO STUART Page [phone] at 1511 All edits/amendments must be made on the electronic document DICTATION DATE: 10/03/181510 DISTRICT SALES REPRESENTATIVE: HELDER 10/03/181510 RPT#: [id number] DC DATE: STATUS: ADM IN [facility] [address] [place] [address] END OF REPORT
--- NOTE | ~2018-09-19 | MORECARE ---
CASE MANAGEMENT DISCHARGE SUMMARY PATIENT: GUSTABO STUART UNIT: [id number] ADM DATE: 09/19/18 AGE: 68 : 50 SEX: F ROOM/BED: D.2982 AUTHOR: LAWRENCE,DOC PHYSICIAN: REFERRING PHYSICIAN: JENNIFER DICKEY MD DATE OF SERVICE: 10/20/18 Discharge Plan Patient Name: GUSTABO STUART Facility: [facility] : 1950 Planned Disposition: Nursing Facility [facility] Cert Anticipated Discharge Date: 10/21/18 Discharge Date: Expected LOS: 32 Initial Reviewer: [id number] Initial Review Date: 09/19/2018 Generated: 10/20/18 6:07 pm Comments DCP- Discharge Planning Updated by [id number]: Dick Randle on 10/20/18 4:[address] Patient Name: GUSTABO STUART Encounter No: [id number] : 1950 Primary Insurance: MEDICARE A & B Anticipated DC Date: 10-21-2018 Planned Disposition: Nursing Facility [facility] Cert External Planned Provider:[facility], RESIDENTIAL CARE MEDICAID BED CM RECEIVED CALL FROM LAURENCE OF [facility] [place], , WHO ADVISED THAT [facility] [place] WILL ACCEPT PT, TOMORROW, 10-21-18, IF APPROVED BY [facility] FOR OUTPATIENT DIALYSIS. LAURENCE ADVISED THAT THE CUSTODIAL IS NOW COMMUNICATING WITH THE DIALYSIS UNIT. CM SENT MESSAGE TO ROGE OF PATIENT PATHWAYS REQUESTING UPDATE ON DIALYSIS UNIT PLACEMENT AND SCHEDULE. PT NOTIFIED AND IN AGREEMENT WITH DISCHARGE TO PENDING SALE TO [facility] SOON POSSIBLE. [facility] (NURSING HOME FACILITY) IN [facility] ACCEPTS PT. CM WAITING DAILYSIS CLINIC ACCEPTANCE AND SCHEDULE. WHEN CLINIC ARRANGEMENT CONFIRMED, FAX DISCHARGE INFORMATION TO [facility] AT [phone]. CALL NURSE REPORT TO [facility] AT [phone]. PT TO TRANSPORT VIA AMBULANCE DUE TO STAGE 2 PRESSURE ULCER ON COCCYX. DICK JER, CASE MANAGEMENT DCP- Discharge Planning Updated by [id number]: Dick Randle on 10/20/18 8:[address] Patient Name: GUSTABO STUART Encounter No: [id number] : 1950 Primary Insurance: MEDICARE A & B Anticipated DC Date: 10-15-2018 Planned Disposition: Nursing Facility [facility] Cert External Planned Provider: [facility], MANAGER HAIR [facility] MEDICAID BED CM LEFT MESSAGE FOR LAURENCE OF [facility] [place], , AND ADVISED THAT PT HAS CONTINUED TO DEMONSTRATE ABILITY TO TRANSFER TO CHAIR AND SIT FOR OVER 4 HOURS. CM FAXED UPDATE TO [facility] [place] VIA [employer] AT [phone]. [facility] IN [facility] IS REVIEWING FOR PLACEMENT; THEY DO HAVE FANNIE LIFT. DAVITA ADMISSIONS WORKING ON OUTPATIENT DIALYSIS ARRANGEMENT AT [facility] IN [place], THEY ALSO HAVE A LIFT. CM WAITING ON DETERMINATIONS FROM BOTH. DICK RANDLE CASE MANAGEMENT DCP- Discharge Planning Updated by [id number]: Dick Randle on 10/15/18 11:[address] Patient Name: GUSTABO STUART Encounter No: [id number] : 1950 Primary Insurance: MEDICARE A & B Anticipated DC Date: 10-15-2018 Planned Disposition: Nursing Facility [facility] Cert External Planned Provider: [facility]; LONG TERM CARE MEDICAID BED DCP follow-up note: CM CALLED LAURENCE OF [facility] [place], , AND ADVISED THAT PT HAS DEMONSTRATED ABILITY TO TRANSFER TO CHAIR AND SIT FOR OVER 4 HOURS. CM SPOKE TO HOMER OF [facility] ADMISSIONS AND PROVIDED UPDATE FOR [facility] DIALYSIS IN [place] CM SPOKE TO ROGE MONAE OF [facility] WHO WILL COMMUNICATE WITH [facility] ADMISSIONS WELL [facility] DIALYSIS AND PROVIDED UPDATED INFORMATION TO BOTH FROM MEDICAL CHART. CM SPOKE TO PT IN ROOM WHO IS STILL WILLING FOR PLACEMENT IN [place] AT [facility] AND WAS HOPING TO BE OUT OF THE HOSPITAL FOR THANKSGIVING. IMPORTANT MESSAGE FROM MEDICARE PROVIDED AND EXPLAINED. CM FAXED UPDATE TO [facility] [place] VIA LAURENCE AT [phone]. [facility] IN [facility] IS REVIEWING FOR PLACEMENT; THEY DO HAVE FANNIE LIFT. [facility] ADMISSIONS WORKING ON OUTPATIENT DIALYSIS ARRANGEMENT AT [facility] IN [place], THEY ALSO HAVE A LIFT. CM WAITING ON DETERMINATIONS FROM BOTH. DICK RANDLE, CASE MANAGEMENT DCP- Discharge Planning Updated by [id number]: Dick Randle on 10/13/18 2:[address] Patient Name: GUSTABO STUART Encounter No: [id number] : 1950 Primary Insurance: MEDICARE A & B Anticipated DC Date: 09-30-2018 Planned Disposition: Nursing Facility [facility] Cert External Planned Provider: [facility] [place]; MANAGER HAIR CARE MEDICAID BED DCP follow-up note: CM CALLED LAURENCE OF [facility] [place], , WHO ADVISED THAT PENDING SALE TO [facility] MAY ACCEPT BUT PT WILL NEED TO DEMONSTRATE ABILITY TO TRANSFER TO WHEELCHAIR AND SIT FOR 3 HOURS OF DIALYSIS. PENDING SALE TO [facility] HAS LIFT AVAILABLE. CM SPOKE TO RADHA OF [facility] ADMISSIONS WHO REPORTS THEY WERE WORKING ON [facility] DIALYSIS IN [place] BUT WILL SEND REFERRAL TO [facility] IN [place] THAT HAS LIFT AND MWF SCHEDULING CAPABIILITY. CM SPOKE TO PT IN ROOM WHO IS WILLING FOR PLACEMENT IN [place] TO BE CLOSER TO FAMILY IF SHE CANNOT RETURN TO [place] WHERE SHE WAS LIVING AT [facility]. CM FAXED UPDATE TO [facility] [place] VIA [employer] AT [phone]. CM SPOKE TO MARIEL OF PHYSICAL THERAPY WHO VERIFIED PT HAS BEEN UP TO SIDE OF BED BUT THEY ARE NOT ABLE TO GET PT UP TO CHAIR THEY DO NOT HAVE A LIFT. CM SPOKE TO CM RECTIFYING OPERATOR KAYLEE REGARDING LACK OF LIFT CAPABILITY THIS IS AN OBSTACLE TO PLACEMENT IN ANY FACILITY PT WILL NEED OUTPATIENT DIALYSIS AND MUST BE ABLE TO DEMONSTRATE ABILITY TO SIT FOR DURATION OF TRANSPORT AND DIALYSIS SESSION. CM WAITING PT TO DEMONSTRATE ABILITY TO TRANSFER AND SIT FOR DURATION OF TRANSPORTATION WELL FOR THREE HOURS OF DIALYSIS TREATMENT, WITH OR WITHOUT A LIFT. [facility] IN [facility] WILL REVIEW FOR PLACEMENT IF PT IS ABLE TO SIT FOR TRANSPORT AND DIALYSIS; THEY DO HAVE FANNIE LIFT. DAVITA ADMISSIONS WORKING ON OUTPATIENT DIALYSIS ARRANGEMENT AT [facility] IN [place], THEY ALSO HAVE A LIFT. DICK RANDLE, CASE MANAGEMENT Appended by Dick Randle on 10/13/2018 15:31 SALES REPRESENTATIVE PRINTING SUPPLIES: CM RECEIVED CALL FROM KRISTIAN OF [facility], , WHO ASKED FOR FAXED UPDATE. CM FAXED UPDATE TO [facility] WITH DIALYSIS RUN SHEETS THRU 10-11-18. CM FAXED UPDATE TO [facility] WITH OCCUPATIONAL THERAPY NOTE INDICATING PT HAS BEEN OUT OF BED TO CHAIR. CM TO CONTINUE TO FOLLOW AND ASSIST NEEDED. CM WAITING PT TO DEMONSTRATE ABILITY TO TRANSFER AND SIT FOR DURATION OF TRANSPORTATION WELL FOR THREE HOURS OF DIALYSIS TREATMENT, WITH OR WITHOUT A LIFT. [facility] IN [facility] WILL REVIEW FOR PLACEMENT IF PT IS ABLE TO SIT FOR TRANSPORT AND DIALYSIS; THEY DO HAVE FANNIE LIFT. DAVITA ADMISSIONS WORKING ON OUTPATIENT DIALYSIS ARRANGEMENT AT [facility] IN [place], THEY ALSO HAVE A LIFT. DICK RANDLE, CASE MANAGEMENT DCP- Discharge Planning Updated by [id number]: Jenny Al on 10/10/18 6:[address] Late Entry 10/10/18 @ 0900 PT and OT still working with patient to get out of bed to sit in chair. Patient has to be able to sit in wheelchair and be transported to dialysis and sit in dialysis chair for 3-4hrs. CM will continue to follow and assist as needed with discharge planning / needs. DCP- Discharge Planning Updated by [id number]: Jenny Al on 10/07/18 3:[address] CM spoke with Roge Monae this am. Roge stated we are at standstill until we find NH placement. Once we have NH placement then we can proceed with dialysis placement. CM spoke with patients daughter since patient isn't able to stay awake and communicate. Daughter Fran Tinajero "Nkechi" [phone]. Daughter stated that she would like NH placement as close to [place] as possible. CM explained that we would have to find placement that has fannie lift at both NH and dialysis clinic. Daughter stated that [place] was the next closest town. CM contacted [facility] in [place] [phone]. Laurence Radha clinical Liaison [phone] fax [phone]. CM spoke with Laurence and explained situation and faxed records. Laurence stated she would be here to see patient in am. CM will continue to follow and assist as needed with discharge planning / needs. DCP- Discharge Planning Updated by [id number]: Jenny Mendozar on 10/07/18 9:[address] CM spoke with Roge Monae this am. She stated that she had been out of the office but now was back. Roge stated that she would speak to Radha and would take care of everything from this point with placement for dialysis. CM will continue to follow and assist as needed with discharge planning / needs. DCP- Discharge Planning Updated by [id number]: Jenny Mendozar on 10/07/18 9:[address] Late Entry 10/06/18 @ 1600 JAIMIE spoke with Radha with [facility]. Radha stated she needed clarification on patients name. Radha stated she needed dialysis flowsheets from last three treatments faxed to her. Radha stated that she was trying to get placement at [facility] dialysis clinic. CM will continue to follow and assist as needed with discharge planning / needs. DCP- Discharge Planning Updated by [id number]: Dick Randle on 10/03/18 3:[address] Patient Name: GUSTABO STUART Encounter No: [id number] : 1950 Primary Insurance: MEDICARE A & B Anticipated DC Date: 09-30-2018 Planned Disposition: Nursing Facility [facility] Cert External Planned Provider: TO BE DETERMINED DCP follow-up note: CM RECEIVED CALL FROM NAYANA OF [facility], THEY ONLY HAVE TTS AVAILABLE AND HAVE TALKED TO [facility]UG CLIPPER WHO INFORMED THEM THAT THEY ARE NOT GOING TO DRIVE PT AN HOUR AWAY FOR DIALYSIS FROM THE CUSTODIAL. CM SPOKE TO AUDI AT [facility] WHO INFORMED CM THAT THEY ARE GOING TO HAVE A SISTER FACILITY REPRESENTIVE CONTACT CM TO ASSIST IN PLACING PT IN [place] SO THAT PT CAN GO TO A FACILITY THAT HAS CAPABILITY OF FANNIE LIFT AND TO A DILAYSIS UNIT THAT HAS CAPABILITY OF FANNIE LIFT. CM SPOKE TO PT IN ROOM, DISCUSSED MOVING TO ANOTHER CUSTODIAL, PT REPORTS SHE WILL TRY WITH THERAPY AND IS WILLING FOR NEW CUSTODIAL IF NEEDED, CHOICE SIGNED FOR [facility]. CM DISCUSSED LTACH, PT ALSO IN AGREEMENT WITH LTACH AT [facility] IF IT WILL HELP GET HER HOME SOONER. CM CALLED AND SPOKE TO LAITH OF [facility], , DISCUSSED NEED FOR REHAB, WOUND CARE AND DIALYSIS WITH GOAL TO SIT FOR DIALYSIS IN OUTPATIENT SETTING TO RETURN TO A CUSTODIAL FOR CONTINUED MANAGER HAIR CARE. REFERRAL FAXED TO [facility] AT [phone]. CM CALLED AND SPOKE TO [facility], , OF [facility], REPRESENTING [facility] NURSING HOME FACILITIES. THEY CONTACT WITH [facility] AND DO NOT HAVE ONE WITH [facility]. THEY WILL SCREEN PT FOR THEIR HOMES, BUT PT WILL HAVE TO HAVE CAPACITY TO SIT IN CHAIR FOR THREE HOURS OF OUTPATIENT DIALYSIS AND TRANSPORTATION. CM FAXED REFERRAL TO [facility] AT [phone]. PT WILL NEED TO BE ABLE TO TRANSFER FROM BED TO CHAIR AND WILL ALSO NEED TO BE ABLE TO SIT SAFELY FOR TRANSPORT AND 3 HOURS OF DIALYSIS TREATMENT FOR OUTPATIENT DIALYSIS CLINIC ARRANGEMENT. CM WAITING ON CUSTODIAL EVALUATIONS FOR ADMISSION, [facility] EVALUATION FOR ADMISSION AND WILL NEED TO SEND APPLICATION FOR [facility] FOR DIALYSIS UNIT CONSIDERATION AND TO FIND OUT IF THEY HAVE FANNIE LIFT CAPABILITY. DICK RANDLE, CASE MANAGEMENT DCP- Discharge Planning Updated by [id number]: Dick Randle on 10/02/18 3:[address] Patient Name: GUSTABO STUART Encounter No: [id number] : 1950 Primary Insurance: MEDICARE A & B Anticipated DC Date: 09-30-2018 Planned Disposition: Nursing Facility [facility] Cert External Planned Provider: [facility] [place], RESIDENTIAL CARE MEDICAID BED DCP follow-up note: JAIMIE CALLED ELZBIETA OF [facility] ADMISSIONS, , WAS INFORMED THEY DO NOT HAVE ANY REQUEST TO ARRANGE OUTPATIENT DIALYSIS CLINIC ARRANGEMENT. CM FAXED ADMISSIONS INTAKE FORM WITH INITIAL DOCUMENTS TO [facility] ADMISSIONS AT [phone]. JAIMIE NOTIFIED MERLYN OF [facility] IN [place], [facility], , OF NEED FOR OUTPATIENT DIALYSIS; CM WAS ADVISED THAT PT WILL NEED TO BE ABLE TO TRANSFER TO WHEELCHAIR AND CHAIR WELL BE ABLE TO TOLERATE SITTING IN CHAIR FOR THREE HOURS OF DIALYSIS. THE CENTER PREFERS MWF, MORNING SCHEDULE. CM WAITING FOR OUTPATIENT DIALYSIS CLINIC ARRANGEMENT. NOTE THAT PT WILL HAVE TO BE ABLE TO TRANSFER TO CHAIR AND SIT IN CHAIR FOR THREE HOURS FOR OUTPATIENT CLINIC PARTICIPATION. FOR DISCHARGE, FAX DISCHARGE INFORMATION TO [facility] IN [place], ; NURSE REPORT TO BE CALLED TO [phone]. PT TO TRANSPORT VIA AMBULANCE. Die Designer: Dick Randle Appended by Dick Randle on 10/02/2018 16:49 SALES REPRESENTATIVE PRINTING SUPPLIES: CM RECEIVED CALL FROM RADHA OF [facility] ADMISSIONS; [facility] DIALYSIS IS NOT CERTIFIED FOR LIFT AND HAS NO AVAILABLE OPENINGS AT THIS TIME. [facility] IS LIFT CERTIFIED BUT HAS NO AVAILABLE OPENINGS. RADHA WILL SEND REFERRAL TO [facility] IN [place] BUT THEY ONLY HAVE TTS SLOTS AVAILABLE. RADHA WILL ESCULATE REFERRAL FOR [facility] DIALYSIS ARRANGMENT IN [place] THAT A CHAIR BECOMES AVAILABLE AND PT WILL NOT REQUIRE LIFT TRANSFER. PT WILL NEED TO BE ABLE TO TRANSFER FROM BED TO CHAIR AND WILL ALSO NEED TO BE ABLE TO SIT SAFELY FOR TRANSPORT AND 3 HOURS OF DIALYSIS TREATMENT FOR OUTPATIENT DIALYSIS CLINIC ARRANGEMENT. DICK RANDLE, CASE MANAGEMENT DCP- Discharge Planning Updated by [id number]: Dick Randle on 09/29/18 12:[address] Patient Name: GUSTABO STUART Encounter No: [id number] : 1950 Primary Insurance: MEDICARE A & B Anticipated DC Date: 09-30-2018 Planned Disposition: Nursing Facility [facility] External Planned Provider: [facility], MANAGER HAIR CARE MEDICAID BED DCP follow-up note: JAIMIE RECEIVED ORDER FOR OUTPATIENT DIALYSIS CLINIC ARRANGEMENT; RN JAIMIE HAMMONDS HAS INFORMED ROGE MONAE OF [facility] FOR OUTPATIENT DAILYSIS CLINIC ARRANGEMENT IN [place]. JAIMIE FAXED UPDATE TO MERLYN OF [facility] IN [place], [facility], . ROGE INFORMED CM THAT PT NEEDS PERM DIALYSIS CATHETER AND AN ACCURATE WEIGHT. PT HAS ORDERS FOR CATHETER, CM NOTIFIED BEDSIDE NURSE OF NEED FOR ACCURATE WEIGHT; PT IS BED CONFINED AND ON SPECIALTY BED AT THIS TIME. CM WAITING FOR DIALYSIS CATHETER PLACEMENT WELL OUTPATIENT DIALYSIS CLINIC ARRANGEMENT. FOR DISCHARGE, FAX DISCHARGE INFORMATION TO [facility] IN [place], ; NURSE REPORT TO BE CALLED TO [phone]. PT TO TRANSPORT VIA AMBULANCE. Die Designer: Dick Randle DCP- Discharge Planning Updated by [id number]: Dick Randle on 09/26/18 4:[address] Patient Name: GUSTABO STUART Admission Status: Elective Accout number: [id number] Admission Date: 09-19-2018 : 1950 Admission Diagnosis:ACUTE RESPIRATORY FAILURE WITH HYPOXIA Attending: JENNIFER DICKEY Current LOS: 7 Anticipated DC Date: Planned Disposition: Nursing Facility [facility] Cert Primary Insurance: MEDICARE A & B PLANNED EXTERNAL PROVIDER: [facility] [place], LONG TERM CARE MEDICAID BED Discharge Planning Comments: CM MET WITH PT IN ROOM TO DISCUSS DISCHARGE PLANNING AND NEEDS. PT REPORTS LIVING AT A CUSTODIAL IN [place], SHE CANNOT REMEMBER THE NAME OF THE PLACE. PT REPORTS BEING CONFINED TO BED BUT THE FACILITY HAS A LIFT TO HVAC COMMERCIAL SALESPERSON PT TO A WHEELCHAIR. PT REPORTS HAVING BIPAP, NEBULIZER AND OXYGEN AT THE FACILITY. PT REPORTS HAVING ASSISTANCE WITH EVERYTHING BUT EATING, WHICH SHE DOES HERSELF. PT ASKED THAT IF FAMILY CALLS, TELL THEM TO BRING HER CLOTHES AND CELL PHONE. CM DISCUSSED AVAILABILITY OF HOME HEALTH, REHAB SERVICES AND MEDICAL EQUIPMENT. PT DENIES DISCHARGE NEEDS, REPORTS SHE WILL DISCHARGE BACK TO FACILITY WHERE SHE LIVES. CM CALLED [facility] [place], [facility] [place] [facility], ; CM SPOKE TO MERLYN WHO REPORTS PT IS IN MANAGER HAIR CARE AND PROVIDED EMERGENCY CONTACT INFORMATION FOR PT'S FAMILY MEMBERS; CM NOTED IN CASE MANAGEMENT ASSESSMENT CHECKLIST. MERLYN VERIFIED PT HAS OXYGEN, NEBULUZER AND BIPAP IN FACILITY, THEY WILL ACCEPT BACK FOR CONTINUED MANAGER HAIR CARE AT HOSPITAL DISCHARGE. FOR DISCHARGE, FAX DISCHARGE INFORMATION TO [facility] IN [place], ; NURSE REPORT TO BE CALLED TO [phone]. PT TO TRANSPORT VIA AMBULANCE. Die Designer: Dick Randle DCP- Discharge Planning Updated by [id number]: Jenny Al on 09/23/18 3:[address] CM attempted to visit with patient. Patient is currently on BiPap and getting dialysis at this time. She is unable to speak with me at this time. No family available at this time. CM will continue to follow and assist as needed with discharge planning / needs. DCPIA - Discharge Planning Initial Assessment Updated by [email or web address]: Dick Randle on 09/26/18 4:23 pm * Is the patient Alert and Oriented? Yes * How many steps to enter\\exit or inside your home? NONE * PCP [facility] [facility] * Pharmacy [facility] * Preadmission Environment Strategy Lead Fpc * [phone] * ADLs Partial Dependent * Partial ADLs (Assistance needed) Bathing Dressing Medication Management Toileting Transfers * Equipment [facility] Bed Fannie Lift Nebulizer Oxygen Wheelchair * Other Equipment ALL MEDICAL EQUIPMENT PROVIDED BY FACILITY * List name and contact numbers for known caregivers / representatives who currently or will assist patient after discharge: EDGARD JEREZ, MOTHER IN LAW, KAVEH CASILLAS, DTR, NICK SAUER, SPOUSE, * Verbal permission to speak to the caregivers and representatives has been obtained from the patient. Yes * Community resources currently utilized None * Please name any agencies selected above. NONE * Additional services required to return to the preadmission environment? No * Can the patient safely return to the preadmission environment? Yes * Has this patient been hospitalized within the prior 30 days at any hospital? No Coverage Notice Reviewer: [id number] Rex Randle Notice Issued Date-Time: 10/03/2018 11:30 Notice Type: Patient Choice Letter Notice Delivered To: Patient Relationship to Patient: Sheet Metal Layout Worker Name: Delivery Method: HAND - Hand Delivered Veda Days: Prior Verbal Notification: Recipient Understood Notice: Recipient Signature: Med Rec Note Co-signed by Attending: Coverage Notice Comment: ERNAFABRICIO WORCESTER: [facility] Reviewer: [id number] Rex Randle Notice Issued Date-Time: 10/15/2018 10:20 Notice Type: IM Discharge Notice Notice Delivered To: Patient Relationship to Patient: Sheet Metal Layout Worker Name: Delivery Method: HAND - Hand Delivered Veda Days: Prior Verbal Notification: Recipient Understood Notice: Yes Recipient Signature: Yes Med Rec Note Co-signed by Attending: Coverage Notice Comment: Last DP export: 10/20/18 3:57 Patient Name: GUSTABO STUART Page [id number] at 1707 All edits/amendments must be made on the electronic document DICTATION DATE: 10/20/181706 DRIVER UTILITY WORKER: HELDER 10/20/181706 RPT#: [id number] DC DATE: STATUS: ADM IN [facility] [address] [place] [address] END OF REPORT
--- NOTE | ~2018-09-19 | EC ---
PATIENT:GUSTABO STUART DATE OF SERVICE: 09/19/18 SEX: F MEDICAL RECORD: [id number] DATE OF : [birth year] LOCATION:D.M2 D.210 AGE OF PATIENT: 68 ADMISSION DATE: 09/19/18 REFERRING PHYSICIAN: INTERPRETING PHYSICIAN: KORY FATIMA MD ECHOCARDIOGRAM REPORT ECHO CHARGES 4 ECHO COMPLETE Date: 09/22/18 CLINICAL DIAGNOSIS: CHF ECHOCARDIOGRAPHIC MEASUREMENTS (adult normal given) AC root (d.<3.7cm) 2.2 cm LV Septum d (<1.2 cm> 1.3 cm Valve Excursion 0.5 cm LV Septum (systole) 1.8 cm Left Atria (s.<4.0cm> 2.6 cm LVPW d(<1.2cm) 1.2 cm RV (d.<2.3cm) 5.1 cm LVPW (sytole) 1.4 cm LV diastole(<5.6CM) 7.1 cm MV E-F(>70mm/sec) cm LV systole 6.1 cm LVOT Diameter 2.3 cm MV exc.(>10mm) cm Est.ejection fraction (50-75%) % DOPPLER: LVIT cm/sec A 105 cm/sec E 81.0 cm/sec LA cm/sec RVSP 68.0 mmHg LVOT 74.0 cm/sec AOP1/2T m/s Asc. Ao 270 cm/sec RVOT cm/sec RA cm/sec PA cm/sec AV Gradient Peak 29.3 mmHg AV Mean 17.0 mmHg AV Area 1.1 cm MV Gradient Peak 4.7 mmHg MV Mean 1.9 mmHg MV Area cm COMMENTS: Small Animal Veterinarian: Cristóbal JONAS Gem Technician: Cristel Monk TAPE# PACS Pericardial Effusion Y DATE OF SERVICE: 09/22/2018 PROCEDURE: Echocardiogram. FINDINGS: 1. Left ventricular chamber size is [id number] dilated. Left ventricular systolic function is severely depressed. Overall ejection fraction estimated 20%. 2. Left atrium is within normal limits at 3 cm. Right atrium and right ventricular chamber sizes are severely dilated. ECHOCARDIOGRAM REPORT [id number] GUSTABO STUART 3. Valvular structures: Aortic valve demonstrates [id number] calcific aortic stenosis, valve area calculates to 1.1 cm-squared with a gradient of 29 mm across the valve. The remaining valvular structures have normal structure and motion. 4. Doppler interrogation reveals moderate tricuspid regurgitation, no other valvular insufficiency or stenosis. Pulmonary systolic pressure is estimated at 70 mmHg. 5. Small pericardial effusion is present. This is not hemodynamically significant. TRANSINT:[id number] Voice Confirmation ID: [id number] DOCUMENT ID: [id number] KORY FATIMA MD at 1059 CC: [id number] DICTATION DATE: 09/25/181200 NEWSPAPER PEDDLER: 09/25/18 120 ADM IN [place] [id number] [place] [id number]
--- NOTE | ~2018-09-19 | MORECARE ---
CASE MANAGEMENT DISCHARGE SUMMARY PATIENT: GUSTABO STUART UNIT: [id number] ADM DATE: 09/19/18 AGE: 68 : 50 SEX: F ROOM/BED: D.6503 AUTHOR: LAWRENCE,DOC PHYSICIAN: REFERRING PHYSICIAN: JENNIFER DICKEY MD DATE OF SERVICE: 10/03/18 Discharge Plan Patient Name: GUSTABO STUART Facility: [facility]:[place] : 1950 Planned Disposition: Nursing Facility [facility] Cert Anticipated Discharge Date: 09/30/18 Discharge Date: Expected LOS: 11 Initial Reviewer: [id number] Initial Review Date: 09/19/2018 Generated: 10/03/18 4:38 pm Comments DCP- Discharge Planning Updated by [id number]: Dick Randle on 10/02/18 3:[address] Patient Name: GUSTABO STUART Encounter No: [id number] : 1950 Primary Insurance: MEDICARE A & B Anticipated DC Date: 09-30-2018 Planned Disposition: Nursing Facility [facility] Cert External Planned Provider: [facility] [place], LONG TERM CARE MEDICAID BED DCP follow-up note: CM CALLED ELZBIETA OF [facility], , WAS INFORMED THEY DO NOT HAVE ANY REQUEST TO ARRANGE OUTPATIENT DIALYSIS CLINIC ARRANGEMENT. CM FAXED ADMISSIONS INTAKE FORM WITH INITIAL DOCUMENTS TO [facility] AT [phone]. CM NOTIFIED MERLYN OF [facility] IN [place], [facility], , OF NEED FOR OUTPATIENT DIALYSIS; CM WAS ADVISED THAT PT WILL NEED TO BE ABLE TO TRANSFER TO WHEELCHAIR AND CHAIR WELL BE ABLE TO TOLERATE SITTING IN CHAIR FOR THREE HOURS OF DIALYSIS. THE CENTER PREFERS MWF, MORNING SCHEDULE. CM WAITING FOR OUTPATIENT DIALYSIS CLINIC ARRANGEMENT. NOTE THAT PT WILL HAVE TO BE ABLE TO TRANSFER TO CHAIR AND SIT IN CHAIR FOR THREE HOURS FOR OUTPATIENT CLINIC PARTICIPATION. FOR DISCHARGE, FAX DISCHARGE INFORMATION TO [facility] IN [place], ; NURSE REPORT TO BE CALLED TO [phone]. PT TO TRANSPORT VIA AMBULANCE. Shelter Monitor: Dick Randle Appended by Dick Randle on 10/02/2018 16:49 MANAGING CONSULTANT: CM RECEIVED CALL FROM LANRE OF [facility] ADMISSIONS; [facility] IS NOT CERTIFIED FOR LIFT AND HAS NO AVAILABLE OPENINGS AT THIS TIME. [facility] IS LIFT CERTIFIED BUT HAS NO AVAILABLE OPENINGS. LANRE WILL SEND REFERRAL TO [facility] IN [place] BUT THEY ONLY HAVE TTS SLOTS AVAILABLE. LANRE WILL ESCULATE REFERRAL FOR [facility] ARRANGMENT IN [place] THAT A CHAIR BECOMES AVAILABLE AND PT WILL NOT REQUIRE LIFT TRANSFER. PT WILL NEED TO BE ABLE TO TRANSFER FROM BED TO CHAIR AND WILL ALSO NEED TO BE ABLE TO SIT SAFELY FOR TRANSPORT AND 3 HOURS OF DIALYSIS TREATMENT FOR OUTPATIENT DIALYSIS CLINIC ARRANGEMENT. DICK RANDLE, CASE MANAGEMENT DCP- Discharge Planning Updated by [id number]: Dick Randle on 09/29/18 12:[address] Patient Name: GUSTABO STUART Encounter No: [id number] : 1950 Primary Insurance: MEDICARE A & B Anticipated DC Date: 09-30-2018 Planned Disposition: Nursing Facility [facility] External Planned Provider: [facility], LONG TERM CARE MEDICAID BED DCP follow-up note: CM RECEIVED ORDER FOR OUTPATIENT DIALYSIS CLINIC ARRANGEMENT; RN JAIMIE HAMMONDS HAS INFORMED ROGE MONAE OF [facility] FOR OUTPATIENT DAILYSIS CLINIC ARRANGEMENT IN [place]. JAIMIE FAXED UPDATE TO MERLYN OF [facility] IN [place], [facility], . ROGE INFORMED CM THAT PT NEEDS PERM DIALYSIS CATHETER AND AN ACCURATE WEIGHT. PT HAS ORDERS FOR CATHETER, CM NOTIFIED BEDSIDE NURSE OF NEED FOR ACCURATE WEIGHT; PT IS BED CONFINED AND ON SPECIALTY BED AT THIS TIME. CM WAITING FOR DIALYSIS CATHETER PLACEMENT WELL OUTPATIENT DIALYSIS CLINIC ARRANGEMENT. FOR DISCHARGE, FAX DISCHARGE INFORMATION TO [facility] IN [place], ; NURSE REPORT TO BE CALLED TO [phone]. PT TO TRANSPORT VIA AMBULANCE. Shelter Monitor: Dick Randle DCP- Discharge Planning Updated by [id number]: Dick Randle on 09/26/18 4:[address] Patient Name: GUSTABO STUART Admission Status: Elective Accout number: [id number] Admission Date: 09-19-2018 : 1950 Admission Diagnosis:ACUTE RESPIRATORY FAILURE WITH HYPOXIA Attending: JENNIFER DICKEY Current LOS: 7 Anticipated DC Date: Planned Disposition: Nursing Facility [facility] Cert Primary Insurance: MEDICARE A & B PLANNED EXTERNAL PROVIDER: [facility] [place], LONG TERM CARE MEDICAID BED Discharge Planning Comments: CM MET WITH PT IN ROOM TO DISCUSS DISCHARGE PLANNING AND NEEDS. PT REPORTS LIVING AT A DETENTION IN [place], SHE CANNOT REMEMBER THE NAME OF THE PLACE. PT REPORTS BEING CONFINED TO BED BUT THE FACILITY HAS A LIFT TO TONSORIAL ARTIST PT TO A WHEELCHAIR. PT REPORTS HAVING BIPAP, NEBULIZER AND OXYGEN AT THE FACILITY. PT REPORTS HAVING ASSISTANCE WITH EVERYTHING BUT EATING, WHICH SHE DOES HERSELF. PT ASKED THAT IF FAMILY CALLS, TELL THEM TO BRING HER CLOTHES AND CELL PHONE. CM DISCUSSED AVAILABILITY OF HOME HEALTH, REHAB SERVICES AND MEDICAL EQUIPMENT. PT DENIES DISCHARGE NEEDS, REPORTS SHE WILL DISCHARGE BACK TO FACILITY WHERE SHE LIVES. CM CALLED [facility] IN [place], ; CM SPOKE TO MERLYN WHO REPORTS PT IS IN ALCOHOL STILL OPERATOR CARE AND PROVIDED EMERGENCY CONTACT INFORMATION FOR PT'S FAMILY MEMBERS; CM NOTED IN CASE MANAGEMENT ASSESSMENT CHECKLIST. MERLYN VERIFIED PT HAS OXYGEN, NEBULUZER AND BIPAP IN FACILITY, THEY WILL ACCEPT BACK FOR CONTINUED ALCOHOL STILL OPERATOR CARE AT HOSPITAL DISCHARGE. FOR DISCHARGE, FAX DISCHARGE INFORMATION TO [facility] IN [place], ; NURSE REPORT TO BE CALLED TO [phone]. PT TO TRANSPORT VIA AMBULANCE. Shelter Monitor: Dick Randle DCP- Discharge Planning Updated by [id number]: Jenny Al on 09/23/18 3:[address] CM attempted to visit with patient. Patient is currently on BiPap and getting dialysis at this time. She is unable to speak with me at this time. No family available at this time. CM will continue to follow and assist as needed with discharge planning / needs. DCPIA - Discharge Planning Initial Assessment Updated by [id number]: Dick Randle on 09/26/18 4:23 pm * Is the patient Alert and Oriented? Yes * How many steps to enter\exit or inside your home? NONE * PCP [facility], FAMILY [facility]YER * Pharmacy [facility] (INTERMEDIATE FACILITY) * Preadmission Environment Custodial Long Term * Facility Name [facility] T [phone] * ADLs Partial Dependent * Partial ADLs (Assistance needed) Bathing Dressing Medication Management Toileting Transfers * Equipment BIPAP Hospital Bed Fannie Lift Nebulizer Oxygen Wheelchair * Other Equipment ALL MEDICAL EQUIPMENT PROVIDED BY FACILITY * List name and contact numbers for known caregivers / representatives who currently or will assist patient after discharge: EDGARD JEREZ, MOTHER IN LAW, KAVEH CASILLAS, DTR, NICK SAUER, SPOUSE, * Verbal permission to speak to the caregivers and representatives has been obtained from the patient. Yes * Community resources currently utilized None * Please name any agencies selected above. NONE * Additional services required to return to the preadmission environment? No * Can the patient safely return to the preadmission environment? Yes * Has this patient been hospitalized within the prior 30 days at any hospital? No External Providers External Provider: Jannette Robertson [facility] Next Contact Date: 10/03/2018 Service Request Date: Service Type: Resolution: Reviewer: Comments: Last DP export: 10/03/18 2:11 p Patient Name: GUSTABO STUART Page [id number] at [id number] All edits/amendments must be made on the electronic document DICTATION DATE: 10/03/181536 COMPOUND COATING MACHINE OFFBEARER: HELDER 10/03/181536 RPT#: [id number] DC DATE: STATUS: ADM IN [facility] [address] [place] [address] END OF REPORT
--- NOTE | ~2018-09-19 | MORECARE ---
CASE MANAGEMENT DISCHARGE SUMMARY PATIENT: GUSTABO STUART UNIT: [id number] ADM DATE: 09/19/18 AGE: 68 : 50 SEX: F ROOM/BED: D.5614 AUTHOR: LAWRENCE,DOC PHYSICIAN: REFERRING PHYSICIAN: JENNIFER DICKEY MD DATE OF SERVICE: 10/22/18 Discharge Plan Patient Name: GUSTABO STUART Facility: [facility] : 1950 Planned Disposition: Nursing Facility [facility] Cert Anticipated Discharge Date: 10/21/18 Discharge Date: Expected LOS: 32 Initial Reviewer: [id number] Initial Review Date: 09/19/2018 Generated: 10/22/18 11:35 am Comments DCP- Discharge Planning Updated by [id number]: Dick Oliveros on 10/22/18 9:[address] Patient Name: GUSTABO STUART Encounter No: [id number] : 1950 Primary Insurance: MEDICARE A & B Anticipated DC Date: 10-21-2018 Planned Disposition: Nursing Facility [facility] Cert External Planned Provider: [facility], PRISON CARE MEDICAID BED CM SPOKE TO [facility]GE [facility] 10-21-18 WHO INFORMED CM THAT DIALYSIS UNIT STILL ASSESSING FOR ADMISSION AND REQUESTED FURHTER DOCUMENTATION WHICH ROGE FAXED FOR REVIEW. ON 10-21-18, CM SENT MESSAGE TO [facility] REQUESTING UPDATE ON DIALYSIS UNIT PLACEMENT AND SCHEDULE. ROGE CALLED CM, INFORMED CM THAT THE DIALYSIS DOCTOR DID NOT COMPLETE REVIEW YESTERDAY, ROGE HAS CALLED AND ASKED FOR REVIEW AND DETERMINATION TODAY. [facility] IN [facility] ACCEPTS PT. CM WAITING DAILYSIS CLINIC ACCEPTANCE AND SCHEDULE. WHEN CLINIC ARRANGEMENT CONFIRMED, FAX DISCHARGE INFORMATION TO [facility] AT [phone]. CALL NURSE REPORT TO [facility] AT [phone]. PT TO TRANSPORT VIA AMBULANCE DUE TO STAGE 2 PRESSURE ULCER ON COCCYX. DICK OLIVEROS CASE MANAGEMENT DCP- Discharge Planning Updated by [id number]: Dick Oliveros on 10/20/18 4:[address] Patient Name: GUSTABO STUART Encounter No: [id number] : 1950 Primary Insurance: MEDICARE A & B Anticipated DC Date: 10-21-2018 Planned Disposition: Nursing Facility [facility] Cert External Planned Provider:[facility] [place], LONG TERM CARE MEDICAID BED CM RECEIVED CALL FROM LAURENCE OF [facility], , WHO ADVISED THAT [facility] WILL ACCEPT PT, TOMORROW, 10-21-18, IF APPROVED BY [facility] FOR OUTPATIENT DIALYSIS. LAURENCE ADVISED THAT THE [facility] IS NOW COMMUNICATING WITH THE DIALYSIS UNIT. CM SENT MESSAGE TO [facility] REQUESTING UPDATE ON DIALYSIS UNIT PLACEMENT AND SCHEDULE. PT NOTIFIED AND IN AGREEMENT WITH DISCHARGE TO [facility] SOON POSSIBLE. [facility] IN [facility] ACCEPTS PT. CM WAITING DAILYSIS CLINIC ACCEPTANCE AND SCHEDULE. WHEN CLINIC ARRANGEMENT CONFIRMED, FAX DISCHARGE INFORMATION TO [facility] AT [phone]. CALL NURSE REPORT TO [facility] AT [phone]. PT TO TRANSPORT VIA AMBULANCE DUE TO STAGE 2 PRESSURE ULCER ON COCCYX. DICK OLIVEROS, CASE MANAGEMENT DCP- Discharge Planning Updated by [id number]: Dick Oliveros on 10/20/18 8:[address] Patient Name: GUSTABO STUART Encounter No: [id number] : 1950 Primary Insurance: MEDICARE A & B Anticipated DC Date: 10-15-2018 Planned Disposition: Nursing Facility [facility] Cert External Planned Provider: [facility] [place] [place], LONG TERM CARE MEDICAID BED CM LEFT MESSAGE FOR LAURENCE [facility] IN [place], , AND ADVISED THAT PT HAS CONTINUED TO DEMONSTRATE ABILITY TO TRANSFER TO CHAIR AND SIT FOR OVER 4 HOURS. CM FAXED UPDATE TO [facility] VIA LAURENCE AT [phone]. [facility] IS REVIEWING FOR PLACEMENT; THEY DO HAVE FANNIEKAMLA SAUCEDA WORKING ON OUTPATIENT DIALYSIS [facility]EMENT [facility], THEY ALSO HAVE A LIFT. CM WAITING ON DETERMINATIONS FROM BOTH. DICK OLIVEROS CASE MANAGEMENT DCP- Discharge Planning Updated by [id number]: Dick Oliveros on 10/15/18 11:[address] Patient Name: GUSTABO STUART Encounter No: [id number] : 1950 Primary Insurance: MEDICARE A & B Anticipated DC Date: 10-15-2018 Planned Disposition: Nursing Facility [facility] Cert External Planned Provider: [facility]; LONG TERM CARE MEDICAID BED DCP follow-up note: CM CALLED LAURENCE OF [facility] IN [place], , AND ADVISED THAT PT HAS DEMONSTRATED ABILITY TO TRANSFER TO CHAIR AND SIT FOR OVER 4 HOURS. CM SPOKE TO HOMER OF [facility] ADMISSIONS AND PROVIDED UPDATE FOR [facility] IN [place] CM SPOKE TO ROGE MONAE OF [facility] WHO WILL COMMUNICATE WITH [facility] ADMISSIONS WELL [facility] AND PROVIDED UPDATED INFORMATION TO BOTH FROM MEDICAL CHART. CM SPOKE TO PT IN ROOM WHO IS STILL WILLING FOR PLACEMENT IN [place] AT [facility] AND WAS HOPING TO BE OUT OF THE HOSPITAL FOR THANKSGIVING. IMPORTANT MESSAGE FROM MEDICARE PROVIDED AND EXPLAINED. CM FAXED UPDATE TO [facility] IN [place] VIA LAURENCE AT [phone]. [facility] IN [facility] IS REVIEWING FOR PLACEMENT; THEY DO HAVE FANNIE LIFT. DAVITA ADMISSIONS WORKING ON OUTPATIENT DIALYSIS ARRANGEMENT AT [facility] IN [place], THEY ALSO HAVE A LIFT. CM WAITING ON DETERMINATIONS FROM BOTH. DICK OLIVEROS CASE MANAGEMENT DCP- Discharge Planning Updated by [id number]: Dick Oliveros on 10/13/18 2:[address] Patient Name: GUSTABO STUART Encounter No: [id number] : 1950 Primary Insurance: MEDICARE A & B Anticipated DC Date: 09-30-2018 Planned Disposition: Nursing Facility [facility] Cert External Planned Provider: [facility]; LONG TERM CARE MEDICAID BED DCP follow-up note: CM [facility] [place], , WHO ADVISED THAT [facility] MAY ACCEPT BUT PT WILL NEED TO DEMONSTRATE ABILITY TO TRANSFER TO WHEELCHAIR AND SIT FOR 3 HOURS OF DIALYSIS. [facility] HAS LIFT AVAILABLE. CM SPOKE TO RADHA OF [facility] ADMISSIONS WHO REPORTS THEY WERE WORKING ON [facility] IN [place] BUT WILL SEND REFERRAL TO [facility] IN [place] THAT HAS LIFT AND MWF SCHEDULING CAPABIILITY. CM SPOKE TO PT IN ROOM WHO IS WILLING FOR PLACEMENT IN [place] TO BE CLOSER TO FAMILY IF SHE CANNOT RETURN TO [place] WHERE SHE WAS LIVING AT [facility]. CM FAXED UPDATE TO [facility] VIA [employer] AT [phone]. CM SPOKE TO MARIEL OF PHYSICAL THERAPY WHO VERIFIED PT HAS BEEN UP TO SIDE OF BED BUT THEY ARE NOT ABLE TO GET PT UP TO CHAIR THEY DO NOT HAVE A LIFT. CM SPOKE TO CM SIZE MARKER KAYLEE REGARDING LACK OF LIFT CAPABILITY THIS IS AN OBSTACLE TO PLACEMENT IN ANY FACILITY PT WILL NEED OUTPATIENT DIALYSIS AND MUST BE ABLE TO DEMONSTRATE ABILITY TO SIT FOR DURATION OF TRANSPORT AND DIALYSIS SESSION. CM WAITING PT TO DEMONSTRATE ABILITY TO TRANSFER AND SIT FOR DURATION OF TRANSPORTATION WELL FOR THREE HOURS OF DIALYSIS TREATMENT, WITH OR WITHOUT A LIFT. [facility] IN [facility] WILL REVIEW FOR PLACEMENT IF PT IS ABLE TO SIT FOR TRANSPORT AND DIALYSIS; THEY DO HAVE FANNIE LIFT. [facility] ADMISSIONS WORKING ON OUTPATIENT DIALYSIS ARRANGEMENT AT [facility] IN [place], THEY ALSO HAVE A LIFT. DICK OLIVEROS, CASE MANAGEMENT Appended by Dick Oliveros on 10/13/2018 15:31 MIXING AND MOLDING MACHINE OPERATOR: CM RECEIVED CALL FROM KRISTIAN OF [facility], , WHO ASKED FOR FAXED UPDATE. CM FAXED UPDATE TO [facility] WITH DIALYSIS RUN SHEETS THRU 10-11-18. CM FAXED UPDATE TO LAURENCE OF [facility] WITH OCCUPATIONAL THERAPY NOTE INDICATING PT HAS BEEN OUT OF BED TO CHAIR. CM TO CONTINUE TO FOLLOW AND ASSIST NEEDED. CM WAITING PT TO DEMONSTRATE ABILITY TO TRANSFER AND SIT FOR DURATION OF TRANSPORTATION WELL FOR THREE HOURS OF DIALYSIS TREATMENT, WITH OR WITHOUT A LIFT. [facility] WILL REVIEW FOR PLACEMENT IF PT IS ABLE TO SIT FOR TRANSPORT AND DIALYSIS; THEY DO HAVE FNANIE LIFT. DESTIN SAUCEDA WORKING ON OUTPATIENT DIALYSIS ARRANGEMENT AT [facility] IN [place], THEY ALSO HAVE A LIFT. DICK OLIVEROS, CASE MANAGEMENT DCP- Discharge Planning Updated by [id number]: Jenny Servando on 10/10/18 6:[address] Late Entry 10/10/18 @ 0900 PT and OT still working with patient to get out of bed to sit in chair. Patient has to be able to sit in wheelchair and be transported to dialysis and sit in dialysis chair for 3-4hrs. CM will continue to follow and assist as needed with discharge planning / needs. DCP- Discharge Planning Updated by [id number]: Jenny Al on 10/07/18 3:[address] CM spoke with Roge Monae this am. Roge stated we are at standstill until we find NH placement. Once we have NH placement then we can proceed with dialysis placement. CM spoke with patients daughter since patient isn't able to stay awake and communicate. Daughter Fran Tinajero "Nkechi" [phone]. Daughter stated that she would like NH placement as close to [place] as possible. CM explained that we would have to find placement that has fannie lift at both NH and dialysis clinic. Daughter stated that [place] was the next closest town. CM contacted [facility] in [place] [phone]. Laurence Garcia clinical Liaison [phone] fax [phone]. CM spoke with Laurence and explained situation and faxed records. Laurence stated she would be here to see patient in am. CM will continue to follow and assist as needed with discharge planning / needs. DCP- Discharge Planning Updated by [id number]: Jenny Al on 10/07/18 9:[address] CM spoke with Roge Monae this am. She stated that she had been out of the office but now was back. Roge stated that she would speak to Radha and would take care of everything from this point with placement for dialysis. CM will continue to follow and assist as needed with discharge planning / needs. DCP- Discharge Planning Updated by [id number]: Jenny Al on 10/07/18 9:[address] Late Entry 10/06/18 @ 1600 JAIMIE spoke with Radha with [facility]. Radha stated she needed clarification on patients name. Radha stated she needed dialysis flowsheets from last three treatments faxed to her. Radha stated that she was trying to get placement at [facility] dialysis clinic. CM will continue to follow and assist as needed with discharge planning / needs. DCP- Discharge Planning Updated by [id number]: Dick Salamancawell on 10/03/18 3:[address] Patient Name: GUSTABO STUART Encounter No: [id number] : 1950 Primary Insurance: MEDICARE A & B Anticipated DC Date: 09-30-2018 Planned Disposition: Nursing Facility [facility] Cert External Planned Provider: TO BE DETERMINED DCP follow-up note: CM RECEIVED CALL FROM NAYANA OF [facility], THEY ONLY HAVE TTS AVAILABLE AND HAVE TALKED TO [facility] GRAINER MACHINE WHO INFORMED THEM THAT THEY ARE NOT GOING TO DRIVE PT AN HOUR AWAY FOR DIALYSIS FROM THE [facility]. CM SPOKE TO AUDI AT [facility] WHO INFORMED CM THAT THEY ARE GOING TO HAVE A SISTER FACILITY REPRESENTIVE CONTACT CM TO ASSIST IN PLACING PT IN [place] SO THAT PT CAN GO TO A FACILITY THAT HAS CAPABILITY OF FANNIE LIFT AND TO A DILAYSIS UNIT THAT HAS CAPABILITY OF FANNIE LIFT. CM SPOKE TO PT IN ROOM, DISCUSSED MOVING TO ANOTHER [facility], PT REPORTS SHE WILL TRY WITH THERAPY AND IS WILLING FOR NEW [facility] IF NEEDED, CHOICE SIGNED FOR [facility] AND [facility]. CM DISCUSSED LTACH, PT ALSO IN AGREEMENT WITH LTACH AT [facility] IF IT WILL HELP GET HER HOME SOONER. CM CALLED AND SPOKE TO LAITH OF [facility], , DISCUSSED NEED FOR REHAB, WOUND CARE AND DIALYSIS WITH GOAL TO SIT FOR DIALYSIS IN OUTPATIENT SETTING TO RETURN TO A [facility] FOR CONTINUED PRISON CARE. REFERRAL FAXED TO [facility] AT [phone]. CM CALLED AND SPOKE TO BECKY DEL CASTILLO, , OF [facility], REPRESENTING [facility] AND [facility] GROUP [facility] FACILITIES. THEY CONTACT WITH [facility] AND DO NOT HAVE ONE WITH [facility]. THEY WILL SCREEN PT FOR THEIR HOMES, BUT PT WILL HAVE TO HAVE CAPACITY TO SIT IN CHAIR FOR THREE HOURS OF OUTPATIENT DIALYSIS AND TRANSPORTATION. CM FAXED REFERRAL TO [facility] [phone]. PT WILL NEED TO BE ABLE TO TRANSFER FROM BED TO CHAIR AND WILL ALSO NEED TO BE ABLE TO SIT SAFELY FOR TRANSPORT AND 3 HOURS OF DIALYSIS TREATMENT FOR OUTPATIENT DIALYSIS CLINIC ARRANGEMENT. CM WAITING ON [facility] EVALUATIONS FOR ADMISSION, [facility] EVALUATION FOR ADMISSION AND WILL NEED TO SEND APPLICATION FOR [facility] FOR DIALYSIS UNIT CONSIDERATION AND TO FIND OUT IF THEY HAVE FANNIE LIFT CAPABILITY. DICK OLIVEROS, CASE MANAGEMENT DCP- Discharge Planning Updated by [id number]: Dick Oliveros on 10/02/18 3:[address] Patient Name: GUSTABO STUART Encounter No: [id number] : 1950 Primary Insurance: MEDICARE A & B Anticipated DC Date: 09-30-2018 Planned Disposition: Nursing Facility [facility] Cert External Planned Provider: [facility], [place], POLISHING WHEEL REPAIRER CARE MEDICAID BED DCP follow-up note: CM CALLED ELZBIETA OF [facility], , WAS INFORMED THEY DO NOT HAVE ANY REQUEST TO ARRANGE OUTPATIENT DIALYSIS CLINIC ARRANGEMENT. CM FAXED ADMISSIONS INTAKE FORM WITH INITIAL DOCUMENTS TO [facility] AT [phone]. CM NOTIFIED MERLYN OF [facility] IN [place], [facility], , OF NEED FOR OUTPATIENT DIALYSIS; CM WAS ADVISED THAT PT WILL NEED TO BE ABLE TO TRANSFER TO WHEELCHAIR AND CHAIR WELL BE ABLE TO TOLERATE SITTING IN CHAIR FOR THREE HOURS OF DIALYSIS. THE CENTER PREFERS MWF, MORNING SCHEDULE. CM WAITING FOR OUTPATIENT DIALYSIS CLINIC ARRANGEMENT. NOTE THAT PT WILL HAVE TO BE ABLE TO TRANSFER TO CHAIR AND SIT IN CHAIR FOR THREE HOURS FOR OUTPATIENT CLINIC PARTICIPATION. FOR DISCHARGE, FAX DISCHARGE INFORMATION TO [facility] IN [place], ; NURSE REPORT TO BE CALLED TO [phone]. PT TO TRANSPORT VIA AMBULANCE. Gas Engine Operator: Dick Oliveros Appended by Dick Oliveros on 10/02/2018 16:49 MIXING AND MOLDING MACHINE OPERATOR: CM RECEIVED CALL FROM RADHA OF [facility]; [facility] IS NOT CERTIFIED FOR LIFT AND HAS NO AVAILABLE OPENINGS AT THIS TIME. [facility] IS LIFT CERTIFIED BUT HAS NO AVAILABLE OPENINGS. RADHA WILL SEND REFERRAL TO [facility] IN [place] BUT THEY ONLY HAVE TTS SLOTS AVAILABLE. RADHA WILL ESCULATE REFERRAL FOR [facility] ARRANGMENT IN [place] THAT A CHAIR BECOMES AVAILABLE AND PT WILL NOT REQUIRE LIFT TRANSFER. PT WILL NEED TO BE ABLE TO TRANSFER FROM BED TO CHAIR AND WILL ALSO NEED TO BE ABLE TO SIT SAFELY FOR TRANSPORT AND 3 HOURS OF DIALYSIS TREATMENT FOR OUTPATIENT DIALYSIS CLINIC ARRANGEMENT. DICK OLIVEROS, CASE MANAGEMENT DCP- Discharge Planning Updated by [id number]: Dick Oliveros on 09/29/18 12:[address] Patient Name: GUSTABO STUART Encounter No: [id number] : 1950 Primary Insurance: MEDICARE A & B Anticipated DC Date: 09-30-2018 Planned Disposition: Nursing Facility [facility] Cert External Planned Provider: [facility] [place], LONG TERM CARE MEDICAID BED DCP follow-up note: CM RECEIVED ORDER FOR OUTPATIENT DIALYSIS CLINIC ARRANGEMENT; RN JAIMIE HAMMONDS HAS INFORMED ROGE MONAE OF [facility] FOR OUTPATIENT DAILYSIS CLINIC ARRANGEMENT IN [place]. JAIMIE FAXED UPDATE TO MERLYN OF [facility] IN [place], [facility], . ROGE INFORMED CM THAT PT NEEDS PERM DIALYSIS CATHETER AND AN ACCURATE WEIGHT. PT HAS ORDERS FOR CATHETER, CM NOTIFIED BEDSIDE NURSE OF NEED FOR ACCURATE WEIGHT; PT IS BED CONFINED AND ON SPECIALTY BED AT THIS TIME. CM WAITING FOR DIALYSIS CATHETER PLACEMENT WELL OUTPATIENT DIALYSIS CLINIC ARRANGEMENT. FOR DISCHARGE, FAX DISCHARGE INFORMATION TO [facility] IN [place], ; NURSE REPORT TO BE CALLED TO [phone]. PT TO TRANSPORT VIA AMBULANCE. Gas Engine Operator: Dick Oliveros DCP- Discharge Planning Updated by [id number]: Dick Oliveros on 09/26/18 4:[address] Patient Name: GUSTABO STUART Admission Status: Elective Accout number: [id number] Admission Date: 09-19-2018 : 1950 Admission Diagnosis:ACUTE RESPIRATORY FAILURE WITH HYPOXIA Attending: JENNIFER DICKEY Current LOS: 7 Anticipated DC Date: Planned Disposition: Nursing Facility [facility] Cert Primary Insurance: MEDICARE A & B PLANNED EXTERNAL PROVIDER: [facility] [place], LONG TERM CARE MEDICAID BED Discharge Planning Comments: CM MET WITH PT IN ROOM TO DISCUSS DISCHARGE PLANNING AND NEEDS. PT REPORTS LIVING AT A [facility] IN [place], SHE CANNOT REMEMBER THE NAME OF THE PLACE. PT REPORTS BEING CONFINED TO BED BUT THE FACILITY HAS A LIFT TO EQUIPMENT MAINTENANCE TECH PT TO A WHEELCHAIR. PT REPORTS HAVING BIPAP, NEBULIZER AND OXYGEN AT THE FACILITY. PT REPORTS HAVING ASSISTANCE WITH EVERYTHING BUT EATING, WHICH SHE DOES HERSELF. PT ASKED THAT IF FAMILY CALLS, TELL THEM TO BRING HER CLOTHES AND CELL PHONE. CM DISCUSSED AVAILABILITY OF HOME HEALTH, REHAB SERVICES AND MEDICAL EQUIPMENT. PT DENIES DISCHARGE NEEDS, REPORTS SHE WILL DISCHARGE BACK TO FACILITY WHERE SHE LIVES. CM CALLED [facility] IN [place], [facility] [place] [facility], ; CM SPOKE TO MERLYN WHO REPORTS PT IS IN PRISON CARE AND PROVIDED EMERGENCY CONTACT INFORMATION FOR PT'S FAMILY MEMBERS; CM NOTED IN CASE MANAGEMENT ASSESSMENT CHECKLIST. MERLYN VERIFIED PT HAS OXYGEN, NEBULUZER AND BIPAP IN FACILITY, THEY WILL ACCEPT BACK FOR CONTINUED PRISON CARE AT HOSPITAL DISCHARGE. FOR DISCHARGE, FAX DISCHARGE INFORMATION TO [facility] IN [place], ; NURSE REPORT TO BE CALLED TO [phone]. PT TO TRANSPORT VIA AMBULANCE. Gas Engine Operator: Dick Oliveros DCP- Discharge Planning Updated by [id number]: Jenny Al on 09/23/18 3:[address] CM attempted to visit with patient. Patient is currently on BiPap and getting dialysis at this time. She is unable to speak with me at this time. No family available at this time. CM will continue to follow and assist as needed with discharge planning / needs. DCPIA - Discharge Planning Initial Assessment Updated by [id number]: Dick Oliveros on 09/26/18 4:23 pm * Is the patient Alert and Oriented? Yes * How many steps to enter\\exit or inside your home? NONE * PCP [facility], PATIENT COORDINATOR * Pharmacy [facility]) * Preadmission Environment Information Systems Administrator Halfway * Facility Name [facility] T [phone] * ADLs Partial Dependent * Partial ADLs (Assistance needed) Bathing Dressing Medication Management Toileting Transfers * Equipment BIPAP Hospital Bed Fannie Lift Nebulizer Oxygen Wheelchair * Other Equipment ALL MEDICAL EQUIPMENT PROVIDED BY FACILITY * List name and contact numbers for known caregivers / representatives who currently or will assist patient after discharge: EDGARD CULPKEISHA, MOTHER IN LAW, KAVEH CASILLAS, DTR, NICK SAUER, SPOUSE, * Verbal permission to speak to the caregivers and representatives has been obtained from the patient. Yes * Community resources currently utilized None * Please name any agencies selected above. NONE * Additional services required to return to the preadmission environment? No * Can the patient safely return to the preadmission environment? Yes * Has this patient been hospitalized within the prior 30 days at any hospital? No Coverage Notice Reviewer: [id number] Oliveros Notice Issued Date-Time: 10/03/2018 11:30 Notice Type: Patient Choice Letter Notice Delivered To: Patient Relationship to Patient: Documentation Clerk Name: Delivery Method: HAND - Hand Delivered Veda Days: Prior Verbal Notification: Recipient Understood Notice: Recipient Signature: Med Rec Note Co-signed by Attending: Coverage Notice Comment: [place] Reviewer: [id number] Oliveros Notice Issued Date-Time: 10/15/2018 10:20 Notice Type: IM Discharge Notice Notice Delivered To: Patient Relationship to Patient: Documentation Clerk Name: Delivery Method: HAND - Hand Delivered Veda Days: Prior Verbal Notification: Recipient Understood Notice: Yes Recipient Signature: Yes Med Rec Note Co-signed by Attending: Coverage Notice Comment: Last DP export: 10/20/18 4:07 Patient Name: GUSTABO STUART Page [id number] at 1035 All edits/amendments must be made on the electronic document DICTATION DATE: 10/22/18 1035 BORDEREAU CLERK: HELDER 10/22/18 1035 RPT#: [id number] DC DATE: STATUS: ADM IN [facility] [address] [place] [address] END OF REPORT
--- NOTE | ~2018-09-19 | MORECARE ---
CASE MANAGEMENT DISCHARGE SUMMARY PATIENT: GUSTABO STUART UNIT: [id number] ADM DATE: 09/19/18 AGE: 68 : 50 SEX: F ROOM/BED: D.7644 AUTHOR: LAWRENCE,DOC PHYSICIAN: REFERRING PHYSICIAN: JENNIFER DICKEY MD DATE OF SERVICE: 10/03/18 Discharge Plan Patient Name: GUSTABO STUART Facility: [facility]:[place] : 1950 Planned Disposition: Nursing Facility KULWINDER Cert Anticipated Discharge Date: 09/30/18 Discharge Date: Expected LOS: 11 Initial Reviewer: [id number] Initial Review Date: 09/19/2018 Generated: 10/03/18 5:13 pm Comments DCP- Discharge Planning Updated by [id number]: Dick Randle on 10/03/18 3:[address] Patient Name: GUSTABO STUART Encounter No: [id number] : 1950 Primary Insurance: MEDICARE A & B Anticipated DC Date: 09-30-2018 Planned Disposition: Nursing Facility KULWINDER Cert External Planned Provider: TO BE DETERMINED DCP follow-up note: CM RECEIVED CALL FROM NAYANA OF [facility], THEY ONLY HAVE TTS AVAILABLE AND HAVE TALKED TO [facility] CONSTRUCTION MGR WHO INFORMED THEM THAT THEY ARE NOT GOING TO DRIVE PT AN HOUR AWAY FOR DIALYSIS FROM THE SKILLED NURSING. CM SPOKE TO AUDI AT [facility] WHO INFORMED CM THAT THEY ARE GOING TO HAVE A SISTER FACILITY REPRESENTIVE CONTACT CM TO ASSIST IN PLACING PT IN [place] SO THAT PT CAN GO TO A FACILITY THAT HAS CAPABILITY OF FANNIE LIFT AND TO A DILAYSIS UNIT THAT HAS CAPABILITY OF FANNIE LIFT. CM SPOKE TO PT IN ROOM, DISCUSSED MOVING TO ANOTHER SKILLED NURSING, PT REPORTS SHE WILL TRY WITH THERAPY AND IS WILLING FOR NEW SKILLED NURSING IF NEEDED, CHOICE SIGNED FOR KEANU JJ AT [facility]. CM DISCUSSED LTACH, PT ALSO IN AGREEMENT WITH LTACH AT [facility] IF IT WILL HELP GET HER HOME SOONER. CM CALLED AND SPOKE TO LAITH OF [facility], , DISCUSSED NEED FOR REHAB, WOUND CARE AND DIALYSIS WITH GOAL TO SIT FOR DIALYSIS IN OUTPATIENT SETTING TO RETURN TO A SKILLED NURSING FOR CONTINUED GROUP HOME CARE. REFERRAL FAXED TO [facility]RE[facility] YOU[facility] AT [phone]. CM CALLED AND SPOKE TO BECKY DEL CASTILLO, , OF [facility]. THEY CONTACT WITH [facility] AND DO NOT HAVE ONE WITH DAVITA. THEY WILL SCREEN PT FOR THEIR HOMES, BUT PT WILL HAVE TO HAVE CAPACITY TO SIT IN CHAIR FOR THREE HOURS OF OUTPATIENT DIALYSIS AND TRANSPORTATION. CM FAXED REFERRAL TO BECKY AT [phone]. PT WILL NEED TO BE ABLE TO TRANSFER FROM BED TO CHAIR AND WILL ALSO NEED TO BE ABLE TO SIT SAFELY FOR TRANSPORT AND 3 HOURS OF DIALYSIS TREATMENT FOR OUTPATIENT DIALYSIS CLINIC ARRANGEMENT. CM WAITING ON SKILLED NURSING EVALUATIONS FOR ADMISSION, [facility] EVALUATION FOR ADMISSION AND WILL NEED TO SEND APPLICATION FOR [facility] FOR DIALYSIS UNIT CONSIDERATION AND TO FIND OUT IF THEY HAVE FANNIE LIFT CAPABILITY. DICK RANDLE, CASE MANAGEMENT DCP- Discharge Planning Updated by [id number]: Dick Randle on 10/02/18 3:[address] Patient Name: GUSTABO STUART Encounter No: [id number] : 1950 Primary Insurance: MEDICARE A & B Anticipated DC Date: 09-30-2018 Planned Disposition: Nursing Facility KULWINDER Cert External Planned Provider: [facility], GROUP HOME CARE MEDICAID BED DCP follow-up note: CM CALLED ELZBIETA OF [facility] ADMISSIONS, , WAS INFORMED THEY DO NOT HAVE ANY REQUEST TO ARRANGE OUTPATIENT DIALYSIS CLINIC ARRANGEMENT. CM FAXED ADMISSIONS INTAKE FORM WITH INITIAL DOCUMENTS TO [facility] ADMISSIONS AT [phone]. CM NOTIFIED MERLYN OF [facility] IN [place], [facility], , OF NEED FOR OUTPATIENT DIALYSIS; CM WAS ADVISED THAT PT WILL NEED TO BE ABLE TO TRANSFER TO WHEELCHAIR AND CHAIR WELL BE ABLE TO TOLERATE SITTING IN CHAIR FOR THREE HOURS OF DIALYSIS. THE CENTER PREFERS MWF, MORNING SCHEDULE. CM WAITING FOR OUTPATIENT DIALYSIS CLINIC ARRANGEMENT. NOTE THAT PT WILL HAVE TO BE ABLE TO TRANSFER TO CHAIR AND SIT IN CHAIR FOR THREE HOURS FOR OUTPATIENT CLINIC PARTICIPATION. FOR DISCHARGE, FAX DISCHARGE INFORMATION TO [facility] IN [place], ; NURSE REPORT TO BE CALLED TO [phone]. PT TO TRANSPORT VIA AMBULANCE. Motor Scooter Repairer: Dick Randle Appended by Dick Randle on 10/02/2018 16:49 STUDENT DEVELOPMENT ADVISOR: CM RECEIVED CALL FROM LANRE OF [facility] ADMISSIONS; [facility] IS NOT CERTIFIED FOR LIFT AND HAS NO AVAILABLE OPENINGS AT THIS TIME. [facility] IS LIFT CERTIFIED BUT HAS NO AVAILABLE OPENINGS. LANRE WILL SEND REFERRAL TO [facility] IN [place] BUT THEY ONLY HAVE TTS SLOTS AVAILABLE. LANRE WILL ESCULATE REFERRAL FOR [facility] DIALYSIS ARRANGMENT IN [place] THAT A CHAIR BECOMES AVAILABLE AND PT WILL NOT REQUIRE LIFT TRANSFER. PT WILL NEED TO BE ABLE TO TRANSFER FROM BED TO CHAIR AND WILL ALSO NEED TO BE ABLE TO SIT SAFELY FOR TRANSPORT AND 3 HOURS OF DIALYSIS TREATMENT FOR OUTPATIENT DIALYSIS CLINIC ARRANGEMENT. DICK RANDLE, CASE MANAGEMENT DCP- Discharge Planning Updated by [id number]: Dick Randle on 09/29/18 12:[address] Patient Name: GUSTABO STUART Encounter No: [id number] : 1950 Primary Insurance: MEDICARE A & B Anticipated DC Date: 09-30-2018 Planned Disposition: Nursing Facility KULWINDER Cert External Planned Provider: [facility], [place], LONG TERM CARE MEDICAID BED DCP follow-up note: JAIMIE RECEIVED ORDER FOR OUTPATIENT DIALYSIS CLINIC ARRANGEMENT; RN JAIMIE HAMMONDS HAS INFORMED ROGE MONAE OF [facility] FOR OUTPATIENT DAILYSIS CLINIC ARRANGEMENT IN [place]. JAIMIE FAXED UPDATE TO MERLYN OF [facility] IN [place], . ROGE INFORMED JAIMIE THAT PT NEEDS PERM DIALYSIS CATHETER AND AN ACCURATE WEIGHT. PT HAS ORDERS FOR CATHETER, CM NOTIFIED BEDSIDE NURSE OF NEED FOR ACCURATE WEIGHT; PT IS BED CONFINED AND ON SPECIALTY BED AT THIS TIME. CM WAITING FOR DIALYSIS CATHETER PLACEMENT WELL OUTPATIENT DIALYSIS CLINIC ARRANGEMENT. FOR DISCHARGE, FAX DISCHARGE INFORMATION TO [facility] IN [place], ; NURSE REPORT TO BE CALLED TO [phone]. PT TO TRANSPORT VIA AMBULANCE. Motor Scooter Repairer: Dick Randle DCP- Discharge Planning Updated by [id number]: Dick Randle on 09/26/18 4:[address] Patient Name: GUSTABO STUART Admission Status: Elective Accout number: [id number] Admission Date: 09-19-2018 : 1950 Admission Diagnosis:ACUTE RESPIRATORY FAILURE WITH HYPOXIA Attending: JENNIFER DICKEY Current LOS: 7 Anticipated DC Date: Planned Disposition: Nursing Facility KULWINDER Cert Primary Insurance: MEDICARE A & B PLANNED EXTERNAL PROVIDER: [facility], [place], LONG TERM CARE MEDICAID BED Discharge Planning Comments: CM MET WITH PT IN ROOM TO DISCUSS DISCHARGE PLANNING AND NEEDS. PT REPORTS LIVING AT A SKILLED NURSING IN [place], SHE CANNOT REMEMBER THE NAME OF THE PLACE. PT REPORTS BEING CONFINED TO BED BUT THE FACILITY HAS A LIFT TO AIRCRAFT TOOL MAKER PT TO A WHEELCHAIR. PT REPORTS HAVING BIPAP, NEBULIZER AND OXYGEN AT THE FACILITY. PT REPORTS HAVING ASSISTANCE WITH EVERYTHING BUT EATING, WHICH SHE DOES HERSELF. PT ASKED THAT IF FAMILY CALLS, TELL THEM TO BRING HER CLOTHES AND CELL PHONE. CM DISCUSSED AVAILABILITY OF HOME HEALTH, REHAB SERVICES AND MEDICAL EQUIPMENT. PT DENIES DISCHARGE NEEDS, REPORTS SHE WILL DISCHARGE BACK TO FACILITY WHERE SHE LIVES. CM CALLED [facility] IN [place], ; CM SPOKE TO MERLYN WHO REPORTS PT IS IN GROUP HOME CARE AND PROVIDED EMERGENCY CONTACT INFORMATION FOR PT'S FAMILY MEMBERS; CM NOTED IN CASE MANAGEMENT ASSESSMENT CHECKLIST. MERLYN VERIFIED PT HAS OXYGEN, NEBULUZER AND BIPAP IN FACILITY, THEY WILL ACCEPT BACK FOR CONTINUED GROUP HOME CARE AT HOSPITAL DISCHARGE. FOR DISCHARGE, FAX DISCHARGE INFORMATION TO [facility] IN [place], ; NURSE REPORT TO BE CALLED TO [phone]. PT TO TRANSPORT VIA AMBULANCE. Motor Scooter Repairer: Dick Randle DCP- Discharge Planning Updated by [id number]: Jenny Al on 09/23/18 3:[address] CM attempted to visit with patient. Patient is currently on BiPap and getting dialysis at this time. She is unable to speak with me at this time. No family available at this time. CM will continue to follow and assist as needed with discharge planning / needs. DCPIA - Discharge Planning Initial Assessment Updated by [id number]: Dick Randle on 09/26/18 4:23 pm * Is the patient Alert and Oriented? Yes * How many steps to enter\exit or inside your home? NONE * PCP [facility], RESTAURANT FLOOR MANAGER * Pharmacy [facility]) * Preadmission Environment Policy Change Clerks Supervisor Usp * [phone] * ADLs Partial Dependent * Partial ADLs (Assistance needed) Bathing Dressing Medication Management Toileting Transfers * Equipment BIPAP Hospital Bed Fannie Lift Nebulizer Oxygen Wheelchair * Other Equipment ALL MEDICAL EQUIPMENT PROVIDED BY FACILITY * List name and contact numbers for known caregivers / representatives who currently or will assist patient after discharge: EDGARD JEREZ, MOTHER IN LAW, KAVEH CASILLAS, DTR, NICK SAUER, SPOUSE, * Verbal permission to speak to the caregivers and representatives has been obtained from the patient. Yes * Community resources currently utilized None * Please name any agencies selected above. NONE * Additional services required to return to the preadmission environment? No * Can the patient safely return to the preadmission environment? Yes * Has this patient been hospitalized within the prior 30 days at any hospital? No Coverage Notice Reviewer: [id number] Rex Randle Notice Issued Date-Time: 10/03/2018 11:30 Notice Type: Patient Choice Letter Notice Delivered To: Patient Relationship to Patient: Jig Worker Name: Delivery Method: HAND - Hand Delivered Veda Days: Prior Verbal Notification: Recipient Understood Notice: Recipient Signature: Med Rec Note Co-signed by Attending: Coverage Notice Comment: [email or web address]: [facility] Last DP export: 10/03/18 2:55 p Patient Name: GUSTABO STUART Page [id number] at 1613 All edits/amendments must be made on the electronic document DICTATION DATE: 10/03/18 161 EARTH BURNER: HELDER 10/03/18 161 RPT#: [id number] DC DATE: STATUS: ADM IN [facility] [address] [place] [address] END OF REPORT
--- NOTE | ~2018-09-19 | MORECARE ---
CASE MANAGEMENT DISCHARGE SUMMARY PATIENT: GUSTABO STUART UNIT: [id number] ADM DATE: 09/19/18 AGE: 68 : 50 SEX: F ROOM/BED: D.02 AUTHOR: LAWRENCE,DOC PHYSICIAN: REFERRING PHYSICIAN: JENNIFER DICKEY MD DATE OF SERVICE: 10/07/18 Discharge Plan Patient Name: GUSTABO STUART Facility: [facility]:[place] : 1950 Planned Disposition: Nursing Facility KULWINDER Cert Anticipated Discharge Date: 09/30/18 Discharge Date: Expected LOS: 11 Initial Reviewer: [id number] Initial Review Date: 09/19/2018 Generated: 10/07/18 11:48 am Comments DCP- Discharge Planning Updated by [id number]: Jenny Al on 10/07/18 9:[address] Late Entry 10/06/18 @ 1600 CM spoke with Radha with [facility]. Radha stated she needed clarification on patients name. Radha stated she needed dialysis flowsheets from last three treatments faxed to her. Radha stated that she was trying to get placement at [facility] dialysis clinic. CM will continue to follow and assist as needed with discharge planning / needs. DCP- Discharge Planning Updated by [id number]: Dick Randle on 10/03/18 3:[address] Patient Name: GUSTABO STUART Encounter No: [id number] : 1950 Primary Insurance: MEDICARE A & B Anticipated DC Date: 09-30-2018 Planned Disposition: Nursing Facility KULWINDER Cert External Planned Provider: TO BE DETERMINED DCP follow-up note: CM RECEIVED CALL FROM NAYANA OF [facility], THEY ONLY HAVE TTS AVAILABLE AND HAVE TALKED TO [facility] BIOMATERIALS ENGINEER WHO INFORMED THEM THAT THEY ARE NOT GOING TO DRIVE PT AN HOUR AWAY FOR DIALYSIS FROM THE LONG TERM. CM SPOKE TO AUDI AT [facility] WHO INFORMED CM THAT THEY ARE GOING TO HAVE A SISTER FACILITY REPRESENTIVE CONTACT CM TO ASSIST IN PLACING PT IN [place] SO THAT PT CAN GO TO A FACILITY THAT HAS CAPABILITY OF FANNIE LIFT AND TO A DILAYSIS UNIT THAT HAS CAPABILITY OF FANNIE LIFT. CM SPOKE TO PT IN ROOM, DISCUSSED MOVING TO ANOTHER LONG TERM, PT REPORTS SHE WILL TRY WITH THERAPY AND IS WILLING FOR NEW LONG TERM IF NEEDED, CHOICE SIGNED FOR [facility]. CM DISCUSSED LTACH, PT ALSO IN AGREEMENT WITH LTACH AT [facility] IF IT WILL HELP GET HER HOME SOONER. CM CALLED AND SPOKE TO LAITH OF [facility], , DISCUSSED NEED FOR REHAB, WOUND CARE AND DIALYSIS WITH GOAL TO SIT FOR DIALYSIS IN OUTPATIENT SETTING TO RETURN TO A LONG TERM FOR CONTINUED FPC CARE. REFERRAL FAXED TO [facility] AT [phone]. CM CALLED AND SPOKE TO BECKY MAGDALENE, , OF [facility], REPRESENTING [facility] AND [place] AT [facility] SENIOR CARE FACILITIES. THEY CONTACT WITH [facility] AND DO NOT HAVE ONE WITH DAVITA. THEY WILL SCREEN PT FOR THEIR HOMES, BUT PT WILL HAVE TO HAVE CAPACITY TO SIT IN CHAIR FOR THREE HOURS OF OUTPATIENT DIALYSIS AND TRANSPORTATION. CM FAXED REFERRAL TO BECKY AT [phone]. PT WILL NEED TO BE ABLE TO TRANSFER FROM BED TO CHAIR AND WILL ALSO NEED TO BE ABLE TO SIT SAFELY FOR TRANSPORT AND 3 HOURS OF DIALYSIS TREATMENT FOR OUTPATIENT DIALYSIS CLINIC ARRANGEMENT. CM WAITING ON LONG TERM EVALUATIONS FOR ADMISSION, [facility] EVALUATION FOR ADMISSION AND WILL NEED TO SEND APPLICATION FOR [facility] FOR DIALYSIS UNIT CONSIDERATION AND TO FIND OUT IF THEY HAVE FANNIE LIFT CAPABILITY. DICK RANDLE, CASE MANAGEMENT DCP- Discharge Planning Updated by [id number]: Dick Randle on 10/02/18 3:[address] Patient Name: GUSTABO STUART Encounter No: [id number] : 1950 Primary Insurance: MEDICARE A & B Anticipated DC Date: 09-30-2018 Planned Disposition: Nursing Facility KULWINDER Cert External Planned Provider: [facility], [place], LONG TERM CARE MEDICAID BED DCP follow-up note: JAIMIE CALLED ELZBIETA OF [facility] ADMISSIONS, , WAS INFORMED THEY DO NOT HAVE ANY REQUEST TO ARRANGE OUTPATIENT DIALYSIS CLINIC ARRANGEMENT. CM FAXED ADMISSIONS INTAKE FORM WITH INITIAL DOCUMENTS TO [facility] AT [phone]. JAIMIE NOTIFIED MERLYN OF [facility] IN [place], [facility], , OF NEED FOR OUTPATIENT DIALYSIS; CM WAS ADVISED THAT PT WILL NEED TO BE ABLE TO TRANSFER TO WHEELCHAIR AND CHAIR WELL BE ABLE TO TOLERATE SITTING IN CHAIR FOR THREE HOURS OF DIALYSIS. THE CENTER PREFERS MWF, MORNING SCHEDULE. CM WAITING FOR OUTPATIENT DIALYSIS CLINIC ARRANGEMENT. NOTE THAT PT WILL HAVE TO BE ABLE TO TRANSFER TO CHAIR AND SIT IN CHAIR FOR THREE HOURS FOR OUTPATIENT CLINIC PARTICIPATION. FOR DISCHARGE, FAX DISCHARGE INFORMATION TO [facility] IN [place], ; NURSE REPORT TO BE CALLED TO [phone]. PT TO TRANSPORT VIA AMBULANCE. Registrar Nurses' Registry: Dick Randle Appended by Dick Randle on 10/02/2018 16:49 COOKER OPERATOR: CM RECEIVED CALL FROM RADHA OF [facility]; [facility] IS NOT CERTIFIED FOR LIFT AND HAS NO AVAILABLE OPENINGS AT THIS TIME. [facility] IS LIFT CERTIFIED BUT HAS NO AVAILABLE OPENINGS. RADHA WILL SEND REFERRAL TO [facility] IN [place] BUT THEY ONLY HAVE TTS SLOTS AVAILABLE. RADHA WILL ESCULATE REFERRAL FOR [facility] DIALYSIS ARRANGMENT IN [place] THAT A CHAIR BECOMES AVAILABLE AND PT WILL NOT REQUIRE LIFT TRANSFER. PT WILL NEED TO BE ABLE TO TRANSFER FROM BED TO CHAIR AND WILL ALSO NEED TO BE ABLE TO SIT SAFELY FOR TRANSPORT AND 3 HOURS OF DIALYSIS TREATMENT FOR OUTPATIENT DIALYSIS CLINIC ARRANGEMENT. DICK RANDLE, CASE MANAGEMENT DCP- Discharge Planning Updated by [id number]: Dick Randle on 09/29/18 12:[address] Patient Name: GUSTABO STUART Encounter No: [id number] : 1950 Primary Insurance: MEDICARE A & B Anticipated DC Date: 09-30-2018 Planned Disposition: Nursing Facility KULWINDER Cert External Planned Provider: [facility], RELEASE ENGINEER CARE MEDICAID BED DCP follow-up note: JAIMIE RECEIVED ORDER FOR OUTPATIENT DIALYSIS CLINIC ARRANGEMENT; RN JAIMIE HAMMONDS HAS INFORMED ROGE MONAE OF PATIENT PATHWAYS FOR OUTPATIENT DAILYSIS CLINIC ARRANGEMENT IN [place]. JAIMIE FAXED UPDATE TO MERLYN OF [facility] IN [place], [facility], . ROGE INFORMED CM THAT PT NEEDS PERM DIALYSIS CATHETER AND AN ACCURATE WEIGHT. PT HAS ORDERS FOR CATHETER, CM NOTIFIED BEDSIDE NURSE OF NEED FOR ACCURATE WEIGHT; PT IS BED CONFINED AND ON SPECIALTY BED AT THIS TIME. CM WAITING FOR DIALYSIS CATHETER PLACEMENT WELL OUTPATIENT DIALYSIS CLINIC ARRANGEMENT. FOR DISCHARGE, FAX DISCHARGE INFORMATION TO [facility] IN [place], ; NURSE REPORT TO BE CALLED TO [phone]. PT TO TRANSPORT VIA AMBULANCE. Registrar Nurses' Registry: Dick Randle DCP- Discharge Planning Updated by [id number]: Dick Randle on 09/26/18 4:[address] Patient Name: GUSTABO STUART Admission Status: Elective Accout number: [id number] Admission Date: 09-19-2018 : 1950 Admission Diagnosis:ACUTE RESPIRATORY FAILURE WITH HYPOXIA Attending: JENNIFER DICKEY Current LOS: 7 Anticipated DC Date: Planned Disposition: Nursing Facility [facility] Primary Insurance: MEDICARE A & B PLANNED EXTERNAL PROVIDER: [facility], [place], RELEASE ENGINEER CARE MEDICAID BED Discharge Planning Comments: CM MET WITH PT IN ROOM TO DISCUSS DISCHARGE PLANNING AND NEEDS. PT REPORTS LIVING AT A LONG TERM IN [place], SHE CANNOT REMEMBER THE NAME OF THE PLACE. PT REPORTS BEING CONFINED TO BED BUT THE FACILITY HAS A LIFT TO BRICK PICKER PT TO A WHEELCHAIR. PT REPORTS HAVING BIPAP, NEBULIZER AND OXYGEN AT THE FACILITY. PT REPORTS HAVING ASSISTANCE WITH EVERYTHING BUT EATING, WHICH SHE DOES HERSELF. PT ASKED THAT IF FAMILY CALLS, TELL THEM TO BRING HER CLOTHES AND CELL PHONE. CM DISCUSSED AVAILABILITY OF HOME HEALTH, REHAB SERVICES AND MEDICAL EQUIPMENT. PT DENIES DISCHARGE NEEDS, REPORTS SHE WILL DISCHARGE BACK TO FACILITY WHERE SHE LIVES. CM CALLED [facility] IN [place], [facility] [facility], ; CM SPOKE TO MERLYN WHO REPORTS PT IS IN FPC CARE AND PROVIDED EMERGENCY CONTACT INFORMATION FOR PT'S FAMILY MEMBERS; CM NOTED IN CASE MANAGEMENT ASSESSMENT CHECKLIST. MERLYN VERIFIED PT HAS OXYGEN, NEBULUZER AND BIPAP IN FACILITY, THEY WILL ACCEPT BACK FOR CONTINUED RELEASE ENGINEER CARE AT HOSPITAL DISCHARGE. FOR DISCHARGE, FAX DISCHARGE INFORMATION TO [facility] IN [place], ; NURSE REPORT TO BE CALLED TO [phone]. PT TO TRANSPORT VIA AMBULANCE. Registrar Nurses' Registry: Dick Randle DCP- Discharge Planning Updated by [id number]: Jenny Al on 09/23/18 3:[address] CM attempted to visit with patient. Patient is currently on BiPap and getting dialysis at this time. She is unable to speak with me at this time. No family available at this time. CM will continue to follow and assist as needed with discharge planning / needs. DCPIA - Discharge Planning Initial Assessment Updated by [id number]: Dick Randle on 09/26/18 4:23 pm * Is the patient Alert and Oriented? Yes * How many steps to enter\exit or inside your home? NONE * PCP [facility] * Pharmacy [facility]) * Preadmission Environment Chcf Half-Way * Facility Name [facility] [phone] * ADLs Partial Dependent * Partial ADLs (Assistance needed) Bathing Dressing Medication Management Toileting Transfers * Equipment BIPAP Hospital Bed Fannie Lift Nebulizer Oxygen Wheelchair * Other Equipment ALL MEDICAL EQUIPMENT PROVIDED BY FACILITY * List name and contact numbers for known caregivers / representatives who currently or will assist patient after discharge: EDGARD JEREZ, MOTHER IN LAW, KAVEH CASILLAS, DTR, NICK ASUER, SPOUSE, * Verbal permission to speak to the caregivers and representatives has been obtained from the patient. Yes * Community resources currently utilized None * Please name any agencies selected above. NONE * Additional services required to return to the preadmission environment? No * Can the patient safely return to the preadmission environment? Yes * Has this patient been hospitalized within the prior 30 days at any hospital? No Coverage Notice Reviewer: [id number] - Dick Randle Notice Issued Date-Time: 10/03/2018 11:30 Notice Type: Patient Choice Letter Notice Delivered To: Patient Relationship to Patient: Bender Machine Operator Name: Delivery Method: HAND - Hand Delivered Veda Days: Prior Verbal Notification: Recipient Understood Notice: Recipient Signature: Med Rec Note Co-signed by Attending: Coverage Notice Comment: FABRICIO UMANZOR: [facility] Last DP export: 10/03/18 3:13 p Patient Name: GUSTABO STUART Page 34929 at 1049 All edits/amendments must be made on the electronic document DICTATION DATE: 10/07/18 1048 PIT SHOVEL OPERATOR: HELDER 10/07/18 1048 RPT#: [id number] DC DATE: STATUS: ADM IN [facility] [address] [place] [address] END OF REPORT
--- NOTE | ~2018-09-19 | MORECARE ---
CASE MANAGEMENT DISCHARGE SUMMARY PATIENT: GUSTABO STUART UNIT: [id number] ADM DATE: 09/19/18 AGE: 68 : 50 SEX: F ROOM/BED: D.6041 AUTHOR: LAWRENCE,DOC PHYSICIAN: REFERRING PHYSICIAN: JENNIFER DICKEY MD DATE OF SERVICE: 09/26/18 Discharge Plan Patient Name: GUSTABO STUART Facility: [facility]:[place] : 1950 Planned Disposition: Nursing Facility [facility] Cert Anticipated Discharge Date: Discharge Date: Expected LOS: Initial Reviewer: [id number] Initial Review Date: 09/19/2018 Generated: 09/26/18 5:24 pm Comments DCP- Discharge Planning Updated by [email or web address]: Jenny Al on 09/23/18 2:[address] CM attempted to visit with patient. Patient is currently on BiPap and getting dialysis at this time. She is unable to speak with me at this time. No family available at this time. CM will continue to follow and assist as needed with discharge planning / needs. DCPIA - Discharge Planning Initial Assessment Updated by [id number]: Gerardo Oliveros on 09/26/18 4:23 pm * Is the patient Alert and Oriented? Yes * How many steps to enter\exit or inside your home? NONE * [facility] * [facility] * Preadmission Environment Longterm Usp * Facility Name [facility] [phone] * ADLs Partial Dependent * Partial ADLs (Assistance needed) Bathing Dressing Medication Management Toileting Transfers * Equipment BIPAP Hospital Bed Fannie Lift Nebulizer Oxygen Wheelchair * Other Equipment ALL MEDICAL EQUIPMENT PROVIDED BY FACILITY * List name and contact numbers for known caregivers / representatives who currently or will assist patient after discharge: EDGARD JEREZ, MOTHER IN LAW, KAVEH CASILLAS, DTR, NICK SAUER, SPOUSE, * Verbal permission to speak to the caregivers and representatives has been obtained from the patient. Yes * Community resources currently utilized None * Please name any agencies selected above. NONE * Additional services required to return to the preadmission environment? No * Can the patient safely return to the preadmission environment? Yes * Has this patient been hospitalized within the prior 30 days at any hospital? No Last DP export: 09/23/18 2:11 Patient Name: GUSTABO STUART Page [id number] at 1624 All edits/amendments must be made on the electronic document DICTATION DATE: 09/26/181622 BOILERMAKER MECHANIC: HELDER 09/26/181622 RPT#: [id number] DC DATE: STATUS: ADM IN [facility] [address] [place] [address] END OF REPORT
--- NOTE | ~2018-09-19 | MORECARE ---
CASE MANAGEMENT DISCHARGE SUMMARY PATIENT: GUSTABO STUART UNIT: [id number] ADM DATE: 09/19/18 AGE: 68 : 50 SEX: F ROOM/BED: D.7332 AUTHOR: LAWRENCE,DOC PHYSICIAN: REFERRING PHYSICIAN: JENNIFER DICKEY MD DATE OF SERVICE: 10/02/18 Discharge Plan Patient Name: GUSTABO STUART Facility: [facility]:[employer] : 1950 Planned Disposition: Nursing Facility [facility] Cert Anticipated Discharge Date: 09/30/18 Discharge Date: Expected LOS: 11 Initial Reviewer: [id number] Initial Review Date: 09/19/2018 Generated: 10/02/18 5:53 pm Comments DCP- Discharge Planning Updated by [id number]: Gerardo Randle on 10/02/18 3:[address] Patient Name: GUSTABO STUART Encounter No: [id number] : 1950 Primary Insurance: MEDICARE A & B Anticipated DC Date: 09-30-2018 Planned Disposition: Nursing Facility [facility] Cert External Planned Provider: [facility] [place], LONG TERM CARE MEDICAID BED DCP follow-up note: CM CALLED ELZBIETA OF [facility], , WAS INFORMED THEY DO NOT HAVE ANY REQUEST TO ARRANGE OUTPATIENT DIALYSIS CLINIC ARRANGEMENT. CM FAXED ADMISSIONS INTAKE FORM WITH INITIAL DOCUMENTS TO [facility] AT [phone]. CM NOTIFIED MERLYN OF [facility] [place], , OF NEED FOR OUTPATIENT DIALYSIS; CM WAS ADVISED THAT PT WILL NEED TO BE ABLE TO TRANSFER TO WHEELCHAIR AND CHAIR WELL BE ABLE TO TOLERATE SITTING IN CHAIR FOR THREE HOURS OF DIALYSIS. THE CENTER PREFERS MWF, MORNING SCHEDULE. CM WAITING FOR OUTPATIENT DIALYSIS CLINIC ARRANGEMENT. NOTE THAT PT WILL HAVE TO BE ABLE TO TRANSFER TO CHAIR AND SIT IN CHAIR FOR THREE HOURS FOR OUTPATIENT CLINIC PARTICIPATION. FOR DISCHARGE, FAX DISCHARGE INFORMATION TO [facility] [place], ; NURSE REPORT TO BE CALLED TO [phone]. PT TO TRANSPORT VIA AMBULANCE. Assistant Offset Press Operator: Gerardo Randle Appended by Gerardo Randle on 10/02/2018 16:49 SENIOR SYSTEMS PROGRAMMER: CM RECEIVED CALL FROM LANRE OF [facility] ADMISSIONS; [facility] IS NOT CERTIFIED FOR LIFT AND HAS NO AVAILABLE OPENINGS AT THIS TIME. [facility] IS LIFT CERTIFIED BUT HAS NO AVAILABLE OPENINGS. LANRE WILL SEND REFERRAL TO [facility] IN [place] BUT THEY ONLY HAVE TTS SLOTS AVAILABLE. LANRE WILL ESCULATE REFERRAL FOR [facility] DIALYSIS ARRANGMENT IN [place] THAT A CHAIR BECOMES AVAILABLE AND PT WILL NOT REQUIRE LIFT TRANSFER. PT WILL NEED TO BE ABLE TO TRANSFER FROM BED TO CHAIR AND WILL ALSO NEED TO BE ABLE TO SIT SAFELY FOR TRANSPORT AND 3 HOURS OF DIALYSIS TREATMENT FOR OUTPATIENT DIALYSIS CLINIC ARRANGEMENT. GERARDO RANDLE, CASE MANAGEMENT DCP- Discharge Planning Updated by [id number]: Gerardo Randle on 09/29/18 12:[address] Patient Name: GUSTABO STUART Encounter No: [id number] : 1950 Primary Insurance: MEDICARE A & B Anticipated DC Date: 09-30-2018 Planned Disposition: Nursing Facility [facility] External Planned Provider: [facility], LONG TERM CARE MEDICAID BED DCP follow-up note: CM RECEIVED ORDER FOR OUTPATIENT DIALYSIS CLINIC ARRANGEMENT; RN JAIMIE HAMMONDS HAS INFORMED ROGE MONAE OF [facility] [employer] FOR OUTPATIENT DAILYSIS CLINIC ARRANGEMENT IN [place]. JAIMIE FAXED UPDATE TO MERLYN OF [facility] [place], [facility], . ROGE INFORMED CM THAT PT NEEDS PERM DIALYSIS CATHETER AND AN ACCURATE WEIGHT. PT HAS ORDERS FOR CATHETER, CM NOTIFIED BEDSIDE NURSE OF NEED FOR ACCURATE WEIGHT; PT IS BED CONFINED AND ON SPECIALTY BED AT THIS TIME. CM WAITING FOR DIALYSIS CATHETER PLACEMENT WELL OUTPATIENT DIALYSIS CLINIC ARRANGEMENT. FOR DISCHARGE, FAX DISCHARGE INFORMATION TO [facility] [place], ; NURSE REPORT TO BE CALLED TO [phone]. PT TO TRANSPORT VIA AMBULANCE. Assistant Offset Press Operator: Gerardo Randle DCP- Discharge Planning Updated by [id number]: Gerardo Randle on 09/26/18 4:[address] Patient Name: GUSTABO STUART Admission Status: Elective Accout number: [id number] Admission Date: 09-19-2018 : 1950 Admission Diagnosis:ACUTE RESPIRATORY FAILURE WITH HYPOXIA Attending: JENNIFER DICKEY Current LOS: 7 Anticipated DC Date: Planned Disposition: Nursing Facility [facility] Cert Primary Insurance: MEDICARE A & B PLANNED EXTERNAL PROVIDER: [facility] [place], LONG TERM CARE MEDICAID BED Discharge Planning Comments: CM MET WITH PT IN ROOM TO DISCUSS DISCHARGE PLANNING AND NEEDS. PT REPORTS LIVING AT A GROUP HOME IN [place], SHE CANNOT REMEMBER THE NAME OF THE PLACE. PT REPORTS BEING CONFINED TO BED BUT THE FACILITY HAS A LIFT TO WAREHOUSE INVENTORY CLERK PT TO A WHEELCHAIR. PT REPORTS HAVING BIPAP, NEBULIZER AND OXYGEN AT THE FACILITY. PT REPORTS HAVING ASSISTANCE WITH EVERYTHING BUT EATING, WHICH SHE DOES HERSELF. PT ASKED THAT IF FAMILY CALLS, TELL THEM TO BRING HER CLOTHES AND CELL PHONE. CM DISCUSSED AVAILABILITY OF HOME HEALTH, REHAB SERVICES AND MEDICAL EQUIPMENT. PT DENIES DISCHARGE NEEDS, REPORTS SHE WILL DISCHARGE BACK TO FACILITY WHERE SHE LIVES. CM CALLED [facility] [place], ; CM SPOKE TO MERLYN WHO REPORTS PT IS IN BIOINFORMATICS RESEARCH TECHNICIAN CARE AND PROVIDED EMERGENCY CONTACT INFORMATION FOR PT'S FAMILY MEMBERS; CM NOTED IN CASE MANAGEMENT ASSESSMENT CHECKLIST. MERLYN VERIFIED PT HAS OXYGEN, NEBULUZER AND BIPAP IN FACILITY, THEY WILL ACCEPT BACK FOR CONTINUED BIOINFORMATICS RESEARCH TECHNICIAN CARE AT HOSPITAL DISCHARGE. FOR DISCHARGE, FAX DISCHARGE INFORMATION TO [facility] [place], ; NURSE REPORT TO BE CALLED TO [phone]. PT TO TRANSPORT VIA AMBULANCE. Assistant Offset Press Operator: Gerardo Randle DCP- Discharge Planning Updated by [id number]: Jenny Al on 09/23/18 3:[address] CM attempted to visit with patient. Patient is currently on BiPap and getting dialysis at this time. She is unable to speak with me at this time. No family available at this time. CM will continue to follow and assist as needed with discharge planning / needs. DCPIA - Discharge Planning Initial Assessment Updated by [id number]: Gerardo Randle on 09/26/18 4:23 pm * Is the patient Alert and Oriented? Yes * How many steps to enter\exit or inside your home? NONE * PCP [facility] * Pharmacy [facility] * Preadmission Environment Residential Assisted * Facility Name [facility] T [phone] * ADLs Partial Dependent * Partial ADLs (Assistance needed) Bathing Dressing Medication Management Toileting Transfers * Equipment BIPAP Hospital Bed Fannie Lift Nebulizer Oxygen Wheelchair * Other Equipment ALL MEDICAL EQUIPMENT PROVIDED BY FACILITY * List name and contact numbers for known caregivers / representatives who currently or will assist patient after discharge: EDGARD JEREZ, MOTHER IN LAW, KAVEH CASILLAS, DTR, NICK SAUER, SPOUSE, * Verbal permission to speak to the caregivers and representatives has been obtained from the patient. Yes * Community resources currently utilized None * Please name any agencies selected above. NONE * Additional services required to return to the preadmission environment? No * Can the patient safely return to the preadmission environment? Yes * Has this patient been hospitalized within the prior 30 days at any hospital? No Last DP export: 10/02/18 11:23 a Patient Name: GUSTABO STUART Page 87209 at 1653 All edits/amendments must be made on the electronic document DICTATION DATE: 10/02/181652 ROLLING MACHINE OPERATOR AUTOMATIC: HELDRE 10/02/181652 RPT#: [id number] DC DATE: STATUS: ADM IN [facility] [address] [place] [address] END OF REPORT
--- NOTE | ~2018-09-19 | MORECARE ---
CASE MANAGEMENT DISCHARGE SUMMARY PATIENT: GUSTABO STUART UNIT: [id number] ADM DATE: 09/19/18 AGE: 68 : 50 SEX: F ROOM/BED: D.CV02 AUTHOR: LAWRENCE,DOC PHYSICIAN: REFERRING PHYSICIAN: JENNIFER DICKEY MD DATE OF SERVICE: 10/07/18 Discharge Plan Patient Name: GUSTABO STUART Facility: [facility]:[place] : 1950 Planned Disposition: Nursing Facility [facility] Cert Anticipated Discharge Date: 09/30/18 Discharge Date: Expected LOS: 11 Initial Reviewer: [id number] Initial Review Date: 09/19/2018 Generated: 10/07/18 5:45 pm Comments DCP- Discharge Planning Updated by [id number]: Jenny Al on 10/07/18 3:[address] CM spoke with Roge Monae this am. Roge stated we are at standstill until we find NH placement. Once we have NH placement then we can proceed with dialysis placement. CM spoke with patients daughter since patient isn't able to stay awake and communicate. Daughter Fran Tinajero "Nkechi" [phone]. Daughter stated that she would like NH placement as close to [place] as possible. CM explained that we would have to find placement that has fannie lift at both NH and dialysis clinic. Daughter stated that [place] was the next closest town. CM contacted [facility] in [place] [phone]. Peace Garcia clinical Liaison [phone] fax [phone]. JAIMIE spoke with Peace and explained situation and faxed records. Peace stated she would be here to see patient in am. CM will continue to follow and assist as needed with discharge planning / needs. DCP- Discharge Planning Updated by [id number]: Jenny Al on 10/07/18 9:[address] CM spoke with Roge Monae this am. She stated that she had been out of the office but now was back. Roge stated that she would speak to Radha and would take care of everything from this point with placement for dialysis. CM will continue to follow and assist as needed with discharge planning / needs. DCP- Discharge Planning Updated by [email or web address]: Jenny Al on 10/07/18 9:[address] Late Entry 10/06/18 @ 1600 CM spoke with Radha with [facility]. Radha stated she needed clarification on patients name. Radha stated she needed dialysis flowsheets from last three treatments faxed to her. Radha stated that she was trying to get placement at [facility] dialysis clinic. CM will continue to follow and assist as needed with discharge planning / needs. DCP- Discharge Planning Updated by [id number]: Dick Randle on 10/03/18 3:[address] Patient Name: GUSTABO STUART Encounter No: [id number] : 1950 Primary Insurance: MEDICARE A & B Anticipated DC Date: 09-30-2018 Planned Disposition: Nursing Facility [facility] Cert External Planned Provider: TO BE DETERMINED DCP follow-up note: CM RECEIVED CALL FROM NAYANA OF [facility], THEY ONLY HAVE TTS AVAILABLE AND HAVE TALKED TO [facility] TERMITE RENEWAL INSPECTOR WHO INFORMED THEM THAT THEY ARE NOT GOING TO DRIVE PT AN HOUR AWAY FOR DIALYSIS FROM THE SKILLED NURSING. CM SPOKE TO AUDI AT [facility] WHO INFORMED CM THAT THEY ARE GOING TO HAVE A SISTER FACILITY REPRESENTIVE CONTACT CM TO ASSIST IN PLACING PT IN [place] SO THAT PT CAN GO TO A FACILITY THAT HAS CAPABILITY OF FANNIE LIFT AND TO A DILAYSIS UNIT THAT HAS CAPABILITY OF FANNIE LIFT. CM SPOKE TO PT IN ROOM, DISCUSSED MOVING TO ANOTHER SKILLED NURSING, PT REPORTS SHE WILL TRY WITH THERAPY AND IS WILLING FOR NEW SKILLED NURSING IF NEEDED, CHOICE SIGNED FOR [facility] AND [facility]. CM DISCUSSED LTACH, PT ALSO IN AGREEMENT WITH LTACH AT [facility] IF IT WILL HELP GET HER HOME SOONER. CM CALLED AND SPOKE TO LAITH OF [facility], , DISCUSSED NEED FOR REHAB, WOUND CARE AND DIALYSIS WITH GOAL TO SIT FOR DIALYSIS IN OUTPATIENT SETTING TO RETURN TO A SKILLED NURSING FOR CONTINUED HOSE MENDER CARE. REFERRAL FAXED TO [facility] AT [phone]. CM CALLED AND SPOKE TO [facility], , NAVARRO UMANZOR, REPRESENTING [facility] AND [facility] INTERMEDIATE FACILITIES. THEY CONTACT WITH [facility] AND DO NOT HAVE ONE WITH DAV[facility]. THEY WILL SCREEN PT FOR THEIR HOMES, BUT PT WILL HAVE TO HAVE CAPACITY TO SIT IN CHAIR FOR THREE HOURS OF OUTPATIENT DIALYSIS AND TRANSPORTATION. CM FAXED REFERRAL TO [facility] AT [phone]. PT WILL NEED TO BE ABLE TO TRANSFER FROM BED TO CHAIR AND WILL ALSO NEED TO BE ABLE TO SIT SAFELY FOR TRANSPORT AND 3 HOURS OF DIALYSIS TREATMENT FOR OUTPATIENT DIALYSIS CLINIC ARRANGEMENT. CM WAITING ON SKILLED NURSING EVALUATIONS FOR ADMISSION, [facility] EVALUATION FOR ADMISSION AND WILL NEED TO SEND APPLICATION FOR [facility] FOR DIALYSIS UNIT CONSIDERATION AND TO FIND OUT IF THEY HAVE FANNIE LIFT CAPABILITY. DICK RANDLE, CASE MANAGEMENT DCP- Discharge Planning Updated by [id number]: Dick Randle on 10/02/18 3:[address] Patient Name: GUSTABO STUART Encounter No: [id number] : 1950 Primary Insurance: MEDICARE A & B Anticipated DC Date: 09-30-2018 Planned Disposition: Nursing Facility [facility] Cert External Planned Provider: [facility], JAIL CARE MEDICAID BED DCP follow-up note: CM CALLED ELZBIETA OF [facility], , WAS INFORMED THEY DO NOT HAVE ANY REQUEST TO ARRANGE OUTPATIENT DIALYSIS CLINIC ARRANGEMENT. CM FAXED ADMISSIONS INTAKE FORM WITH INITIAL DOCUMENTS TO [facility] AT [phone]. CM NOTIFIED MERLYN OF [facility] IN [place], [facility], , OF NEED FOR OUTPATIENT DIALYSIS; CM WAS ADVISED THAT PT WILL NEED TO BE ABLE TO TRANSFER TO WHEELCHAIR AND CHAIR WELL BE ABLE TO TOLERATE SITTING IN CHAIR FOR THREE HOURS OF DIALYSIS. THE CENTER PREFERS MWF, MORNING SCHEDULE. CM WAITING FOR OUTPATIENT DIALYSIS CLINIC ARRANGEMENT. NOTE THAT PT WILL HAVE TO BE ABLE TO TRANSFER TO CHAIR AND SIT IN CHAIR FOR THREE HOURS FOR OUTPATIENT CLINIC PARTICIPATION. FOR DISCHARGE, FAX DISCHARGE INFORMATION TO [facility] IN [place], ; NURSE REPORT TO BE CALLED TO [phone]. PT TO TRANSPORT VIA AMBULANCE. Side Splitter: Dick Randle Appended by Dick Randle on 10/02/2018 16:49 FANCY NEEDLEWORKER: CM RECEIVED CALL FROM RADHA OF [facility] ADMISSIONS; [facility] IS NOT CERTIFIED FOR LIFT AND HAS NO AVAILABLE OPENINGS AT THIS TIME. [facility] IS LIFT CERTIFIED BUT HAS NO AVAILABLE OPENINGS. RADHA WILL SEND REFERRAL TO [facility] IN [place] BUT THEY ONLY HAVE TTS SLOTS AVAILABLE. RADHA WILL ESCULATE REFERRAL FOR [facility] DIALYSIS ARRANGMENT IN [place] THAT A CHAIR BECOMES AVAILABLE AND PT WILL NOT REQUIRE LIFT TRANSFER. PT WILL NEED TO BE ABLE TO TRANSFER FROM BED TO CHAIR AND WILL ALSO NEED TO BE ABLE TO SIT SAFELY FOR TRANSPORT AND 3 HOURS OF DIALYSIS TREATMENT FOR OUTPATIENT DIALYSIS CLINIC ARRANGEMENT. DICK RANDLE, CASE MANAGEMENT DCP- Discharge Planning Updated by [id number]: Dick Randle on 09/29/18 12:[address] Patient Name: GUSTABO STUART Encounter No: [id number] : 1950 Primary Insurance: MEDICARE A & B Anticipated DC Date: 09-30-2018 Planned Disposition: Nursing Facility [facility] Cert External Planned Provider: [facility], LONG TERM CARE MEDICAID BED DCP follow-up note: JAIMIE RECEIVED ORDER FOR OUTPATIENT DIALYSIS CLINIC ARRANGEMENT; RN JAIMIE HAMMONDS HAS INFORMED ROGE MONAE OF PATIENT [facility] FOR OUTPATIENT DAILYSIS CLINIC ARRANGEMENT IN [place]. JAIMIE FAXED UPDATE TO [facility] OF [facility] IN [place], [facility], . ROGE INFORMED CM THAT PT NEEDS PERM DIALYSIS CATHETER AND AN ACCURATE WEIGHT. PT HAS ORDERS FOR CATHETER, CM NOTIFIED BEDSIDE NURSE OF NEED FOR ACCURATE WEIGHT; PT IS BED CONFINED AND ON SPECIALTY BED AT THIS TIME. CM WAITING FOR DIALYSIS CATHETER PLACEMENT WELL OUTPATIENT DIALYSIS CLINIC ARRANGEMENT. FOR DISCHARGE, FAX DISCHARGE INFORMATION TO [facility] IN [place], ; NURSE REPORT TO BE CALLED TO [phone]. PT TO TRANSPORT VIA AMBULANCE. Side Splitter: Dick Randle DCP- Discharge Planning Updated by [id number]: Dick Randle on 09/26/18 4:[address] Patient Name: GUSTABO STUART Admission Status: Elective Accout number: [id number] Admission Date: 09-19-2018 : 1950 Admission Diagnosis:ACUTE RESPIRATORY FAILURE WITH HYPOXIA Attending: JENNIFER DICKEY Current LOS: 7 Anticipated DC Date: Planned Disposition: Nursing Facility [facility] Cert Primary Insurance: MEDICARE A & B PLANNED EXTERNAL PROVIDER: [facility] MEDICAID BED Discharge Planning Comments: CM MET WITH PT IN ROOM TO DISCUSS DISCHARGE PLANNING AND NEEDS. PT REPORTS LIVING AT A SKILLED NURSING IN [place], SHE CANNOT REMEMBER THE NAME OF THE PLACE. PT REPORTS BEING CONFINED TO BED BUT THE FACILITY HAS A LIFT TO HEAVY DUTY TRUCK MECHANIC PT TO A WHEELCHAIR. PT REPORTS HAVING BIPAP, NEBULIZER AND OXYGEN AT THE FACILITY. PT REPORTS HAVING ASSISTANCE WITH EVERYTHING BUT EATING, WHICH SHE DOES HERSELF. PT ASKED THAT IF FAMILY CALLS, TELL THEM TO BRING HER CLOTHES AND CELL PHONE. CM DISCUSSED AVAILABILITY OF HOME HEALTH, REHAB SERVICES AND MEDICAL EQUIPMENT. PT DENIES DISCHARGE NEEDS, REPORTS SHE WILL DISCHARGE BACK TO FACILITY WHERE SHE LIVES. CM CALLED [facility] IN [place], [facility], ; CM SPOKE TO MERLYN WHO REPORTS PT IS IN JAIL CARE AND PROVIDED EMERGENCY CONTACT INFORMATION FOR PT'S FAMILY MEMBERS; CM NOTED IN CASE MANAGEMENT ASSESSMENT CHECKLIST. MERLYN VERIFIED PT HAS OXYGEN, NEBULUZER AND BIPAP IN FACILITY, THEY WILL ACCEPT BACK FOR CONTINUED JAIL CARE AT HOSPITAL DISCHARGE. FOR DISCHARGE, FAX DISCHARGE INFORMATION TO [facility] IN [place], ; NURSE REPORT TO BE CALLED TO [phone]. PT TO TRANSPORT VIA AMBULANCE. Side Splitter: Dick Randle DCP- Discharge Planning Updated by [id number]: Jenny Al on 09/23/18 3:[address] CM attempted to visit with patient. Patient is currently on BiPap and getting dialysis at this time. She is unable to speak with me at this time. No family available at this time. CM will continue to follow and assist as needed with discharge planning / needs. DCPIA - Discharge Planning Initial Assessment Updated by [id number]: Dick Randle on 09/26/18 4:23 pm * Is the patient Alert and Oriented? Yes * How many steps to enter\\exit or inside your home? NONE * PCP [facility], [facility] DECOR[facility] * Pharmacy [facility]) * Preadmission Environment Junior Media Buyer Snf * Facility Name [facility] T [phone] * ADLs Partial Dependent * Partial ADLs (Assistance needed) Bathing Dressing Medication Management Toileting Transfers * Equipment BIPAP Hospital Bed Fannie Lift Nebulizer Oxygen Wheelchair * Other Equipment ALL MEDICAL EQUIPMENT PROVIDED BY FACILITY * List name and contact numbers for known caregivers / representatives who currently or will assist patient after discharge: EDGARD JEREZ, MOTHER IN LAW, KAVEH CASILLAS, DTR, NICK SAUER, SPOUSE, * Verbal permission to speak to the caregivers and representatives has been obtained from the patient. Yes * Community resources currently utilized None * Please name any agencies selected above. NONE * Additional services required to return to the preadmission environment? No * Can the patient safely return to the preadmission environment? Yes * Has this patient been hospitalized within the prior 30 days at any hospital? No Coverage Notice Reviewer: [id number] Rex Randle Notice Issued Date-Time: 10/03/2018 11:30 Notice Type: Patient Choice Letter Notice Delivered To: Patient Relationship to Patient: Hot Dimpling Machine Operator Name: Delivery Method: HAND - Hand Delivered Veda Days: Prior Verbal Notification: Recipient Understood Notice: Recipient Signature: Med Rec Note Co-signed by Attending: Coverage Notice Comment: ERNA FABRICIO [place]: [place] [facility] Last DP export: 10/07/18 2:46 Patient Name: GUSTABO STUART Page [id number] at 1645 All edits/amendments must be made on the electronic document DICTATION DATE: 10/07/181644 INSIDE SALES SUPERVISOR: HELDER 10/07/181644 RPT#: [id number] DC DATE: STATUS: ADM IN [facility] [address] [place] [address] END OF REPORT
--- NOTE | ~2018-09-19 | MORECARE ---
CASE MANAGEMENT DISCHARGE SUMMARY PATIENT: GUSTABO STUART UNIT: [id number] ADM DATE: 09/19/18 AGE: 68 : 50 SEX: F ROOM/BED: D.7925 AUTHOR: LAWRENCE,DOC PHYSICIAN: REFERRING PHYSICIAN: JENNIFER DICKEY MD DATE OF SERVICE: 10/02/18 Discharge Plan Patient Name: GUSTABO STUART Facility: [facility]:[place] : 1950 Planned Disposition: Nursing Facility [facility] Cert Anticipated Discharge Date: 09/30/18 Discharge Date: Expected LOS: 11 Initial Reviewer: [id number] Initial Review Date: 09/19/2018 Generated: 10/02/18 1:23 pm Comments DCP- Discharge Planning Updated by [email or web address]: Gerardo Oliveros on 10/02/18 11:[address] Patient Name: GUSTABO STUART Encounter No: [id number] : 1950 Primary Insurance: MEDICARE A & B Anticipated DC Date: 09-30-2018 Planned Disposition: Nursing Facility [facility] Cert External Planned Provider: [facility] [place], LONG TERM CARE MEDICAID BED DCP follow-up note: CM CALLED ELZBIETA OF [facility], , WAS INFORMED THEY DO NOT HAVE ANY REQUEST TO ARRANGE OUTPATIENT DIALYSIS CLINIC ARRANGEMENT. CM FAXED ADMISSIONS INTAKE FORM WITH INITIAL DOCUMENTS TO [facility] AT [phone]. CM NOTIFIED MERLYN OF [facility] IN [place], , OF NEED FOR OUTPATIENT DIALYSIS; CM WAS ADVISED THAT PT WILL NEED TO BE ABLE TO TRANSFER TO WHEELCHAIR AND CHAIR WELL BE ABLE TO TOLERATE SITTING IN CHAIR FOR THREE HOURS OF DIALYSIS. THE CENTER PREFERS MWF, MORNING SCHEDULE. CM WAITING FOR OUTPATIENT DIALYSIS CLINIC ARRANGEMENT. NOTE THAT PT WILL HAVE TO BE ABLE TO TRANSFER TO CHAIR AND SIT IN CHAIR FOR THREE HOURS FOR OUTPATIENT CLINIC PARTICIPATION. FOR DISCHARGE, FAX DISCHARGE INFORMATION TO [facility] IN [place], ; NURSE REPORT TO BE CALLED TO [phone]. PT TO TRANSPORT VIA AMBULANCE. Dry Transfer Man: Gerardo Oliverso DCP- Discharge Planning Updated by [id number]: Gerardo Oliveros on 09/29/18 12:[address] Patient Name: GUSTABO STUART Encounter No: [id number] : 1950 Primary Insurance: MEDICARE A & B Anticipated DC Date: 09-30-2018 Planned Disposition: Nursing Facility [facility] External Planned Provider: [facility] [place], LONG TERM CARE MEDICAID BED DCP follow-up note: CM RECEIVED ORDER FOR OUTPATIENT DIALYSIS CLINIC ARRANGEMENT; RN JAIMIE HAMMONDS HAS INFORMED ROGE MONAE OF PATIENT [facility] FOR OUTPATIENT DAILYSIS CLINIC ARRANGEMENT IN [place]. CM FAXED UPDATE TO MERLYN OF [facility] IN [place], [facility], . ROGE INFORMED CM THAT PT NEEDS PERM DIALYSIS CATHETER AND AN ACCURATE WEIGHT. PT HAS ORDERS FOR CATHETER, CM NOTIFIED BEDSIDE NURSE OF NEED FOR ACCURATE WEIGHT; PT IS BED CONFINED AND ON SPECIALTY BED AT THIS TIME. CM WAITING FOR DIALYSIS CATHETER PLACEMENT WELL OUTPATIENT DIALYSIS CLINIC ARRANGEMENT. FOR DISCHARGE, FAX DISCHARGE INFORMATION TO [facility] IN [place], ; NURSE REPORT TO BE CALLED TO [phone]. PT TO TRANSPORT VIA AMBULANCE. Dry Transfer Man: Gerardo Oliveros DCP- Discharge Planning Updated by [id number]: Gerardo Oliveros on 09/26/18 4:[address] Patient Name: GUSTABO STUART Admission Status: Elective Accout number: [id number] Admission Date: 09-19-2018 : 1950 Admission Diagnosis:ACUTE RESPIRATORY FAILURE WITH HYPOXIA Attending: JENNIFER DICKEY Current LOS: 7 Anticipated DC Date: Planned Disposition: Nursing Facility [facility] Primary Insurance: MEDICARE A & B PLANNED EXTERNAL PROVIDER: [facility] [place], LONG TERM CARE MEDICAID BED Discharge Planning Comments: CM MET WITH PT IN ROOM TO DISCUSS DISCHARGE PLANNING AND NEEDS. PT REPORTS LIVING AT A FPC IN [place], SHE CANNOT REMEMBER THE NAME OF THE PLACE. 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 PT REPORTS HAVING BIPAP, NEBULIZER AND OXYGEN AT THE FACILITY. PT REPORTS HAVING ASSISTANCE WITH EVERYTHING BUT EATING, WHICH SHE DOES HERSELF. PT ASKED THAT IF FAMILY CALLS, TELL THEM TO BRING HER CLOTHES AND CELL PHONE. CM DISCUSSED AVAILABILITY OF HOME HEALTH, REHAB SERVICES AND MEDICAL EQUIPMENT. PT DENIES DISCHARGE NEEDS, REPORTS SHE WILL DISCHARGE BACK TO FACILITY WHERE SHE LIVES. CM CALLED [facility] IN [place], ; CM SPOKE TO MERLYN WHO REPORTS PT IS IN CARE HOME CARE AND PROVIDED EMERGENCY CONTACT INFORMATION FOR PT'S FAMILY MEMBERS; CM NOTED IN CASE MANAGEMENT ASSESSMENT CHECKLIST. MERLYN VERIFIED PT HAS OXYGEN, NEBULUZER AND BIPAP IN FACILITY, THEY WILL ACCEPT BACK FOR CONTINUED CARE HOME CARE AT HOSPITAL DISCHARGE. FOR DISCHARGE, FAX DISCHARGE INFORMATION TO [facility] IN [place], ; NURSE REPORT TO BE CALLED TO [phone]. PT TO TRANSPORT VIA AMBULANCE. Dry Transfer Man: Gerardo Oliveros DCP- Discharge Planning Updated by [id number]: Jenny Al on 09/23/18 3:[address] CM attempted to visit with patient. Patient is currently on BiPap and getting dialysis at this time. She is unable to speak with me at this time. No family available at this time. CM will continue to follow and assist as needed with discharge planning / needs. DCPIA - Discharge Planning Initial Assessment Updated by [id number]: Gerardo Oliveros on 09/26/18 4:23 pm * Is the patient Alert and Oriented? Yes * How many steps to enter\exit or inside your home? NONE * PCP [facility], [employer] [facility] * Pharmacy [facility]) * Preadmission Environment [facility] * Facility Name [facility] T [phone] * ADLs Partial Dependent * Partial ADLs (Assistance needed) Bathing Dressing Medication Management Toileting Transfers * Equipment BIPAP Hospital Bed Fannie Lift Nebulizer Oxygen Wheelchair * Other Equipment ALL MEDICAL EQUIPMENT PROVIDED BY FACILITY * List name and contact numbers for known caregivers / representatives who currently or will assist patient after discharge: EDGARD JEREZ, MOTHER IN LAW, KAVEH CASILLAS, DTR, NICK SAUER, SPOUSE, * Verbal permission to speak to the caregivers and representatives has been obtained from the patient. Yes * Community resources currently utilized None * Please name any agencies selected above. NONE * Additional services required to return to the preadmission environment? No * Can the patient safely return to the preadmission environment? Yes * Has this patient been hospitalized within the prior 30 days at any hospital? No Last DP export: 10/02/18 11:16 a Patient Name: GUSTABO STUART Page [id number] at 1223 All edits/amendments must be made on the electronic document DICTATION DATE: 10/02/18 122 AGRICULTURE INSPECTOR: HELDER 10/02/18 1222 RPT#: [id number] DC DATE: STATUS: ADM IN [address] [place] [address] END OF REPORT
--- NOTE | ~2018-09-19 | MORECARE ---
CASE MANAGEMENT DISCHARGE SUMMARY PATIENT: GUSTABO STUART UNIT: [id number] ADM DATE: 09/19/18 AGE: 68 : 50 SEX: F ROOM/BED: D.5733 AUTHOR: LAWRENCE,DOC PHYSICIAN: REFERRING PHYSICIAN: JENNIFER DICKEY MD DATE OF SERVICE: 10/22/18 Discharge Plan Patient Name: GUSTABO STUART Facility: [facility] : 1950 Planned Disposition: Nursing Facility [facility] Cert Anticipated Discharge Date: 10/22/18 Discharge Date: Expected LOS: 33 Initial Reviewer: [id number] Initial Review Date: 09/19/2018 Generated: 10/22/18 4:24 pm Comments DCP- Discharge Planning Updated by [id number]: Dick Oliveros on 10/22/18 9:[address] Patient Name: GUSTABO STUART Encounter No: [id number] : 1950 Primary Insurance: MEDICARE A & B Anticipated DC Date: 10-21-2018 Planned Disposition: Nursing Facility [facility] Cert External Planned Provider: [facility], [facility] CARE MEDICAID BED CM SPOKE TO ROGE OF PATIENT [facility]WAYS 10-21-18 WHO INFORMED CM THAT DIALYSIS UNIT STILL ASSESSING FOR ADMISSION AND REQUESTED FURHTER DOCUMENTATION WHICH ROGE FAXED FOR REVIEW. ON 10-21-18, CM SENT MESSAGE TO [facility]GE [facility]IENT [facility] REQUESTING UPDATE ON DIALYSIS UNIT PLACEMENT AND SCHEDULE. ROGE CALLED CM, INFORMED CM THAT THE DIALYSIS DOCTOR DID NOT COMPLETE REVIEW YESTERDAY, ROGE HAS CALLED AND ASKED FOR REVIEW AND DETERMINATION TODAY. [facility] ([facility]TER[facility] FAC[facility]) IN [facility] ACCEPTS PT. CM WAITING DAILYSIS CLINIC ACCEPTANCE AND SCHEDULE. WHEN CLINIC ARRANGEMENT CONFIRMED, FAX DISCHARGE INFORMATION TO [facility] AT [phone]. CALL NURSE REPORT TO [facility] AT [phone]. PT TO TRANSPORT VIA AMBULANCE DUE TO STAGE 2 PRESSURE ULCER ON COCCYX. DICK OLIVEROS CASE MANAGEMENT DCP- Discharge Planning Updated by [id number]: Dick Oliveros on 10/20/18 4:[address] Patient Name: GUSTABO STUART Encounter No: [id number] : 1950 Primary Insurance: MEDICARE A & B Anticipated DC Date: 10-21-2018 Planned Disposition: Nursing Facility [facility] Cert External Planned Provider:[place], LONG TERM CARE MEDICAID BED CM RECEIVED CALL FROM LAURENCE OF [facility], , WHO ADVISED THAT [facility] WILL ACCEPT PT, TOMORROW, 10-21-18, IF APPROVED BY [facility] FOR OUTPATIENT DIALYSIS. LAURENCE ADVISED THAT THE SNF IS NOW COMMUNICATING WITH THE DIALYSIS UNIT. CM SENT MESSAGE TO ROGE OF PATIENT PATHWAYS REQUESTING UPDATE ON DIALYSIS UNIT PLACEMENT AND SCHEDULE. PT NOTIFIED AND IN AGREEMENT WITH DISCHARGE TO [facility] SOON POSSIBLE. [facility] ([facility]TERM [facility]) IN [facility] ACCEPTS PT. CM WAITING DAILYSIS CLINIC ACCEPTANCE AND SCHEDULE. WHEN CLINIC ARRANGEMENT CONFIRMED, FAX DISCHARGE INFORMATION TO [facility] AT [phone]. CALL NURSE REPORT TO [facility] AT [phone]. PT TO TRANSPORT VIA AMBULANCE DUE TO STAGE 2 PRESSURE ULCER ON COCCYX. DICK OLIVEROS, CASE MANAGEMENT DCP- Discharge Planning Updated by [id number]: Dick Oliveros on 10/20/18 8:[address] Patient Name: GUSTABO STUART Encounter No: [id number] : 1950 Primary Insurance: MEDICARE A & B Anticipated DC Date: 10-15-2018 Planned Disposition: Nursing Facility [facility] Cert External Planned Provider: [place], LONG TERM CARE MEDICAID BED CM LEFT MESSAGE FOR LAURENCE [facility] IN [place], , AND ADVISED THAT PT HAS CONTINUED TO DEMONSTRATE ABILITY TO TRANSFER TO CHAIR AND SIT FOR OVER 4 HOURS. CM FAXED UPDATE TO [facility] VIA LAURENCE AT [phone]. [facility] IS REVIEWING FOR PLACEMENT; THEY DO HAVE FANNIEKAMLA SAUCEDA WORKING ON OUTPATIENT DIALYSIS ARRANGEMENT AT [facility], THEY ALSO HAVE A LIFT. CM WAITING ON DETERMINATIONS FROM BOTH. DICK OLIVEROS CASE MANAGEMENT DCP- Discharge Planning Updated by [id number]: Dick Oliveros on 10/15/18 11:[address] Patient Name: GUSTABO STUART Encounter No: [id number] : 1950 Primary Insurance: MEDICARE A & B Anticipated DC Date: 10-15-2018 Planned Disposition: Nursing Facility [facility] Cert External Planned Provider: [facility]; LONG TERM CARE MEDICAID BED DCP follow-up note: CM CALLED LAURENCE OF [facility] IN [place], , AND ADVISED THAT PT HAS DEMONSTRATED ABILITY TO TRANSFER TO CHAIR AND SIT FOR OVER 4 HOURS. CM SPOKE TO HOMER OF [facility] ADMISSIONS AND PROVIDED UPDATE FOR [facility] DIALYSIS IN [place] CM SPOKE TO ROGE MONAE OF [facility] WHO WILL COMMUNICATE WITH [facility] ADMISSIONS WELL [facility] DIALYSIS AND PROVIDED UPDATED INFORMATION TO BOTH FROM MEDICAL CHART. CM SPOKE TO PT IN ROOM WHO IS STILL WILLING FOR PLACEMENT IN [place] AT [facility] AND WAS HOPING TO BE OUT OF THE HOSPITAL FOR THANKSGIVING. IMPORTANT MESSAGE FROM MEDICARE PROVIDED AND EXPLAINED. CM FAXED UPDATE TO [facility] IN [place] VIA LAURENCE AT [phone]. [facility] IN [facility] IS REVIEWING FOR PLACEMENT; THEY DO HAVE FANNIE LIFT. DAVITA ADMISSIONS WORKING ON OUTPATIENT DIALYSIS ARRANGEMENT AT [facility] IN [place], THEY ALSO HAVE A LIFT. CM WAITING ON DETERMINATIONS FROM BOTH. DICK OLIVEROS CASE MANAGEMENT DCP- Discharge Planning Updated by [id number]: Dick Oliveros on 10/13/18 2:[address] Patient Name: GUSTABO STUART Encounter No: [id number] : 1950 Primary Insurance: MEDICARE A & B Anticipated DC Date: 09-30-2018 Planned Disposition: Nursing Facility [facility] Cert External Planned Provider: [facility]; LONG TERM CARE MEDICAID BED DCP follow-up note: CM CALLED [facility] [place], , WHO ADVISED THAT [facility] MAY ACCEPT BUT PT WILL NEED TO DEMONSTRATE ABILITY TO TRANSFER TO WHEELCHAIR AND SIT FOR 3 HOURS OF DIALYSIS. [facility] HAS LIFT AVAILABLE. CM SPOKE TO RADHA OF [facility] ADMISSIONS WHO REPORTS THEY WERE WORKING ON [facility] D[facility]YSIS IN [place] BUT WILL SEND REFERRAL TO [facility] IN [place] THAT HAS LIFT AND MWF SCHEDULING CAPABIILITY. CM SPOKE TO PT IN ROOM WHO IS WILLING FOR PLACEMENT IN [place] TO BE CLOSER TO FAMILY IF SHE CANNOT RETURN TO [place] WHERE SHE WAS LIVING AT [facility]. CM FAXED UPDATE TO [facility] VIA [employer] AT [phone]. CM SPOKE TO MARIEL OF PHYSICAL THERAPY WHO VERIFIED PT HAS BEEN UP TO SIDE OF BED BUT THEY ARE NOT ABLE TO GET PT UP TO CHAIR THEY DO NOT HAVE A LIFT. CM SPOKE TO CM SUBSTATION OPERATOR KAYLEE REGARDING LACK OF LIFT CAPABILITY THIS IS AN OBSTACLE TO PLACEMENT IN ANY FACILITY PT WILL NEED OUTPATIENT DIALYSIS AND MUST BE ABLE TO DEMONSTRATE ABILITY TO SIT FOR DURATION OF TRANSPORT AND DIALYSIS SESSION. CM WAITING PT TO DEMONSTRATE ABILITY TO TRANSFER AND SIT FOR DURATION OF TRANSPORTATION WELL FOR THREE HOURS OF DIALYSIS TREATMENT, WITH OR WITHOUT A LIFT. [facility] IN [facility] WILL REVIEW FOR PLACEMENT IF PT IS ABLE TO SIT FOR TRANSPORT AND DIALYSIS; THEY DO HAVE FANNIE LIFT. [facility] ADMISSIONS WORKING ON OUTPATIENT DIALYSIS ARRANGEMENT AT [facility] IN [place], THEY ALSO HAVE A LIFT. DICK OLIVEROS, CASE MANAGEMENT Appended by Dick Oliveros on 10/13/2018 15:31 BROKERAGE CLERK: CM RECEIVED CALL FROM KRISTIAN OF [facility], , WHO ASKED FOR FAXED UPDATE. CM FAXED UPDATE TO [facility] WITH DIALYSIS RUN SHEETS THRU 10-11-18. CM FAXED UPDATE TO LAURENCE OF [facility] WITH OCCUPATIONAL THERAPY NOTE INDICATING PT HAS BEEN OUT OF BED TO CHAIR. CM TO CONTINUE TO FOLLOW AND ASSIST NEEDED. CM WAITING PT TO DEMONSTRATE ABILITY TO TRANSFER AND SIT FOR DURATION OF TRANSPORTATION WELL FOR THREE HOURS OF DIALYSIS TREATMENT, WITH OR WITHOUT A LIFT. [facility] WILL REVIEW FOR PLACEMENT IF PT IS ABLE TO SIT FOR TRANSPORT AND DIALYSIS; THEY DO HAVE FANNIE LIFT. DESTIN SAUCEDA WORKING ON OUTPATIENT DIALYSIS ARRANGEMENT AT [facility] IN [place], THEY ALSO HAVE A LIFT. DICK OLIVEROS, CASE MANAGEMENT DCP- Discharge Planning Updated by [id number]: Jenny Servando on 10/10/18 6:[address] Late Entry 10/10/18 @ 0900 PT and OT still working with patient to get out of bed to sit in chair. Patient has to be able to sit in wheelchair and be transported to dialysis and sit in dialysis chair for 3-4hrs. CM will continue to follow and assist as needed with discharge planning / needs. DCP- Discharge Planning Updated by [id number]: Jenny Al on 10/07/18 3:[address] CM spoke with Roge Monae this am. Roge stated we are at standstill until we find NH placement. Once we have NH placement then we can proceed with dialysis placement. CM spoke with patients daughter since patient isn't able to stay awake and communicate. Daughter Fran Tinajero "Nkechi" [phone]. Daughter stated that she would like NH placement as close to [place] as possible. CM explained that we would have to find placement that has fannie lift at both NH and dialysis clinic. Daughter stated that [place] was the next closest town. CM contacted [facility] in [place] [phone]. Laurence Garcia clinical Liaison [phone] fax [phone]. CM spoke with Laurence and explained situation and faxed records. Laurence stated she would be here to see patient in am. CM will continue to follow and assist as needed with discharge planning / needs. DCP- Discharge Planning Updated by [id number]: Jenny Al on 10/07/18 9:[address] CM spoke with Roge Monae this am. She stated that she had been out of the office but now was back. Roge stated that she would speak to Radha and would take care of everything from this point with placement for dialysis. CM will continue to follow and assist as needed with discharge planning / needs. DCP- Discharge Planning Updated by [id number]: Jenny Al on 10/07/18 9:[address] Late Entry 10/06/18 @ 1600 JAIMIE spoke with Radha with [facility]. Radha stated she needed clarification on patients name. Radha stated she needed dialysis flowsheets from last three treatments faxed to her. Radha stated that she was trying to get placement at [facility] dialysis clinic. CM will continue to follow and assist as needed with discharge planning / needs. DCP- Discharge Planning Updated by [id number]: Dick Salamancawell on 10/03/18 3:[address] Patient Name: GUSTABO STUART Encounter No: [id number] : 1950 Primary Insurance: MEDICARE A & B Anticipated DC Date: 09-30-2018 Planned Disposition: Nursing Facility [facility] Cert External Planned Provider: TO BE DETERMINED DCP follow-up note: CM RECEIVED CALL FROM NAYANA OF [facility], THEY ONLY HAVE TTS AVAILABLE AND HAVE TALKED TO [facility] NETWORK SUPPORT SPECIALIST WHO INFORMED THEM THAT THEY ARE NOT GOING TO DRIVE PT AN HOUR AWAY FOR DIALYSIS FROM THE SNF. CM SPOKE TO AUDI AT [facility] WHO INFORMED CM THAT THEY ARE GOING TO HAVE A SISTER FACILITY REPRESENTIVE CONTACT CM TO ASSIST IN PLACING PT IN [place] SO THAT PT CAN GO TO A FACILITY THAT HAS CAPABILITY OF FANNIE LIFT AND TO A DILAYSIS UNIT THAT HAS CAPABILITY OF FANNIE LIFT. CM SPOKE TO PT IN ROOM, DISCUSSED MOVING TO ANOTHER SNF, PT REPORTS SHE WILL TRY WITH THERAPY AND IS WILLING FOR NEW SNF IF NEEDED, CHOICE SIGNED FOR [facility] AND [facility]. CM DISCUSSED LTACH, PT ALSO IN AGREEMENT WITH LTACH AT [facility] IF IT WILL HELP GET HER HOME SOONER. CM CALLED AND SPOKE TO LAITH OF [facility], , DISCUSSED NEED FOR REHAB, WOUND CARE AND DIALYSIS WITH GOAL TO SIT FOR DIALYSIS IN OUTPATIENT SETTING TO RETURN TO A SNF FOR CONTINUED SLEEPING CAR CONDUCTOR CARE. REFERRAL FAXED TO [facility] AT [phone]. CM CALLED AND SPOKE TO [facility], , [facility], REPRESENTING [facility] AND [facility] LONG-TERM FACILITIES. THEY CONTACT WITH [facility] AND DO NOT HAVE ONE WITH [facility]. THEY WILL SCREEN PT FOR THEIR HOMES, BUT PT WILL HAVE TO HAVE CAPACITY TO SIT IN CHAIR FOR THREE HOURS OF OUTPATIENT DIALYSIS AND TRANSPORTATION. CM FAXED REFERRAL TO [facility] [phone]. PT WILL NEED TO BE ABLE TO TRANSFER FROM BED TO CHAIR AND WILL ALSO NEED TO BE ABLE TO SIT SAFELY FOR TRANSPORT AND 3 HOURS OF DIALYSIS TREATMENT FOR OUTPATIENT DIALYSIS CLINIC ARRANGEMENT. CM WAITING ON SNF EVALUATIONS FOR ADMISSION, [facility] EVALUATION FOR ADMISSION AND WILL NEED TO SEND APPLICATION FOR [facility] FOR DIALYSIS UNIT CONSIDERATION AND TO FIND OUT IF THEY HAVE FANNIE LIFT CAPABILITY. DICK OLIVEROS, CASE MANAGEMENT DCP- Discharge Planning Updated by [id number]: Dick Oliveros on 10/02/18 3:[address] Patient Name: GUSTABO STUART Encounter No: [id number] : 1950 Primary Insurance: MEDICARE A & B Anticipated DC Date: 09-30-2018 Planned Disposition: Nursing Facility [facility] Cert External Planned Provider: [facility], [place], SLEEPING CAR CONDUCTOR CARE MEDICAID BED DCP follow-up note: CM CALLED ELZBIETA OF [facility], , WAS INFORMED THEY DO NOT HAVE ANY REQUEST TO ARRANGE OUTPATIENT DIALYSIS CLINIC ARRANGEMENT. CM FAXED ADMISSIONS INTAKE FORM WITH INITIAL DOCUMENTS TO [facility] AT [phone]. CM NOTIFIED MERLYN OF [facility] IN [place], [facility], , OF NEED FOR OUTPATIENT DIALYSIS; CM WAS ADVISED THAT PT WILL NEED TO BE ABLE TO TRANSFER TO WHEELCHAIR AND CHAIR WELL BE ABLE TO TOLERATE SITTING IN CHAIR FOR THREE HOURS OF DIALYSIS. THE CENTER PREFERS MWF, MORNING SCHEDULE. CM WAITING FOR OUTPATIENT DIALYSIS CLINIC ARRANGEMENT. NOTE THAT PT WILL HAVE TO BE ABLE TO TRANSFER TO CHAIR AND SIT IN CHAIR FOR THREE HOURS FOR OUTPATIENT CLINIC PARTICIPATION. FOR DISCHARGE, FAX DISCHARGE INFORMATION TO [facility] IN [place], ; NURSE REPORT TO BE CALLED TO [phone]. PT TO TRANSPORT VIA AMBULANCE. Education Courses Sales Representative: Dick Oliveros Appended by Dick Oliveros on 10/02/2018 16:49 BROKERAGE CLERK: CM RECEIVED CALL FROM RADHA OF [facility]; [facility] DIALYS[facility] IS NOT CERTIFIED FOR LIFT AND HAS NO AVAILABLE OPENINGS AT THIS TIME. [facility] IS LIFT CERTIFIED BUT HAS NO AVAILABLE OPENINGS. RADHA WILL SEND REFERRAL TO [facility] IN [place] BUT THEY ONLY HAVE TTS SLOTS AVAILABLE. RADHA WILL ESCULATE REFERRAL FOR [facility] DIALYSIS ARRANGMENT IN [place] THAT A CHAIR BECOMES AVAILABLE AND PT WILL NOT REQUIRE LIFT TRANSFER. PT WILL NEED TO BE ABLE TO TRANSFER FROM BED TO CHAIR AND WILL ALSO NEED TO BE ABLE TO SIT SAFELY FOR TRANSPORT AND 3 HOURS OF DIALYSIS TREATMENT FOR OUTPATIENT DIALYSIS CLINIC ARRANGEMENT. DICK OLIVEROS, CASE MANAGEMENT DCP- Discharge Planning Updated by [id number]: Dick Oliveros on 09/29/18 12:[address] Patient Name: GUSTABO STUART Encounter No: [id number] : 1950 Primary Insurance: MEDICARE A & B Anticipated DC Date: 09-30-2018 Planned Disposition: Nursing Facility [facility] Cert External Planned Provider: [facility] [place], LONG TERM CARE MEDICAID BED DCP follow-up note: CM RECEIVED ORDER FOR OUTPATIENT DIALYSIS CLINIC ARRANGEMENT; RN JAIMIE HAMMONDS HAS INFORMED ROGE MONAE OF [facility] FOR OUTPATIENT DAILYSIS CLINIC ARRANGEMENT IN [place]. JAIMIE FAXED UPDATE TO MERLYN OF [facility] IN [place], [facility], . ROGE INFORMED CM THAT PT NEEDS PERM DIALYSIS CATHETER AND AN ACCURATE WEIGHT. PT HAS ORDERS FOR CATHETER, CM NOTIFIED BEDSIDE NURSE OF NEED FOR ACCURATE WEIGHT; PT IS BED CONFINED AND ON SPECIALTY BED AT THIS TIME. CM WAITING FOR DIALYSIS CATHETER PLACEMENT WELL OUTPATIENT DIALYSIS CLINIC ARRANGEMENT. FOR DISCHARGE, FAX DISCHARGE INFORMATION TO [facility] IN [place], ; NURSE REPORT TO BE CALLED TO [phone]. PT TO TRANSPORT VIA AMBULANCE. Education Courses Sales Representative: Dick Oliveros DCP- Discharge Planning Updated by [id number]: Dick Oliveros on 09/26/18 4:[address] Patient Name: GUSTABO STUART Admission Status: Elective Accout number: [id number] Admission Date: 09-19-2018 : 1950 Admission Diagnosis:ACUTE RESPIRATORY FAILURE WITH HYPOXIA Attending: JENNIFER DICKEY Current LOS: 7 Anticipated DC Date: Planned Disposition: Nursing Facility [facility] Cert Primary Insurance: MEDICARE A & B PLANNED EXTERNAL PROVIDER: [facility] [place], LONG TERM CARE MEDICAID BED Discharge Planning Comments: CM MET WITH PT IN ROOM TO DISCUSS DISCHARGE PLANNING AND NEEDS. PT REPORTS LIVING AT A SNF IN [place], SHE CANNOT REMEMBER THE NAME OF THE PLACE. PT REPORTS BEING CONFINED TO BED BUT THE FACILITY HAS A LIFT TO ACCOUNT TECHNICIAN PT TO A WHEELCHAIR. PT REPORTS HAVING BIPAP, NEBULIZER AND OXYGEN AT THE FACILITY. PT REPORTS HAVING ASSISTANCE WITH EVERYTHING BUT EATING, WHICH SHE DOES HERSELF. PT ASKED THAT IF FAMILY CALLS, TELL THEM TO BRING HER CLOTHES AND CELL PHONE. CM DISCUSSED AVAILABILITY OF HOME HEALTH, REHAB SERVICES AND MEDICAL EQUIPMENT. PT DENIES DISCHARGE NEEDS, REPORTS SHE WILL DISCHARGE BACK TO FACILITY WHERE SHE LIVES. CM CALLED [facility] IN [place] [place] [facility], ; CM SPOKE TO MERLYN WHO REPORTS PT IS IN [facility] CARE AND PROVIDED EMERGENCY CONTACT INFORMATION FOR PT'S FAMILY MEMBERS; CM NOTED IN CASE MANAGEMENT ASSESSMENT CHECKLIST. MERLYN VERIFIED PT HAS OXYGEN, NEBULUZER AND BIPAP IN FACILITY, THEY WILL ACCEPT BACK FOR CONTINUED SLEEPING CAR CONDUCTOR CARE AT HOSPITAL DISCHARGE. FOR DISCHARGE, FAX DISCHARGE INFORMATION TO [facility] IN [place], ; NURSE REPORT TO BE CALLED TO [phone]. PT TO TRANSPORT VIA AMBULANCE. Education Courses Sales Representative: Dick Oliveros DCP- Discharge Planning Updated by [id number]: Jenny lA on 09/23/18 3:[address] CM attempted to visit with patient. Patient is currently on BiPap and getting dialysis at this time. She is unable to speak with me at this time. No family available at this time. CM will continue to follow and assist as needed with discharge planning / needs. DCPIA - Discharge Planning Initial Assessment Updated by [id number]: Dick Oliveros on 09/26/18 4:23 pm * Is the patient Alert and Oriented? Yes * How many steps to enter\\exit or inside your home? NONE * PCP [facility], FIGURE REFINISHER AND REPAIRER * Pharmacy [facility] ([facility]M FACILITY) * Preadmission Environment Race Relations Adviser Care Home * Facility Name [facility] T [phone] * ADLs Partial Dependent * Partial ADLs (Assistance needed) Bathing Dressing Medication Management Toileting Transfers * Equipment BIPAP Hospital Bed Fannie Lift Nebulizer Oxygen Wheelchair * Other Equipment ALL MEDICAL EQUIPMENT PROVIDED BY FACILITY * List name and contact numbers for known caregivers / representatives who currently or will assist patient after discharge: EDGARD CULPKEISHA, MOTHER IN LAW, KAVEH CASILLAS, DTR, NICK SAUER, SPOUSE, * Verbal permission to speak to the caregivers and representatives has been obtained from the patient. Yes * Community resources currently utilized None * Please name any agencies selected above. NONE * Additional services required to return to the preadmission environment? No * Can the patient safely return to the preadmission environment? Yes * Has this patient been hospitalized within the prior 30 days at any hospital? No Coverage Notice Reviewer: [id number] Oliveros Notice Issued Date-Time: 10/03/2018 11:30 Notice Type: Patient Choice Letter Notice Delivered To: Patient Relationship to Patient: Grill Associate Name: Delivery Method: HAND - Hand Delivered Veda Days: Prior Verbal Notification: Recipient Understood Notice: Recipient Signature: Med Rec Note Co-signed by Attending: Coverage Notice Comment: [place]: [facility] Reviewer: [id number] Oliveros Notice Issued Date-Time: 10/15/2018 10:20 Notice Type: IM Discharge Notice Notice Delivered To: Patient Relationship to Patient: Grill Associate Name: Delivery Method: HAND - Hand Delivered Veda Days: Prior Verbal Notification: Recipient Understood Notice: Yes Recipient Signature: Yes Med Rec Note Co-signed by Attending: Coverage Notice Comment: Last DP export: 10/22/18 11:28 Patient Name: GUSTABO STUART Page [id number] at 1524 All edits/amendments must be made on the electronic document DICTATION DATE: 10/22/18 152 CLIMATE CHANGE RISK ASSESSOR: HELDER 10/22/18 152 RPT#: [id number] DC DATE: STATUS: ADM IN [facility] [address] [place] [address] END OF REPORT
--- NOTE | ~2018-09-19 | MORECARE ---
CASE MANAGEMENT DISCHARGE SUMMARY PATIENT: GUSTABO STUART UNIT: [id number] ADM DATE: 09/19/18 AGE: 68 : 50 SEX: F ROOM/BED: D.9243 AUTHOR: LAWRENCE,DOC PHYSICIAN: REFERRING PHYSICIAN: JENNIFER DICKEY MD DATE OF SERVICE: 09/29/18 Discharge Plan Patient Name: GUSTABO STUART Facility: [facility]:[place] : 1950 Planned Disposition: Nursing Facility KULWINDER Cert Anticipated Discharge Date: 09/30/18 Discharge Date: Expected LOS: 11 Initial Reviewer: [id number] Initial Review Date: 09/19/2018 Generated: 09/29/18 1:46 pm Comments DCP- Discharge Planning Updated by [id number]: Gerarod Oliveros on 09/26/18 4:[address] Patient Name: GUSTABO STUART Admission Status: Elective Accout number: [id number] Admission Date: 09-19-2018 : 1950 Admission Diagnosis:ACUTE RESPIRATORY FAILURE WITH HYPOXIA Attending: JENNIFER DICKEY Current LOS: 7 Anticipated DC Date: Planned Disposition: Nursing Facility KULWINDER Cert Primary Insurance: MEDICARE A & B PLANNED EXTERNAL PROVIDER: [facility], [place], LONG TERM CARE MEDICAID BED Discharge Planning Comments: CM MET WITH PT IN ROOM TO DISCUSS DISCHARGE PLANNING AND NEEDS. PT REPORTS LIVING AT A SNF IN [place], SHE CANNOT REMEMBER THE NAME OF THE PLACE. PT REPORTS BEING CONFINED TO BED BUT THE FACILITY HAS A LIFT TO [employer] NETWORK ENGINEER PT TO A WHEELCHAIR. PT REPORTS HAVING BIPAP, NEBULIZER AND OXYGEN AT THE FACILITY. PT REPORTS HAVING ASSISTANCE WITH EVERYTHING BUT EATING, WHICH SHE DOES HERSELF. PT ASKED THAT IF FAMILY CALLS, TELL THEM TO BRING HER CLOTHES AND CELL PHONE. CM DISCUSSED AVAILABILITY OF HOME HEALTH, REHAB SERVICES AND MEDICAL EQUIPMENT. PT DENIES DISCHARGE NEEDS, REPORTS SHE WILL DISCHARGE BACK TO FACILITY WHERE SHE LIVES. CM [facility] [place], ; CM SPOKE TO MERLYN WHO REPORTS PT IS IN [facility] CARE AND PROVIDED EMERGENCY CONTACT INFORMATION FOR PT'S FAMILY MEMBERS; JAIMIE NOTED IN CASE MANAGEMENT ASSESSMENT CHECKLIST. MERLYN VERIFIED PT HAS OXYGEN, NEBULUZER AND BIPAP IN FACILITY, THEY WILL ACCEPT BACK FOR CONTINUED OIL PROCESS STILLMAN CARE AT HOSPITAL DISCHARGE. FOR DISCHARGE, [facility] INFORMATION TO [facility] [place], ; NURSE REPORT TO BE CALLED TO [phone]. PT TO TRANSPORT VIA AMBULANCE. Finisher Fine Diamond Dies: Gerardo Oliveros DCP- Discharge Planning Updated by [id number]: Jenny Servando on 09/23/18 3:[address] CM attempted to visit with patient. Patient is currently on BiPap and getting dialysis at this time. She is unable to speak with me at this time. No family available at this time. CM will continue to follow and assist as needed with discharge planning / needs. DCPIA - Discharge Planning Initial Assessment Updated by [id number]: Gerardo Oliveros on 09/26/18 4:23 pm * Is the patient Alert and Oriented? Yes * How many steps to enter\exit or inside your home? NONE * [facility] * [facility] * Preadmission Environment Broach Trouble Shooter Assisted * Facility Name [facility] [phone] * ADLs Partial Dependent * Partial ADLs (Assistance needed) Bathing Dressing Medication Management Toileting Transfers * Equipment BIPAP Hospital Bed Fannie Lift Nebulizer Oxygen Wheelchair * Other Equipment ALL MEDICAL EQUIPMENT PROVIDED BY FACILITY * List name and contact numbers for known caregivers / representatives who currently or will assist patient after discharge: EDGARD JEREZ, MOTHER IN LAW, KAVEH CASILLAS, DTR, NICK SAUER, SPOUSE, * Verbal permission to speak to the caregivers and representatives has been obtained from the patient. Yes * Community resources currently utilized None * Please name any agencies selected above. NONE * Additional services required to return to the preadmission environment? No * Can the patient safely return to the preadmission environment? Yes * Has this patient been hospitalized within the prior 30 days at any hospital? No Last DP export: 09/26/18 4:32 p Patient Name: GUSTABO STUART Page [id number] at 1246 All edits/amendments must be made on the electronic document DICTATION DATE: 09/29/181245 INFORMATION TECHNOLOGY AUDIT MANAGER: HELDER 09/29/181245 RPT#: [id number] PA DATE: STATUS: ADM IN [facility] [address] [place] [address] END OF REPORT
--- NOTE | ~2018-09-19 | MORECARE ---
CASE MANAGEMENT DISCHARGE SUMMARY PATIENT: GUSTABO STUART UNIT: [id number] ADM DATE: 09/19/18 AGE: 68 : 50 SEX: F ROOM/BED: D.8019 AUTHOR: LAWRENCE,DOC PHYSICIAN: REFERRING PHYSICIAN: JENNIFER DICKEY MD DATE OF SERVICE: 10/13/18 Discharge Plan Patient Name: GUSTABO STUART Facility: [facility]:[place] : 1950 Planned Disposition: Nursing Facility KULWINDER Cert Anticipated Discharge Date: 09/30/18 Discharge Date: Expected LOS: 11 Initial Reviewer: [id number] Initial Review Date: 09/19/2018 Generated: 10/13/18 4:33 pm Comments DCP- Discharge Planning Updated by [id number]: Dick Randle on 10/13/18 2:[address] Patient Name: GUSTABO STUART Encounter No: [id number] : 1950 Primary Insurance: MEDICARE A & B Anticipated DC Date: 09-30-2018 Planned Disposition: Nursing Facility [facility]UL[facility]ER Cert External Planned Provider: [facility]; SENIOR CARE CARE MEDICAID BED DCP follow-up note: JAIMIE [facility] [place], , WHO ADVISED THAT [facility] MAY ACCEPT BUT PT WILL NEED TO DEMONSTRATE ABILITY TO TRANSFER TO WHEELCHAIR AND SIT FOR 3 HOURS OF DIALYSIS. [facility] HAS LIFT AVAILABLE. JAIMIE SPOKE TO RADHA [facility] WHO REPORTS THEY WERE WORKING ON [facility] IN [place] BUT WILL SEND REFERRAL TO [facility] IN [place] THAT HAS LIFT AND MWF SCHEDULING CAPABIILITY. JAIMIE SPOKE TO PT IN ROOM WHO IS WILLING FOR PLACEMENT IN [place] TO BE CLOSER TO FAMILY IF SHE CANNOT RETURN TO [place] WHERE SHE WAS LIVING AT [facility]. CM FAXED UPDATE TO [facility] IN [place] VIA LAURENCE AT [phone]. JAIMIE SPOKE TO MARIEL OF PHYSICAL THERAPY WHO VERIFIED PT HAS BEEN UP TO SIDE OF BED BUT THEY ARE NOT ABLE TO GET PT UP TO CHAIR THEY DO NOT HAVE A LIFT. CM SPOKE TO CM BRIM PLATER KAYLEE REGARDING LACK OF LIFT CAPABILITY THIS IS AN OBSTACLE TO PLACEMENT IN ANY FACILITY PT WILL NEED OUTPATIENT DIALYSIS AND MUST BE ABLE TO DEMONSTRATE ABILITY TO SIT FOR DURATION OF TRANSPORT AND DIALYSIS SESSION. CM WAITING PT TO DEMONSTRATE ABILITY TO TRANSFER AND SIT FOR DURATION OF TRANSPORTATION WELL FOR THREE HOURS OF DIALYSIS TREATMENT, WITH OR WITHOUT A LIFT. [facility] WILL REVIEW FOR PLACEMENT IF PT IS ABLE TO SIT FOR TRANSPORT AND DIALYSIS; THEY DO HAVE FANNIE LIFT. DAVITA ADMISSIONS WORKING ON OUTPATIENT DIALYSIS ARRANGEMENT AT [facility], THEY ALSO HAVE A LIFT. DICK RANDLE, CASE MANAGEMENT Appended by Dick Randle on 10/13/2018 15:31 MED ASST: CM RECEIVED CALL FROM [facility], , WHO ASKED FOR FAXED UPDATE. CM FAXED UPDATE TO [facility] WITH DIALYSIS RUN SHEETS THRU 10-11-18. CM FAXED UPDATE TO [facility] WITH OCCUPATIONAL THERAPY NOTE INDICATING PT HAS BEEN OUT OF BED TO CHAIR. CM TO CONTINUE TO FOLLOW AND ASSIST NEEDED. CM WAITING PT TO DEMONSTRATE ABILITY TO TRANSFER AND SIT FOR DURATION OF TRANSPORTATION WELL FOR THREE HOURS OF DIALYSIS TREATMENT, WITH OR WITHOUT A LIFT. [facility] WILL REVIEW FOR PLACEMENT IF PT IS ABLE TO SIT FOR TRANSPORT AND DIALYSIS; THEY DO HAVE FANNIE LIFT. DAVITA ADMISSIONS WORKING ON OUTPATIENT DIALYSIS ARRANGEMENT AT [facility], THEY ALSO HAVE A LIFT. DICK RANDLE, CASE MANAGEMENT DCP- Discharge Planning Updated by [email or web address]: Jenny Al on 10/10/18 6:[address] Late Entry 10/10/18 @ 0900 PT and OT still working with patient to get out of bed to sit in chair. Patient has to be able to sit in wheelchair and be transported to dialysis and sit in dialysis chair for 3-4hrs. CM will continue to follow and assist as needed with discharge planning / needs. DCP- Discharge Planning Updated by [id number]: Jenny Al on 10/07/18 3:[address] CM spoke with Roge Monae this am. Roge stated we are at standstill until we find NH placement. Once we have NH placement then we can proceed with dialysis placement. CM spoke with patients daughter since patient isn't able to stay awake and communicate. Daughter Fran Tinajero "Nkechi" [phone]. Daughter stated that she would like NH placement as close to [place] as possible. CM explained that we would have to find placement that has fannie lift at both NH and dialysis clinic. Daughter stated that [place] was the next closest town. CM contacted [facility] in [place] [phone]. Luarence Garcia clinical Liaison [phone] fax [phone]. CM spoke with Laurence and explained situation and faxed records. Laurence stated she would be here to see patient in am. CM will continue to follow and assist as needed with discharge planning / needs. DCP- Discharge Planning Updated by [id number]: Jenny Al on 10/07/18 9:[address] CM spoke with Roge Monae this am. She stated that she had been out of the office but now was back. Roge stated that she would speak to Radha and would take care of everything from this point with placement for dialysis. CM will continue to follow and assist as needed with discharge planning / needs. DCP- Discharge Planning Updated by [id number]: Jenny Al on 10/07/18 9:[address] Late Entry 10/06/18 @ 1600 CM spoke with Radha with [facility]. Radha stated she needed clarification on patients name. Radha stated she needed dialysis flowsheets from last three treatments faxed to her. Radha stated that she was trying to get placement at [facility] dialysis clinic. CM will continue to follow and assist as needed with discharge planning / needs. DCP- Discharge Planning Updated by [id number]: Dick Randle on 10/03/18 3:[address] Patient Name: GUSTABO STUART Encounter No: [id number] : 1950 Primary Insurance: MEDICARE A & B Anticipated DC Date: 09-30-2018 Planned Disposition: Nursing Facility KULWINDER Cert External Planned Provider: TO BE DETERMINED DCP follow-up note: CM RECEIVED CALL FROM NAYANA OF [facility], THEY ONLY HAVE TTS AVAILABLE AND HAVE TALKED TO [facility] RAIL GANG SUPERVISOR WHO INFORMED THEM THAT THEY ARE NOT GOING TO DRIVE PT AN HOUR AWAY FOR DIALYSIS FROM THE ASSISTED. CM SPOKE TO AUDI AT [facility] WHO INFORMED CM THAT THEY ARE GOING TO HAVE A SISTER FACILITY REPRESENTIVE CONTACT CM TO ASSIST IN PLACING PT IN [place] SO THAT PT CAN GO TO A FACILITY THAT HAS CAPABILITY OF FANNIE LIFT AND TO A DILAYSIS UNIT THAT HAS CAPABILITY OF FANNIE LIFT. CM SPOKE TO PT IN ROOM, DISCUSSED MOVING TO ANOTHER ASSISTED, PT REPORTS SHE WILL TRY WITH THERAPY AND IS WILLING FOR NEW ASSISTED IF NEEDED, CHOICE SIGNED FOR [facility] AND [facility]. CM DISCUSSED [facility], PT ALSO IN AGREEMENT WITH [facility]ACH AT [facility] IF IT WILL HELP GET HER HOME SOONER. CM CALLED AND SPOKE TO [facility] OF [facility], , DISCUSSED NEED FOR REHAB, WOUND CARE AND DIALYSIS WITH GOAL TO SIT FOR DIALYSIS IN OUTPATIENT SETTING TO RETURN TO A ASSISTED FOR CONTINUED SENIOR CARE CARE. REFERRAL FAXED TO [facility] AT [phone]. CM CALLED AND SPOKE TO BECKY DEL CASTILL[facility], , OF [facility], REPRESENTING [facility] AND [facility] FACILITIES. [facility] AND DO NOT HAVE ONE WITH DAVITA. THEY WILL SCREEN PT FOR THEIR HOMES, BUT PT WILL HAVE TO HAVE CAPACITY TO SIT IN CHAIR FOR THREE HOURS OF OUTPATIENT DIALYSIS AND TRANSPORTATION. CM FAXED REFERRAL TO BECKY AT [phone]. PT WILL NEED TO BE ABLE TO TRANSFER FROM BED TO CHAIR AND WILL ALSO NEED TO BE ABLE TO SIT SAFELY FOR TRANSPORT AND 3 HOURS OF DIALYSIS TREATMENT FOR OUTPATIENT DIALYSIS CLINIC ARRANGEMENT. CM WAITING ON ASSISTED EVALUATIONS FOR ADMISSION, [facility] AREN EVALUATION FOR ADMISSION AND WILL NEED TO SEND APPLICATION FOR [facility] FOR DIALYSIS UNIT CONSIDERATION AND TO FIND OUT IF THEY HAVE FANNIE LIFT CAPABILITY. DICK RANDLE, CASE MANAGEMENT DCP- Discharge Planning Updated by [id number]: Dick Randle on 10/02/18 3:[address] Patient Name: GUSTABO STUART Encounter No: [id number] : 1950 Primary Insurance: MEDICARE A & B Anticipated DC Date: 09-30-2018 Planned Disposition: Nursing Facility [facility]UL[facility]ER Cert External Planned Provider: [facility], [place], LONG TERM CARE MEDICAID BED DCP follow-up note: CM CALLED ELZBIETA OF [facility], , WAS INFORMED THEY DO NOT HAVE ANY REQUEST TO ARRANGE OUTPATIENT DIALYSIS CLINIC ARRANGEMENT. CM FAXED ADMISSIONS INTAKE FORM WITH INITIAL DOCUMENTS TO [facility] AT [phone]. CM NOTIFIED MERLYN OF [facility] IN [place], [facility], , OF NEED FOR OUTPATIENT DIALYSIS; CM WAS ADVISED THAT PT WILL NEED TO BE ABLE TO TRANSFER TO WHEELCHAIR AND CHAIR WELL BE ABLE TO TOLERATE SITTING IN CHAIR FOR THREE HOURS OF DIALYSIS. THE CENTER PREFERS MWF, MORNING SCHEDULE. CM WAITING FOR OUTPATIENT DIALYSIS CLINIC ARRANGEMENT. NOTE THAT PT WILL HAVE TO BE ABLE TO TRANSFER TO CHAIR AND SIT IN CHAIR FOR THREE HOURS FOR OUTPATIENT CLINIC PARTICIPATION. FOR DISCHARGE, FAX DISCHARGE INFORMATION TO [facility] IN [place], ; NURSE REPORT TO BE CALLED TO [phone]. PT TO TRANSPORT VIA AMBULANCE. Cloth Feeder: Dick Randle Appended by Dick Randle on 10/02/2018 16:49 MED ASST: JAIMIE RECEIVED CALL FROM RADHA OF [facility]; [facility] IS NOT CERTIFIED FOR LIFT AND HAS NO AVAILABLE OPENINGS AT THIS TIME. [facility] IS LIFT CERTIFIED BUT HAS NO AVAILABLE OPENINGS. RADHA WILL SEND REFERRAL TO [facility] IN [place] BUT THEY ONLY HAVE TTS SLOTS AVAILABLE. RADHA WILL ESCULATE REFERRAL FOR [facility] DIAL[facility] ARRANGMENT IN [place] THAT A CHAIR BECOMES AVAILABLE AND PT WILL NOT REQUIRE LIFT TRANSFER. PT WILL NEED TO BE ABLE TO TRANSFER FROM BED TO CHAIR AND WILL ALSO NEED TO BE ABLE TO SIT SAFELY FOR TRANSPORT AND 3 HOURS OF DIALYSIS TREATMENT FOR OUTPATIENT DIALYSIS CLINIC ARRANGEMENT. DICK RANDLE, CASE MANAGEMENT DCP- Discharge Planning Updated by [id number]: Dick Randle on 09/29/18 12:[address] Patient Name: GUSTABO STUART Encounter No: [id number] : 1950 Primary Insurance: MEDICARE A & B Anticipated DC Date: 09-30-2018 Planned Disposition: Nursing Facility KULWINDER Cert External Planned Provider: [facility], [place], LONG TERM CARE MEDICAID BED DCP follow-up note: CM RECEIVED ORDER FOR OUTPATIENT DIALYSIS CLINIC ARRANGEMENT; RN JAIMIE HAMMONDS HAS INFORMED ROGE MONAE OF [facility] FOR OUTPATIENT DAILYSIS CLINIC ARRANGEMENT IN [place]. JAIMIE FAXED UPDATE TO MERLYN OF [facility] IN [place], [facility], . ROGE INFORMED CM THAT PT NEEDS PERM DIALYSIS CATHETER AND AN ACCURATE WEIGHT. PT HAS ORDERS FOR CATHETER, CM NOTIFIED BEDSIDE NURSE OF NEED FOR ACCURATE WEIGHT; PT IS BED CONFINED AND ON SPECIALTY BED AT THIS TIME. CM WAITING FOR DIALYSIS CATHETER PLACEMENT WELL OUTPATIENT DIALYSIS CLINIC ARRANGEMENT. FOR DISCHARGE, FAX DISCHARGE INFORMATION TO [facility] IN [place], ; NURSE REPORT TO BE CALLED TO [phone]. PT TO TRANSPORT VIA AMBULANCE. Cloth Feeder: Dick Randle DCP- Discharge Planning Updated by [id number]: Dick Randle on 09/26/18 4:[address] Patient Name: GUSTABO STUART Admission Status: Elective Accout number: [id number] Admission Date: 09-19-2018 : 1950 Admission Diagnosis:ACUTE RESPIRATORY FAILURE WITH HYPOXIA Attending: JENNIFER DICKEY Current LOS: 7 Anticipated DC Date: Planned Disposition: Nursing Facility [facility] Primary Insurance: MEDICARE A & B PLANNED EXTERNAL PROVIDER: [facility], [place], LONG TERM CARE MEDICAID BED Discharge Planning Comments: CM MET WITH PT IN ROOM TO DISCUSS DISCHARGE PLANNING AND NEEDS. PT REPORTS LIVING AT A ASSISTED IN [place], SHE CANNOT REMEMBER THE NAME OF THE PLACE. PT REPORTS BEING CONFINED TO BED BUT THE FACILITY HAS A LIFT TO RESIDENCE COUNSELOR PT TO A WHEELCHAIR. PT REPORTS HAVING BIPAP, NEBULIZER AND OXYGEN AT THE FACILITY. PT REPORTS HAVING ASSISTANCE WITH EVERYTHING BUT EATING, WHICH SHE DOES HERSELF. PT ASKED THAT IF FAMILY CALLS, TELL THEM TO BRING HER CLOTHES AND CELL PHONE. CM DISCUSSED AVAILABILITY OF HOME HEALTH, REHAB SERVICES AND MEDICAL EQUIPMENT. PT DENIES DISCHARGE NEEDS, REPORTS SHE WILL DISCHARGE BACK TO FACILITY WHERE SHE LIVES. JAIMIE CALLED [facility] IN [place], [facility], ; CM SPOKE TO MERLYN WHO REPORTS PT IS IN [facility]ER CARE AND PROVIDED EMERGENCY CONTACT INFORMATION FOR PT'S FAMILY MEMBERS; CM NOTED IN CASE MANAGEMENT ASSESSMENT CHECKLIST. MERLYN VERIFIED PT HAS OXYGEN, NEBULUZER AND BIPAP IN FACILITY, THEY WILL ACCEPT BACK FOR CONTINUED MUSTANGER CARE AT HOSPITAL DISCHARGE. FOR DISCHARGE, FAX DISCHARGE INFORMATION TO [facility] IN [place], ; NURSE REPORT TO BE CALLED TO [phone]. PT TO TRANSPORT VIA AMBULANCE. Cloth Feeder: Dick Randle DCP- Discharge Planning Updated by [id number]: Jenny Al on 09/23/18 3:[address] CM attempted to visit with patient. Patient is currently on BiPap and getting dialysis at this time. She is unable to speak with me at this time. No family available at this time. CM will continue to follow and assist as needed with discharge planning / needs. DCPIA - Discharge Planning Initial Assessment Updated by [id number]: Dick Randle on 09/26/18 4:23 pm * Is the patient Alert and Oriented? Yes * How many steps to enter\\exit or inside your home? NONE * PCP [facility] * Pharmacy [facility] ([facility]) * Preadmission Environment [employer] * Facility Name [facility] T [phone] * ADLs Partial Dependent * Partial ADLs (Assistance needed) Bathing Dressing Medication Management Toileting Transfers * Equipment BIPAP Hospital Bed Fannie Lift Nebulizer Oxygen Wheelchair * Other Equipment ALL MEDICAL EQUIPMENT PROVIDED BY FACILITY * List name and contact numbers for known caregivers / representatives who currently or will assist patient after discharge: EDGARD JEREZ, MOTHER IN LAW, KAVEH CASILLAS, DTR, NICK SAUER, SPOUSE, * Verbal permission to speak to the caregivers and representatives has been obtained from the patient. Yes * Community resources currently utilized None * Please name any agencies selected above. NONE * Additional services required to return to the preadmission environment? No * Can the patient safely return to the preadmission environment? Yes * Has this patient been hospitalized within the prior 30 days at any hospital? No Coverage Notice Reviewer: [id number] Rex Randle Notice Issued Date-Time: 10/03/2018 11:30 Notice Type: Patient Choice Letter Notice Delivered To: Patient Relationship to Patient: Hemmer Lockstitch Name: Delivery Method: HAND - Hand Delivered Veda Days: Prior Verbal Notification: Recipient Understood Notice: Recipient Signature: Med Rec Note Co-signed by Attending: Coverage Notice Comment: CONVICAREFABRICIO: [facility] AND [facility] Last DP export: 10/13/18 2:26 Patient Name: GUSTABO STUART Page [id number] at 1533 All edits/amendments must be made on the electronic document DICTATION DATE: 10/13/181532 ROUTE RIDER SUPERVISOR: HELDER 10/13/181532 RPT#: [id number] DC DATE: STATUS: ADM IN [facility] [address] [place] [address] END OF REPORT
--- NOTE | ~2018-09-19 | MORECARE ---
CASE MANAGEMENT DISCHARGE SUMMARY PATIENT: GUSTABO STUART UNIT: [id number] ADM DATE: 09/19/18 AGE: 68 : 50 SEX: F ROOM/BED: D.2137 AUTHOR: LAWRENCE,DOC PHYSICIAN: REFERRING PHYSICIAN: JENNIFER DICKEY MD DATE OF SERVICE: 10/22/18 Discharge Plan Patient Name: GUSTABO STUART Facility[facility] : 1950 Planned Disposition: Nursing Facility [facility] Cert Anticipated Discharge Date: 10/22/18 Discharge Date: Expected LOS: 33 Initial Reviewer: [id number] Initial Review Date: 09/19/2018 Generated: 10/22/18 1:28 pm Comments DCP- Discharge Planning Updated by [id number]: Dick Oliveros on 10/22/18 9:[address] Patient Name: GUSTABO STUART Encounter No: [id number] : 1950 Primary Insurance: MEDICARE A & B Anticipated DC Date: 10-21-2018 Planned Disposition: Nursing Facility [facility] Cert External Planned Provider: [facility], [facility] MEDICAID BED CM SPOKE TO ROGE OF [facility] 10-21-18 WHO INFORMED CM THAT DIALYSIS UNIT STILL ASSESSING FOR ADMISSION AND REQUESTED FURHTER DOCUMENTATION WHICH ROGE FAXED FOR REVIEW. ON 10-21-18, CM SENT MESSAGE TO [facility]GE [facility] REQUESTING UPDATE ON DIALYSIS UNIT PLACEMENT AND SCHEDULE. ROGE CALLED CM, INFORMED CM THAT THE DIALYSIS DOCTOR DID NOT COMPLETE REVIEW YESTERDAY, ROGE HAS CALLED AND ASKED FOR REVIEW AND DETERMINATION TODAY. [facility] IN [place] [facility] ACCEPTS PT. CM WAITING DAILYSIS CLINIC ACCEPTANCE AND SCHEDULE. WHEN CLINIC ARRANGEMENT CONFIRMED, FAX DISCHARGE INFORMATION TO [facility] AT [phone]. CALL NURSE REPORT TO [facility] AT [phone]. PT TO TRANSPORT VIA AMBULANCE DUE TO STAGE 2 PRESSURE ULCER ON COCCYX. DICK OLIVEROS CASE MANAGEMENT DCP- Discharge Planning Updated by [id number]: Dick Oliveros on 10/20/18 4:[address] Patient Name: GUSTABO STUART Encounter No: [id number] : 1950 Primary Insurance: MEDICARE A & B Anticipated DC Date: 10-21-2018 Planned Disposition: Nursing Facility [facility] Cert External Planned Provider:[facility] [place] [place], LONG TERM CARE MEDICAID BED CM RECEIVED CALL FROM LAURENCE OF [facility], , WHO ADVISED THAT [facility] WILL ACCEPT PT, TOMORROW, 10-21-18, IF APPROVED BY [facility] FOR OUTPATIENT DIALYSIS. LAURENCE ADVISED THAT THE CORRECTION IS NOW COMMUNICATING WITH THE DIALYSIS UNIT. CM SENT MESSAGE TO ROGE OF PATIENT [facility]WAYS REQUESTING UPDATE ON DIALYSIS UNIT PLACEMENT AND SCHEDULE. PT NOTIFIED AND IN AGREEMENT WITH DISCHARGE TO [facility] SOON POSSIBLE. [facility] IN [place] [facility] ACCEPTS PT. CM WAITING DAILYSIS CLINIC ACCEPTANCE AND SCHEDULE. WHEN CLINIC ARRANGEMENT CONFIRMED, FAX DISCHARGE INFORMATION TO [facility] AT [phone]. CALL NURSE REPORT TO [facility] AT [phone]. PT TO TRANSPORT VIA AMBULANCE DUE TO STAGE 2 PRESSURE ULCER ON COCCYX. DICK OLIVEROS, CASE MANAGEMENT DCP- Discharge Planning Updated by [id number]: Dick Oliveros on 10/20/18 8:[address] Patient Name: GUSTABO STUART Encounter No: [id number] : 1950 Primary Insurance: MEDICARE A & B Anticipated DC Date: 10-15-2018 Planned Disposition: Nursing Facility [facility] Cert External Planned Provider: [facility] [place], LONG TERM CARE MEDICAID BED CM LEFT MESSAGE FOR LAURENCE [facility] IN [place], , AND ADVISED THAT PT HAS CONTINUED TO DEMONSTRATE ABILITY TO TRANSFER TO CHAIR AND SIT FOR OVER 4 HOURS. CM FAXED UPDATE TO [facility] VIA LAURENCE AT [phone]. [facility] IS REVIEWING FOR PLACEMENT; THEY DO HAVE FANNIEKAMLA SAUCEDA WORKING ON [facility]IALYS[facility], THEY ALSO HAVE A LIFT. CM WAITING ON DETERMINATIONS FROM BOTH. DICK OLIVEROS CASE MANAGEMENT DCP- Discharge Planning Updated by [id number]: Dick Oliveros on 10/15/18 11:[address] Patient Name: GUSTABO STUART Encounter No: [id number] : 1950 Primary Insurance: MEDICARE A & B Anticipated DC Date: 10-15-2018 Planned Disposition: Nursing Facility [facility] Cert External Planned Provider: [facility]; LONG TERM CARE MEDICAID BED DCP follow-up note: CM CALLED LAURENCE OF [facility] IN [place], , AND ADVISED THAT PT HAS DEMONSTRATED ABILITY TO TRANSFER TO CHAIR AND SIT FOR OVER 4 HOURS. CM SPOKE TO HOMER OF [facility] ADMISSIONS AND PROVIDED UPDATE FOR [facility] DIALYSIS IN [place] CM SPOKE TO ROGE MONAE OF [facility] WHO WILL COMMUNICATE WITH [facility] ADMISSIONS WELL [facility] DIALYSIS AND PROVIDED UPDATED INFORMATION TO BOTH FROM MEDICAL CHART. CM SPOKE TO PT IN ROOM WHO IS STILL WILLING FOR PLACEMENT IN [place] AT [facility] AND WAS HOPING TO BE OUT OF THE HOSPITAL FOR THANKSGIVING. IMPORTANT MESSAGE FROM MEDICARE PROVIDED AND EXPLAINED. CM FAXED UPDATE TO [facility] IN [place] VIA LAURENCE AT [phone]. [facility] IN [place] [facility] IS REVIEWING FOR PLACEMENT; THEY DO HAVE FANNIE LIFT. DAVITA ADMISSIONS WORKING ON OUTPATIENT DIALYSIS ARRANGEMENT AT [facility] IN [place], THEY ALSO HAVE A LIFT. CM WAITING ON DETERMINATIONS FROM BOTH. DICK OLIVEROS CASE MANAGEMENT DCP- Discharge Planning Updated by [id number]: Dick Oliveros on 10/13/18 2:[address] Patient Name: GUSTABO STUART Encounter No: [id number] : 1950 Primary Insurance: MEDICARE A & B Anticipated DC Date: 09-30-2018 Planned Disposition: Nursing Facility [facility] Cert External Planned Provider: [facility]; LONG TERM CARE MEDICAID BED DCP follow-up note: [facility] [place] , WHO ADVISED THAT [facility] MAY ACCEPT BUT PT WILL NEED TO DEMONSTRATE ABILITY TO TRANSFER TO WHEELCHAIR AND SIT FOR 3 HOURS OF DIALYSIS. [facility] HAS LIFT AVAILABLE. CM SPOKE TO RADHA OF [facility] ADMISSIONS WHO REPORTS THEY WERE WORKING ON [facility] DIALYSIS IN [place] BUT WILL SEND REFERRAL TO [facility] IN [place] THAT HAS LIFT AND MWF SCHEDULING CAPABIILITY. CM SPOKE TO PT IN ROOM WHO IS WILLING FOR PLACEMENT IN [place] TO BE CLOSER TO FAMILY IF SHE CANNOT RETURN TO [place] WHERE SHE WAS LIVING AT [facility]. CM FAXED UPDATE TO [facility] VIA [employer] AT [phone]. CM SPOKE TO MARIEL OF PHYSICAL THERAPY WHO VERIFIED PT HAS BEEN UP TO SIDE OF BED BUT THEY ARE NOT ABLE TO GET PT UP TO CHAIR THEY DO NOT HAVE A LIFT. CM SPOKE TO CM CARE COORDINATION MANAGER KAYLEE REGARDING LACK OF LIFT CAPABILITY THIS IS AN OBSTACLE TO PLACEMENT IN ANY FACILITY PT WILL NEED OUTPATIENT DIALYSIS AND MUST BE ABLE TO DEMONSTRATE ABILITY TO SIT FOR DURATION OF TRANSPORT AND DIALYSIS SESSION. CM WAITING PT TO DEMONSTRATE ABILITY TO TRANSFER AND SIT FOR DURATION OF TRANSPORTATION WELL FOR THREE HOURS OF DIALYSIS TREATMENT, WITH OR WITHOUT A LIFT. [facility] IN [place] [facility] WILL REVIEW FOR PLACEMENT IF PT IS ABLE TO SIT FOR TRANSPORT AND DIALYSIS; THEY DO HAVE FANNIE LIFT. [facility] ADMISSIONS WORKING ON OUTPATIENT DIALYSIS ARRANGEMENT AT [facility] IN [place], THEY ALSO HAVE A LIFT. DICK OLIVEROS, CASE MANAGEMENT Appended by Dick Oliveros on 10/13/2018 15:31 FOUNDER / CEO: CM RECEIVED CALL FROM KRISTIAN OF [facility], , WHO ASKED FOR FAXED UPDATE. CM FAXED UPDATE TO [facility] WITH DIALYSIS RUN SHEETS THRU 10-11-18. CM FAXED UPDATE TO LAURENCE OF [facility] WITH OCCUPATIONAL THERAPY NOTE INDICATING PT HAS BEEN OUT OF BED TO CHAIR. CM TO CONTINUE TO FOLLOW AND ASSIST NEEDED. CM WAITING PT TO DEMONSTRATE ABILITY TO TRANSFER AND SIT FOR DURATION OF TRANSPORTATION WELL FOR THREE HOURS OF DIALYSIS TREATMENT, WITH OR WITHOUT A LIFT. [facility] WILL REVIEW FOR PLACEMENT IF PT IS ABLE TO SIT FOR TRANSPORT AND DIALYSIS; THEY DO HAVE FANNIE LIFT. DESTIN SAUCEDA WORKING ON OUTPATIENT DIALYSIS ARRANGEMENT AT [facility] IN [place], THEY ALSO HAVE A LIFT. DICK OLIVEROS, CASE MANAGEMENT DCP- Discharge Planning Updated by [id number]: Jenny Servando on 10/10/18 6:[address] Late Entry 10/10/18 @ 0900 PT and OT still working with patient to get out of bed to sit in chair. Patient has to be able to sit in wheelchair and be transported to dialysis and sit in dialysis chair for 3-4hrs. CM will continue to follow and assist as needed with discharge planning / needs. DCP- Discharge Planning Updated by [id number]: Jenny Al on 10/07/18 3:[address] CM spoke with Roge Monae this am. Roge stated we are at standstill until we find NH placement. Once we have NH placement then we can proceed with dialysis placement. CM spoke with patients daughter since patient isn't able to stay awake and communicate. Daughter Fran Tinajero "Nkechi" [phone]. Daughter stated that she would like NH placement as close to [place] as possible. CM explained that we would have to find placement that has fannie lift at both NH and dialysis clinic. Daughter stated that [place] was the next closest town. CM contacted [facility] in [place] [phone]. Laurence Garcia clinical Liaison [phone] fax [phone]. CM spoke with Laurence and explained situation and faxed records. Laurence stated she would be here to see patient in am. CM will continue to follow and assist as needed with discharge planning / needs. DCP- Discharge Planning Updated by [id number]: Jenny Al on 10/07/18 9:[address] CM spoke with Roge Monae this am. She stated that she had been out of the office but now was back. Roge stated that she would speak to Radha and would take care of everything from this point with placement for dialysis. CM will continue to follow and assist as needed with discharge planning / needs. DCP- Discharge Planning Updated by [id number]: Jenny Al on 10/07/18 9:[address] Late Entry 10/06/18 @ 1600 JAIMIE spoke with Radha with [facility]. Radha stated she needed clarification on patients name. Radha stated she needed dialysis flowsheets from last three treatments faxed to her. Radha stated that she was trying to get placement at [facility] dialysis clinic. CM will continue to follow and assist as needed with discharge planning / needs. DCP- Discharge Planning Updated by [id number]: Dick Salamancawell on 10/03/18 3:[address] Patient Name: GUSTABO STUART Encounter No: [id number] : 1950 Primary Insurance: MEDICARE A & B Anticipated DC Date: 09-30-2018 Planned Disposition: Nursing Facility [facility] Cert External Planned Provider: TO BE DETERMINED DCP follow-up note: CM RECEIVED CALL FROM NAYANA OF [facility], THEY ONLY HAVE TTS AVAILABLE AND HAVE TALKED TO [facility] MEMBER SERVICES REPRESENTATIVE WHO INFORMED THEM THAT THEY ARE NOT GOING TO DRIVE PT AN HOUR AWAY FOR DIALYSIS FROM THE [place]. CM SPOKE TO AUDI AT [facility] WHO INFORMED CM THAT THEY ARE GOING TO HAVE A SISTER FACILITY REPRESENTIVE CONTACT CM TO ASSIST IN PLACING PT IN [place] SO THAT PT CAN GO TO A FACILITY THAT HAS CAPABILITY OF FANNIE LIFT AND TO A DILAYSIS UNIT THAT HAS CAPABILITY OF FANNIE LIFT. CM SPOKE TO PT IN ROOM, DISCUSSED MOVING TO ANOTHER CORRECTION, PT REPORTS SHE WILL TRY WITH THERAPY AND IS WILLING FOR NEW CORRECTION IF NEEDED, CHOICE SIGNED FOR [facility]. CM DISCUSSED [facility], PT ALSO IN AGREEMENT WITH LTACH AT [facility] IF IT WILL HELP GET HER HOME SOONER. CM CALLED AND SPOKE TO LAITH OF [facility], , DISCUSSED NEED FOR REHAB, WOUND CARE AND DIALYSIS WITH GOAL TO SIT FOR DIALYSIS IN OUTPATIENT SETTING TO RETURN TO A CORRECTION FOR CONTINUED LIQUIFIED NATURAL GAS TECHNICIAN CARE. REFERRAL FAXED TO [facility] AT [phone]. CM CALLED AND SPOKE TO BECKY DEL CASTILLO, , OF [facility], REPRESENTING [facility] SENIOR L[facility]ING FACILITIES. THEY CONTACT WITH [facility] AND DO NOT HAVE ONE WITH [facility]. THEY WILL SCREEN PT FOR THEIR HOMES, BUT PT WILL HAVE TO HAVE CAPACITY TO SIT IN CHAIR FOR THREE HOURS OF OUTPATIENT DIALYSIS AND TRANSPORTATION. CM FAXED REFERRAL TO [facility] [phone]. PT WILL NEED TO BE ABLE TO TRANSFER FROM BED TO CHAIR AND WILL ALSO NEED TO BE ABLE TO SIT SAFELY FOR TRANSPORT AND 3 HOURS OF DIALYSIS TREATMENT FOR OUTPATIENT DIALYSIS CLINIC ARRANGEMENT. CM WAITING ON CORRECTION EVALUATIONS FOR ADMISSION, [facility] EVALUATION FOR ADMISSION AND WILL NEED TO SEND APPLICATION FOR [facility] FOR DIALYSIS UNIT CONSIDERATION AND TO FIND OUT IF THEY HAVE FANNIE LIFT CAPABILITY. DICK OLIVEROS, CASE MANAGEMENT DCP- Discharge Planning Updated by [id number]: Dick Oliveros on 10/02/18 3:[address] Patient Name: GUSTABO STUART Encounter No: [id number] : 1950 Primary Insurance: MEDICARE A & B Anticipated DC Date: 09-30-2018 Planned Disposition: Nursing Facility [facility] Cert External Planned Provider: [facility], [place], LIQUIFIED NATURAL GAS TECHNICIAN CARE MEDICAID BED DCP follow-up note: CM CALLED ELZBIETA OF [facility], , WAS INFORMED THEY DO NOT HAVE ANY REQUEST TO ARRANGE OUTPATIENT DIALYSIS CLINIC ARRANGEMENT. CM FAXED ADMISSIONS INTAKE FORM WITH INITIAL DOCUMENTS TO [facility] AT [phone]. CM NOTIFIED MERLYN OF [facility] IN [place], [facility], , OF NEED FOR OUTPATIENT DIALYSIS; CM WAS ADVISED THAT PT WILL NEED TO BE ABLE TO TRANSFER TO WHEELCHAIR AND CHAIR WELL BE ABLE TO TOLERATE SITTING IN CHAIR FOR THREE HOURS OF DIALYSIS. THE CENTER PREFERS MWF, MORNING SCHEDULE. CM WAITING FOR OUTPATIENT DIALYSIS CLINIC ARRANGEMENT. NOTE THAT PT WILL HAVE TO BE ABLE TO TRANSFER TO CHAIR AND SIT IN CHAIR FOR THREE HOURS FOR OUTPATIENT CLINIC PARTICIPATION. FOR DISCHARGE, FAX DISCHARGE INFORMATION TO [facility] IN [place], ; NURSE REPORT TO BE CALLED TO [phone]. PT TO TRANSPORT VIA AMBULANCE. Quotation Checker: Dick Oliveros Appended by Dick Oliveros on 10/02/2018 16:49 FOUNDER / CEO: CM RECEIVED CALL FROM RADHA OF [facility]; [facility] DIALYS[facility] IS NOT CERTIFIED FOR LIFT AND HAS NO AVAILABLE OPENINGS AT THIS TIME. [facility] IS LIFT CERTIFIED BUT HAS NO AVAILABLE OPENINGS. RADHA WILL SEND REFERRAL TO [facility] D[facility] IN [place] BUT THEY ONLY HAVE TTS SLOTS AVAILABLE. RADHA WILL ESCULATE REFERRAL FOR [facility] DIALYSIS ARRANGMENT IN [place] THAT A CHAIR BECOMES AVAILABLE AND PT WILL NOT REQUIRE LIFT TRANSFER. PT WILL NEED TO BE ABLE TO TRANSFER FROM BED TO CHAIR AND WILL ALSO NEED TO BE ABLE TO SIT SAFELY FOR TRANSPORT AND 3 HOURS OF DIALYSIS TREATMENT FOR OUTPATIENT DIALYSIS CLINIC ARRANGEMENT. DICK OLIVEROS, CASE MANAGEMENT DCP- Discharge Planning Updated by [id number]: Dcik Oliveros on 09/29/18 12:[address] Patient Name: GUSTABO STUART Encounter No: [id number] : 1950 Primary Insurance: MEDICARE A & B Anticipated DC Date: 09-30-2018 Planned Disposition: Nursing Facility [facility] Cert External Planned Provider: [facility] [place], LONG TERM CARE MEDICAID BED DCP follow-up note: CM RECEIVED ORDER FOR OUTPATIENT DIALYSIS CLINIC ARRANGEMENT; RN JAIMIE HAMMONDS HAS INFORMED ROGE MONAE OF [facility] FOR OUTPATIENT DAILYSIS CLINIC ARRANGEMENT IN [place]. JAIMIE FAXED UPDATE TO MERLYN OF [facility] IN [place], [facility], . ROGE INFORMED CM THAT PT NEEDS PERM DIALYSIS CATHETER AND AN ACCURATE WEIGHT. PT HAS ORDERS FOR CATHETER, CM NOTIFIED BEDSIDE NURSE OF NEED FOR ACCURATE WEIGHT; PT IS BED CONFINED AND ON SPECIALTY BED AT THIS TIME. CM WAITING FOR DIALYSIS CATHETER PLACEMENT WELL OUTPATIENT DIALYSIS CLINIC ARRANGEMENT. FOR DISCHARGE, FAX DISCHARGE INFORMATION TO [facility] IN [place], ; NURSE REPORT TO BE CALLED TO [phone]. PT TO TRANSPORT VIA AMBULANCE. Quotation Checker: Dick Oliveros DCP- Discharge Planning Updated by [id number]: Dick Oliveros on 09/26/18 4:[address] Patient Name: GUSTABO STUART Admission Status: Elective Accout number: [id number] Admission Date: 09-19-2018 : 1950 Admission Diagnosis:ACUTE RESPIRATORY FAILURE WITH HYPOXIA Attending: JENNIFER DICKEY Current LOS: 7 Anticipated DC Date: Planned Disposition: Nursing Facility [facility] Cert Primary Insurance: MEDICARE A & B PLANNED EXTERNAL PROVIDER: [facility] [place], LONG TERM CARE MEDICAID BED Discharge Planning Comments: CM MET WITH PT IN ROOM TO DISCUSS DISCHARGE PLANNING AND NEEDS. PT REPORTS LIVING AT A CORRECTION IN [place], SHE CANNOT REMEMBER THE NAME OF THE PLACE. PT REPORTS BEING CONFINED TO BED BUT THE FACILITY HAS A LIFT TO GROCERY CHECKER PT TO A WHEELCHAIR. PT REPORTS HAVING BIPAP, NEBULIZER AND OXYGEN AT THE FACILITY. PT REPORTS HAVING ASSISTANCE WITH EVERYTHING BUT EATING, WHICH SHE DOES HERSELF. PT ASKED THAT IF FAMILY CALLS, TELL THEM TO BRING HER CLOTHES AND CELL PHONE. CM DISCUSSED AVAILABILITY OF HOME HEALTH, REHAB SERVICES AND MEDICAL EQUIPMENT. PT DENIES DISCHARGE NEEDS, REPORTS SHE WILL DISCHARGE BACK TO FACILITY WHERE SHE LIVES. CM CALLED [facility] IN [place], [facility] [place] [facility], ; CM SPOKE TO MERLYN WHO REPORTS PT IS IN GROUP HOME CARE AND PROVIDED EMERGENCY CONTACT INFORMATION FOR PT'S FAMILY MEMBERS; CM NOTED IN CASE MANAGEMENT ASSESSMENT CHECKLIST. MERLYN VERIFIED PT HAS OXYGEN, NEBULUZER AND BIPAP IN FACILITY, THEY WILL ACCEPT BACK FOR CONTINUED LIQUIFIED NATURAL GAS TECHNICIAN CARE AT HOSPITAL DISCHARGE. FOR DISCHARGE, FAX DISCHARGE INFORMATION TO [facility] IN [place], ; NURSE REPORT TO BE CALLED TO [phone]. PT TO TRANSPORT VIA AMBULANCE. Quotation Checker: Dick Oliveros DCP- Discharge Planning Updated by [id number]: Jenny Al on 09/23/18 3:[address] CM attempted to visit with patient. Patient is currently on BiPap and getting dialysis at this time. She is unable to speak with me at this time. No family available at this time. CM will continue to follow and assist as needed with discharge planning / needs. DCPIA - Discharge Planning Initial Assessment Updated by [id number]: Dick Oliveros on 09/26/18 4:23 pm * Is the patient Alert and Oriented? Yes * How many steps to enter\\exit or inside your home? NONE * PCP [facility], EXPLOSIVE OPERATOR BOMB * Pharmacy [facility] (SENIOR LIVING FACILITY) * Preadmission Environment [employer] * Facility Name [facility] T [phone] * ADLs Partial Dependent * Partial ADLs (Assistance needed) Bathing Dressing Medication Management Toileting Transfers * Equipment BIPAP Hospital Bed Fannie Lift Nebulizer Oxygen Wheelchair * Other Equipment ALL MEDICAL EQUIPMENT PROVIDED BY FACILITY * List name and contact numbers for known caregivers / representatives who currently or will assist patient after discharge: EDGARD CULPKEISHA, MOTHER IN LAW, KAVEH CASILLAS, DTR, NICK SAUER, SPOUSE, * Verbal permission to speak to the caregivers and representatives has been obtained from the patient. Yes * Community resources currently utilized None * Please name any agencies selected above. NONE * Additional services required to return to the preadmission environment? No * Can the patient safely return to the preadmission environment? Yes * Has this patient been hospitalized within the prior 30 days at any hospital? No External Providers External Provider: [facility] Next Contact Date: 10/22/2018 Service Request Date: Service Type: Resolution: Reviewer: Comments: Coverage Notice Reviewer: [id number] Rex Oliveros Notice Issued Date-Time: 10/03/2018 11:30 Notice Type: Patient Choice Letter Notice Delivered To: Patient Relationship to Patient: Roll Cutting Operator Name: Delivery Method: HAND - Hand Delivered Veda Days: Prior Verbal Notification: Recipient Understood Notice: Recipient Signature: Med Rec Note Co-signed by Attending: Coverage Notice Comment: ERNA FABRICIO AGUILAR: [facility] Reviewer: [id number] Rex Oliveros Notice Issued Date-Time: 10/15/2018 10:20 Notice Type: IM Discharge Notice Notice Delivered To: Patient Relationship to Patient: Roll Cutting Operator Name: Delivery Method: HAND - Hand Delivered Veda Days: Prior Verbal Notification: Recipient Understood Notice: Yes Recipient Signature: Yes Med Rec Note Co-signed by Attending: Coverage Notice Comment: Last DP export: 10/22/18 9:35 Patient Name: GUSTABO STUART Page [id number] at 1228 All edits/amendments must be made on the electronic document DICTATION DATE: 10/22/18 1227 ENVIRONMENTAL HEALTH TECHNICIAN: HELDER 10/22/18 1227 RPT#: [id number] DC DATE: STATUS: ADM IN [facility] [address] [place] [address] END OF REPORT
[2018-09-19 21:24] LABS: BASOPHILS 0 % (0-2); EOSINOPHILS 0.5 % (0-7); HEMATOCRIT 29.9 % (36.0-48.0); HEMOGLOBIN 8.9 g/dL (12-16); IMMATURE GRANULOCYTES 0.5 % (0-5); LYMPHOCYTES 12.6 % (15-50); MCH 25.7 pg (26.0-34.0); MCHC 29.8 g/dL (31.0-37.0); MCV 86.4 fL (80.0-100.0); MEAN PLATELET VOLUME 9.2 fL (7.4-10.4); NEUTROPHILS 79.4 % (40-80); PLATELET COUNT 236 10x3/uL (130-400); RBC 3.46 10x6/uL (4.00-5.40); RDW 19.5 % (11.5-14.5); WBC 4.1 10x3/uL (4.8-10.8)
[2018-09-20] VITALS (59 sets, daily range): BP systolic 82–127; BP diastolic 36–93; Ht 165.1 cm; Wt 120.1 kg
[2018-09-20 05:16] LABS: BASOPHILS 0 % (0-2); EOSINOPHILS 0.4 % (0-7); HEMATOCRIT 29.1 % (36.0-48.0); HEMOGLOBIN 8.9 g/dL (12-16); IMMATURE GRANULOCYTES 0.2 % (0-5); LYMPHOCYTES 9.2 % (15-50); MCH 26.2 pg (26.0-34.0); MCHC 30.6 g/dL (31.0-37.0); MCV 85.6 fL (80.0-100.0); MEAN PLATELET VOLUME 9.3 fL (7.4-10.4); MONOCYTES 7.7 % (2-11); NEUTROPHILS 82.5 % (40-80); PLATELET COUNT 252 10x3/uL (130-400); RDW 19.7 % (11.5-14.5); WBC 4.8 10x3/uL (4.8-10.8)
[2018-09-20 05:34] LABS: ANION GAP 10.3 mmol/L (8-16); CARBON DIOXIDE 35.2 mmol/L (21.0-32.0); CREATININE - SERUM 4.2 mg/dL (0.6-1.3); POTASSIUM - SERUM 3.5 mmol/L (3.5-5.1)
[2018-09-20 05:46] LABS: APPEARANCE CLOUDY (CLEAR); BACTERIA MODERATE /hpf (NONE SEEN); BILIRUBIN NEGATIVE (NEGATIVE); COLOR DK YELLOW (YELLOW); EPITHELIAL CELLS RARE /hpf (0-5); GLUCOSE NEGATIVE (NEGATIVE); KETONE SMALL mg/dL (NEGATIVE); NITRITE NEGATIVE (NEGATIVE); PROTEIN 1+ mg/dL (NEGATIVE); SPECIFIC GRAVITY 1.015 (1.005-1.020); UROBILINOGEN NORMAL (NORMAL); WHITE CELLS - URINE 25-50 /hpf (0-5)
[2018-09-20] MEDS ORDERED: LOVENOX40 MG/0.4 SC (06:20)
[2018-09-20] MEDS ORDERED: FUROSEMIDE10 MG/M1 IV (06:21)
[2018-09-20] MEDS ORDERED: ASPIRIN EC81 M1 PO (06:25)
[2018-09-20] MEDS ORDERED: ZOCOR40 MG PO (06:26)
[2018-09-20] MEDS ORDERED: CYMBALTA60 MG PO (06:28)
[2018-09-20] MEDS ORDERED: TOPROL XL50 MG PO (06:30)
[2018-09-20] MEDS ORDERED: PROTONIX40 MG PO (06:31)
[2018-09-20] MEDS ORDERED: REVATIO20 MG PO ×2 (06:43→06:44)
[2018-09-20] MEDS ORDERED: ACETAMINOPHEN325 MG PO (06:46)
[2018-09-20] MEDS ORDERED: NOVOLOG100 UNIT/1 SQ (06:48)
[2018-09-20] MEDS ORDERED: MAALOX ADVANCE355 ML PO (06:50)
[2018-09-20 13:24] LABS: ALBUMIN 2.2 g/dL (3.4-5.0); ANION GAP 11.2 mmol/L (8-16); BILIRUBIN - TOTAL 0.72 mg/dL (0.2-1.3); CARBON DIOXIDE 34.4 mmol/L (21.0-32.0); CREATININE - SERUM 4.3 mg/dL (0.6-1.3); POTASSIUM - SERUM 3.6 mmol/L (3.5-5.1); PROTEIN - SERUM 7.2 g/dL (6.4-8.2)
[2018-09-20 16:01] LABS: APPEARANCE TURBID (CLEAR); BILIRUBIN NEGATIVE (NEGATIVE); COLOR YELLOW (YELLOW); GLUCOSE NEGATIVE (NEGATIVE); KETONE NEGATIVE (NEGATIVE); NITRITE NEGATIVE (NEGATIVE); PROTEIN 3+ mg/dL (NEGATIVE); SPECIFIC GRAVITY 1.015 (1.005-1.020); UROBILINOGEN NORMAL (NORMAL); WHITE CELLS - URINE >50 /hpf (0-5)
[2018-09-20 16:02] LABS: AMORPHOUS SEDIMENT <1+ /lpf (NONE SEEN); BACTERIA MANY /hpf (NONE SEEN); EPITHELIAL CELLS 0-5 /hpf (0-5); RED CELLS - URINE 0-5 /hpf (0-5)
[2018-09-20 16:31] LABS: CREATININE - URINE 97.1 mg/dL (30-125)
[2018-09-21] VITALS (50 sets, daily range): BP systolic 95–152; BP diastolic 33–109
[2018-09-21 05:00] LABS: BASOPHILS 0 % (0-2); EOSINOPHILS 0.9 % (0-7); HEMATOCRIT 29.9 % (36.0-48.0); IMMATURE GRANULOCYTES 0.2 % (0-5); LYMPHOCYTES 9.6 % (15-50); MCH 25.6 pg (26.0-34.0); MCHC 30.1 g/dL (31.0-37.0); MCV 84.9 fL (80.0-100.0); MEAN PLATELET VOLUME 9.3 fL (7.4-10.4); MONOCYTES 10.1 % (2-11); NEUTROPHILS 79.2 % (40-80); PLATELET COUNT 273 10x3/uL (130-400); RBC 3.52 10x6/uL (4.00-5.40); RDW 19.6 % (11.5-14.5); WBC 4.6 10x3/uL (4.8-10.8)
[2018-09-21 05:13] LABS: ANION GAP 11.5 mmol/L (8-16); CARBON DIOXIDE 31.8 mmol/L (21.0-32.0); CREATININE - SERUM 3.7 mg/dL (0.6-1.3); MAGNESIUM - SERUM 2.1 mg/dL (1.8-2.4); POTASSIUM - SERUM 3.3 mmol/L (3.5-5.1)
[2018-09-22] VITALS (17 sets, daily range): BP systolic 86–144; BP diastolic 51–85
[2018-09-22 05:49] LABS: BASOPHILS 0 % (0-2); HEMATOCRIT 28.7 % (36.0-48.0); HEMOGLOBIN 8.9 g/dL (12-16); IMMATURE GRANULOCYTES 0.4 % (0-5); LYMPHOCYTES 12.1 % (15-50); MCH 26.3 pg (26.0-34.0); MCV 84.9 fL (80.0-100.0); MEAN PLATELET VOLUME 9.4 fL (7.4-10.4); MONOCYTES 10.6 % (2-11); NEUTROPHILS 75.9 % (40-80); PLATELET COUNT 276 10x3/uL (130-400); RBC 3.38 10x6/uL (4.00-5.40); RDW 20.1 % (11.5-14.5); WBC 4.8 10x3/uL (4.8-10.8)
[2018-09-22 06:01] LABS: ANION GAP 10.9 mmol/L (8-16); CALCIUM 8.2 mg/dL (8.5-10.1); CARBON DIOXIDE 32.6 mmol/L (21.0-32.0); MAGNESIUM - SERUM 2.1 mg/dL (1.8-2.4); PHOSPHOROUS 4.1 mg/dL (2.5-4.9); POTASSIUM - SERUM 3.5 mmol/L (3.5-5.1)
[2018-09-22 13:13] LABS: BASOPHILS 0 % (0-2); EOSINOPHILS 1.8 % (0-7); HEMATOCRIT 29.7 % (36.0-48.0); HEMOGLOBIN 9.1 g/dL (12-16); IMMATURE GRANULOCYTES 0.2 % (0-5); LYMPHOCYTES 13.8 % (15-50); MCH 25.9 pg (26.0-34.0); MCHC 30.6 g/dL (31.0-37.0); MCV 84.6 fL (80.0-100.0); MEAN PLATELET VOLUME 9.1 fL (7.4-10.4); MONOCYTES 7.5 % (2-11); NEUTROPHILS 76.7 % (40-80); PLATELET COUNT 260 10x3/uL (130-400); RBC 3.51 10x6/uL (4.00-5.40); RDW 19.8 % (11.5-14.5); WBC 5.1 10x3/uL (4.8-10.8)
[2018-09-23] VITALS (18 sets, daily range): BP systolic 96–136; BP diastolic 59–109
[2018-09-23 04:59] LABS: BASOPHILS 0 % (0-2); EOSINOPHILS 2.4 % (0-7); HEMATOCRIT 28.9 % (36.0-48.0); HEMOGLOBIN 8.9 g/dL (12-16); IMMATURE GRANULOCYTES 0.2 % (0-5); LYMPHOCYTES 13.2 % (15-50); MCH 25.8 pg (26.0-34.0); MCHC 30.8 g/dL (31.0-37.0); MCV 83.8 fL (80.0-100.0); MEAN PLATELET VOLUME 9.3 fL (7.4-10.4); MONOCYTES 13.4 % (2-11); NEUTROPHILS 70.8 % (40-80); PLATELET COUNT 263 10x3/uL (130-400); RBC 3.45 10x6/uL (4.00-5.40); RDW 19.8 % (11.5-14.5); WBC 5.1 10x3/uL (4.8-10.8)
[2018-09-23 05:13] LABS: INR 1.27 (0.85-1.17); PROTIME 15.4 SECONDS (11.6-15.0)
[2018-09-23 05:27] LABS: ANION GAP 10.3 mmol/L (8-16); CALCIUM 8.1 mg/dL (8.5-10.1); CARBON DIOXIDE 33.3 mmol/L (21.0-32.0); CREATININE - SERUM 3.6 mg/dL (0.6-1.3); POTASSIUM - SERUM 3.6 mmol/L (3.5-5.1)
[2018-09-23 14:21] LABS: HEPATITIS C ANTIBODY <0.1 (0.0-0.9)
[2018-09-23 16:13] LABS: UPE - ALPHA 1 GLOBULIN 1.9 % (NOT ESTAB.); UPE - ALPHA 2 GLOBULIN 7.7 % (NOT ESTAB.); UPE - BETA GLOBULIN 12.8 % (NOT ESTAB.); UPE - GAMMA GLOBULIN 33.6 % (NOT ESTAB.)
[2018-09-24] VITALS (24 sets, daily range): BP systolic 84–116; BP diastolic 31–72
[2018-09-24 05:41] LABS: BASOPHILS 0 % (0-2); HEMATOCRIT 27.9 % (36.0-48.0); HEMOGLOBIN 8.5 g/dL (12-16); LYMPHOCYTES 13.6 % (15-50); MCH 25.6 pg (26.0-34.0); MCHC 30.5 g/dL (31.0-37.0); MEAN PLATELET VOLUME 9.6 fL (7.4-10.4); MONOCYTES 15.1 % (2-11); NEUTROPHILS 68.3 % (40-80); PLATELET COUNT 262 10x3/uL (130-400); RBC 3.32 10x6/uL (4.00-5.40); WBC 4.6 10x3/uL (4.8-10.8)
[2018-09-24 05:55] LABS: ANION GAP 8.9 mmol/L (8-16); CALCIUM 8.2 mg/dL (8.5-10.1); CARBON DIOXIDE 32.6 mmol/L (21.0-32.0); CREATININE - SERUM 2.8 mg/dL (0.6-1.3); POTASSIUM - SERUM 3.5 mmol/L (3.5-5.1)
[2018-09-24 20:08] LABS: SPE - A/G RATIO 0.6 (0.7-1.7); SPE - ALBUMIN 2.5 g/dL (2.9-4.4); SPE - ALPHA-1 GLOBULIN 0.3 g/dL (0.0-0.4); SPE - ALPHA-2 GLOBULIN 0.6 g/dL (0.4-1.0); SPE - BETA GLOBULIN 0.9 g/dL (0.7-1.3); SPE - GAMMA GLOBULIN 2.4 g/dL (0.4-1.8); SPE - M-SPIKE Not Observed g/dL (Not Observed); SPE - TOTAL PROTEIN 6.7 g/dL (6.0-8.5)
[2018-09-25] VITALS (13 sets, daily range): BP systolic 96–147; BP diastolic 45–71
[2018-09-25 05:59] LABS: BASOPHILS 0 % (0-2); EOSINOPHILS 2.4 % (0-7); HEMATOCRIT 27.4 % (36.0-48.0); HEMOGLOBIN 8.3 g/dL (12-16); IMMATURE GRANULOCYTES 0.4 % (0-5); LYMPHOCYTES 12.9 % (15-50); MCH 25.5 pg (26.0-34.0); MCHC 30.3 g/dL (31.0-37.0); MEAN PLATELET VOLUME 9.4 fL (7.4-10.4); MONOCYTES 17.3 % (2-11); PLATELET COUNT 230 10x3/uL (130-400); RBC 3.26 10x6/uL (4.00-5.40); RDW 20.1 % (11.5-14.5); WBC 5.4 10x3/uL (4.8-10.8)
[2018-09-25 06:23] LABS: ANION GAP 9.3 mmol/L (8-16); CALCIUM 7.8 mg/dL (8.5-10.1); CARBON DIOXIDE 31.4 mmol/L (21.0-32.0); CREATININE - SERUM 2.7 mg/dL (0.6-1.3); POTASSIUM - SERUM 3.7 mmol/L (3.5-5.1)
[2018-09-26 00:48] VITALS: BP 137/66
[2018-09-26 05:36] VITALS: BP 143/60
[2018-09-26 06:18] LABS: BASOPHILS 0.2 % (0-2); HEMATOCRIT 28.4 % (36.0-48.0); HEMOGLOBIN 8.6 g/dL (12-16); IMMATURE GRANULOCYTES 0.2 % (0-5); LYMPHOCYTES 17.8 % (15-50); MCH 25.6 pg (26.0-34.0); MCHC 30.3 g/dL (31.0-37.0); MCV 84.5 fL (80.0-100.0); MEAN PLATELET VOLUME 9.8 fL (7.4-10.4); MONOCYTES 13.3 % (2-11); NEUTROPHILS 64.5 % (40-80); PLATELET COUNT 272 10x3/uL (130-400); RBC 3.36 10x6/uL (4.00-5.40); RDW 20.3 % (11.5-14.5); WBC 5.6 10x3/uL (4.8-10.8)
[2018-09-26 06:21] LABS: ANION GAP 8.6 mmol/L (8-16); CALCIUM 7.7 mg/dL (8.5-10.1); POTASSIUM - SERUM 3.6 mmol/L (3.5-5.1)
[2018-09-26 07:35] VITALS: BP 140/69
[2018-09-26 15:49] VITALS: BP 138/70
[2018-09-26 21:36] VITALS: BP 134/60
[2018-09-27 01:42] VITALS: BP 114/51
[2018-09-27 03:29] LABS: BASOPHILS 0 % (0-2); EOSINOPHILS 3.6 % (0-7); HEMATOCRIT 28.1 % (36.0-48.0); HEMOGLOBIN 8.6 g/dL (12-16); IMMATURE GRANULOCYTES 0.2 % (0-5); LYMPHOCYTES 15.1 % (15-50); MCH 25.7 pg (26.0-34.0); MCHC 30.6 g/dL (31.0-37.0); MCV 83.9 fL (80.0-100.0); MEAN PLATELET VOLUME 9.3 fL (7.4-10.4); MONOCYTES 16.4 % (2-11); NEUTROPHILS 64.7 % (40-80); PLATELET COUNT 254 10x3/uL (130-400); RBC 3.35 10x6/uL (4.00-5.40); WBC 5.5 10x3/uL (4.8-10.8)
[2018-09-27 03:35] LABS: ANION GAP 5.7 mmol/L (8-16); CALCIUM 7.7 mg/dL (8.5-10.1); CARBON DIOXIDE 35.2 mmol/L (21.0-32.0); CREATININE - SERUM 2.5 mg/dL (0.6-1.3); POTASSIUM - SERUM 3.9 mmol/L (3.5-5.1)
[2018-09-27 06:34] VITALS: BP 108/77
[2018-09-27 07:53] VITALS: BP 114/50
[2018-09-27 10:58] VITALS: BP 122/50
[2018-09-27 20:37] VITALS: BP 110/59
[2018-09-28 01:17] VITALS: BP 111/52
[2018-09-28 05:57] LABS: BASOPHILS 0 % (0-2); EOSINOPHILS 2.8 % (0-7); HEMATOCRIT 28.7 % (36.0-48.0); HEMOGLOBIN 8.6 g/dL (12-16); IMMATURE GRANULOCYTES 0.2 % (0-5); LYMPHOCYTES 17.4 % (15-50); MCH 25.5 pg (26.0-34.0); MCV 85.2 fL (80.0-100.0); MONOCYTES 16.4 % (2-11); NEUTROPHILS 63.2 % (40-80); PLATELET COUNT 281 10x3/uL (130-400); RBC 3.37 10x6/uL (4.00-5.40); RDW 20.2 % (11.5-14.5); WBC 5.4 10x3/uL (4.8-10.8)
[2018-09-28 06:16] LABS: ANION GAP 8.6 mmol/L (8-16); CALCIUM 7.8 mg/dL (8.5-10.1); CARBON DIOXIDE 32.3 mmol/L (21.0-32.0); CREATININE - SERUM 2.5 mg/dL (0.6-1.3); POTASSIUM - SERUM 3.9 mmol/L (3.5-5.1)
[2018-09-28 06:21] VITALS: BP 110/56
[2018-09-28 07:59] VITALS: BP 140/50
[2018-09-28 12:06] VITALS: BP 112/67
[2018-09-28 15:58] VITALS: BP 102/46
[2018-09-28 20:23] VITALS: BP 124/58
[2018-09-29 01:46] VITALS: BP 124/56
[2018-09-29 05:16] LABS: BASOPHILS 0 % (0-2); EOSINOPHILS 4.4 % (0-7); HEMATOCRIT 28.9 % (36.0-48.0); HEMOGLOBIN 8.6 g/dL (12-16); IMMATURE GRANULOCYTES 0.2 % (0-5); LYMPHOCYTES 20.8 % (15-50); MCH 25.5 pg (26.0-34.0); MCHC 29.8 g/dL (31.0-37.0); MCV 85.8 fL (80.0-100.0); MEAN PLATELET VOLUME 9.5 fL (7.4-10.4); MONOCYTES 17.3 % (2-11); NEUTROPHILS 57.3 % (40-80); PLATELET COUNT 264 10x3/uL (130-400); RBC 3.37 10x6/uL (4.00-5.40); RDW 20.4 % (11.5-14.5); WBC 4.6 10x3/uL (4.8-10.8)
[2018-09-29 05:47] LABS: ANION GAP 8.1 mmol/L (8-16); CALCIUM 7.9 mg/dL (8.5-10.1); CARBON DIOXIDE 33.1 mmol/L (21.0-32.0); CREATININE - SERUM 2.9 mg/dL (0.6-1.3); POTASSIUM - SERUM 4.2 mmol/L (3.5-5.1)
[2018-09-29 06:45] VITALS: BP 121/64
[2018-09-29 08:42] VITALS: BP 112/68
[2018-09-29 09:10] LABS: 5HIAA - 24HR 0.4 mg/24 hr (0.0-14.9)
[2018-09-29 09:10] LABS: ANTI-GLOMERULAR BASMENT MEMBRN 4 units (0-20)
[2018-09-29 11:14] LABS: ANA REFLEX - DIRECT Negative (Negative)
[2018-09-29 12:21] VITALS: BP 140/71
[2018-09-29 15:23] LABS: ANCA - ANTIMYELOPEROXIDASE <9.0 U/mL (0.0-9.0); ANCA - ANTIPROTEINASE 3 <3.5 U/mL (0.0-3.5); ANCA - ATYPICAL <1:20 titer (Neg:<1:20); ANCA - CYTOPLASMIC <1:20 titer (Neg:<1:20); ANCA - PERINUCLEAR <1:20 titer (Neg:<1:20)
[2018-09-29 21:01] VITALS: BP 131/61
[2018-09-30] VITALS (7 sets, daily range): BP systolic 109–168; BP diastolic 63–81
[2018-09-30 06:02] LABS: BASOPHILS 0 % (0-2); EOSINOPHILS 1.6 % (0-7); HEMATOCRIT 29.8 % (36.0-48.0); IMMATURE GRANULOCYTES 0.4 % (0-5); LYMPHOCYTES 18.3 % (15-50); MCH 25.8 pg (26.0-34.0); MCHC 30.2 g/dL (31.0-37.0); MCV 85.4 fL (80.0-100.0); MEAN PLATELET VOLUME 9.3 fL (7.4-10.4); MONOCYTES 16.8 % (2-11); NEUTROPHILS 62.9 % (40-80); PLATELET COUNT 269 10x3/uL (130-400); RBC 3.49 10x6/uL (4.00-5.40); RDW 20.3 % (11.5-14.5); WBC 4.9 10x3/uL (4.8-10.8)
[2018-09-30 06:25] LABS: ANION GAP 11.9 mmol/L (8-16); CALCIUM 7.8 mg/dL (8.5-10.1); CARBON DIOXIDE 28.5 mmol/L (21.0-32.0); CREATININE - SERUM 3.4 mg/dL (0.6-1.3); POTASSIUM - SERUM 4.4 mmol/L (3.5-5.1)
[2018-10-01 04:00] VITALS: BP 136/70
[2018-10-01 05:30] LABS: BASOPHILS 0.2 % (0-2); EOSINOPHILS 3.2 % (0-7); HEMATOCRIT 28.3 % (36.0-48.0); HEMOGLOBIN 8.6 g/dL (12-16); IMMATURE GRANULOCYTES 0.5 % (0-5); LYMPHOCYTES 21.8 % (15-50); MCH 25.8 pg (26.0-34.0); MCHC 30.4 g/dL (31.0-37.0); MEAN PLATELET VOLUME 9.4 fL (7.4-10.4); MONOCYTES 18.4 % (2-11); NEUTROPHILS 55.9 % (40-80); PLATELET COUNT 260 10x3/uL (130-400); RBC 3.33 10x6/uL (4.00-5.40); RDW 20.3 % (11.5-14.5); WBC 4.4 10x3/uL (4.8-10.8)
[2018-10-01 05:44] LABS: ANION GAP 9.4 mmol/L (8-16); CALCIUM 8.2 mg/dL (8.5-10.1); CARBON DIOXIDE 32.3 mmol/L (21.0-32.0); CREATININE - SERUM 3.2 mg/dL (0.6-1.3)
[2018-10-01 05:52] LABS: POTASSIUM - SERUM 3.7 mmol/L (3.5-5.1)
[2018-10-01 08:27] VITALS: BP 114/59
[2018-10-01 11:00] VITALS: BP 120/50
[2018-10-01 20:00] VITALS: BP 126/70
[2018-10-02 00:53] VITALS: BP 129/66
[2018-10-02 04:00] VITALS: BP 150/68
[2018-10-02 05:53] LABS: BASOPHILS 0.2 % (0-2); EOSINOPHILS 2.6 % (0-7); HEMOGLOBIN 8.6 g/dL (12-16); IMMATURE GRANULOCYTES 0.2 % (0-5); LYMPHOCYTES 21.1 % (15-50); MCH 25.8 pg (26.0-34.0); MCHC 30.7 g/dL (31.0-37.0); MCV 84.1 fL (80.0-100.0); MEAN PLATELET VOLUME 9.4 fL (7.4-10.4); MONOCYTES 16.3 % (2-11); NEUTROPHILS 59.6 % (40-80); PLATELET COUNT 269 10x3/uL (130-400); RBC 3.33 10x6/uL (4.00-5.40); RDW 20.4 % (11.5-14.5); WBC 4.6 10x3/uL (4.8-10.8)
[2018-10-02 06:15] LABS: ANION GAP 12.5 mmol/L (8-16); CARBON DIOXIDE 28.8 mmol/L (21.0-32.0); CREATININE - SERUM 3.5 mg/dL (0.6-1.3)
[2018-10-02 06:17] LABS: POTASSIUM - SERUM 4.3 mmol/L (3.5-5.1)
[2018-10-02 08:58] VITALS: BP 111/58
[2018-10-02 11:00] VITALS: BP 112/67
[2018-10-02 20:52] VITALS: BP 126/61
[2018-10-03] VITALS (14 sets, daily range): BP systolic 96–134; BP diastolic 50–70
[2018-10-03 06:22] LABS: BASOPHILS 0 % (0-2); EOSINOPHILS 2.8 % (0-7); HEMATOCRIT 28.3 % (36.0-48.0); HEMOGLOBIN 8.7 g/dL (12-16); IMMATURE GRANULOCYTES 0.2 % (0-5); LYMPHOCYTES 21.4 % (15-50); MCH 25.9 pg (26.0-34.0); MCHC 30.7 g/dL (31.0-37.0); MCV 84.2 fL (80.0-100.0); MEAN PLATELET VOLUME 9.5 fL (7.4-10.4); NEUTROPHILS 56.6 % (40-80); PLATELET COUNT 257 10x3/uL (130-400); RBC 3.36 10x6/uL (4.00-5.40); RDW 20.6 % (11.5-14.5)
[2018-10-03 06:37] LABS: % SATURATION 19 % (15-55); IRON 35 ug/dl (35-150); TOTAL IRON BIND CAPACITY 176 ug/dl (260-445); UNSAT IRON BIND CAPACITY 141 ug/dl (150-375)
[2018-10-03 06:58] LABS: ANION GAP 10.8 mmol/L (8-16); CARBON DIOXIDE 30.2 mmol/L (21.0-32.0); CREATININE - SERUM 2.9 mg/dL (0.6-1.3)
[2018-10-04] VITALS (24 sets, daily range): BP systolic 90–128; BP diastolic 0–73
[2018-10-04 07:11] LABS: BASOPHILS 0.2 % (0-2); EOSINOPHILS 1.3 % (0-7); HEMATOCRIT 28.9 % (36.0-48.0); HEMOGLOBIN 8.8 g/dL (12-16); IMMATURE GRANULOCYTES 0.3 % (0-5); LYMPHOCYTES 13.5 % (15-50); MCH 25.7 pg (26.0-34.0); MCHC 30.4 g/dL (31.0-37.0); MCV 84.5 fL (80.0-100.0); MEAN PLATELET VOLUME 9.2 fL (7.4-10.4); MONOCYTES 15.2 % (2-11); NEUTROPHILS 69.5 % (40-80); PLATELET COUNT 270 10x3/uL (130-400); RBC 3.42 10x6/uL (4.00-5.40); RDW 20.5 % (11.5-14.5); WBC 6.3 10x3/uL (4.8-10.8)
[2018-10-04 07:24] LABS: ALBUMIN 2.3 g/dL (3.4-5.0); ANION GAP 9.7 mmol/L (8-16); CARBON DIOXIDE 31.2 mmol/L (21.0-32.0); CREATININE - SERUM 3.4 mg/dL (0.6-1.3); MAGNESIUM - SERUM 1.7 mg/dL (1.8-2.4); PHOSPHOROUS 3.6 mg/dL (2.5-4.9); POTASSIUM - SERUM 3.9 mmol/L (3.5-5.1)
[2018-10-05] VITALS (24 sets, daily range): BP systolic 68–120; BP diastolic 41–72
[2018-10-05 05:04] LABS: APPEARANCE CLOUDY (CLEAR); COLOR DK YELLOW (YELLOW)
[2018-10-05 05:06] LABS: BACTERIA NONE SEEN /hpf (NONE SEEN); BILIRUBIN 1+ (NEGATIVE); EPITHELIAL CELLS NSEEN /hpf (0-5); GLUCOSE NEGATIVE (NEGATIVE); KETONE SMALL mg/dL (NEGATIVE); NITRITE NEGATIVE (NEGATIVE); PROTEIN 1+ mg/dL (NEGATIVE); UROBILINOGEN NORMAL (NORMAL); WHITE CELLS - URINE RARE /hpf (0-5)
[2018-10-05 07:30] LABS: BASOPHILS 0.1 % (0-2); EOSINOPHILS 1.1 % (0-7); HEMATOCRIT 26.9 % (36.0-48.0); HEMOGLOBIN 8.3 g/dL (12-16); IMMATURE GRANULOCYTES 0.3 % (0-5); LYMPHOCYTES 11.4 % (15-50); MCH 25.5 pg (26.0-34.0); MCHC 30.9 g/dL (31.0-37.0); MEAN PLATELET VOLUME 9.1 fL (7.4-10.4); MONOCYTES 11.6 % (2-11); NEUTROPHILS 75.5 % (40-80); PLATELET COUNT 243 10x3/uL (130-400); RBC 3.26 10x6/uL (4.00-5.40); RDW 20.4 % (11.5-14.5); WBC 7.3 10x3/uL (4.8-10.8)
[2018-10-05 07:32] LABS: MCV 82.5 fL (80.0-100.0)
[2018-10-05 08:05] LABS: ANION GAP 9.7 mmol/L (8-16); CALCIUM 8.3 mg/dL (8.5-10.1); CARBON DIOXIDE 30.3 mmol/L (21.0-32.0); CREATININE - SERUM 3.1 mg/dL (0.6-1.3); MAGNESIUM - SERUM 1.7 mg/dL (1.8-2.4); PHOSPHOROUS 2.8 mg/dL (2.5-4.9)
[2018-10-06] VITALS (24 sets, daily range): BP systolic 86–135; BP diastolic 51–73
[2018-10-06 06:52] LABS: BASOPHILS 0 % (0-2); EOSINOPHILS 2.2 % (0-7); HEMATOCRIT 27.8 % (36.0-48.0); HEMOGLOBIN 8.6 g/dL (12-16); IMMATURE GRANULOCYTES 0.2 % (0-5); LYMPHOCYTES 9.3 % (15-50); MCH 25.7 pg (26.0-34.0); MCHC 30.9 g/dL (31.0-37.0); MEAN PLATELET VOLUME 9.1 fL (7.4-10.4); NEUTROPHILS 74.3 % (40-80); PLATELET COUNT 238 10x3/uL (130-400); RBC 3.35 10x6/uL (4.00-5.40); RDW 20.7 % (11.5-14.5)
[2018-10-06 06:53] LABS: WBC 4.9 10x3/uL (4.8-10.8)
[2018-10-06 07:05] LABS: ALBUMIN 2.3 g/dL (3.4-5.0); ANION GAP 10.3 mmol/L (8-16); BILIRUBIN - TOTAL 1.08 mg/dL (0.2-1.3); CALCIUM 7.9 mg/dL (8.5-10.1); CARBON DIOXIDE 30.4 mmol/L (21.0-32.0); CREATININE - SERUM 3.6 mg/dL (0.6-1.3); MAGNESIUM - SERUM 1.7 mg/dL (1.8-2.4); POTASSIUM - SERUM 3.7 mmol/L (3.5-5.1); PROTEIN - SERUM 7.3 g/dL (6.4-8.2)
[2018-10-07] VITALS (21 sets, daily range): BP systolic 97–128; BP diastolic 45–72
[2018-10-07 06:09] LABS: BASOPHILS 0 % (0-2); EOSINOPHILS 4.3 % (0-7); HEMATOCRIT 27.1 % (36.0-48.0); HEMOGLOBIN 8.3 g/dL (12-16); IMMATURE GRANULOCYTES 0.4 % (0-5); LYMPHOCYTES 14.6 % (15-50); MCH 25.6 pg (26.0-34.0); MCHC 30.6 g/dL (31.0-37.0); MCV 83.6 fL (80.0-100.0); MEAN PLATELET VOLUME 9.3 fL (7.4-10.4); MONOCYTES 9.2 % (2-11); NEUTROPHILS 71.5 % (40-80); PLATELET COUNT 255 10x3/uL (130-400); RBC 3.24 10x6/uL (4.00-5.40); WBC 5.4 10x3/uL (4.8-10.8)
[2018-10-07 06:26] LABS: ANION GAP 9.5 mmol/L (8-16); CALCIUM 8.1 mg/dL (8.5-10.1); CARBON DIOXIDE 30.4 mmol/L (21.0-32.0); CREATININE - SERUM 3.1 mg/dL (0.6-1.3); POTASSIUM - SERUM 3.9 mmol/L (3.5-5.1); VANCOMYCIN - RANDOM 18.4 ug/mL (10.0-20.0)
[2018-10-07 20:08] LABS: ACID FAST SMEAR Negative (()); AFB SPECIMEN PROCESSING Concentration (())
[2018-10-08 03:00] VITALS: BP 105/52
[2018-10-08 07:00] VITALS: BP 99/51
[2018-10-08 11:00] VITALS: BP 105/57
[2018-10-08 13:18] LABS: FUNGUS STAIN Final report (())
[2018-10-08 15:00] VITALS: BP 110/53
[2018-10-08 19:00] VITALS: BP 144/78
[2018-10-08 23:00] VITALS: BP 128/79
[2018-10-09 03:00] VITALS: BP 111/72
[2018-10-09 06:48] LABS: CALCIUM 7.7 mg/dL (8.5-10.1); CARBON DIOXIDE 28.6 mmol/L (21.0-32.0); CREATININE - SERUM 3.2 mg/dL (0.6-1.3); POTASSIUM - SERUM 3.6 mmol/L (3.5-5.1)
[2018-10-09 07:00] VITALS: BP 132/55
[2018-10-09 07:00] LABS: BASOPHILS 0.2 % (0-2); EOSINOPHILS 4.8 % (0-7); HEMATOCRIT 27.6 % (36.0-48.0); HEMOGLOBIN 8.6 g/dL (12-16); IMMATURE GRANULOCYTES 0.6 % (0-5); LYMPHOCYTES 19.6 % (15-50); MCH 25.6 pg (26.0-34.0); MCHC 31.2 g/dL (31.0-37.0); MCV 82.1 fL (80.0-100.0); MEAN PLATELET VOLUME 9.6 fL (7.4-10.4); MONOCYTES 12.8 % (2-11); PLATELET COUNT 217 10x3/uL (130-400); RBC 3.36 10x6/uL (4.00-5.40)
[2018-10-09 11:00] VITALS: BP 148/68
[2018-10-09 15:00] VITALS: BP 110/92
[2018-10-09 19:00] VITALS: BP 99/71
[2018-10-09 23:00] VITALS: BP 98/52
[2018-10-10 03:00] VITALS: BP 92/48
[2018-10-10 05:41] LABS: BASOPHILS 0.2 % (0-2); EOSINOPHILS 2.7 % (0-7); HEMATOCRIT 28.2 % (36.0-48.0); HEMOGLOBIN 8.7 g/dL (12-16); IMMATURE GRANULOCYTES 0.7 % (0-5); MCH 25.7 pg (26.0-34.0); MCHC 30.9 g/dL (31.0-37.0); MCV 83.2 fL (80.0-100.0); MEAN PLATELET VOLUME 9.4 fL (7.4-10.4); MONOCYTES 12.1 % (2-11); NEUTROPHILS 65.3 % (40-80); PLATELET COUNT 223 10x3/uL (130-400); RBC 3.39 10x6/uL (4.00-5.40); RDW 21.5 % (11.5-14.5); WBC 5.5 10x3/uL (4.8-10.8)
[2018-10-10 06:05] LABS: ANION GAP 10.6 mmol/L (8-16); CALCIUM 7.8 mg/dL (8.5-10.1); CARBON DIOXIDE 30.2 mmol/L (21.0-32.0); CREATININE - SERUM 2.9 mg/dL (0.6-1.3); POTASSIUM - SERUM 3.8 mmol/L (3.5-5.1)
[2018-10-10 07:00] VITALS: BP 100/61
[2018-10-10 14:54] VITALS: BP 106/64
[2018-10-10 21:42] VITALS: BP 108/65
[2018-10-11 00:57] VITALS: BP 102/64
[2018-10-11 04:38] LABS: BASOPHILS 0.2 % (0-2); EOSINOPHILS 3.6 % (0-7); HEMATOCRIT 28.9 % (36.0-48.0); HEMOGLOBIN 9.1 g/dL (12-16); IMMATURE GRANULOCYTES 1.2 % (0-5); MCHC 31.5 g/dL (31.0-37.0); MCV 82.6 fL (80.0-100.0); MEAN PLATELET VOLUME 9.5 fL (7.4-10.4); MONOCYTES 15.2 % (2-11); NEUTROPHILS 55.8 % (40-80); PLATELET COUNT 206 10x3/uL (130-400); RDW 21.4 % (11.5-14.5)
[2018-10-11 04:58] LABS: ALBUMIN 2.4 g/dL (3.4-5.0); ANION GAP 9.1 mmol/L (8-16); BILIRUBIN - TOTAL 0.91 mg/dL (0.2-1.3); CALCIUM 7.9 mg/dL (8.5-10.1); CARBON DIOXIDE 29.9 mmol/L (21.0-32.0); CREATININE - SERUM 3.4 mg/dL (0.6-1.3); MAGNESIUM - SERUM 1.5 mg/dL (1.8-2.4); PROTEIN - SERUM 7.4 g/dL (6.4-8.2)
[2018-10-11 05:39] VITALS: BP 138/73
[2018-10-11 09:00] VITALS: BP 110/57
[2018-10-11 15:00] VITALS: BP 112/80
[2018-10-11 21:06] VITALS: BP 96/53
[2018-10-12] VITALS: BP 89/49
[2018-10-12 04:59] VITALS: BP 103/60
[2018-10-12 05:28] LABS: BASOPHILS 0.2 % (0-2); EOSINOPHILS 2.9 % (0-7); HEMOGLOBIN 8.8 g/dL (12-16); IMMATURE GRANULOCYTES 1.2 % (0-5); LYMPHOCYTES 22.9 % (15-50); MCH 25.5 pg (26.0-34.0); MCHC 30.3 g/dL (31.0-37.0); MCV 84.1 fL (80.0-100.0); MEAN PLATELET VOLUME 9.7 fL (7.4-10.4); NEUTROPHILS 54.8 % (40-80); RBC 3.45 10x6/uL (4.00-5.40); RDW 22.2 % (11.5-14.5); WBC 4.9 10x3/uL (4.8-10.8)
[2018-10-12 05:34] LABS: PLATELET COUNT 273 10x3/uL (130-400)
[2018-10-12 05:52] LABS: ALBUMIN 2.3 g/dL (3.4-5.0); ANION GAP 11.1 mmol/L (8-16); BILIRUBIN - TOTAL 0.89 mg/dL (0.2-1.3); CALCIUM 7.5 mg/dL (8.5-10.1); CARBON DIOXIDE 29.7 mmol/L (21.0-32.0); CREATININE - SERUM 3.1 mg/dL (0.6-1.3); MAGNESIUM - SERUM 1.4 mg/dL (1.8-2.4); POTASSIUM - SERUM 3.8 mmol/L (3.5-5.1); PROTEIN - SERUM 7.2 g/dL (6.4-8.2)
[2018-10-12 10:05] VITALS: BP 120/69
[2018-10-12 13:23] VITALS: BP 133/77
[2018-10-12 19:07] VITALS: BP 141/67
[2018-10-12 20:30] VITALS: BP 115/65
[2018-10-13 04:30] VITALS: BP 113/67
[2018-10-13 06:50] LABS: BASOPHILS 0.2 % (0-2); EOSINOPHILS 3.7 % (0-7); HEMATOCRIT 29.2 % (36.0-48.0); IMMATURE GRANULOCYTES 1.2 % (0-5); LYMPHOCYTES 22.1 % (15-50); MCH 25.6 pg (26.0-34.0); MCHC 30.8 g/dL (31.0-37.0); MEAN PLATELET VOLUME 9.5 fL (7.4-10.4); MONOCYTES 18.4 % (2-11); NEUTROPHILS 54.4 % (40-80); PLATELET COUNT 272 10x3/uL (130-400); RBC 3.52 10x6/uL (4.00-5.40); RDW 22.4 % (11.5-14.5); WBC 4.3 10x3/uL (4.8-10.8)
[2018-10-13 07:21] LABS: ALBUMIN 2.2 g/dL (3.4-5.0); ANION GAP 11.8 mmol/L (8-16); BILIRUBIN - TOTAL 0.82 mg/dL (0.2-1.3); CALCIUM 7.6 mg/dL (8.5-10.1); CARBON DIOXIDE 27.2 mmol/L (21.0-32.0); CREATININE - SERUM 3.6 mg/dL (0.6-1.3); MAGNESIUM - SERUM 1.4 mg/dL (1.8-2.4); PROTEIN - SERUM 7.3 g/dL (6.4-8.2)
[2018-10-13 10:11] LABS: FUNGUS MYCOLOGY CULTURE Preliminary report (())
[2018-10-13 13:38] VITALS: BP 120/50
[2018-10-13 15:53] VITALS: BP 124/48
[2018-10-13 19:45] VITALS: BP 99/51
[2018-10-13 23:35] VITALS: BP 110/75
[2018-10-14 03:30] VITALS: BP 100/51
[2018-10-14 06:13] LABS: BASOPHILS 0.2 % (0-2); EOSINOPHILS 3.9 % (0-7); HEMATOCRIT 27.3 % (36.0-48.0); HEMOGLOBIN 8.6 g/dL (12-16); IMMATURE GRANULOCYTES 1.4 % (0-5); LYMPHOCYTES 24.5 % (15-50); MCH 25.8 pg (26.0-34.0); MCHC 31.5 g/dL (31.0-37.0); MEAN PLATELET VOLUME 9.2 fL (7.4-10.4); MONOCYTES 14.4 % (2-11); NEUTROPHILS 55.6 % (40-80); PLATELET COUNT 294 10x3/uL (130-400); RBC 3.33 10x6/uL (4.00-5.40); RDW 22.3 % (11.5-14.5); WBC 4.9 10x3/uL (4.8-10.8)
[2018-10-14 06:34] LABS: ALBUMIN 2.2 g/dL (3.4-5.0); BILIRUBIN - TOTAL 0.82 mg/dL (0.2-1.3); CALCIUM 7.5 mg/dL (8.5-10.1); CARBON DIOXIDE 31.3 mmol/L (21.0-32.0); CREATININE - SERUM 3.7 mg/dL (0.6-1.3); MAGNESIUM - SERUM 1.4 mg/dL (1.8-2.4); POTASSIUM - SERUM 4.3 mmol/L (3.5-5.1)
[2018-10-14 15:07] VITALS: BP 109/53
[2018-10-14 22:10] VITALS: BP 85/45
[2018-10-15] VITALS: BP 104/56
[2018-10-15 05:53] VITALS: BP 94/58
[2018-10-15 06:27] LABS: BASOPHILS 0.2 % (0-2); EOSINOPHILS 3.6 % (0-7); HEMATOCRIT 27.6 % (36.0-48.0); HEMOGLOBIN 8.7 g/dL (12-16); IMMATURE GRANULOCYTES 1.6 % (0-5); MCH 25.7 pg (26.0-34.0); MCHC 31.5 g/dL (31.0-37.0); MCV 81.7 fL (80.0-100.0); MEAN PLATELET VOLUME 9.5 fL (7.4-10.4); MONOCYTES 14.9 % (2-11); NEUTROPHILS 54.7 % (40-80); PLATELET COUNT 307 10x3/uL (130-400); RBC 3.38 10x6/uL (4.00-5.40); RDW 22.6 % (11.5-14.5)
[2018-10-15 06:31] LABS: ALBUMIN 2.1 g/dL (3.4-5.0); BILIRUBIN - TOTAL 0.7 mg/dL (0.2-1.3); CALCIUM 7.3 mg/dL (8.5-10.1); CARBON DIOXIDE 31.9 mmol/L (21.0-32.0); CREATININE - SERUM 3.2 mg/dL (0.6-1.3); MAGNESIUM - SERUM 1.4 mg/dL (1.8-2.4); POTASSIUM - SERUM 3.9 mmol/L (3.5-5.1); PROTEIN - SERUM 7.3 g/dL (6.4-8.2)
[2018-10-15 08:01] VITALS: BP 96/56
[2018-10-15 11:23] VITALS: BP 113/60
[2018-10-15 15:39] VITALS: BP 107/58
[2018-10-15 21:07] VITALS: BP 119/64
[2018-10-16 00:42] VITALS: BP 130/60
[2018-10-16 05:17] VITALS: BP 114/60
[2018-10-16 07:56] VITALS: BP 106/58
[2018-10-16 21:03] VITALS: BP 109/63
[2018-10-17 01:12] VITALS: BP 97/52
[2018-10-17 04:38] VITALS: BP 100/55
[2018-10-17 08:03] VITALS: BP 93/48
[2018-10-17 11:19] VITALS: BP 137/74
[2018-10-17 15:50] VITALS: BP 121/65
[2018-10-17 20:00] VITALS: BP 106/60
[2018-10-18] VITALS: BP 112/61
[2018-10-18 04:00] VITALS: BP 118/64
[2018-10-18 09:08] VITALS: BP 107/58
[2018-10-18 18:00] VITALS: BP 101/57
[2018-10-18 20:00] VITALS: BP 103/56
[2018-10-19] VITALS: BP 125/65
[2018-10-19 04:00] VITALS: BP 128/60
[2018-10-19 06:22] LABS: BASOPHILS 0.2 % (0-2); EOSINOPHILS 9.4 % (0-7); HEMATOCRIT 28.7 % (36.0-48.0); HEMOGLOBIN 9.1 g/dL (12-16); IMMATURE GRANULOCYTES 0.5 % (0-5); LYMPHOCYTES 19.6 % (15-50); MCH 25.8 pg (26.0-34.0); MCHC 31.7 g/dL (31.0-37.0); MCV 81.3 fL (80.0-100.0); MONOCYTES 11.1 % (2-11); NEUTROPHILS 59.2 % (40-80); PLATELET COUNT 313 10x3/uL (130-400); RBC 3.53 10x6/uL (4.00-5.40); RDW 23.2 % (11.5-14.5); WBC 5.7 10x3/uL (4.8-10.8)
[2018-10-19 06:37] LABS: ANION GAP 6.2 mmol/L (8-16); CALCIUM 7.8 mg/dL (8.5-10.1); CREATININE - SERUM 2.7 mg/dL (0.6-1.3); POTASSIUM - SERUM 4.2 mmol/L (3.5-5.1)
[2018-10-19 08:12] VITALS: BP 98/55
[2018-10-19 12:16] VITALS: BP 136/71
[2018-10-19 18:32] VITALS: BP 111/52
[2018-10-19 20:30] VITALS: BP 105/54
[2018-10-20 04:30] VITALS: BP 110/62
[2018-10-20 05:54] LABS: BASOPHILS 0.2 % (0-2); EOSINOPHILS 8.4 % (0-7); HEMOGLOBIN 9.1 g/dL (12-16); IMMATURE GRANULOCYTES 0.7 % (0-5); LYMPHOCYTES 23.2 % (15-50); MCH 25.6 pg (26.0-34.0); MCHC 31.4 g/dL (31.0-37.0); MCV 81.7 fL (80.0-100.0); MEAN PLATELET VOLUME 8.9 fL (7.4-10.4); MONOCYTES 12.9 % (2-11); NEUTROPHILS 54.6 % (40-80); PLATELET COUNT 317 10x3/uL (130-400); RBC 3.55 10x6/uL (4.00-5.40); RDW 23.2 % (11.5-14.5); WBC 5.7 10x3/uL (4.8-10.8)
[2018-10-20 06:09] LABS: ANION GAP 6.1 mmol/L (8-16); CALCIUM 7.9 mg/dL (8.5-10.1); CARBON DIOXIDE 32.7 mmol/L (21.0-32.0); CREATININE - SERUM 3.1 mg/dL (0.6-1.3); POTASSIUM - SERUM 4.8 mmol/L (3.5-5.1)
[2018-10-20 07:54] VITALS: BP 99/58
[2018-10-20 10:54] VITALS: BP 142/80
[2018-10-20 15:00] VITALS: BP 128/76
[2018-10-20 19:00] VITALS: BP 122/62
[2018-10-21 01:37] VITALS: BP 166/67
[2018-10-21 06:11] VITALS: BP 129/62
[2018-10-21 06:55] LABS: ANION GAP 4.3 mmol/L (8-16); CALCIUM 8.4 mg/dL (8.5-10.1); CREATININE - SERUM 3.4 mg/dL (0.6-1.3); POTASSIUM - SERUM 5.3 mmol/L (3.5-5.1)
[2018-10-21 07:11] LABS: BASOPHILS 0.4 % (0-2); EOSINOPHILS 8.9 % (0-7); HEMATOCRIT 29.9 % (36.0-48.0); HEMOGLOBIN 9.5 g/dL (12-16); IMMATURE GRANULOCYTES 0.6 % (0-5); LYMPHOCYTES 22.2 % (15-50); MCH 25.7 pg (26.0-34.0); MCHC 31.8 g/dL (31.0-37.0); MEAN PLATELET VOLUME 9.1 fL (7.4-10.4); NEUTROPHILS 53.9 % (40-80); PLATELET COUNT 334 10x3/uL (130-400); RBC 3.69 10x6/uL (4.00-5.40); RDW 22.8 % (11.5-14.5); WBC 5.4 10x3/uL (4.8-10.8)
[2018-10-21 08:11] VITALS: BP 96/60
[2018-10-21 16:40] VITALS: BP 101/64
[2018-10-21 20:48] VITALS: BP 145/82
[2018-10-22 01:06] VITALS: BP 142/71
[2018-10-22 05:11] VITALS: BP 135/83
[2018-10-22 07:57] VITALS: BP 118/64
[2018-10-22 11:30] VITALS: BP 126/71
[2018-10-22 18:08] VITALS: BP 119/66
[2018-10-22 20:33] VITALS: BP 133/78
[2018-10-23] VITALS: BP 113/63
[2018-10-23 04:00] VITALS: BP 151/86
[2018-10-23 08:02] VITALS: BP 138/50
[2018-10-23 11:13] LABS: BASOPHILS 0.6 % (0-2); EOSINOPHILS 3.4 % (0-7); HEMATOCRIT 27.5 % (36.0-48.0); HEMOGLOBIN 8.9 g/dL (12-16); IMMATURE GRANULOCYTES 0.4 % (0-5); LYMPHOCYTES 22.3 % (15-50); MCH 25.9 pg (26.0-34.0); MCHC 32.4 g/dL (31.0-37.0); MCV 79.9 fL (80.0-100.0); MEAN PLATELET VOLUME 8.9 fL (7.4-10.4); MONOCYTES 12.4 % (2-11); NEUTROPHILS 60.9 % (40-80); PLATELET COUNT 317 10x3/uL (130-400); RBC 3.44 10x6/uL (4.00-5.40); RDW 22.4 % (11.5-14.5); WBC 4.8 10x3/uL (4.8-10.8)
[2018-10-23 11:17] LABS: ALBUMIN 2.4 g/dL (3.4-5.0); ANION GAP 9.2 mmol/L (8-16); BILIRUBIN - TOTAL 1.01 mg/dL (0.2-1.3); CARBON DIOXIDE 32.1 mmol/L (21.0-32.0); CREATININE - SERUM 2.8 mg/dL (0.6-1.3); POTASSIUM - SERUM 4.3 mmol/L (3.5-5.1); PROTEIN - SERUM 7.6 g/dL (6.4-8.2)
== END 2018-10-23 15:03 | DRG 673 ==
LOC: D.ICU 17:12 → D.M2 20:44 → D.ICU 20:44 → D.CVICU 20:44 → D.M2 09-25 09:44 → D.CVICU 10-03 16:17 → D.M2 10-10 13:28
PROVIDERS: Emergency Medicine; Internal Medicine; Internal Medicine Nephrology; Internal Medicine Pulmonary Disease; Surgery
PROC: 5A09357 Assistance with Respiratory Ventilation, Less than 24 Consecutive Hours, Continuous Positive Airway Pressure (ICD-10-PCS; 2018-09-19)
PROC: 05H533Z Insertion of Infusion Device into Right Subclavian Vein, Percutaneous Approach (ICD-10-PCS; 2018-09-20)
PROC: 0JH63XZ Insertion of Tunneled Vascular Access Device into Chest Subcutaneous Tissue and Fascia, Percutaneous Approach (ICD-10-PCS; 2018-09-29)
PROC: 05HM33Z Insertion of Infusion Device into Right Internal Jugular Vein, Percutaneous Approach (ICD-10-PCS; 2018-09-29)
PROC: 03170ZD Bypass Right Brachial Artery to Upper Arm Vein, Open Approach (ICD-10-PCS; principal; 2018-10-03 09:45)
PROC: 0BC78ZZ Extirpation of Matter from Left Main Bronchus, Via Natural or Artificial Opening Endoscopic (ICD-10-PCS; 2018-10-04)
PROC: 0B998ZZ Drainage of Lingula Bronchus, Via Natural or Artificial Opening Endoscopic (ICD-10-PCS; 2018-10-04)
PROC: 0B988ZZ Drainage of Left Upper Lobe Bronchus, Via Natural or Artificial Opening Endoscopic (ICD-10-PCS; 2018-10-04)
PROC: 0B9B8ZZ Drainage of Left Lower Lobe Bronchus, Via Natural or Artificial Opening Endoscopic (ICD-10-PCS; 2018-10-04)
DX: N17.9 Acute kidney failure, unspecified (principal); J96.21 Acute and chronic respiratory failure with hypoxia; I50.43 Acute on chronic combined systolic (congestive) and diastolic (congestive) heart failure; J96.22 Acute and chronic respiratory failure with hypercapnia; J18.9 Pneumonia, unspecified organism; I13.0 Hypertensive heart and chronic kidney disease with heart failure and stage 1 through stage 4 chronic kidney disease, or unspecified chronic kidney disease; Z68.43 Body mass index [BMI] 50.0-59.9, adult; N39.0 Urinary tract infection, site not specified; E87.2 Acidosis; K62.5 Hemorrhage of anus and rectum; J98.11 Atelectasis; E11.22 Type 2 diabetes mellitus with diabetic chronic kidney disease; N18.9 Chronic kidney disease, unspecified; E66.01 Morbid (severe) obesity due to excess calories; R60.1 Generalized edema; Z91.19 Patient's noncompliance with other medical treatment and regimen; G47.33 Obstructive sleep apnea (adult) (pediatric); E78.5 Hyperlipidemia, unspecified; D63.1 Anemia in chronic kidney disease; B96.1 Klebsiella pneumoniae [K. pneumoniae] as the cause of diseases classified elsewhere; E11.40 Type 2 diabetes mellitus with diabetic neuropathy, unspecified; E11.21 Type 2 diabetes mellitus with diabetic nephropathy; R53.81 Other malaise; I27.20 Pulmonary hypertension, unspecified